=== PATIENT | male | born 1960 | race Caucasian/White ===

== ENCOUNTER 2019-10-15 08:58 | Inpatient (IN) | payer MEDICAID, SELFPAY ==
[2019-10-15] VITALS (53 sets, daily range): BP systolic 66–201; BP diastolic 44–138; PULSE 88–144; RESP 14–37; TEMP 36.4–37.3; O2SAT 60–97; BMI 18.8
--- NOTE | 2019-10-15 09:08 | XR_ITS ---
WS: [id number] CHEST XRAY TECHNIQUE: Portable chest. CLINICAL INFORMATION: cough COMPARISON: September 03, 2019 FINDINGS: Heart: Cardiomegaly. Lungs: Advanced chronic emphysematous changes with interstitial thickening in both lungs. Small left pleural effusion with patchy infiltrates in the left lower lobe with some consolidation and air bronc hograms. Recommend correlation for pneumonia. Trace right pleural fluid. Bones: Normal visualized bony structures. XR/XR chest 1V portable [id number] IMPRESSION: 1. Advanced chronic emphysematous changes with interstitial thickening similar to previous. 2. Small left pleural effusion with patchy infiltrates in the left lower lobe with some consolidation and air bronchograms. Recommend correlation for pneumon ia. 3. Trace right pleural fluid.
--- NOTE | 2019-10-15 09:11 | ECG_ITS ---
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 Measurements Intervals [place] Rate: 120 P: 72 DE: 136 QRS: 96 QRSD: 104 T: 35 QT: 302 QTc: 427 Interpretive Statements SINUS TACHYCARDIA WITH OCCASIONAL SUPRAVENTRICULAR PREMATURE COMPLEXES BORDERLINE RIGHT AXIS DEVIATION [QRS AXIS > 90] NONSPECIFIC ST & T-WAVE ABNORMALITY ABNORMAL RHYTHM ECG Compared to ECG 09/07/2016 12:12:24 T-wave abnormality now present Sinus rhythm no longer present Electronically Signed On 10-15-2019 16:40:16 CDT by Benjie Bonilla M.D. [id number]
--- NOTE | 2019-10-15 09:23 | ED_ITS ---
HPI - SOB/Dyspnea General: Chief Complaint: Shortness of Breath/Dyspnea Stated Complaint: SOB Time Seen by Provider: 10/15/19 08:59 Source: patient Mode of arrival: ambulatory Limitations: no limitations History of Present Illness: HPI Narrative: 59-year-old male who states he has been severely short of breath over the last day. Patient is in distress here and is hypoxic. He is tachypnea. Patient is a very frail-appearing. He has a history of throat cancer. He denies any chest pain or fever. MD elicited complaint: shortness of breath Associated symptoms: Deny abdominal pain, chest pain, fever(s), nausea or vomiting Review of Systems Const: Denies: fever(s), chills, body aches or change in appetite Eyes: Denies: blurry vision or eye discomfort ENMT: Denies: throat pain or dental pain Card: Denies: chest pain Resp: Reports: dyspnea and productive cough GI: Denies: abdominal pain, nausea, vomiting or diarrhea : Denies: dysuria Musc: Denies: neck pain or back pain Skin/Breast: Denies: rash Neuro: Denies: headache(s) Psych: Denies: depression Rafita/Lymph: Denies: easy bruising All/Imm: Denies: urticaria Physical Exam Const: COMMON NORMALS: patient oriented x3 GENERAL APPEARANCE: in distress and ill appearing HENMT: COMMON NORMALS: normocephalic and atraumatic HEAD & SCALP: normocephalic and atraumatic Eye: COMMON NORMALS: Equal, round and reactive pupils present and EOMs intact bilaterally PUPIL: Yes Equal, round and reactive pupils present Neck/C-Spine: COMMON NORMALS: full ROM and supple Chest: COMMONS NORMALS: normal inspection of the chest and normal palpation of entire chest wall Resp: EFFORT & INSPECTION: Yes tachypneic and Yes respiratory distress AUSCULTATION: rales and rhonchi Cardio: COMMON NORMALS: regular rhythm and No murmurs present (Cardio) RATE: tachycardic RHYTHM: regular rhythm GI: COMMON NORMALS: Normal to inspection, nondistended, normoactive bowel sounds present, Soft to palpation, non-tender and no masses PALPATION: Yes Soft to palpation Extremity: COMMON NORMALS: normal to inspection and full ROM Neuro: COMMON NORMALS: patient oriented x3, moves all extremities and no focal motor deficits Psych: COMMON NORMALS: mental status grossly normal, Normal thought process present and cooperative THOUGHT PROCESS: Normal thought process present Skin: COMMON NORMALS: no rashes or lesions noted and no wounds GENERAL SKIN EXAM: no rashes or lesions noted Procedures Intubation sedative: Etomidate Mg Given: 20 paralytic: Succinylcholine Mg Given: 150 Laryngoscope: Ivy ET Tube Size: 8 Tube Secured Depth (cm): 25 Tube Secured Location: teeth Tube Placement Confirmation: visualized tube passing through cords, equal breath sounds bilaterally and no breath sounds over epigastrium Patient Tolerated Procedure: well Course Vital Signs: Vital signs: Vital Signs Temperature 98.3 F 10/15/19 09:01 Pulse Rate 118 H 10/15/19 09:40 Respiratory Rate 24 H 10/15/19 09:01 Blood Pressure 137/101 10/15/19 09:01 Pulse Oximetry 97 10/15/19 09:40 MDM - SOB/Dyspnea MDM Narrative: Medical decision making narrative: Patient presents here with respiratory distress with pneumonia. While patient was in CT distress became worse and I did intubate patient over and CT. Patient's blood pressures here been stable. I start IV antibiotics. Patient's been seen by Dr. lopez who is admitting to the ICU. Lab Data: Labs: Lab Results 10/15/19 10/15/19 10/15/19 Range/Units 09:35 09:35 09:35 WBC 12.1 H (4.0-10.0) 10^3/ uL RBC 4.63 (4.1-5.3) 10^6/u L Hgb 14.7 (11.7-16.6) g/dL Hct 47.4 (42.0-52.0) % MCV 102.4 H (80-94) fL MCH 31.7 (28.0-34.0) pg MCHC 31.0 (30.0-36.0) g/dL RDW 14.7 (12.1-15.1) % Plt Count 323 (130-400) 10^3/c mm MPV 10.0 (7.4-10.4) fL Neut % (Auto) 79.1 % Lymph % (Auto) 11.9 % [place] % (Auto) 8.3 % Eos % (Auto) 0.1 % Baso % (Auto) 0.2 % Neut # (Auto) 9.59 H (1.8-7.7) 10^3/u L Lymph # (Auto) 1.4 (0.8-4.8) 10^3/u L [place] # (Auto) 1.0 H (0.2-0.9) 10^3/u L Eos # (Auto) 0.0 (0.0-0.8) 10^3/u L Baso # (Auto) 0.0 (0.0-0.1) 10^3/u L Nucleated RBC % (a uto) 0 % Nucleated RBCs # 0.0 /100WBC PT 14.20 H (10.5-13.3) SECO NDS INR 1.06 (0.8-1.2) Specimen Type Arterial Sample Site Brachial, right ABG pH 7.44 (7.35-7.45) ABG pCO2 44.9 (35-45) mmHg ABG pO2 61.8 L (80.0-100.0) mmH g ABG HCO3 30.2 H (22-26) mmol/L ABG Base Excess 5.1 H (-2.0-2.0) mmol/ L Prosper Test N/a Hematocrit 44.7 (42-52) % O2 Delivery Device Bipap FiO2 40.0 % Furnace Unloader ID gd Sodium (136-145) mmol/L Potassium (3.5-5.1) mmol/L Chloride (98-107) mmol/L Carbon Dioxide (22-29) mmol/L Anion Gap (5-19) BUN (8-23) mg/dL Creatinine (0.7-1.2) mg/dL GFR Calculation (90-130) mL/min Glucose (65-115) mg/dL Calculated Osmolal ity (285-295) mOsm/k g Calcium (8.5-10.5) mg/dL Total Bilirubin (0.15-1.2) mg/dL AST (0-40) U/L ALT (0-41) U/L Alkaline Phosphata se (40-130) IU/L Troponin T Baselin e (0-15) ng/L NT-Pro-B Natriuret Pep (0-125) pg/mL Total Protein (6.6-8.7) g/dL Albumin (3.5-5.2) g/dL Globulin (1.3-4.6) g/dL 10/15/19 10/15/19 Range/Units 09:35 09:35 WBC (4.0-10.0) 10^3/ uL RBC (4.1-5.3) 10^6/u L Hgb (11.7-16.6) g/dL Hct (42.0-52.0) % MCV (80-94) fL MCH (28.0-34.0) pg MCHC (30.0-36.0) g/dL RDW (12.1-15.1) % Plt Count (130-400) 10^3/c mm MPV (7.4-10.4) fL Neut % (Auto) % Lymph % (Auto) % [place] % (Auto) % Eos % (Auto) % Baso % (Auto) % Neut # (Auto) (1.8-7.7) 10^3/u L Lymph # (Auto) (0.8-4.8) 10^3/u L [place] # (Auto) (0.2-0.9) 10^3/u L Eos # (Auto) (0.0-0.8) 10^3/u L Baso # (Auto) (0.0-0.1) 10^3/u L Nucleated RBC % (a uto) % Nucleated RBCs # /100WBC PT (10.5-13.3) SECO NDS INR (0.8-1.2) Specimen Type Sample Site ABG pH (7.35-7.45) ABG pCO2 (35-45) mmHg ABG pO2 (80.0-100.0) mmH g ABG HCO3 (22-26) mmol/L ABG Base Excess (-2.0-2.0) mmol/ L Prosper Test Hematocrit (42-52) % O2 Delivery Device FiO2 % Furnace Unloader ID Sodium 136 (136-145) mmol/L Potassium 4.8 (3.5-5.1) mmol/L Chloride 97 L (98-107) mmol/L Carbon Dioxide 28 (22-29) mmol/L Anion Gap 15.8 (5-19) BUN 29 H (8-23) mg/dL Creatinine 0.5 L (0.7-1.2) mg/dL GFR Calculation 169.6 H (90-130) mL/min Glucose 111 (65-115) mg/dL Calculated Osmolal ity 280 L (285-295) mOsm/k g Calcium 9.9 (8.5-10.5) mg/dL Total Bilirubin 0.3 (0.15-1.2) mg/dL AST 33 (0-40) U/L ALT 52 H (0-41) U/L Alkaline Phosphata se 176 H (40-130) IU/L Troponin T Baselin e 16 H (0-15) ng/L NT-Pro-B Natriuret Pep 845 H (0-125) pg/mL Total Protein 8.0 (6.6-8.7) g/dL Albumin 2.9 L (3.5-5.2) g/dL Globulin 5.1 H (1.3-4.6) g/dL Imaging Data^: CXR: Radiologist's impression: [place] [address] XRay Report Signed Patient: Charles Garay Unit #: [id number] : 1960 Age/Sex: 59 / M ADM Date: 10/15/19 Loc: ER Room/Bed: Attending Dr: Ordering Provider/Ordering MD: Brooks Madrigal MD Date of Service: 10/15/19 Procedure(s): XR chest 1V portable [id number] Accession Number(s): [id number] Report Number: [id number] WS: [id number] CHEST XRAY TECHNIQUE: Portable chest. CLINICAL INFORMATION: cough COMPARISON: September 03, 2019 FINDINGS: Heart: Cardiomegaly. Lungs: Advanced chronic emphysematous changes with interstitial thickening in both lungs. Small left pleural effusion with patchy infiltrates in the left lower lobe with some consolidation and air bronchograms. Recommend correlation for pneumonia. Trace right pleural fluid. Bones: Normal visualized bony structures. XR/XR chest 1V portable [id number] IMPRESSION: 1. Advanced chronic emphysematous changes with interstitial thickening similar to previous. 2. Small left pleural effusion with patchy infiltrates in the left lower lobe with some consolidation and air bronchograms. Recommend correlation for pneumonia. 3. Trace right pleural fluid. EKG Data^: EKG 1: Attestation: I personally reviewed and interpreted this EKG as follows: EKG Interpretation Date: 10/15/19 EKG interpretation time: 09:57 Interpretation: sinus tach hr [address] and t wave abnormalities qrs 104 qtc 373 Critical Care Time Critical Care Time: Critical Care Time: Yes Total Critical Care Time: 36 Attestation: This case had a high probability of a clinically significant, sudden, or life threatening deterioration of this patient's condition which required my full and direct attention, intervention and personal management. Discharge Plan Discharge Patient Disposition: Admitted As Inpatient Admit Provider: Padmini Schwartz Clinical Impression: Community acquired pneumonia Condition: Stable Coding Level of Care Code ED Regional Airline Pilot for Chg Fwd Exam Comprehensive
[2019-10-15 09:43] LABS: Basophils % 0.2 %; Eosinophils % 0.1 %; Hematocrit 47.4 % (42.0-52.0); Hemoglobin 14.7 g/dL (11.7-16.6); Lymphocytes # 1.4 10^3/uL (0.8-4.8); Lymphocytes % 11.9 %; Mean Corpuscular Hemoglobin 31.7 pg (28.0-34.0); Mean Corpuscular Volume 102.4 fL (80-94); Monocytes % 8.3 %; Neutrophils # 9.59 10^3/uL (1.8-7.7); Neutrophils % 79.1 %; Nucleated Red Blood Cells % 0 %; Platelet Count 323 10^3/cmm (130-400); Red Blood Count 4.63 10^6/uL (4.1-5.3); Red Cell Distribution Width 14.7 % (12.1-15.1); White Blood Count 12.1 10^3/uL (4.0-10.0)
[2019-10-15 09:51] LABS: INR 1.06 (0.8-1.2)
[2019-10-15 09:54] LABS: ABG PCO2 44.9 mmHg (35-45); ABG PH Result 7.44 (7.35-7.45); Arterial Blood Gas Hematocrit 44.7 % (42-52); Base Excess ABG 5.1 mmol/L (-2.0-2.0); Blood Gas Sample Site Brachial, right; Blood Gas Sample Type Arterial; HCO3 ABG 30.2 mmol/L (22-26); Oxygen Device BIPAP; PO2 ABG 61.8 mmHg (80.0-100.0)
--- NOTE | 2019-10-15 09:57 | PC.NURSE ---
Patient was originally placed into room 15. Severe respiratory distress observed SP02_60% with a good waveform. A NRB 15-lpm applied. The pulse ox increased to 93%. Approximately 40 mL of yellow/milky substance was coughed up. The patient believes this came from his lungs. He was moved to room 11. RT called to bedside for ABG and Bi-Pap. Portable chest performed.
[2019-10-15 10:16] LABS: Alanine Aminotransferase 52 U/L (0-41); Albumin Level 2.9 g/dL (3.5-5.2); Alkaline Phosphatase 176 IU/L (40-130); Anion Gap 15.8 (5-19); Aspartate Amino Transferase 33 U/L (0-40); Blood Urea Nitrogen 29 mg/dL (8-23); Calcium 9.9 mg/dL (8.5-10.5); Carbon Dioxide 28 mmol/L (22-29); Chloride 97 mmol/L (98-107); Globulin 5.1 g/dL (1.3-4.6); Glomerular Filtration Rate 169.6 mL/min (90-130); Glucose 111 mg/dL (65-115); NT Pro B Type Natriuretic Pept 845 pg/mL (0-125); Osmolality Calculated 280 mOsm/kg (285-295); Potassium 4.8 mmol/L (3.5-5.1); Sodium 136 mmol/L (136-145); Total Bilirubin 0.3 mg/dL (0.15-1.2)
[2019-10-15 10:32] LABS: Troponin(5th) Baseline 16 ng/L (0-15)
--- NOTE | 2019-10-15 10:45 | CT_ITS ---
WS: [id number] CTA OF THE CHEST WITH PULMONARY EMBOLISM PROTOCOL TECHNIQUE: High-resolution contrast enhanced CTA of the chest with coronal and sagittal reformatted i mages with pulmonary embolism protocol. MIP images are also reviewed. CLINICAL INFORMATION: pe COMPARISON: None. DLP: 545.[address] scans at [facility] use at least one of these dose optimization techniques: automat ed exposure control; mA and/or kV adjustment per patient size (includes targeted exams where dose is matched to clinical indication); or iterative reconstruction. FINDINGS: Proximal main pulmonary arteries are normal. Segmental and subsegmental pulmonary arteries are normal . No evidence of pulmonary embolus. Slightly ectatic ascending thoracic aorta measuring 4 CM. Thoracic aorta otherwise unremarkable. Prox imal main pulmonary arteries are normal. Small left pleural effusion with consolidation left lower lo be with air bronchograms. Fibrosis in the left greater than right lung apices. Patchy opacities throu ghout both lungs with tree-in-bud infiltrates. Right upper lobe opacity measuring 3.1 cm likely infec tious or inflammatory. 5 mm Noncalcified nodule superior segment right lower lobe. Endotracheal tube with tip above the star CT/CT angio chest PE protcl [id number] IMPRESSION: 1. No evidence of pulmonary embolus. 2. Consolidation left lower lobe consistent with pneumonia. Patchy infiltrates in the left lower lobe and lingula. 3. Tree-in-bud infiltrates throughout both lungs can be seen with infectious o r inflammatory etiologies. 4. Patchy infiltrates in the right upper lobe along the fissure likely pneumon ia. 5. Opacities in both lung apices likely fibrosis. 6. Endotracheal tube above the star. 7. Slightly ectatic ascending thoracic aorta measuring 4.0 cm.
[2019-10-15] MEDS: vancomycin 1,000 MG in sodium chloride 0.9% 250 ML 250 MG IV (11:26)
[2019-10-15] MEDS: FUROsemide 10 mg/mL SDV 4mL 40 MG IVP (11:26)
[2019-10-15] MEDS: piperacillin-tazobactam 3.375 GM in sodium chloride 0.9% (plus) 50 ML IV ×2 (11:27→15:09)
--- NOTE | 2019-10-15 11:42 | PM.HP ---
Providers/Chief Complaint Admitting Physician: Padmini Schwartz DO Primary Care Provider: Martin Mcfarland DO Chief Complaint: SOB History of Present Illness Charles Garay is a 59 year old male with a past medical history of tonsillar cancer and COPD that presented to the emergency department today for increasing shortness of breath. Patient reported that his symptoms have been progressive over the past several weeks. He stated that he has had symptoms for over 2 to 3 weeks. He reports increasing shortness of breath, cough that is productive and increasing oxygen requirements. Patient denies any fevers or chills. He reports that he has had recent hospitalization at [facility] in [facility] approximately 2 to 3 months ago. He stated that he was diagnosed with a tension pneumothorax at that time and had a chest tube placed on his right chest. He stated that he is typically on 3 L of oxygen by nasal cannula at baseline but has increased his oxygen requirements up to 5 L at times. He denies having any CPAP or BiPAP at home. Patient reports that he has not seen his primary care provider in several weeks. He denies any exposure to anyone with COVID-19, denies any exposure to anyone that is under investigation for COVID-19. Patient reports that he has a PEG tube and continues with tube feedings, is n.p.o., does have difficulty with clearing his secretions at times. Reports that he feels dehydrated and has had decreased urine output. Patient does report over the past couple of days he has had bright red blood per rectum as well as dark and melanotic stools. He also reports weight loss over the past 1 year of approximately 10 to 12 pounds. Patient was seen and evaluated in the emergency department noted to have concern for acute on chronic respiratory failure placed on BiPAP and admitted to the ICU. Review of Systems Const: Denies: fever(s) or chills Eyes: Denies: change in vision ENMT: Denies: nasal congestion Card: Denies: chest pain, palpitations or edema Resp: Reports: dyspnea and productive cough; Denies: hemoptysis GI: Reports: hematochezia and melena; Denies: abdominal pain, nausea, vomiting, diarrhea or constipation : Denies: dysuria or hematuria Musc: Denies: extremity pain or muscle cramps Skin/Breast: Denies: rash or new lesions Neuro: Denies: headache(s) or dizziness Psych: Denies: anxiety or depression Endo: Denies: polyuria or hot flashes Rafita/Lymph: Denies: easy bruising or easy bleeding Medications/Allergies Home Medications Medication Instructions Recorded Confirmed Last Taken Type acetaminophen-codeine 1 tab PO TID PRN 10/15/19 10/15/19 Unknown History buspirone 10 mg PO TID PRN 10/15/19 10/15/19 10/14/19 History Allergies Allergy/AdvReac Type Severity Reaction Status Date / Time No Known Allergies Allergy Verified 10/15/19 09:22 PFSH Acute PFSH: Medical History (Updated 10/15/19 @ 12:16 by Padmini Schwartz DO) Anxiety Aspiration, chronic pulmonary COPD (chronic obstructive pulmonary disease) History of malignant neoplasm of tonsil History of osteomyelitis Osteomyelitis of the mandible, treated in 2017 Uses feeding tube Surgical History (Updated 10/15/19 @ 12:12 by Padmini Schwartz DO) History of tonsillectomy Cancer resection with tonsillar cancer Social History (Updated 10/15/19 @ 12:12 by Padmini Schwartz DO) Smoking and tobacco status: former smoker Alcohol intake: never Substance/Drug Use: never Vitals/I&O/Wt Last Vital Signs Temp 98.3 F 10/15/19 09:01 Pulse 118 H 10/15/19 09:40 Resp 24 H 10/15/19 09:01 BP 137/101 10/15/19 09:01 Pulse Ox 97 10/15/19 09:40 Weight last 48 hrs Weight 53.07 kg Physical Exam Const: COMMON NORMALS: patient oriented x3 and alert GENERAL APPEARANCE: cooperative, ill appearing and frail appearing NUTRITIONAL APPEARANCE: cachectic and thin ORIENTATION/CONSCIOUSNESS: Yes awake, Yes oriented to person, Yes oriented to place and Yes oriented to time HENMT: COMMON NORMALS: normocephalic and atraumatic HEAD & SCALP: normocephalic and atraumatic OTHER: Temporal wasting, muscle atrophy in the masseters bilaterally due to radiation treatment in the past Eye: COMMON NORMALS: Equal, round and reactive pupils present PUPIL: Yes Equal, round and reactive pupils present Neck/C-Spine: COMMON NORMALS: supple GENERAL: Yes normal visual inspection Resp: OTHER: BiPAP in place at time of exam, tachypneic, moderate accessory muscle use, coarse breath sounds bilaterally Cardio: RATE: tachycardic RHYTHM: regular rhythm GI: COMMON NORMALS: Soft to palpation and non-tender INSPECTION: No abdominal distension AUSCULTATION: Yes normoactive bowel sounds PALPATION: Yes Soft to palpation OTHER: PEG tube in place Extremity: COMMON NORMALS: no clubbing, cyanosis or edema and no calf tenderness Neuro: COMMON NORMALS: patient oriented x3, CN's II-XII intact bilaterally, moves all extremities and no focal motor deficits SENSORIUM/ORIENTATION: Yes alert, Yes oriented to person, Yes oriented to place and Yes oriented to time SPEECH: speech normal Psych: COMMON NORMALS: mental status grossly normal and cooperative Skin: COMMON NORMALS: no rashes or lesions noted GENERAL SKIN EXAM: no rashes or lesions noted Data : 10/15/19 09:35 10/15/19 09:35 Micro: Microbiology 10/15/19 09:30 Blood Culture - Preliminary Blood SPECIMEN COLLECTED 10/15/19 09:35 Blood Culture - Preliminary Blood SPECIMEN COLLECTED CXR: I personally reviewed and interpreted this imaging study as follows: Radiologist's impression: Heart: Cardiomegaly. Lungs: Advanced chronic emphysematous changes with interstitial thickening in both lungs. Small left pleural effusion with patchy infiltrates in the left lower lobe with some consolidation and air bronchograms. Recommend correlation for pneumonia. Trace right pleural fluid. Bones: Normal visualized bony structures. XR/XR chest 1V portable [id number] IMPRESSION: 1. Advanced chronic emphysematous changes with interstitial thickening similar to previous. 2. Small left pleural effusion with patchy infiltrates in the left lower lobe with some consolidation and air bronchograms. Recommend correlation for pneumonia. 3. Trace right pleural fluid. A&P Assessment and plan (1) Acute on chronic respiratory failure: Patient on BiPAP at time of my exam in the emergency department Typically on 3 to 5 L of oxygen by nasal cannula at baseline Reports acute on chronic worsening over the past 2 to 4 weeks Concern for aspiration pneumonitis and pneumonia Patient also being tested for COVID-19, remain on contact and isolation precautions Respiratory therapy to assess and treat, oxygen per protocol We will consult Dr. Buckley, critical care pulmonology Started on broad-spectrum antibiotics with linezolid and Zosyn, blood culture, sputum culture ordered and pending Patient also tachycardic and hypoxic with prior malignancy, CTA of the chest ordered and pending Aspiration precautions Status: Acute (2) Aspiration pneumonia: Continue with broad-spectrum antibiotic coverage with linezolid and Zosyn Oxygen per protocol, respiratory therapy to assess and treat Transfer to ICU Status: Acute (3) Aspiration, chronic pulmonary: Chronic aspiration with a history of tonsillar cancer, resection, status post radiation treatment currently in remission Continue with broad-spectrum antibiotics as noted above Status: Acute (4) COPD (chronic obstructive pulmonary disease): On BiPAP at time of my exam Patient is on 3 to 5 L of oxygen by nasal cannula at baseline Admit to ICU Continue with broad-spectrum antibiotics and Solu-Medrol 60 mg every 6 hours Status: Acute (5) Uses feeding tube: Patient is on tube feeds at home every 6 hours N.p.o. due to Status: Acute (6) Anxiety: On BuSpar Status: Acute Additional A&P Information Initial concern for fluid overload and congestive heart failure exacerbation, unknown specificity while in the ED given IV Lasix 40?1, will check echocardiogram for further evaluation and treatment Patient is thin and cachectic appearing with weight loss over the past 1 year and prior malignancy, reported to be currently in remission but reports that he has not followed with any oncologist recently Reported hematochezia and melena: Patient reports this is progressed over the past couple of days, denies any history of GI bleed, hemoglobin is stable at this time we will continue close monitoring with serial H&H, will hold on DVT prophylaxis at this time and only give SCDs, if no bleeding over the next 12 to 24 hours we will start DVT prophylaxis with Lovenox DVT prophylaxis: SCDs, no pharmacologic prophylaxis as noted above at this time Diet: N.p.o. CODE STATUS: Full code, this was discussed with patient on date of admission, he was uncertain about intubation but then agreed. Attestations Medical Necessity Statement*: Patient requires critical care hospitalization and close ICU monitoring due to acute on chronic respiratory failure with aspiration pneumonia, expected stay greater than 2 midnights Coding Level of Care Code Acute Personnel Training Officer for Steffi Velasco Diagnoses Acute on chronic respiratory failure J96.20 Aspiration pneumonia J69.0 Aspiration, chronic pulmonary T17.908A COPD (chronic obstructive pulmonary disease) J44.9 Uses feeding tube Z97.8 Anxiety F41.9
--- NOTE | 2019-10-15 12:00 | PC.NURSE ---
Pt urine collected at 1150 and sent to lab. Pt COVID swabbed at 1151, specimen labeled and sent to lab. Pt immediately began vomiting green contents. PT care staff notified and at bedside.
[2019-10-15] MEDS: succinylcholine 20 mg/mL SDV 10mL 150 MG IVP (12:02)
--- NOTE | 2019-10-15 12:08 | ECG_ITS ---
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 Measurements Intervals [place] Rate: 139 P: 65 KS: 125 QRS: 94 QRSD: 110 T: 15 QT: 268 QTc: 409 Interpretive Statements SINUS TACHYCARDIA WITH OCCASIONAL SUPRAVENTRICULAR PREMATURE COMPLEXES INCOMPLETE RIGHT BUNDLE BRANCH BLOCK [90+ ms QRS DURATION, TERMINAL R IN V1/V2, 40+ ms S IN I/aVL/V4/V5/V6] Compared to ECG 10/15/2019 09:57:06 Incomplete right bundle-branch block now present T-wave abnormality no longer present Electronically Signed On 10-15-2019 16:43:23 CDT by Benjie Bonilla M.D. [id number]
[2019-10-15] MEDS: vecuronium 10 mg SDV IVP (12:10)
[2019-10-15 12:21] LABS: Troponin 5 2HR 18.11 ng/L (0-15); Troponin 5 2HR Delta 2.11 ABS# (0-10)
[2019-10-15] MEDS: iohexol 350 mg/mL 100 mL Btl IV (12:23)
[2019-10-15] MEDS: pantoprazole 40 mg SDV IVP (13:03)
[2019-10-15] MEDS: sodium chloride 0.9% 1,000 ML 30 ML IV ×2 (13:03→21:49)
[2019-10-15] MEDS: enoxaparin 40 mg/0.4 mL Syringe SUBCUT (13:03)
[2019-10-15] MEDS: labetalol 5 mg/mL SDV 20mL 10 MG IVP (13:22)
[2019-10-15] MEDS: linezolid premix 600 MG/300 ML PREMIX 300 MG IV (13:22)
[2019-10-15 13:24] LABS: Protein Urine Neg (Negative); Specific Gravity, Urine 1.005 (1.005-1.030); Urine Appearance Clear (CLEAR); Urine Color Yellow (Yellow); pH Urine 5 (5-7)
[2019-10-15 13:25] LABS: Add Urine Microscopic? YES; Bilirubin Urine Neg (NEGATIVE); Blood Urine 2+ (Negative); Glucose Urine UA Norm (Normal); Ketones Urine Negative (Negative); Leukocyte Esterase Urine Negative (Negative); Nitrate Urine Negative (Negative); Urobilinogen Urine Neg (Negative)
[2019-10-15] MEDS: propofol 1,000 MG/100 ML INJ 12.6 MG (13:25)
[2019-10-15 13:39] LABS: Amorphous Sediment Urine TRACE; Bacteria Urine 1+; Squamous Epithelial Cell Urine 0-4 (0-5); WBC Urine 0-4 /hpf (0-5)
[2019-10-15 14:21] LABS: Glucose Point of Care 172 mg/dL (70-110)
[2019-10-15] MEDS: sodium chloride 0.9% 500 ML 999 ML IV (14:35)
[2019-10-15 14:38] LABS: Procalcitonin 0.34 ng/mL (0-0.5); Thyroid Stimulating Hormone 1.96 uIU/mL (0.27-4.20)
--- NOTE | 2019-10-15 14:43 | PC.NURSE ---
Addendum entered by David Petersen, LUIZ 10/15/19 14:46: Time: 1210 Original Note: The patient became lethargic while moving the patient to CT. His condition worsened until he had difficulty staying awake. EMD notified. RSI performed in CT. Suction and secondary airway equipment at bedside. ICU was contacted and patient update was given.
[2019-10-15] MEDS: LORazepam 2 mg/mL INJ 1 mL 1 MG IVP (15:09)
[2019-10-15] MEDS: ipratropium-albuterol 3 mL Neb INHALATION ×2 (15:12→22:24)
--- NOTE | 2019-10-15 16:08 | ECG_ITS ---
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 Measurements Intervals [place] Rate: 103 P: 71 WA: 128 QRS: 86 QRSD: 105 T: 64 QT: 353 QTc: 463 Interpretive Statements SINUS TACHYCARDIA WITH FREQUENT VENTRICULAR PREMATURE COMPLEXES WITH OCCASIONAL SUPRAVENTRICULAR PREMATURE COMPLEXES POSSIBLE LEFT ATRIAL ENLARGEMENT [-0.1mV P WAVE IN V1/V2] ST ELEVATION, PROBABLY EARLY REPOLARIZATION [ST ELEVATION WITH NORMALLY INFLECTED T WAVE] MODERATE ST DEPRESSION [0.05+ mV ST DEPRESSION] Compared to ECG 10/15/2019 12:56:24 Ventricular premature complex(es) now present ST (T wave) deviation now present Early repolarization now present Incomplete right bundle-branch block no longer present Electronically Signed On 10-16-2019 19:18:15 CDT by Sabino Martines M.D. [id number]
[2019-10-15 16:21] LABS: Lactic Sepsis W/Reflex 1.1 mmol/L (0.5-2.2)
[2019-10-15 16:30] LABS: Troponin 5 6HR 27.63 ng/L (0-15); Troponin 5 6HR Delta 11.63 ng/L (0-12)
--- NOTE | 2019-10-15 16:51 | XR_ITS ---
WS: [id number] CHEST XRAY TECHNIQUE: Portable chest. CLINICAL INFORMATION: ET tube placement verification COMPARISON: October 15, 2019 FINDINGS: Enteric tube with tip in the proximal stomach. Endotracheal tube with tip above the star measuring 5.2 CM. Heart: Cardiomegaly. Lungs: Moderate chronic emphysematous changes. Interstitial thickening in both lungs. Small left pleu ral effusion with patchy infiltrates in the left lower lobe. Bones: Normal visualized bony structures. XR/XR chest 1V portable [id number] IMPRESSION: 1. Endotracheal tube with tip 5.2 cm above the star. 2. Enteric tube with tip in the proximal stomach and sidehole at the GE juncti on. 3. Small left pleural effusion with left lower lobe patchy infiltrates unchang ed
--- NOTE | 2019-10-15 18:11 | XR_ITS ---
WS: [id number] CHEST XRAY TECHNIQUE: Portable chest. CLINICAL INFORMATION: ET Tube Placement Verification COMPARISON: October 15, 2019 FINDINGS: Endotracheal tube with tip 2.6 cm above the star. Enteric tube with tip below the diaphra gm. Heart: Normal cardiac silhouette. Lungs: Chronic emphysematous changes with interstitial thickening. Patchy infiltrates in the left low er lobe. Bones: Normal visualized bony structures. XR/XR chest 1V portable [id number] IMPRESSION: 1. Endotracheal tube with tip 2.6 cm above the star. 2. Enteric tube with tip below the diaphragm. 3. Stable left lower lobe infiltrates.
--- NOTE | 2019-10-15 18:15 | PM.CONSULT ---
Providers/Reason For Consult Consulting Physican/Specialty*: Pulmonary critical care medicine Reason for Consult*: Acute on chronic hypoxic respiratory failure requiring intubation Attending Physician: Padmini Schwartz DO Primary Care Provider: Martin Mcfarland DO History of Present Illness History of Present Illness Charles Garay is a 59 year old male with a history of tonsillar cancer. The patient has chronic hypoxic respiratory failure at baseline and is a 2 to 3 L of oxygen. Over the past 2 to 3 weeks the patient had been having worsening shortness of breath and oxygen requirement. The patient has known history of aspiration pneumonia and has a PEG tube in place. The history was obtained from the chart review. The patient presented to the hospital with worsening respiratory failure and was tried on noninvasive positive pressure ventilation. When the patient went for a CT angiogram of his chest the patient had an episode of vomiting followed by aspiration and went into florid respiratory failure requiring intubation and mechanical ventilation. The patient also has a history of right-sided pneumothorax requiring chest tube placement. I have not reviewed the record of this from the hospitalization in [place]. The patient was seen and examined in ICU today. The patient is intubated and sedated with propofol. The patient is on volume control mechanical ventilation however the patient is breathing over the vent with a tidal volume in the 700s. His saturation is 100% on a FiO2 of 100% The CT angiogram did not reveal any pulmonary embolism. There is consolidation in the left lower lobe and patchy infiltrate. The patient has diffuse tree-in-bud appearance consistent with bronchiolitis likely secondary to aspiration. The patient also has bilateral upper lobe infiltrates. The EKG revealed P mitrale, right bundle branch block and sinus tachycardia. The patient has mild leukocytosis, elevated MCV, neutrophilia. Elevated BUN. No significant electrolyte abnormalities. No significant troponin elevation. Review of Systems Narrative: Unable to obtain Meds/Allergies Home Medications and Allergies Home Medications Medication Instructions Recorded Confirmed Last Taken Type acetaminophen-codeine 1 tab PO TID PRN 10/15/19 10/15/19 Unknown History buspirone 10 mg PO TID PRN 10/15/19 10/15/19 10/14/19 History Allergies Allergy/AdvReac Type Severity Reaction Status Date / Time No Known Allergies Allergy Verified 10/15/19 09:22 Current Medications Current Medications Generic Name Dose Route Start Last Admin Trade Name Freq PRN Reason Stop Dose Admin Albuterol/Ipratropium 3 ml 10/15/19 16:00 10/15/19 15:12 Duoneb INHALATION 3 ml Q4H.RESPIRATORY CHRISTIANO Administration Enoxaparin Sodium 40 mg 10/15/19 13:30 10/15/19 13:03 Lovenox SUBCUT 40 mg Q24H CHRISTIANO Administration Linezolid 600 mg in 300 mls @ 300 mls/hr 10/15/19 13:30 10/15/19 13:22 Zyvox Premix IV 300 mls/hr Q12H CHRISTIANO Administration Protocol Sodium Chloride 1,000 mls @ 50 mls/hr 10/15/19 12:44 10/15/19 13:03 Sodium Chloride 0.9% IV 30 mls/hr .Q20H CHRISTIANO Administration Piperacillin Sod/Tazobactam 50 mls @ 12.5 mls/hr 10/15/19 16:30 10/15/19 15:09 Sod 3.375 gm/ Sodium Chloride IV 12.5 mls/hr Q8H CHRISTIANO Administration Protocol As Directed Lorazepam 1 mg 10/15/19 14:58 10/15/19 15:09 Ativan IVP 1 mg Q2H PRN Administration ANXIETY Methylprednisolone Sodium Succinate 60 mg 10/15/19 16:00 10/15/19 15:09 Solu-Medrol IVP 60 mg Q6H CHRISTIANO Administration Pantoprazole Sodium 40 mg 10/15/19 12:44 10/15/19 13:03 Protonix IVP 40 mg DAILY CHRISTIANO Administration PFSH Acute PFSH: Medical History Anxiety Aspiration, chronic pulmonary COPD (chronic obstructive pulmonary disease) History of malignant neoplasm of tonsil History of osteomyelitis Osteomyelitis of the mandible, treated in 2017 Uses feeding tube Surgical History History of tonsillectomy Cancer resection with tonsillar cancer Social History Smoking and tobacco status: former smoker Alcohol intake: never Substance/Drug Use: never Vitals/I&O/Wt Last Vital Signs Temp 99.1 F 10/15/19 13:00 Pulse 101 H 10/15/19 18:00 Resp 20 H 10/15/19 17:40 BP 104/63 10/15/19 18:00 Pulse Ox 96 10/15/19 18:00 Weight last 48 hrs Weight 117 lb Physical Exam Narrative: EXAM NARRATIVE: General: The patient is intubated and sedated HEENT: Significant distortion of the mandible and lower jaw likely secondary to surgical intervention for the tonsillar cancer in the past Respiratory: Auscultation: Bilateral diffuse crackles, no wheezing or rhonchi Cardiovascular: Regular rate and rhythm, S1-S2 present, no murmur, no peripheral edema. Abdomen: Soft, positive bowel sounds, PEG tube in place Skin: No rash Neuro: Patient is sedated moves spontaneously Data Micro: Micro: Microbiology 10/15/19 09:30 Blood Culture - Pr eliminary Blood SPECIMEN [facility] 10/15/19 09:35 Blood Culture - Pr eliminary Blood SPECIMEN [facility] Other Data: Other data: I have reviewed the laboratory, microbiologic and radiologic data. Please see the HPI for detail description. A&P Assessment and plan (1) Acute on chronic respiratory failure: The patient has a history of chronic hypoxic respiratory failure. This is likely secondary to chronic microaspiration as well as COPD. The patient had sever worsening aspiration pneumonia followed by an event of aspiration which likely caused aspiration pneumonitis on top of the pneumonia that the patient already had resulting in worsening respiratory failure requiring intubation mechanical ventilation. The patient is currently broadly covered with Zosyn and Zyvox. If the nasal MRSA PCR is negative the patient can be covered only with Zosyn. However the patient was recently in the hospital and has risk factors to have colonization of the upper airway with MRSA and resistant gram-negative organisms. The patient is getting tested for COVID-19. The patient is currently on volume control mechanical ventilation. I am going to start the patient on fentanyl. I believe tomorrow the patient will be ready to go on pressure support ventilation and he will likely be ready for extubation in the near future. Status: Acute (2) Aspiration pneumonia: The patient suffers from chronic microaspiration unfortunately there is no way for us to prevent that. Although the patient has a PEG tube he likely aspirates his saliva on a daily basis which is a significant amount. I expect the patient to get better in the near future however overall the patient is not going to do well unfortunately. The patient is a poor candidate for noninvasive positive pressure ventilation because of his lower jaw deformity. He can be tried with high flow nasal cannula which is likely to work better for him if necessary in the future. Status: Acute (3) Aspiration, chronic pulmonary: The patient has chronic aspiration pneumonia as described above. Interestingly, the patient had an episode of right-sided tension pneumothorax requiring chest tube placement. I do not have the details of it and we are in the process of obtaining the medical record from [place]. Thank you for the consultation. 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
[2019-10-15] MEDS: propofol 1,000 MG/100 ML INJ 9.6 MG IV (20:23)
[2019-10-16] VITALS (86 sets, daily range): BP systolic 74–142; BP diastolic 47–99; PULSE 86–114; RESP 13–24; TEMP 36.3–36.8; O2SAT 82–95
[2019-10-16] MEDS: piperacillin-tazobactam 3.375 GM in sodium chloride 0.9% (plus) 50 ML IV ×3 (00:42→16:11)
--- NOTE | 2019-10-16 00:43 | PC.NURSE ---
PT BLADDER APPEARED DISTENDED. PT HAD NO URINE IN CRISTINA BAG, CRISTINA WAS INVESTIGATED, AND WAS NOT ABLE TO ADVANCE. CRISTINA WAS REMOVED AND 14 SIZE ICELANDIC WAS REPLACED. PT HAD 300 URINE OUT UPON INSERTION.
[2019-10-16] MEDS: linezolid premix 600 MG/300 ML PREMIX 300 MG IV (01:49)
[2019-10-16] MEDS: ipratropium-albuterol 3 mL Neb INHALATION ×6 (01:50→20:27)
[2019-10-16] MEDS: propofol 1,000 MG/100 ML INJ 9.6 MG IV (01:51)
[2019-10-16 03:51] LABS: ABG PH Result 7.39 (7.35-7.45); Arterial Blood Gas Hematocrit 42.3 % (42-52); Base Excess ABG 4.1 mmol/L (-2.0-2.0); Blood Gas Sample Site Brachial, right; Blood Gas Sample Type Arterial; HCO3 ABG 30.2 mmol/L (22-26); Oxygen Device VENT; PO2 ABG 63.9 mmHg (80.0-100.0)
[2019-10-16 05:18] LABS: Basophils % 0.1 %; Hematocrit 39.2 % (42.0-52.0); Hemoglobin 12.4 g/dL (11.7-16.6); Lymphocytes # 0.5 10^3/uL (0.8-4.8); Lymphocytes % 3.9 %; Mean Corpuscular HGB Conc 31.6 g/dL (30.0-36.0); Mean Platelet Volume 9.8 fL (7.4-10.4); Monocytes # 0.4 10^3/uL (0.2-0.9); Monocytes % 3.1 %; Neutrophils # 10.91 10^3/uL (1.8-7.7); Neutrophils % 92.6 %; Nucleated Red Blood Cells % 0 %; Platelet Count 318 10^3/cmm (130-400); Red Blood Count 3.88 10^6/uL (4.1-5.3); Red Cell Distribution Width 14.8 % (12.1-15.1); White Blood Count 11.8 10^3/uL (4.0-10.0)
[2019-10-16 05:34] LABS: Alanine Aminotransferase 46 U/L (0-41); Albumin Level 2.8 g/dL (3.5-5.2); Alkaline Phosphatase 168 IU/L (40-130); Aspartate Amino Transferase 24 U/L (0-40); Blood Urea Nitrogen 30 mg/dL (8-23); Calcium 8.6 mg/dL (8.5-10.5); Carbon Dioxide 27 mmol/L (22-29); Chloride 99 mmol/L (98-107); Creatinine Clr Calc Pharmacy 84.2381; Globulin 3.5 g/dL (1.3-4.6); Glucose 173 mg/dL (65-115); Osmolality Calculated 287 mOsm/kg (285-295); Sodium 138 mmol/L (136-145); Total Bilirubin 0.2 mg/dL (0.15-1.2); Total Protein 6.3 g/dL (6.6-8.7)
[2019-10-16 05:49] LABS: Anion Gap 16.1 (5-19); Potassium 4.1 mmol/L (3.5-5.1)
--- NOTE | 2019-10-16 06:00 | XR_ITS ---
WS: [id number] CHEST XRAY TECHNIQUE: Portable chest. CLINICAL INFORMATION: mechanical ventilation COMPARISON: October 15, 2019 FINDINGS: Endotracheal tube with tip 3.5 cm above the star. Enteric tube tip below diaphragm. Heart: Normal cardiac silhouette. Lungs: Chronic emphysematous changes with hyperinflation. Small pleural effusion. Left lower lobe inf iltrate or atelectasis. Bones: Normal visualized bony structures. XR/XR chest 1V portable [id number] IMPRESSION: 1. Endotracheal tube with tip 3.5 cm above the star. Enteric tube with tip b elow the diaphragm. 2. Hyperinflation with emphysematous change. 3. Small left pleural effusion with slight patchy infiltrate left lower lobe.
--- NOTE | 2019-10-16 06:23 | PC.NURSE ---
SHIFT SUMMARY PT HAS REMAINED SEDATED. PT HAS BEEN TURNED PERIODICALLY, AND ORAL CARE NEEDED. PT FENTANYL AND PROPOFOL REMAIN ON. PT HAS HAD ADEQUATE URINE OUTPUT. PT VITAL SIGNS HAVE REMAINED WNL, AT TIMES PRESSURE WOULD BE SOFT, BUT WOULD COME BACK UP FAIRLY QUICK. PT HAS BEEN AFEBRILE.
[2019-10-16 07:29] LABS: Coronavirus Lab Test PTC NOT DETECTED
--- NOTE | 2019-10-16 07:36 | P.PN_ITS ---
Subjective Subjective: Interval history: Patient intubated and sedated Records from outside facility showing history of prior hydropneumothorax requiring chest tube placement and hospitalization. Patient hospitalized from 06/18/2019 to 07/10/2019 been transferred to senior living facility. Diagnosed with septic shock, acute respiratory failure with hypoxia requiring intubation, hydropneumothorax, empyema on the Right and SIADH. Patient was also noted to have a large right lower lobe consolidation at the time concerning for aspiration. Documentation differs if patient's hydropneumothorax was on the left versus the right at outside facility, believe it was Right sided based on majority of documentation. Patient was noted to have chronic aspiration at that time and made n.p.o., had PEG tube placed on . It appears that patient had Streptococcus from fluid culture from the right side of his chest and sputum culture was positive for MSSA. Patient was discharged to a senior living facility on 6 weeks of ceftriaxone and Flagyl. Vitals/I&O/Wt Last Vital Signs Temp 97.3 F L 10/16/19 05:25 Pulse 91 10/16/19 06:00 Resp 15 10/16/19 05:01 BP 103/71 10/16/19 06:00 Pulse Ox 93 10/16/19 06:00 10/15/19 10/16/19 10/16/19 22:59 06:59 14:59 Intake Total 613 / 613 130.102 / 743.102 Output Total 200 / 200 900 / 1100 Balance 413 / 413 -769.898 / -356.898 Weight last 48 hrs Weight 53.07 kg Physical Exam Const: OTHER: Intubated, sedated HENMT: OTHER: Patient with atrophy status post resection of head and neck cancer and radiation in the past, ET tube in place Resp: OTHER: Intubated, equal breath sounds bilaterally, coarse breath sounds improved, continues to have slight rhonchi on the right greater than left Cardio: COMMON NORMALS: regular rate and regular rhythm RATE: regular rate RHYTHM: regular rhythm GI: INSPECTION: Yes normal to inspection OTHER: PEG tube in place, normal b owel sounds, no tenderness : OTHER: Lopez catheter in place Extremity: OTHER: No acute deformity, no cyanosis or edema, negative Homans sign in the lower extremities bilaterally Neuro: OTHER: Intubated, sedated Psych: OTHER: Intubated, sedated Skin: NARRATIVE SKIN EXAM: sacral ulceration Data : 10/16/19 04:50 10/16/19 04:50 Micro: Microbiology 10/15/19 09:30 Blood Culture - Preliminary Blood SPECIMEN COLLECTED 10/15/19 09:35 Blood Culture - Preliminary Blood SPECIMEN COLLECTED A&P Assessment and plan (1) Acute on chronic respiratory failure: Currently intubated and sedated, will continue to wean as tolerated with possible extubation this afternoon or tomorrow Typically on 3 to 5 L of oxygen by nasal cannula at baseline Concern for aspiration pneumonitis and pneumonia COVID-19 testing returned negative We will consult Dr. Buckley, critical care pulmonology Continue linezolid and Zosyn, blood culture, sputum culture ordered and pending. Nasal MRSA swab pending. De-escalate antibiotics as indicated Aspiration precautions Recent hospitalization for hydropneumothorax from August to July and diagnosed with empyema at that time, reportedly grew MSSA Status: Acute (2) Aspiration pneumonia: Continue with broad-spectrum antibiotic coverage with linezolid and Zosyn We will de-escalate antibiotics as indicated, previously grew MSSA at outside facility according to paperwork Patient will continue to have chronic aspiration likely due to his history of head and neck cancer status post resection and radiation Status: Acute (3) Aspiration, chronic pulmonary: Chronic aspiration with a history of tonsillar cancer, resection, status post radiation treatment currently in remission Continue with broad-spectrum antibiotics as noted above Status: Acute (4) COPD (chronic obstructive pulmonary disease): Decrease Solu-Medrol dosing today Remains intubated and sedated Concern for aspiration pneumonia pneumonitis We will follow-up with recommendations from pulmonology/audit specialist Status: Acute (5) Uses feeding tube: Patient is on tube feeds at home every 6 hours N.p.o. status Status: Acute (6) Anxiety: On BuSpar Status: Acute Additional A&P Information Initial concern for fluid overload and congestive heart failure exacerbation, unknown specificity patient does not appear to be fluid overloaded today, will decrease IV fluid rate as tube feedings are restarted and follow-up with echocardiogram. Patient is thin and cachectic appearing with weight loss over the past 1 year and prior malignancy, reported to be currently in remission but reports that he has not followed with any oncologist recently, recently diagnosed with hydropneumothorax, cannot find any cytology from outside facility, uncertain if this was related to a malignant effusion however no documentation suggesting such. Recommend outpatient follow-up with hematology oncology following discharge Reported hematochezia and melena: Hemoglobin remained stable with no further hematochezia or melena over the past 24 hours, will start on prophylactic dose Lovenox and continue close monitoring. DVT prophylaxis: Start Lovenox today Diet: Restart tube feeds today CODE STATUS: Full code, this was discussed with patient on date of admission, he was uncertain about intubation but then agreed. 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
[2019-10-16] MEDS: sodium chloride 0.9% 1,000 ML 100 ML IV ×2 (08:01→22:10)
[2019-10-16] MEDS: pantoprazole 40 mg SDV IVP (09:28)
[2019-10-16] MEDS: propofol 1,000 MG/100 ML INJ 8 MG IV (09:34)
--- NOTE | 2019-10-16 10:24 | PC.NURSE ---
CONVERSATION WITH DAUGHTER Nurse called patient's daughter, Patti, to discuss patient feedings and schedule for feedings. Daughter stated that he normally feeds himself [employer] 1.5 SOFIA, and Boost High Protein every 4 hours. Daughter stated that he has a graduate cylinder marked at 150 mL and at 300 mL, but said that she does not know exactly how much he gives himself with each feed. Daughter had no questions. Dr. Schwartz called to discuss feeding initiation today and given information that daughter gave. Dr. Schwartz instructed to consult dietary for their recommendation and go from there.
--- NOTE | 2019-10-16 11:47 | PC.NUTR ---
NUTR TF RECOMMENDATIONS: Pulmocare with goal rate of 35 ml/hr providing 1260 kcal (81%), 53 g PRO (98%), and 754 ml fluid (48%)(%NEEDS). Suggest starting TF at 25 ml/hr and increase to goal rate in 6H. Suggest H2O flushes of 100 ml Q4H to approach fluid needs or per physician. BOLUS: 4 cans daily over 3 feeds with 1 cup H2O flushes after each feeding.
[2019-10-16] MEDS: enoxaparin 40 mg/0.4 mL Syringe SUBCUT (13:40)
--- NOTE | 2019-10-16 14:52 | PC.NURSE ---
UPDATE TO Patient's , Karly, called asking for update on patient. Update given and requesting to speak with doctor.
[2019-10-16] MEDS: propofol 1,000 MG/100 ML INJ 11.1 MG IV (16:11)
--- NOTE | 2019-10-16 16:38 | PC.NURSE ---
FEEDING INTIATION Dr. Schwartz instructed to consult dietary about recommendations on feedings. *See regulatory product manager note* Dr. Schwartz stated she agreed with his recommendations and decided to go with the bolus feeding recommendation. Patient is receiving 320 mL of pulmocare three times daily with 240 mL water flush to follow each feed. Residuals will be checked before each feed. Patient tolerated first feed well and denied any abdominal discomfort during and after feeding.
--- NOTE | 2019-10-16 17:35 | PC.PT ---
Patient remains intubated, nursing recommends hold PT evaluation until tomorrow when extubated
[2019-10-17] VITALS (29 sets, daily range): BP systolic 101–127; BP diastolic 66–87; PULSE 76–98; RESP 15–18; TEMP 36.6–36.7; O2SAT 91–97
[2019-10-17] MEDS: ipratropium-albuterol 3 mL Neb INHALATION ×6 (00:31→23:15)
[2019-10-17] MEDS: piperacillin-tazobactam 3.375 GM in sodium chloride 0.9% (plus) 50 ML IV ×3 (00:34→16:52)
[2019-10-17] MEDS: propofol 1,000 MG/100 ML INJ 11.1 MG IV (00:35)
--- NOTE | 2019-10-17 01:40 | PC.NURSE ---
Report taken from SANTIAGO Carroll. Patient is resting comfortably.Vital signs are stable. Fentanyl drip is at 50 mcg/hr. Propofol at 50 mcg/kg/min. Soft restraints applied to bilateral upper extremities, pulses present, skin is warm. Patient is communicating with boogie board. No concerns at this time.
--- NOTE | 2019-10-17 01:54 | PC.NURSE ---
Patient is due for PEG feedings at 0200. He has secretions in ET tube that looks like possibly feeding that he is coughing up. Patient is in no apparent distress. Dr. Rousseau notified. Hold feedings for now. Ordered sputum analysis from ET. Chest x-ray in AM ordered. Will continue to monitor.
--- NOTE | 2019-10-17 05:00 | USCV_ITS ---
Charles Garay Age: 59 Gender: M : 1960 Exam Date: 10/17/2019 06:17 Ordering Phys: Padmini Schwartz DO Technologist: Diane Barton [place] [facility] [place]: CHF BP: 115 / 68 HR: 91 Rhythm: Sinus Technical Quality: Fair MEASUREMENTS (Male / Female) Normal Values 2D ECHO LV Diastolic Diameter PLAX 3.3 cm 4.2 - 5.9 / 3.9 - 5.3 cm LV Systolic Diameter PLAX 2.9 cm LV Chamber Size 2.7 cm IVS Diastolic Thickness 1.3 cm 0.6 - 1.0 / 0.6 - 0.9 cm IVS Systolic Thickness 1.9 cm LVPW Diastolic Thickness 1.5 cm 0.6 - 1.0 / 0.6 - 0.9 cm LVPW Systolic Thickness 1.6 cm RV Chamber Size 3.4 cm LVOT Diameter 2.0 cm LV Ejection Fraction 2D Teich 28.3 % LV Ejection Fraction MOD 2C 60.7 % LV Ejection Fraction 2C AL 70.5 % LA Diameter 1.7 cm LA Width 3.2 cm LA Height 3.4 cm RA Width 4.8 cm RA Height 4.2 cm Aorta at Sinotubular Diameter 4.6 cm M-MODE LV Diastolic Diameter MM 4.4 cm 4.2 - 5.9 / 3.9 - 5.3 cm LV Systolic Diameter MM 2.2 cm LV Ejection Fraction MM Teich 81.9 % IVS Diastolic Thickness MM 0.8 cm 0.6 - 1.0 / 0.6 - 0.9 cm IVS Systolic Thickness MM 1.2 cm LVPW Diastolic Thickness MM 1.1 cm 0.6 - 1.0 / 0.6 - 0.9 cm LVPW Systolic Thickness MM 1.3 cm RV Diastolic Diameter MM 1.9 cm Aortic Annulus Diameter 5.3 cm LA Ao Ratio MM 0.3 MV E Point Septal Separation 0.3 cm DOPPLER AV Peak Velocity 143.0 cm/s LVOT Peak Velocity 120.0 cm/s AV Area Cont Eq vti 2.4 cm squared AV Area Cont Eq pk 2.7 cm squared MV Area PHT 5.6 cm squared Mitral E to A Ratio 0.9 MV E' Velocity 12.0 cm/s Mitral E to MV E' Ratio 8.7 Mitral E to LV E' Lateral Ratio 6.9 Mitral E to LV E' Septal Ratio 11.7 TR Peak Velocity 239.4 cm/s TR Peak Gradient 22.9 mmHg TR Mean Velocity 189.1 cm/s TR Mean Gradient 15.6 mmHg TR Velocity Time Integral 67.0 cm TV Peak E Velocity 82.0 cm/s Right Atrial Pressure 15.0 mmHg Pulmonary Artery Systolic Pressu 37.9 mmHg PV Peak Velocity 85.0 cm/s RV Acceleration Time 0.1 s RV Ejection Time 0.3 s RV AcT/ET 0.4 FINDINGS Left Ventricle Normal left ventricular size and systolic function, EF 66 %. Mild left ventricular hypertrophy. No regional wall motion abnormalities. Grade I/IV diastolic dysfunction (abnormal relaxation filling pattern), normal to mildly elevated filling pressures. Right Ventricle Normal right ventricular size and systolic function. Right Atrium Mildly increased right atrial size. Left Atrium Mildly increased left atrial size. Mitral Valve Thickened mitral valve. Aortic Valve Thickened aortic valve. Mild aortic valve regurgitation. Tricuspid Valve Trace tricuspid valve regurgitation. Pulmonic Valve Structurally normal pulmonic valve without significant stenosis. There is no pulmonic regurgitation. Pericardium Trivial pericardial effusion. Aorta Dilated aortic root, measuring 4.9 cm, at the level of the isthumus CONCLUSIONS Normal left ventricular size and systolic function, EF 66 %. Mild left ventricular hypertrophy. No regional wall motion abnormalities. Grade I/IV diastolic dysfunction (abnormal relaxation filling pattern), normal to mildly elevated filling pressures. Mild biatrial enlargement Normal right ventricular size and systolic function. Thickened aortic valve. Mild aortic valve regurgitation. Trace tricuspid valve regurgitation. Estimated pulmonary artery peak systolic pressure 38 mmHg Trivial pericardial effusion. There are no intracardiac masses. Dilated aortic root measuring 4.9 cm, just above the level of the sinuses No previous study is available for comparison. Consider CTAof the thoracic aorta, to better evaluate for any aortic aneurysm, if clinically indicated Dr Troy Gaxiola MD FACC (Electronically Signed) Final Date: 17 October 2019 22:32 S
[2019-10-17 05:14] LABS: Basophils % 0.2 %; Hematocrit 37.1 % (42.0-52.0); Hemoglobin 11.9 g/dL (11.7-16.6); Lymphocytes # 0.3 10^3/uL (0.8-4.8); Lymphocytes % 1.8 %; Mean Corpuscular HGB Conc 32.1 g/dL (30.0-36.0); Mean Corpuscular Hemoglobin 32.2 pg (28.0-34.0); Mean Corpuscular Volume 100.3 fL (80-94); Mean Platelet Volume 9.8 fL (7.4-10.4); Monocytes # 0.5 10^3/uL (0.2-0.9); Monocytes % 2.4 %; Neutrophils # 18.16 10^3/uL (1.8-7.7); Neutrophils % 94.8 %; Nucleated Red Blood Cells % 0 %; Platelet Count 336 10^3/cmm (130-400); Red Cell Distribution Width 14.4 % (12.1-15.1); White Blood Count 19.1 10^3/uL (4.0-10.0)
--- NOTE | 2019-10-17 05:15 | PC.NURSE ---
Patient had 9 beat run of V-tach. He is asymptomatic, blood pressure is 108/76. He arouses despite sedation. No complaints of chest pain. Dr. Rousseau notified. Ordered magnesium to be added to AM labs. Will continue to monitor.
[2019-10-17] MEDS: propofol 1,000 MG/100 ML INJ 14.3 MG IV (05:17)
--- NOTE | 2019-10-17 05:30 | XRR_ITS ---
PROCEDURE INFORMATION: Exam: XR Chest, 1 View Exam date and time: 10/17/2019 5:52 AM Age: 59 years old Clinical indication: Shortness of breath; Additional info: Aspiration pneumonia TECHNIQUE: Imaging protocol: XR of the chest Views: 1 view. COMPARISON: [place] XR chest 1V portable [id number] 10/16/2019 5:58 AM FINDINGS: Tubes, catheters and devices: Endotracheal tube, tip 4.3 cm above star. Nasogastric tube, tip below diaphragm and off image. Lungs: Moderate mixed interstitial/alveolar opacities throughout both lungs, most prominent at the left lung base. These findings are overall similar to prior study. This may represent any combination of pulmonary edema and pneumonia. Pleural space: No visible pneumothorax. Small left pleural effusion, similar to prior study. Heart/Mediastinum: Heart size within normal limits. Bones/joints: No emergent findings identified. XR/XR chest 1V portable [id number] IMPRESSION: 1. Moderate mixed interstitial/alveolar opacities throughout both lungs, most prominent at the left lung base. These findings are overall similar to prior study. This may represent any combination of pulmonary edema and pneumonia. 2. Small left pleural effusion, similar to prior study.
[2019-10-17 05:35] LABS: Alanine Aminotransferase 69 U/L (0-41); Albumin Level 2.4 g/dL (3.5-5.2); Alkaline Phosphatase 140 IU/L (40-130); Anion Gap 11.1 (5-19); Aspartate Amino Transferase 52 U/L (0-40); Blood Urea Nitrogen 32 mg/dL (8-23); Carbon Dioxide 29 mmol/L (22-29); Chloride 104 mmol/L (98-107); Globulin 3.8 g/dL (1.3-4.6); Glomerular Filtration Rate 137.4 mL/min (90-130); Glucose 135 mg/dL (65-115); Osmolality Calculated 289 mOsm/kg (285-295); Potassium 4.1 mmol/L (3.5-5.1); Sodium 140 mmol/L (136-145); Total Bilirubin 0.2 mg/dL (0.15-1.2); Total Protein 6.2 g/dL (6.6-8.7)
[2019-10-17 06:26] LABS: Magnesium 2.5 mg/dL (1.7-2.3)
[2019-10-17] MEDS: sodium chloride 0.9% 1,000 ML 100 ML IV ×2 (08:30→19:40)
[2019-10-17] MEDS: pantoprazole 40 mg SDV IVP (08:40)
--- NOTE | 2019-10-17 09:02 | CT_ITS ---
WS: [id number] CT CHEST, ABDOMEN, AND PELVIS TECHNIQUE: Contrast-enhanced CT of the chest, abdomen, and pelvis with coronal and sagittal reformatt ed images. CLINICAL INFORMATION: Concern for TE fistula, aspiration, PEG tube COMPARISON: None. DLP: 3483.[address] scans at [facility] use at least one of these dose optimization techniques: automat ed exposure control; mA and/or kV adjustment per patient size (includes targeted exams where dose is matched to clinical indication); or iterative reconstruction. CT CHEST: Endotracheal tube with tip above the star. Enteric tube with tip in the stomach. Left lower lobe pn eumonia with consolidation and air bronchograms. This is similar in appearance to November 01, 2019 and s lightly improved. Patchy infiltrates in the left lower lobe. Persistent patchy infiltrates throughout the right lung more prominent in the right middle lobe along the fissure and superior segment right lower lobe. Patchy infiltrates superior segment right lower lobe have progressed. Diffuse tree-in-bud infiltrates. No significant pleural fluid in the right lower lobe. Right lower lobe bronchus appears patent with a few secretions. Thoracic trachea and esophagus appear normal. No evidence of tracheoesophageal fistu la. No mediastinal or hilar lymphadenopathy. Normal caliber thoracic aorta. CT ABDOMEN AND PELVIS: Mild diffuse fatty infiltration the liver. Small hepatic cyst. Portal veins and splenic vein are norm al. Diffuse body wall anasarca. Tiny amount of perihepatic fluid . Diffuse mesenteric edema. Small am ount of ascites in the abdomen and pelvis. PEG tube injection with oral contrast prior to imaging. Normal filling of the stomach. No evidence of leak about the peg tube or gastric leak. Proximal duodenum appears normal. No reflux is visualized. Evidence of mild small bowel partial obstruction versus ileus with air-fluid levels. Colon appears de compressed. Normal renal parenchymal enhancement. Left renal cysts. No hydronephrosis. Normal caliber abdominal a ethel. Lopez catheter. No abdominal pelvic lymphadenopathy. Normal lumbar spine. CT/CT chest abd pel w con* IMPRESSION: 1. Persistent consolidation left lower lobe with air bronchograms with slightl y improved aeration. Persistent patchy infiltrates in the left lower lobe. 2. Progressed patchy infiltrates within the super segment right lower lobe. St able infiltrates in the right middle lobe. Persistent tree-in-bud opacities millie aterally. Recommend correlation for pneumonia. 3. Right lower lobe bronchus appears patent with a few secretions. No signific ant fluid in the right lower lobe. 4. No evidence of tracheoesophageal fistula. No evidence of reflux. 5. Oral contrast injection of the existing PEG tube. No evidence of leak. Norm al filling of the stomach and proximal duodenum. 6. Mild proximal small bowel obstruction versus adynamic ileus with air-fluid levels and mild small bowel distention. Colon is decompressed. 7. Diffuse body wall anasarca with small volume abdominal and pelvic ascites. 8. No hydronephrosis in either kidney. 9. Lopez catheter.
--- NOTE | 2019-10-17 09:07 | CT_ITS ---
WS: [id number] CT NECK TECHNIQUE: Contrast-enhanced CT of the neck with coronal and sagittal reformatted images. CLINICAL INFORMATION: prior head and neck cancer with concern for recurrent aspira COMPARISON: CT neck 5 25,017 DLP: 477.[address] scans at [facility] use at least one of these dose optimization techniques: automat ed exposure control; mA and/or kV adjustment per patient size (includes targeted exams where dose is matched to clinical indication); or iterative reconstruction. FINDINGS: Endotracheal tube with tip above the star. Enteric tube. Normal posterior nasopharynx. Normal parap haryngeal fat. No evidence of supraglottic or glottic mass. Normal epiglottis and piriform sinuses. S ubglottic airway is patent. Esophagus is decompressed. No evidence of tracheoesophageal fistula. Mild diffuse soft tissue edema in the neck. No drainable abscess or fluid collection. Mucosal thicken ing in the mastoid air cells. Paranasal sinuses are well aerated. Moderate spondylitic changes cervic al spine with reversal of the normal cervical lordosis. Patchy fibrotic appearing opacities in the nona ng apices. See chest CT for further evaluation. CT/CT neck w con* [id number] IMPRESSION: 1. No evidence of supraglottic or glottic mass. 2. No evidence of tracheoesophageal fistula. 3. Endotracheal tube tip above the star. Enteric tube. 4. Normal posterior nasopharynx and upper airway. 5. Epiglottis appears normal.
[2019-10-17] MEDS: propofol 1,000 MG/100 ML INJ 15.9 MG IV ×2 (09:40→19:39)
[2019-10-17] MEDS: iohexol 300 mg/mL 100 mL Btl IV (10:12)
[2019-10-17] MEDS: iohexol 300 mg/mL 50 mL Btl IV (10:18)
[2019-10-17] MEDS: iodixanol 320 mg/mL 100mL Btl IV (10:23)
--- NOTE | 2019-10-17 11:19 | PM.PN ---
Subjective Subjective: Interval history: Patient intubated, able to respond to questions appropriately by shaking his head. Patient was started on tube feeds yesterday afternoon, overnight reported to have tube feeds coming from ET tube, tube feeds discontinued. Vitals/I&O/Wt Last Vital Signs Temp 98.1 F 10/17/19 04:34 Pulse 97 10/17/19 10:34 Resp 16 10/17/19 08:10 BP 117/82 10/17/19 10:34 Pulse Ox 93 10/17/19 10:34 10/16/19 10/17/19 10/17/19 22:59 06:59 14:59 Intake Total 1678.310 / 2894.709 195.41 / 3090.119 1062.682 / 1062.682 Output Total 450 / 850 350 / 1200 Balance 1228.310 / 2044.709 -154.59 / 5550.677 7457.682 / 1062.682 Weight last 48 hrs Weight 53.524 kg Physical Exam Const: COMMON NORMALS: alert GENERAL APPEARANCE: cooperative, ill appearing and frail appearing NUTRITIONAL APPEARANCE: cachectic and thin ORIENTATION/CONSCIOUSNESS: Yes awake, Yes oriented to person, Yes oriented to place and Yes oriented to time OTHER: Intubated, sedated HENMT: COMMON NORMALS: normocephalic and atraumatic HEAD & SCALP: normocephalic and atraumatic OTHER: Patient with atrophy status post resection of head and neck cancer and radiation in the past, ET tube in place Eye: COMMON NORMALS: Equal, round and reactive pupils present PUPIL: Yes Equal, round and reactive pupils present Neck/C-Spine: COMMON NORMALS: supple GENERAL: Yes normal visual inspection Resp: OTHER: Intubated, equal breath sounds bilaterally, coarse breath sounds bilaterally, no appreciable wheezing Cardio: COMMON NORMALS: regular rate and regular rhythm RATE: regular rate RHYTHM: regular rhythm GI: COMMON NORMALS: Soft to palpation and non-tender INSPECTION: Yes normal to inspection and No abdominal distension AUSCULTATION: Yes normoactive bowel sounds PALPATION: Yes Soft to palpation OTHER: PEG tube in place, normal bowel sounds, no tenderness : OTHER: Lopez catheter in place Extremity: COMMON NORMALS: no clubbing, cyanosis or edema and no calf tenderness OTHER: No acute deformity, no cyanosis or edema, negative Homans sign in the lower extremities bilaterally Neuro: COMMON NORMALS: CN's II-XII intact bilaterally, moves all extremities and no focal motor deficits SENSORIUM/ORIENTATION: Yes alert, Yes oriented to person, Yes oriented to place and Yes oriented to time SPEECH: speech normal OTHER: Intubated, patient is able to respond by shaking his head yes and no appropriately Psych: COMMON NORMALS: mental status grossly normal and cooperative OTHER: Intubated, cooperative, calm Skin: COMMON NORMALS: no rashes or lesions noted NARRATIVE SKIN EXAM: sacral ulceration GENERAL SKIN EXAM: no rashes or lesions noted Data : 10/17/19 04:55 10/17/19 04:55 Micro: Microbiology 10/15/19 09:35 Blood Culture - Preliminary Blood NEGATIVE TO DATE 10/15/19 09:30 Blood Culture - Preliminary Blood NEGATIVE TO DATE 10/15/19 18:25 MRSA Culture - Final Nose A&P Assessment and plan (1) Acute on chronic respiratory failure: Currently intubated Possible extubation later today but awaiting further work-up due to concern for recurrent aspiration with concern overnight of PEG tube feedings coming from ET tube with question of fistula. Discussed with Dr. Buckley and with radiologist and plan for CT scan of the neck, chest abdomen and pelvis today with contrast through PEG tube. Discussed with Dr. Buckley, appreciate consultation, with concern for aspiration of PEG tube feeds will hold off on extubation this morning but will continue to monitor closely with possible extubation later today Typically on 3 to 5 L of oxygen by nasal cannula at baseline Concern for aspiration pneumonitis and pneumonia We will consult Dr. Buckley, critical care pulmonology Patient being treated for aspiration pneumonia, will continue on Zosyn Recent hospitalization for hydropneumothorax from August to July and diagnosed with empyema at that time, reportedly grew MSSA Status: Acute (2) Aspiration pneumonia: Recurrent aspiration with aspiration pneumonitis Continue on Zosyn at this time Patient with report of tube feedings coming from his ET tube overnight with question could this be contributing to recurrent aspiration. 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 Champion today for consultation to discuss potential removal of PEG tube with J-tube placement. Appreciate assistance in patient's care Status: Acute (4) COPD (chronic obstructive pulmonary disease): Decrease Solu-Medrol dosing Remains intubated, potential extubation following J-tube placement Concern for aspiration pneumonia pneumonitis We will follow-up with recommendations from pulmonology/surgery specialist Status: Acute (5) Uses feeding tube: Patient is on tube feeds at home every 6 hours with concern for recurrent aspiration and reflux. Discussed with surgery today for possibility of PEG tube removal and J-tube placement N.p.o. status Status: Acute (6) Anxiety: On BuSpar Status: Acute Additional A&P Information Initial concern for fluid overload and congestive heart failure exacerbation, unknown specificity patient does not appear to be fluid overloaded today. ECHO remains pending Patient is thin and cachectic appearing with weight loss over the past 1 year and prior malignancy, reported to be currently in remission but reports that he has not followed with any oncologist recently, recently diagnosed with hydropneumothorax, cannot find any cytology from outside facility, uncertain if this was related to a malignant effusion however no documentation suggesting such. Recommend outpatient follow-up with hematology oncology following discharge Reported hematochezia and melena: Hemoglobin remained stable with no further hematochezia or melena over the past 24 hours, will start on prophylactic dose Lovenox and continue close monitoring. DVT prophylaxis: Start Lovenox today Diet: N.p.o. due to concern for aspiration of tube feeds overnight CODE STATUS: Full code, this was discussed with patient on date of admission, he was uncertain about intubation but then agreed. Attestations Medical Necessity Statement*: Patient requires continued hospitalization due to aspiration pneumonia with acute respiratory failure requiring mechanical ventilation Coding Level of Care Code Acute Clinical Registered Nurse for [facility] Fwd Exam Comprehensive Diagnoses Acute on chronic respiratory failure J96.20 Aspiration pneumonia J69.0 Aspiration, chronic pulmonary T17.908A COPD (chronic obstructive pulmonary disease) J44.9 Uses feeding tube Z97.8 Anxiety F41.9
--- NOTE | 2019-10-17 12:17 | PC.RESP ---
Pulmonary Rehab information sent to patient.
[2019-10-17] MEDS: enoxaparin 40 mg/0.4 mL Syringe SUBCUT (13:10)
--- NOTE | 2019-10-17 17:22 | PC.PT ---
PT note; extubation was planned for today but this did not happen, patient with excessive heart rate, nursing recommends hold PT evaluation until tomorrow
--- NOTE | 2019-10-17 17:45 | P.CONIM_ITS ---
Providers/Reason For Consult Consulting Physican/Specialty*: Dr. Schwartz Reason for Consult*: Aspiration pneumonia Attending Physician: Padmini Schwartz DO Primary Care Provider: Martin Mcfarland DO History of Present Illness History of Present Illness Charles Garay is a 59 year old male with history of tonsillar cancer who presented to the ER with shortness of breath. Patient was recently hospitalized at [facility] in [place] back to June 2019 where he had chest tube placement and PEG tube placement after he was noted to have significant aspiration. Patient was intubated and was started on tube feeds and was noted to have tube feeds withdrew the back of the throat raising concern for possible tracheoesophageal fistula. CT chest abdomen pelvis was negative for fistula and I was therefore therefore consider placement of jejunostomy tube Review of Systems General: Reports: ROS unobtainable due to endotracheal tube Meds/Allergies Home Medications and Allergies Home Medications Medication Instructions Recorded Confirmed Last Taken Type acetaminophen-codeine 1 tab PO TID PRN 10/15/19 10/15/19 Unknown History buspirone 10 mg PO TID PRN 10/15/19 10/15/19 10/14/19 History Allergies Allergy/AdvReac Type Severity Reaction Status Date / Time No Known Allergies Allergy Verified 10/15/19 09:22 Current Medications Current Medications Generic Name Dose Route Start Last Admin Trade Name Freq PRN Reason Stop Dose Admin Albuterol/Ipratropium 3 ml 10/15/19 16:00 10/17/19 16:27 Duoneb INHALATION 3 ml Q4H.RESPIRATORY CHRISTIANO Administration Enoxaparin Sodium 40 mg 10/15/19 13:30 10/17/19 13:10 Lovenox SUBCUT 40 mg Q24H CHRISTIANO Administration Sodium Chloride 1,000 mls @ 100 mls/hr 10/15/19 12:44 10/17/19 08:30 Sodium Chloride 0.9% IV 100 mls/hr .Q10H CHRISTIANO Administration Piperacillin Sod/Tazobactam 50 mls @ 12.5 mls/hr 10/15/19 16:30 10/17/19 16:52 Sod 3.375 gm/ Sodium Chloride IV 12.5 mls/hr Q8H CHRISTIANO Administration Protocol As Directed Propofol 1,000 mg in 100 mls @ 0 mls/hr 10/15/19 13:15 10/17/19 09:40 Diprivan IV 50 mcg/kg/min .Q0M CHRISTIANO 15.9 mls/hr Administration Protocol Per Protocol Fentanyl 1,000 mcg/ Sodium 100 mls @ 0 mls/hr 10/15/19 17:58 10/17/19 11:46 Chloride IV 50 mcg/hr .Q0M PRN 5 mls/hr PAIN Administration Protocol Per Protocol Lorazepam 1 mg 10/15/19 14:58 10/15/19 15:09 Ativan IVP 1 mg Q2H PRN Administration ANXIETY Methylprednisolone Sodium Succinate 40 mg 10/17/19 16:06 10/17/19 16:41 Solu-Medrol IVP 40 mg Q6H CHRISTIANO Administration Pantoprazole Sodium 40 mg 10/15/19 12:44 10/17/19 08:40 Protonix IVP 40 mg DAILY CHRISTIANO Administration PFSH Acute PFSH: Medical History Anxiety Aspiration, chronic pulmonary COPD (chronic obstructive pulmonary disease) History of malignant neoplasm of tonsil History of osteomyelitis Osteomyelitis of the mandible, treated in 2017 Uses feeding tube Surgical History History of tonsillectomy Cancer resection with tonsillar cancer Social History Smoking and tobacco status: former smoker Alcohol intake: never Substance/Drug Use: never Vitals/I&O/Wt Last Vital Signs Temp 98.1 F 10/17/19 04:34 Pulse 87 10/17/19 16:28 Resp 15 10/17/19 16:44 BP 111/74 10/17/19 16:08 Pulse Ox 94 10/17/19 16:28 10/17/19 10/17/19 10/17/19 06:59 14:59 22:59 Intake Total 195.41 / 3090.119 1186.349 / 1186.349 Output Total 350 / 1200 Balance -154.59 / 0686.752 4144.349 / 1186.349 Weight last 48 hrs Weight 118 lb Physical Exam Narrative: EXAM NARRATIVE: No black stools upper GI bleed HEENT: Normocephalic Eye: Sclera /conjunctiva normal Respiratory and chest: Bilateral clear breath sounds on auscultation Cardiovascular: Normal S1 and S2 heart sounds Abdomen: Soft to palpation, PEG tube in the left upper quadrant Neurological: Not assessed Skin: Intact, no lesions appreciated on gross exam Data Micro: Micro: Microbiology 10/15/19 16:00 Gram Stain - Final Sputum - Endotrac heal Wash A&P Assessment and plan (1) Aspiration pneumonia: 59-year-old gentleman with tonsillar cancer who has a PEG tube but has aspiration pneumonia. Patient would benefit from a jejunostomy tube to decrease incidence of aspiration and one option would be to consider his PEG tube to GJ tube. If that is not possible we will proceed with laparoscopic possible open placement of jejunostomy tube. Status: Acute Coding Level of Care Code Acute Spanish Speaking Nanny for [facility] Rod Diagnoses Aspiration pneumonia J69.0
[2019-10-17] MEDS: morphine 4 mg/mL SDV 1 mL 1 MG IVP (23:29)
[2019-10-18] VITALS (50 sets, daily range): BP systolic 115–140; BP diastolic 70–100; PULSE 76–103; RESP 14–25; TEMP 36.4–36.6; O2SAT 91–96
[2019-10-18] MEDS: piperacillin-tazobactam 3.375 GM in sodium chloride 0.9% (plus) 50 ML IV ×4 (01:18→23:59)
[2019-10-18] MEDS: propofol 1,000 MG/100 ML INJ 15.9 MG IV ×5 (01:26→21:50)
[2019-10-18] MEDS: ipratropium-albuterol 3 mL Neb INHALATION ×6 (03:04→23:49)
[2019-10-18] MEDS: morphine 4 mg/mL SDV 1 mL 1 MG IVP ×3 (03:25→19:39)
[2019-10-18 04:47] LABS: Basophils % 0.2 %; Hematocrit 38.8 % (42.0-52.0); Lymphocytes # 0.3 10^3/uL (0.8-4.8); Lymphocytes % 1.6 %; Mean Corpuscular HGB Conc 30.9 g/dL (30.0-36.0); Mean Corpuscular Hemoglobin 30.6 pg (28.0-34.0); Mean Platelet Volume 9.5 fL (7.4-10.4); Monocytes # 0.5 10^3/uL (0.2-0.9); Monocytes % 2.4 %; Neutrophils % 95.2 %; Nucleated Red Blood Cells % 0 %; Platelet Count 355 10^3/cmm (130-400); Red Blood Count 3.92 10^6/uL (4.1-5.3); Red Cell Distribution Width 14.4 % (12.1-15.1); White Blood Count 19.4 10^3/uL (4.0-10.0)
[2019-10-18] MEDS: sodium chloride 0.9% 1,000 ML 100 ML IV ×2 (05:05→16:13)
[2019-10-18 05:16] LABS: Alanine Aminotransferase 48 U/L (0-41); Albumin Level 2.5 g/dL (3.5-5.2); Alkaline Phosphatase 122 IU/L (40-130); Anion Gap 12.8 (5-19); Aspartate Amino Transferase 20 U/L (0-40); Blood Urea Nitrogen 24 mg/dL (8-23); Calcium 8.6 mg/dL (8.5-10.5); Carbon Dioxide 27 mmol/L (22-29); Chloride 104 mmol/L (98-107); Glomerular Filtration Rate 169.6 mL/min (90-130); Glucose 115 mg/dL (65-115); Osmolality Calculated 288 mOsm/kg (285-295); Potassium 3.8 mmol/L (3.5-5.1); Sodium 140 mmol/L (136-145); Total Bilirubin 0.2 mg/dL (0.15-1.2); Total Protein 6.5 g/dL (6.6-8.7)
[2019-10-18] MEDS: pantoprazole 40 mg SDV IVP (08:52)
[2019-10-18] MEDS: levofloxacin-dextrose 5 % 750 MG/150 ML PREMIX 100 MG IV (10:00)
--- NOTE | 2019-10-18 10:51 | PM.PN ---
Subjective Subjective: Interval history: Patient intubated, awake but able to answer questions by shaking his head. Occupational therapy working with patient at time of exam this morning. Discussed with patient about plan to change PEG tube, awaiting proper tubes. We will plan to keep patient intubated until this can be performed due to his poor respiratory status at baseline. Vitals/I&O/Wt Last Vital Signs Temp 97.9 F 10/17/19 21:22 Pulse 87 10/18/19 07:40 Resp 25 H 10/18/19 10:18 BP 116/80 10/18/19 06:00 Pulse Ox 95 10/18/19 08:53 10/17/19 10/18/19 10/18/19 22:59 06:59 14:59 Intake Total 1150 / 2336.349 1228.497 / 3564.846 Output Total 600 / 600 550 / 1150 Balance 550 / 1736.349 678.497 / 2414.846 Physical Exam Const: COMMON NORMALS: alert GENERAL APPEARANCE: cooperative and frail appearing NUTRITIONAL APPEARANCE: cachectic and thin ORIENTATION/CONSCIOUSNESS: Yes awake, Yes oriented to person, Yes oriented to place and Yes oriented to time OTHER: Intubated HENMT: COMMON NORMALS: normocephalic and atraumatic HEAD & SCALP: normocephalic and atraumatic OTHER: Patient with atrophy status post resection of head and neck cancer and radiation in the past, ET tube in place Eye: COMMON NORMALS: Equal, round and reactive pupils present PUPIL: Yes Equal, round and reactive pupils present Neck/C-Spine: COMMON NORMALS: supple GENERAL: Yes normal visual inspection Resp: OTHER: Intubated, improved breath sounds bilaterally but remains coarse, no appreciable wheezing Cardio: COMMON NORMALS: regular rate and regular rhythm RATE: regular rate RHYTHM: regular rhythm GI: COMMON NORMALS: Soft to palpation and non-tender INSPECTION: Yes normal to inspection and No abdominal distension AUSCULTATION: Yes normoactive bowel sounds PALPATION: Yes Soft to palpation OTHER: PEG tube in place, normal bowel sounds, no tenderness : OTHER: Lopez catheter in place Extremity: COMMON NORMALS: no clubbing, cyanosis or edema and no calf tenderness OTHER: No acute deformity, no cyanosis or edema, negative Homans sign in the lower extremities bilaterally Neuro: COMMON NORMALS: CN's II-XII intact bilaterally, moves all extremities and no focal motor deficits SENSORIUM/ORIENTATION: Yes alert, Yes oriented to person, Yes oriented to place and Yes oriented to time SPEECH: speech normal OTHER: Intubated, patient is able to respond by shaking his head yes and no appropriately Psych: COMMON NORMALS: mental status grossly normal and cooperative OTHER: Intubated, cooperative, calm Skin: COMMON NORMALS: no rashes or lesions noted NARRATIVE SKIN EXAM: sacral ulceration GENERAL SKIN EXAM: no rashes or lesions noted Data : 10/18/19 04:22 10/18/19 04:22 Micro: Microbiology 10/15/19 16:00 Gram Stain - Final Sputum - Endotracheal Wash A&P Assessment and plan (1) Acute on chronic respiratory failure: Remains intubated, could plan for extubation today, however awaiting replacement of PEG tube to J-tube and with his underlying poor baseline respiratory status would like to keep patient intubated until procedure can be performed to avoid having to reintubate patient. Will discuss further with general surgery and critical care physician. 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 Champion, general surgeon in consultation for consideration of G-tube placement, awaiting proper tubes to perform minimally invasive procedure and transition from PEG to J-tube. Status: Acute (4) COPD (chronic obstructive pulmonary disease): Decrease Solu-Medrol dosing Remains intubated, extubation following J-tube placement Concern for aspiration pneumonia pneumonitis Status: Acute (5) Uses feeding tube: With concern for recurrent aspiration, discussed with general surgery for consultation and plan for PEG to J-tube placement Status: Acute (6) Anxiety: On BuSpar Status: Acute Additional A&P Information Initial concern for fluid overload and congestive heart failure exacerbation, diastolic dysfunction, now compensated: Remains euvolemic grade 1 diastolic dysfunction on echo Patient is thin and cachectic appearing with weight loss over the past 1 year and prior malignancy, reported to be currently in remission but reports that he has not followed with any oncologist recently, recently diagnosed with hydropneumothorax, cannot find any cytology from outside facility, uncertain if this was related to a malignant effusion however no documentation suggesting such. Recommend outpatient follow-up with hematology oncology following discharge Reported hematochezia and melena: No episodes in the inpatient setting DVT prophylaxis: Lovenox Diet: N.p.o. due to concern for aspiration of tube feeds with plan for changing of tube CODE STATUS: Full code, this was discussed with patient on date of admission, he was uncertain about intubation but then agreed. Attestations Medical Necessity Statement*: Patient requires further hospitalization due to aspiration pneumonia with chronic aspiration and aspiration pneumonitis requiring mechanical ventilation Coding Level of Care Code Acute Well Service Derrick Worker for [facility] Fwd Diagnoses Acute on chronic respiratory failure J96.20 Aspiration pneumonia J69.0 Aspiration, chronic pulmonary T17.908A COPD (chronic obstructive pulmonary disease) J44.9 Uses feeding tube Z97.8 Anxiety F41.9
[2019-10-18] MEDS: enoxaparin 40 mg/0.4 mL Syringe SUBCUT (13:30)
--- NOTE | 2019-10-18 18:00 | PC.NURSE ---
Pt remains intubated today. Awaiting arrival of Gj tube for placement tomorrow. Plan is to attempt to extubate after tube replacement. Lung sounds mostly clear, FIO2 at 50%. Pt alert, oriented and cooperative. Restraints have been released, no attempts to pull at any medical tubing made. 500ml urine output noted. Skin area on bottom healing, optifoam intact.
[2019-10-19] VITALS (39 sets, daily range): BP systolic 102–144; BP diastolic 50–104; PULSE 71–107; RESP 14–24; TEMP 36.4–37.2; O2SAT 91–100
[2019-10-19] MEDS: sodium chloride 0.9% 1,000 ML 100 ML IV ×3 (02:13→23:25)
[2019-10-19] MEDS: propofol 1,000 MG/100 ML INJ 15.9 MG IV ×3 (02:54→12:39)
[2019-10-19] MEDS: ipratropium-albuterol 3 mL Neb INHALATION ×5 (04:39→20:04)
[2019-10-19 06:13] LABS: Basophils % 0.1 %; Hematocrit 42.8 % (42.0-52.0); Hemoglobin 13.2 g/dL (11.7-16.6); Lymphocytes # 0.6 10^3/uL (0.8-4.8); Lymphocytes % 4.1 %; Mean Corpuscular HGB Conc 30.8 g/dL (30.0-36.0); Mean Corpuscular Hemoglobin 30.8 pg (28.0-34.0); Mean Platelet Volume 9.4 fL (7.4-10.4); Monocytes # 0.5 10^3/uL (0.2-0.9); Monocytes % 3.1 %; Neutrophils # 13.63 10^3/uL (1.8-7.7); Neutrophils % 91.3 %; Nucleated Red Blood Cells % 0 %; Platelet Count 372 10^3/cmm (130-400); Red Blood Count 4.28 10^6/uL (4.1-5.3); Red Cell Distribution Width 14.3 % (12.1-15.1)
--- NOTE | 2019-10-19 06:52 | PC.NURSE ---
SHIFT SUMMARY PT HAS BEEN ALERT, FOLLOWS COMMANDS, PT REMAINS INTUBATED. PT HAS UNGER ADEQUATE URINE OUTPUT. PT HAS HAD HIBACLEANSE BATH. PT HAS BEEN TURNED NEEDED. PT IV REMAINS PATENT, PT REMAINS ON FENTANYL, AND PROPOFOL.
[2019-10-19 07:13] LABS: Alanine Aminotransferase 57 U/L (0-41); Albumin Level 2.7 g/dL (3.5-5.2); Alkaline Phosphatase 119 IU/L (40-130); Aspartate Amino Transferase 34 U/L (0-40); Blood Urea Nitrogen 23 mg/dL (8-23); Calcium 8.7 mg/dL (8.5-10.5); Carbon Dioxide 26 mmol/L (22-29); Chloride 104 mmol/L (98-107); Glomerular Filtration Rate 169.6 mL/min (90-130); Glucose 109 mg/dL (65-115); Osmolality Calculated 287 mOsm/kg (285-295); Sodium 140 mmol/L (136-145); Total Bilirubin 0.4 mg/dL (0.15-1.2); Total Protein 6.7 g/dL (6.6-8.7)
[2019-10-19] MEDS: piperacillin-tazobactam 3.375 GM in sodium chloride 0.9% (plus) 50 ML IV ×2 (09:05→17:12)
[2019-10-19] MEDS: levofloxacin-dextrose 5 % 750 MG/150 ML PREMIX 100 MG IV (09:08)
[2019-10-19] MEDS: pantoprazole 40 mg SDV IVP (09:10)
--- NOTE | 2019-10-19 12:03 | P.ANESASSM_ITS ---
Pre-Anesthetic Assessment Pre-Anesthetic Assessment: Height/Weight: Height 1.68 m Weight 53.524 kg Temp Pulse Resp BP Pulse Ox 98.4 F 73 15 112/63 95 10/19/19 02:21 10/19/19 12:02 10/19/19 12:02 10/19/19 05:00 10/19/19 12:02 Preop Diagnosis: aspiration/ Resp failure Proposed Procedure: Operation Date: 10/19/19 12:00 Proposed Procedures p placement of gj tube, possible laparoscopic placement(Not Applicable) - Konrad Champion MD Last Intake: 23:00 Social: Social History: Tobacco and No alcohol Exam: Pre-Anes Outpt Exam: clear to auscultation bilaterally (course bilateral) and regular rate & rhythm Additional Exam Findings (including area of procedure): Pt sedated and on vent in ICU Airway: Submandibular: WNL Cervical ROM: WNL MP: 2 Pulmonary: Pulmonary: COPD, Cough, CORREA and SOB Comments: Hx aspiration and Pneumo CV/HEM: CV/HEM: CHF : : None reported Hepatic: Hepatic: None reported GI: GI: None reported Metabolic: Comments: wt loss Musc/skel: Musc/skel: Weakness Neuropsych: Neuropsych: Anxiety Anesthetic Plan: ASA status: 3 Anesthesia: Anesthesia Evaluation and General Risk of > 500 ml blood loss (7ml/kg in children): No Meds/Allergies Current Medications: Current Medications Generic Name Dose Route Start Last Admin Trade Name Freq PRN Reason Stop Dose Admin Albuterol/Ipratrop ium 3 ml 10/15/19 16:00 10/19/19 12:02 Duoneb INHALATION 3 ml Q4H.RESPIRATORY S CH Administration Enoxaparin Sodium 40 mg 10/15/19 13:30 10/18/19 13:30 Lovenox SUBCUT 40 mg Q24H CHRISTIANO Administration Sodium Chloride 1,000 mls @ 100 m ls/hr 10/15/19 12:44 10/19/19 02:13 Sodium Chloride 0.9% IV 100 mls/hr .Q10H CHRISTIANO Administration Piperacillin Sod/T azobactam 50 mls @ 12.5 mls /hr 10/15/19 16:30 10/19/19 09:05 Sod 3.375 gm/ So dium Chloride IV 12.5 mls/hr Q8H CHRISTIANO Administration Protocol As Directed Propofol 1,000 mg in 100 m ls @ 0 mls/hr 10/15/19 13:15 10/19/19 08:54 Diprivan IV 50 mcg/kg/min .Q0M CHRISTIANO 15.9 mls/hr Administration Protocol Per Protocol Fentanyl 1,000 mcg / Sodium 100 mls @ 0 mls/h r 10/15/19 17:58 10/19/19 06:55 Chloride IV 100 mcg/hr .Q0M PRN 10 mls/hr PAIN Administration Protocol Per Protocol Levofloxacin/Dextr ose 750 mg in 150 mls @ 100 mls/hr 10/18/19 09:30 10/19/19 09:08 Levaquin-D5w IV 100 mls/hr Q24H CHRISTIANO Administration Protocol Lorazepam 1 mg 10/15/19 14:58 10/15/19 15:09 Ativan IVP 1 mg Q2H PRN Administration ANXIETY Methylprednisolone Sodium Succinate 40 mg 10/17/19 16:06 10/19/19 09:12 Solu-Medrol IVP 40 mg Q6H CHRISTIANO Administration Morphine Sulfate 1 mg 10/15/19 14:58 10/18/19 19:39 Morphine IVP 1 mg Q2H PRN Administration SEVERE PAIN Pantoprazole Sodiu m 40 mg 10/15/19 12:44 10/19/19 09:10 Protonix IVP 40 mg DAILY CHRISTIANO Administration PFSH Anesthesia PFSH: Medical History Anxiety Aspiration, chronic pulmonary COPD (chronic obstructive pulmonary disease) History of malignant neoplasm of tonsil History of osteomyelitis Osteomyelitis of the mandible, treated in 2017 Uses feeding tube Surgical History History of tonsillectomy Cancer resection with tonsillar cancer Social History Smoking and tobacco status: former smoker Alcohol intake: never Substance/Drug Use: never Data Anesthesia CBC & Chem 7: 10/19/19 05:29 10/19/19 05:29 Other Labs: Laboratory Results - last 48 hr 10/18/19 10/18/19 10/19/19 04:22 04:22 05:29 WBC 19.4 H 15.0 H RBC 3.92 L 4.28 Hgb 12.0 13.2 Hct 38.8 L 42.8 MCV 99.0 H 100.0 H MCH 30.6 30.8 MCHC 30.9 30.8 RDW 14.4 14.3 Plt Count 355 372 MPV 9.5 9.4 Neut % (Auto) 95.2 91.3 Lymph % (Auto) 1.6 4.1 [place] % (Auto) 2.4 3.1 Eos % (Auto) 0.0 0.0 Baso % (Auto) 0.2 0.1 Neut # (Auto) 18.50 H 13.63 H Lymph # (Auto) 0.3 L 0.6 L [place] # (Auto) 0.5 0.5 Eos # (Auto) 0.0 0.0 Baso # (Auto) 0.0 0.0 Nucleated RBC % (auto) 0 0 Nucleated RBCs # 0.0 0.0 Sodium 140 Potassium 3.8 Chloride 104 Carbon Dioxide 27 Anion Gap 12.8 BUN 24 H Creatinine 0.5 L GFR Calculation 169.6 H Glucose 115 Calculated Osmolality 288 Calcium 8.6 Total Bilirubin 0.2 AST 20 ALT 48 H Alkaline Phosphatase 122 Total Protein 6.5 L Albumin 2.5 L Globulin 4.0 10/19/19 05:29 WBC RBC Hgb Hct MCV MCH MCHC RDW Plt Count MPV Neut % (Auto) Lymph % (Auto) [place] % (Auto) Eos % (Auto) Baso % (Auto) Neut # (Auto) Lymph # (Auto) [place] # (Auto) Eos # (Auto) Baso # (Auto) Nucleated RBC % (auto) Nucleated RBCs # Sodium 140 Potassium 4.0 Chloride 104 Carbon Dioxide 26 Anion Gap 14.0 BUN 23 Creatinine 0.5 L GFR Calculation 169.6 H Glucose 109 Calculated Osmolality 287 Calcium 8.7 Total Bilirubin 0.4 AST 34 ALT 57 H Alkaline Phosphatase 119 Total Protein 6.7 Albumin 2.7 L Globulin 4.0 Micro: Microbiology 10/15/19 16:00 Gram Stain - Final Sputum - Endotracheal Wash Sputum Culture - Preliminary Cardiac Studies: No Data to Display
--- NOTE | 2019-10-19 12:28 | PM.PN ---
Subjective Subjective: Interval history: no issues overnight, Vitals/I&O/Wt Last Vital Signs Temp 98.4 F 10/19/19 02:21 Pulse 73 10/19/19 12:02 Resp 15 10/19/19 12:02 BP 112/63 10/19/19 05:00 Pulse Ox 95 10/19/19 12:02 10/18/19 10/19/19 10/19/19 22:59 06:59 14:59 Intake Total 1282.765 / 2862.741 1221.393 / 2862.741 95.4 / 95.4 Output Total 500 / 925 425 / 925 Balance 782.765 / 1937.741 796.393 / 1937.741 95.4 / 95.4 Physical Exam Narrative: EXAM NARRATIVE: intubated Abdomen: PEG in place Data : 10/19/19 05:29 10/19/19 05:29 Micro: Microbiology 10/15/19 16:00 Gram Stain - Final Sputum - Endotracheal Wash Sputum Culture - Preliminary A&P Assessment and plan (1) Aspiration pneumonia: Discussed plan with patient's today Plan for GJ and jejunostomy under GA today Status: Acute Attestations Medical Necessity Statement*: aspiration Coding Level of Care Code Acute 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
--- NOTE | 2019-10-19 12:45 | PC.NURSE ---
Pt Off ICU unit to surgery.
--- NOTE | 2019-10-19 13:46 | PM.PN ---
Subjective Subjective: Interval history: Patient intubated, resting comfortably in bed. Discussed with RN at bedside, no concerns overnight, plan for PEG tube tube replacement today. Vitals/I&O/Wt Last Vital Signs Temp 97.6 F 10/19/19 09:00 Pulse 73 10/19/19 12:02 Resp 15 10/19/19 12:02 BP 102/75 10/19/19 12:00 Pulse Ox 95 10/19/19 12:02 10/18/19 10/19/19 10/19/19 22:59 06:59 14:59 Intake Total 1282.765 / 0282.642 7510.393 / 2862.741 1345.4 / 1345.4 Output Total 500 / 500 425 / 925 Balance 782.765 / 1141.348 796.393 / 4201.698 5246.4 / 1345.4 Physical Exam Const: COMMON NORMALS: alert GENERAL APPEARANCE: cooperative and frail appearing NUTRITIONAL APPEARANCE: cachectic and thin ORIENTATION/CONSCIOUSNESS: Yes awake, Yes oriented to person, Yes oriented to place and Yes oriented to time OTHER: Intubated HENMT: COMMON NORMALS: normocephalic and atraumatic HEAD & SCALP: normocephalic and atraumatic OTHER: ET tube in place Eye: COMMON NORMALS: Equal, round and reactive pupils present PUPIL: Yes Equal, round and reactive pupils present Neck/C-Spine: COMMON NORMALS: supple GENERAL: Yes normal visual inspection Resp: OTHER: Intubated, improved breath sounds bilaterally but remains coarse Cardio: COMMON NORMALS: regular rate and regular rhythm RATE: regular rate RHYTHM: regular rhythm GI: COMMON NORMALS: Soft to palpation and non-tender INSPECTION: Yes normal to inspection and No abdominal distension AUSCULTATION: Yes normoactive bowel sounds PALPATION: Yes Soft to palpation OTHER: PEG tube in place, normal bowel sounds, no tenderness : OTHER: Lopez catheter in place Extremity: COMMON NORMALS: no clubbing, cyanosis or edema and no calf tenderness OTHER: No acute deformity, no cyanosis or edema, negative Homans sign in the lower extremities bilaterally Neuro: COMMON NORMALS: CN's II-XII intact bilaterally, moves all extremities and no focal motor deficits SENSORIUM/ORIENTATION: Yes alert, Yes oriented to person, Yes oriented to place and Yes oriented to time SPEECH: speech normal OTHER: Intubated, patient is able to respond by shaking his head yes and no appropriately Psych: COMMON NORMALS: mental status grossly normal and cooperative OTHER: Intubated, cooperative, calm Skin: COMMON NORMALS: no rashes or lesions noted NARRATIVE SKIN EXAM: sacral ulceration GENERAL SKIN EXAM: no rashes or lesions noted Data : 10/19/19 05:29 10/19/19 05:29 Micro: Microbiology 10/15/19 16:00 Gram Stain - Final Sputum - Endotracheal Wash Sputum Culture - Preliminary A&P Assessment and plan (1) Acute on chronic respiratory failure: We will plan for extubation following PEG tube replacement today Recent hospitalization for hydropneumothorax from August to July and diagnosed with empyema at that time, reportedly grew MSSA Status: Acute (2) Aspiration pneumonia: Patient is currently on Zosyn and Levaquin, vancomycin was discontinued due to MRSA nasal swab being negative White blood cell count trending downward today Plan for extubation following PEG tube replacement Status: Acute (3) Aspiration, chronic pulmonary: Chronic aspiration with a history of tonsillar cancer, resection, status post radiation treatment currently in remission Discussed with Dr. Champion, general surgeon in consultation for consideration of G-tube placement, awaiting proper tubes to perform minimally invasive procedure and transition from PEG to J-tube. Status: Acute (4) COPD (chronic obstructive pulmonary disease): Decrease Solu-Medrol dosing Remains intubated, extubation following J-tube placement Concern for aspiration pneumonia pneumonitis Status: Acute (5) Uses feeding tube: With concern for recurrent aspiration, discussed with general surgery for consultation and plan for PEG to J-tube placement Status: Acute (6) Anxiety: On BuSpar Status: Acute Additional A&P Information Initial concern for fluid overload and congestive heart failure exacerbation, diastolic dysfunction, now compensated Patient is thin and cachectic appearing with weight loss over the past 1 year and prior malignancy, reported to be currently in remission but reports that he has not followed with any oncologist recently, recently diagnosed with hydropneumothorax, cannot find any cytology from outside facility, uncertain if this was related to a malignant effusion however no documentation suggesting such. Recommend outpatient follow-up with hematology oncology following discharge Reported hematochezia and melena: No episodes in the inpatient setting DVT prophylaxis: Lovenox Diet: N.p.o. due to concern for aspiration of tube feeds with plan for changing of tube CODE STATUS: Full code, this was discussed with patient on date of admission, he was uncertain about intubation but then agreed. Attestations Medical Necessity Statement*: Patient requires further hospitalization due to aspiration pneumonia requiring mechanical ventilation Coding Level of Care Code Acute Data Typist for [facility] Fwd Exam Comprehensive Diagnoses Acute on chronic respiratory failure J96.20 Aspiration pneumonia J69.0 Aspiration, chronic pulmonary T17.908A COPD (chronic obstructive pulmonary disease) J44.9 Uses feeding tube Z97.8 Anxiety F41.9
--- NOTE | 2019-10-19 14:00 | PC.NURSE ---
Pt back to ICU from OR. FLACC 0 0-10 scale.
[2019-10-19] MEDS: enoxaparin 40 mg/0.4 mL Syringe SUBCUT (14:07)
--- NOTE | 2019-10-19 16:25 | PM.OP ---
Operative Report Date of procedure: October 19, 2019 Pre-op Diagnosis: aspiration/ Resp failure Post-op Findings: PEG tube within the abdominal wall, retracted from the gastric lumen Procedure Done: Removal of gastrostomy tube Endoscopic placement of gastrojejunostomy tube Specimens removed/disposition: None Surgeon: Konrad Champion Anesthesia: General Estimated blood loss: 5 Condition: stable Disposition: ICU Procedure: The patient was taken to the operating room from the ICU on the ventilator. A gastroscope was introduced and advanced up to the second portion of the duodenum. There were no abnormalities noted in the first and second portion of the duodenum. The pylorus, antrum, fundus and body of the stomach were normal. Z line was at 40 cm. The disc on the PEG tube had retracted into the abdominal wall and was not within the gastric lumen. The gastrostomy tube was removed by applying traction without difficulty. Introducer needle was used to access the gastric lumen through the existing gastrostomy site, the inner needle was removed and the sheath left behind, guidewire was then passed and the outer sheath was removed. A dilator sheath was passed over the guidewire and the guidewire along with the inner dilator was removed. An 18 Spanish gastrojejunostomy tube was introduced through the peel-away sheath as it was removed. Using biopsy forceps the gastrojejunostomy tube was grasped and advanced into the duodenum. 10 mg of IV Reglan was given. The balloon was insufflated with 10 cc of saline. Jejunostomy port was clamped and the gastrostomy port was attached to gravity bag. The patient was transferred intubated to the ICU. He was stable throughout the procedure.
--- NOTE | 2019-10-19 17:42 | PC.RESP ---
extubated pt extubated and placed on 4lpm nc tolerated well
--- NOTE | 2019-10-19 17:43 | PC.NURSE ---
Fentanyl waste: 15ml of gtt wasted. Witnessed by ARELY Garcia RN.
--- NOTE | 2019-10-19 17:45 | PC.NURSE ---
Pt extubated. Tolerating well.
--- NOTE | 2019-10-19 19:12 | PC.NURSE ---
Shift summary: Pt alert and oriented. Extubated today around 1700. Went to surgery and had feeding tube changed, gastrojejunostomy placed. It is draining clear liquid with blood flecks. He did c\o of pain after extubation, IV acetaminophen given, he stated it helped some. Lopez wasn't draining , flushed with 20ml saline, it drained over 450ml of clear, dark yellow urine .
[2019-10-19] MEDS: morphine 4 mg/mL SDV 1 mL 2 MG IVP ×2 (20:00→23:24)
[2019-10-19] MEDS: LORazepam 2 mg/mL INJ 1 mL 1 MG IVP (20:00)
[2019-10-20] VITALS (22 sets, daily range): BP systolic 116–159; BP diastolic 78–107; PULSE 88–108; RESP 11–30; TEMP 36.5–37.2; O2SAT 89–97
[2019-10-20] MEDS: ipratropium-albuterol 3 mL Neb INHALATION ×5 (00:39→20:54)
[2019-10-20] MEDS: piperacillin-tazobactam 3.375 GM in sodium chloride 0.9% (plus) 50 ML IV ×3 (01:53→16:58)
[2019-10-20] MEDS: morphine 4 mg/mL SDV 1 mL 2 MG IVP ×2 (03:50→09:44)
[2019-10-20] MEDS: LORazepam 2 mg/mL INJ 1 mL 1 MG IVP ×2 (03:51→09:44)
--- NOTE | 2019-10-20 06:00 | XRR_ITS ---
PROCEDURE INFORMATION: Exam: XR Chest, 1 View Exam date and time: 10/20/2019 4:56 AM Age: 59 years old Clinical indication: Other: Aspiration TECHNIQUE: Imaging protocol: XR of the chest Views: 1 view. COMPARISON: CT chest abd pel w con* 10/17/2019 9:58 AM FINDINGS: Lungs: There is persistent dense consolidation in the left lower lobe with mild patchy ill-defined opacity in the mid to lower lungs bilaterally. Pleural space: Unremarkable. No pleural effusion. No pneumothorax. Heart/Mediastinum: Unremarkable although partially obscured on the left. Bones/joints: Bones are unremarkable. Other findings: Intraperitoneal gas is suspected beneath the right hemidiaphragm. XR/XR chest 1V portable [id number] IMPRESSION: 1. Suspect intraperitoneal free air. 2. Dense consolidation in the left lower lobe with patchy ill-defined opacities in the central lower lungs bilaterally, similar to the findings on recent chest CT.
[2019-10-20 06:33] LABS: Basophils % 0.1 %; Hematocrit 42.8 % (42.0-52.0); Hemoglobin 13.5 g/dL (11.7-16.6); Lymphocytes # 0.4 10^3/uL (0.8-4.8); Lymphocytes % 2.3 %; Mean Corpuscular HGB Conc 31.5 g/dL (30.0-36.0); Mean Corpuscular Hemoglobin 31.3 pg (28.0-34.0); Mean Corpuscular Volume 99.1 fL (80-94); Mean Platelet Volume 9.2 fL (7.4-10.4); Monocytes # 0.2 10^3/uL (0.2-0.9); Monocytes % 1.6 %; Neutrophils # 14.57 10^3/uL (1.8-7.7); Neutrophils % 94.6 %; Nucleated Red Blood Cells % 0 %; Platelet Count 327 10^3/cmm (130-400); Red Blood Count 4.32 10^6/uL (4.1-5.3); White Blood Count 15.4 10^3/uL (4.0-10.0)
[2019-10-20 07:08] LABS: Alanine Aminotransferase 65 U/L (0-41); Albumin Level 2.5 g/dL (3.5-5.2); Alkaline Phosphatase 111 IU/L (40-130); Anion Gap 12.9 (5-19); Aspartate Amino Transferase 28 U/L (0-40); Blood Urea Nitrogen 20 mg/dL (8-23); Carbon Dioxide 28 mmol/L (22-29); Chloride 105 mmol/L (98-107); Globulin 3.5 g/dL (1.3-4.6); Glomerular Filtration Rate 219.4 mL/min (90-130); Glucose 101 mg/dL (65-115); Osmolality Calculated 291 mOsm/kg (285-295); Potassium 3.9 mmol/L (3.5-5.1); Sodium 142 mmol/L (136-145); Total Bilirubin 0.5 mg/dL (0.15-1.2)
--- NOTE | 2019-10-20 08:29 | P.PN_ITS ---
Subjective Subjective: Interval history: Patient awake in bed at time of exam. Reports some discomfort in his abdomen around his PEG tube, denies any chest pain or increasing shortness of breath. Patient reports some sore throat from ET tube. Vitals/I&O/Wt Last Vital Signs Temp 98.3 F 10/20/19 04:00 Pulse 88 10/20/19 06:00 Resp 20 H 10/20/19 06:00 BP 132/88 10/20/19 06:00 Pulse Ox 96 10/20/19 06:00 10/19/19 10/20/19 10/20/19 22:59 06:59 14:59 Intake Total 1112.727 / 2605.400 Output Total 550 / 550 Balance 562.727 / 2055.400 Weight last 48 hrs Weight 53.07 kg Physical Exam Const: COMMON NORMALS: alert GENERAL APPEARANCE: cooperative and frail appearing NUTRITIONAL APPEARANCE: cachectic and thin ORIENTATION/CONSCIOUSNESS: Yes awake, Yes oriented to person, Yes oriented to place and Yes oriented to time HENMT: COMMON NORMALS: normocephalic and atraumatic HEAD & SCALP: normocephalic and atraumatic Eye: COMMON NORMALS: Equal, round and reactive pupils present PUPIL: Yes Equal, round and reactive pupils present Neck/C-Spine: COMMON NORMALS: supple GENERAL: Yes normal visual inspection Resp: OTHER: On nasal cannula, mild accessory muscle use, respirations are even, diminished breath sounds in the right base Cardio: COMMON NORMALS: regular rate and regular rhythm RATE: regular rate RHYTHM: regular rhythm GI: COMMON NORMALS: Soft to palpation and non-tender INSPECTION: Yes normal to inspection and No abdominal distension AUSCULTATION: Yes normoactive bowel sounds PALPATION: Yes Soft to palpation OTHER: PEG tube in place, normal bowel sounds, mild tenderness around PEG tube : OTHER: Lopez catheter in place Extremity: COMMON NORMALS: no clubbing, cyanosis or edema and no calf tenderness OTHER: No acute deformity, no cyanosis or edema, negative Homans sign in the lower extremities bilaterally Neuro: COMMON NORMALS: CN's II-XII intact bilaterally, moves all extremities and no focal motor deficits SENSORIUM/ORIENTATION: Yes alert, Yes oriented to person, Yes oriented to place and Yes oriented to time SPEECH: speech normal OTHER: Patient awake and alert, cranial nerves II through XII grossly intact bilaterally without focal neurologic deficit Psych: COMMON NORMALS: mental status grossly normal and cooperative OTHER: Calm, cooperative Skin: COMMON NORMALS: no rashes or lesions noted NARRATIVE SKIN EXAM: sacral ulceration GENERAL SKIN EXAM: no rashes or lesions noted Data : 10/20/19 06:15 10/20/19 06:15 Micro: Microbiology 10/15/19 16:00 Gram Stain - Final Sputum - Endotracheal Wash Sputum Culture - Preliminary A&P Assessment and plan (1) Acute on chronic respiratory failure: Extubated on 10/19/2019 Recent hospitalization for hydropneumothorax from August to July and diagnosed with empyema at that time, reportedly grew MSSA Status: Acute (2) Aspiration pneumonia: Continued Zosyn and Levaquin, vancomycin was discontinued due to MRSA nasal swab being negative White blood cell count trending downward today Extubated on 10/19/2019, now on 4 L of oxygen by nasal cannula, continue to wean with goal oxygen saturation of 90 to 92% Status: Acute (3) Aspiration, chronic pulmonary: 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 Champion and PEG tube was replaced with a J-tube. Patient had chest x-ray this morning showing intraperitoneal air, this is likely secondary to recent surgery and PEG tube being out of the stomach, called Dr. Champion to review at 0824 Status: Acute (4) COPD (chronic obstructive pulmonary disease): Discontinue Solu-Medrol and transition to prednisone Extubated on 10/19/2019, now on 4 L of oxygen by nasal cannula, continue to wean as tolerated. Concern for aspiration pneumonia pneumonitis Status: Acute (5) Uses feeding tube: With concern for recurrent aspiration, discussed with general surgery for consultation and plan for PEG to J-tube placement Status: Acute (6) Anxiety: On BuSpar Status: Acute Additional A&P Information Initial concern for fluid overload and congestive heart failure exacerbation, diastolic dysfunction, now compensated Patient is thin and cachectic appearing with weight loss over the past 1 year and prior malignancy, reported to be currently in remission but reports that he has not followed with any oncologist recently, recently diagnosed with hydropneumothorax, cannot find any cytology from outside facility, uncertain if this was related to a malignant effusion however no documentation suggesting such. Recommend outpatient follow-up with hematology oncology following disch grzegorz Reported hematochezia and melena: No episodes in the inpatient setting Disposition planning: Patient will likely need fci facility placement or long-term acute care facility based on clinical improvement DVT prophylaxis: Lovenox Diet: Restart tube feeds today CODE STATUS: Full code, this was discussed with patient on date of admission, he was uncertain about intubation but then agreed. Attestations Medical Necessity Statement*: Patient requires further hospitalization due to acute respiratory failure secondary to recurrent aspiration and aspiration pneumonia Coding Level of Care Code Acute Physician Practice Market Manager for [facility] Fwd Exam Comprehensive Diagnoses Acute on chronic respiratory failure J96.20 Aspiration pneumonia J69.0 Aspiration, chronic pulmonary T17.908A COPD (chronic obstructive pulmonary disease) J44.9 Uses feeding tube Z97.8 Anxiety F41.9
[2019-10-20] MEDS: pantoprazole 40 mg SDV IVP (09:45)
[2019-10-20] MEDS: levofloxacin-dextrose 5 % 750 MG/150 ML PREMIX 100 MG IV (09:46)
[2019-10-20] MEDS: sodium chloride 0.9% 1,000 ML 100 ML IV ×2 (09:46→21:40)
--- NOTE | 2019-10-20 09:59 | PC.NURSE ---
Some morning medications late today due to other patient's care plus this pt's care.
[2019-10-20] MEDS: predniSONE 20 mg Tablet 40 MG PO (12:48)
[2019-10-20] MEDS: acetaminophen-codeine 300-30mg Tablet 1 TAB PO ×3 (12:48→23:01)
[2019-10-20] MEDS: enoxaparin 40 mg/0.4 mL Syringe SUBCUT (12:48)
--- NOTE | 2019-10-20 12:55 | PC.NURSE ---
Dr Champion ok'd using the gastrojejunostomy tube for medications and feeding. Dr Schwartz notified of this. Prednisone, that had been held, now given per GJ tube. Pulmnocare started at 10ml/hr . Pt tolerating initiation of continuous feeding well.
--- NOTE | 2019-10-20 13:31 | P.PN_ITS ---
Subjective Subjective: Interval history: Patient is awake, extubated sitting up in chair. About 100 cc of drainage from the gastric port Vitals/I&O/Wt Last Vital Signs Temp 98.3 F 10/20/19 04:00 Pulse 96 10/20/19 11:39 Resp 20 H 10/20/19 11:39 BP 132/88 10/20/19 06:00 Pulse Ox 90 10/20/19 11:39 10/19/19 10/20/19 10/20/19 22:59 06:59 14:59 Intake Total 1212.727 / 2755.400 50 / 2755.400 1190 / 1190 Output Total 550 / 550 Balance 662.727 / 2205.400 50 / 2205.400 1190 / 1190 Weight last 48 hrs Weight 117 lb Physical Exam Narrative: EXAM NARRATIVE: Abdomen: GJ tube in place, Urinary Catheter Management^: Lopez: Cath Placed During This Visit: no Reason for Continuing Indwelling Catheter: Accurate Measurement of Urinary Output in Critically Ill Patients Data : 10/20/19 06:15 10/20/19 06:15 Micro: Microbiology 10/15/19 09:30 Blood Culture - Final Blood NO GROWTH AFTER 5 DAYS 10/15/19 09:35 Blood Culture - Final Blood NO GROWTH AFTER 5 DAYS 10/15/19 16:00 Gram Stain - Final Sputum - Endotracheal Wash Sputum Culture - Final A&P Assessment and plan (1) Aspiration pneumonia: Status post PEG tube converted to GJ tube Continue G-tube drainage Start Pulmocare at 10 cc/h today through jejunostomy tube Free air noted on chest x-ray today is most likely post procedure. Patient does not have any evidence of peritonitis. 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
[2019-10-20] MEDS: phenol oral Spray 177 mL 3 SPRAY MUCOUS MEM (16:56)
--- NOTE | 2019-10-20 19:37 | PC.NURSE ---
Shift summary: Pt out of bed once today with PT, he is weak. Dr Champion ok'd using GJ tube, Pulmocare started at 10ml/hr. Pt tolerating tube feeding and flushes after meds well. Acetaminophen with Codeine seems to help his pain more so than morphine. His oxygen needs increased while out of bed, O2 increased to 4lpm/NC. Lung sounds clear and slightly diminished. Pt pleasant and cooperative bt does seem depressed with flat affect. Urine output 700ml, color polisher hand than yesterday, yellow. This nurse called his son Francis, at 1600, and informed him of visiting hours and policy at patient's request.
[2019-10-21] VITALS (20 sets, daily range): BP systolic 92–142; BP diastolic 57–90; PULSE 87–106; RESP 0–23; TEMP 36.6–37.2; O2SAT 87–98
[2019-10-21] MEDS: ipratropium-albuterol 3 mL Neb INHALATION ×5 (00:12→20:12)
[2019-10-21] MEDS: piperacillin-tazobactam 3.375 GM in sodium chloride 0.9% (plus) 50 ML IV ×3 (01:48→17:13)
[2019-10-21] MEDS: acetaminophen-codeine 300-30mg Tablet 1 TAB PO ×5 (03:16→21:09)
[2019-10-21 07:13] LABS: Basophils % 0.2 %; Eosinophils % 0.2 %; Hematocrit 47.2 % (42.0-52.0); Hemoglobin 14.6 g/dL (11.7-16.6); Lymphocytes # 0.5 10^3/uL (0.8-4.8); Mean Corpuscular HGB Conc 30.9 g/dL (30.0-36.0); Mean Corpuscular Hemoglobin 30.5 pg (28.0-34.0); Mean Corpuscular Volume 98.7 fL (80-94); Mean Platelet Volume 9.2 fL (7.4-10.4); Monocytes # 0.5 10^3/uL (0.2-0.9); Monocytes % 5.2 %; Neutrophils % 87.2 %; Nucleated Red Blood Cells % 0 %; Platelet Count 303 10^3/cmm (130-400); Red Blood Count 4.78 10^6/uL (4.1-5.3); White Blood Count 9.6 10^3/uL (4.0-10.0)
[2019-10-21 07:26] LABS: Alanine Aminotransferase 53 U/L (0-41); Alkaline Phosphatase 93 IU/L (40-130); Anion Gap 11.6 (5-19); Aspartate Amino Transferase 24 U/L (0-40); Blood Urea Nitrogen 23 mg/dL (8-23); Calcium 7.6 mg/dL (8.5-10.5); Carbon Dioxide 27 mmol/L (22-29); Chloride 105 mmol/L (98-107); Globulin 3.6 g/dL (1.3-4.6); Glomerular Filtration Rate 169.6 mL/min (90-130); Glucose 94 mg/dL (65-115); Osmolality Calculated 286 mOsm/kg (285-295); Potassium 3.6 mmol/L (3.5-5.1); Sodium 140 mmol/L (136-145); Total Bilirubin 0.4 mg/dL (0.15-1.2); Total Protein 5.8 g/dL (6.6-8.7)
[2019-10-21 07:36] LABS: Albumin Level 2.2 g/dL (3.5-5.2)
--- NOTE | 2019-10-21 08:16 | PM.PN ---
Subjective Subjective: Interval history: Patient tolerating tube feeds through the jejunostomy port, no gastric residual. Mild abdominal pain. Had bowel movements yesterday Vitals/I&O/Wt Last Vital Signs Temp 98.9 F 10/21/19 04:11 Pulse 95 10/21/19 07:59 Resp 16 10/21/19 07:59 BP 133/89 10/21/19 06:00 Pulse Ox 95 10/21/19 07:59 10/20/19 10/21/19 10/21/19 22:59 06:59 14:59 Intake Total 1150 / 2390 30 / 30 Output Total 700 / 1200 500 / 1200 Balance 450 / 1190 -500 / 1190 30 / 30 Weight last 48 hrs Weight 116 lb Weight 117 lb Physical Exam Narrative: EXAM NARRATIVE: Abdomen: Soft, nondistended, minimally tender, PEG tube in the left upper quadrant Urinary Catheter Management^: Lopez: Cath Placed During This Visit: no Reason for Continuing Indwelling Catheter: Accurate Measurement of Urinary Output in Critically Ill Patients Data : 10/21/19 07:02 10/21/19 07:02 Micro: Microbiology 10/15/19 09:30 Blood Culture - Final Blood NO GROWTH AFTER 5 DAYS 10/15/19 09:35 Blood Culture - Final Blood NO GROWTH AFTER 5 DAYS 10/15/19 16:00 Gram Stain - Final Sputum - Endotracheal Wash Sputum Culture - Final A&P Assessment and plan (1) Encounter for gastrojejunal (GJ) tube placement: Status post exchange of PEG tube to gastrojejunostomy tube doing well, tolerating tube feeds at 10 cc/h, had bowel movements Increase Pulmocare by 10 cc every 8 hours to maximum 40 mL/h Free water 60 cc every 8 hours, recheck sodium tomorrow Status: Acute Attestations Medical Necessity Statement*: Aspiration pneumonia Coding Level of Care Code Acute Silk Screen Cutter for [facility] Fwd Diagnoses Encounter for gastrojejunal (GJ) tube placement Z78.9
[2019-10-21] MEDS: predniSONE 20 mg Tablet 40 MG PO (09:13)
[2019-10-21] MEDS: levofloxacin-dextrose 5 % 750 MG/150 ML PREMIX 100 MG IV (09:14)
[2019-10-21] MEDS: pantoprazole 40 mg SDV IVP (09:14)
[2019-10-21] MEDS: phenol oral Spray 177 mL 3 SPRAY MUCOUS MEM (09:15)
[2019-10-21] MEDS: lanolin oint 7 gm 1 APPLIC TOPICAL (12:37)
[2019-10-21] MEDS: LORazepam 2 mg/mL INJ 1 mL 1 MG IVP ×3 (12:38→21:09)
[2019-10-21] MEDS: sodium chloride 0.9% 1,000 ML 100 ML IV ×2 (12:38→21:15)
[2019-10-21] MEDS: enoxaparin 40 mg/0.4 mL Syringe SUBCUT (12:38)
--- NOTE | 2019-10-21 16:24 | P.PN_ITS ---
Subjective Subjective: Interval history: Patient tolerating tube feeds through the jejunostomy port,no new complaints Medications: Reviewed: Yes Vitals/I&O/Wt Last Vital Signs Temp 98 F 10/21/19 08:00 Pulse 104 H 10/21/19 16:00 Resp 13 10/21/19 16:00 BP 138/90 10/21/19 16:00 Pulse Ox 93 10/21/19 16:00 10/21/19 10/21/19 10/21/19 06:59 14:59 22:59 Intake Total 50 / 2440 1190 / 1190 Output Total 500 / 1200 Balance -450 / 1240 1190 / 1190 Weight last 48 hrs Weight 52.617 kg Weight 53.07 kg Physical Exam Urinary Catheter Management^: Lopez: Cath Placed During This Visit: no Reason for Continuing Indwelling Catheter: Accurate Measurement of Urinary Output in Critically Ill Patients Data : 10/21/19 07:02 10/21/19 07:02 A&P Assessment and plan (1) Acute on chronic respiratory failure: Extubated on 10/19/2019 Recent hospitalization for hydropneumothorax from August to July and diagnosed with empyema at that time, reportedly grew MSSA Status: Acute (2) Aspiration pneumonia: Continued Zosyn and Levaquin, vancomycin was discontinued due to MRSA nasal swab being negative White blood cell count trending downward today Extubated on 10/19/2019, now on 4 L of oxygen by nasal cannula, continue to wean with goal oxygen saturation of 90 to 92% Status: Acute (3) Aspiration, chronic pulmonary: 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 Champion and PEG tube was replaced with a J-tube. Patient had chest x-ray this morning showing intraperitoneal air, this is likely secondary to recent surgery and PEG tube being out of the stomach, called Dr. Champion to review at 0824 Status: Acute (4) COPD (chronic obstructive pulmonary disease): Discontinue Solu-Medrol and transition to prednisone Extubated on 10/19/2019, now on 4 L of oxygen by nasal cannula, continue to wean as tolerated. Concern for aspiration pneumonia pneumonitis Status: Acute (5) Uses feeding tube: With concern for recurrent aspiration, discussed with general surgery for consultation and plan for PEG to J-tube placement Status: Acute (6) Anxiety: On BuSpar Status: Acute Additional A&P Information Initial concern for fluid overload and congestive heart failure exacerbation, diastolic dysfunction, now compensated Patient is thin and cachectic appearing with weight loss over the past 1 year and prior malignancy, reported to be currently in remission but reports that he has not followed with any oncologist recently, recently diagnosed with hydropneumothorax, cannot find any cytology from outside facility, uncertain if this was related to a malignant effusion however no documentation suggesting such. 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
--- NOTE | 2019-10-21 19:42 | PC.NURSE ---
shift summary: Pt has had a good day. Lung sounds are clear. PT assisted pt out of bed and walking in gaines. Pt noted to be working on the suggested PT exercises on his own volition. Pt has tolerated increasing his tube feeding, he is now on 30ml/hr, no residuals noted. Urine output remains consistent at 70ml. Area on bottom healed.
[2019-10-22] VITALS (29 sets, daily range): BP systolic 78–128; BP diastolic 52–83; PULSE 82–108; RESP 0–21; TEMP 36.5–36.8; O2SAT 91–99
[2019-10-22] MEDS: ipratropium-albuterol 3 mL Neb INHALATION ×7 (00:12→23:35)
[2019-10-22] MEDS: acetaminophen-codeine 300-30mg Tablet 1 TAB PO ×5 (00:37→19:51)
[2019-10-22] MEDS: piperacillin-tazobactam 3.375 GM in sodium chloride 0.9% (plus) 50 ML IV ×3 (00:42→16:29)
[2019-10-22] MEDS: morphine 4 mg/mL SDV 1 mL 2 MG IVP ×3 (02:54→23:05)
[2019-10-22] MEDS: LORazepam 2 mg/mL INJ 1 mL 1 MG IVP ×4 (02:55→19:51)
[2019-10-22] MEDS: pantoprazole 40 mg SDV IVP (08:37)
[2019-10-22] MEDS: predniSONE 20 mg Tablet 40 MG PO (08:37)
[2019-10-22] MEDS: levofloxacin-dextrose 5 % 750 MG/150 ML PREMIX 100 MG IV (09:48)
[2019-10-22 12:23] LABS: Basophils % 0.1 %; Eosinophils % 0.3 %; Hematocrit 46.9 % (42.0-52.0); Hemoglobin 14.4 g/dL (11.7-16.6); Lymphocytes # 0.4 10^3/uL (0.8-4.8); Lymphocytes % 2.9 %; Mean Corpuscular HGB Conc 30.7 g/dL (30.0-36.0); Mean Corpuscular Volume 100.9 fL (80-94); Mean Platelet Volume 9.5 fL (7.4-10.4); Monocytes # 0.4 10^3/uL (0.2-0.9); Monocytes % 2.4 %; Neutrophils # 13.95 10^3/uL (1.8-7.7); Neutrophils % 92.9 %; Nucleated Red Blood Cells % 0 %; Platelet Count 294 10^3/cmm (130-400); Red Blood Count 4.65 10^6/uL (4.1-5.3); Red Cell Distribution Width 14.2 % (12.1-15.1)
[2019-10-22 12:53] LABS: Alanine Aminotransferase 71 U/L (0-41); Alkaline Phosphatase 90 IU/L (40-130); Blood Urea Nitrogen 21 mg/dL (8-23); Calcium 7.2 mg/dL (8.5-10.5); Carbon Dioxide 29 mmol/L (22-29); Chloride 103 mmol/L (98-107); Globulin 3.4 g/dL (1.3-4.6); Glomerular Filtration Rate 219.4 mL/min (90-130); Glucose 133 mg/dL (65-115); Osmolality Calculated 283 mOsm/kg (285-295); Sodium 137 mmol/L (136-145); Total Bilirubin 0.4 mg/dL (0.15-1.2); Total Protein 5.4 g/dL (6.6-8.7)
[2019-10-22 12:56] LABS: Aspartate Amino Transferase 44 U/L (0-40)
--- NOTE | 2019-10-22 13:51 | P.PN_ITS ---
Subjective Subjective: Interval history: This morning noted to have orthostatic hypotension with blood pressure down to 78/52 moving from bed to chair. This was not noted previously. Patient did report being symptomatic during this time with feeling of dizziness and diaphoresis. Blood pressure quickly corrected after being placed back in bed. Concomitant tachycardia noted to heart rate 105 at this time. Medications: Reviewed: Yes Vitals/I&O/Wt Last Vital Signs Temp 98.3 F 10/22/19 08:00 Pulse 98 10/22/19 13:47 Resp 17 10/22/19 13:44 BP 78/52 10/22/19 10:00 Pulse Ox 95 10/22/19 13:44 10/21/19 10/22/19 10/22/19 22:59 06:59 14:59 Intake Total 1181.667 / 2521.667 519 / 3040.667 Output Total 700 / 700 350 / 1050 Balance 481.667 / 1821.667 169 / 1990.667 Weight last 48 hrs Weight 52.617 kg Weight 52.617 kg Physical Exam Narrative: EXAM NARRATIVE: GEN: Awake, alert and oriented, chronically ill- appearing cachectic man., No acute distress at this time CVS: S1S2 N RS: CTA B/L anteriorly Abd: Soft, nt/nd , bs+ CANOE INSPECTOR FINAL: no focal neuro deficits Urinary Catheter Management^: Lopez: Cath Placed During This Visit: no Reason for Continuing Indwelling Catheter: Accurate Measurement of Urinary Output in Critically Ill Patients Data : 10/22/19 12:03 10/22/19 12:03 A&P Assessment and plan (1) Acute on chronic respiratory failure: Extubated on 10/19/2019 Recent hospitalization for hydropneumothorax from August to July and diagnosed with empyema at that time, reportedly grew MSSA Status: Acute (2) Aspiration pneumonia: Continued Zosyn and Levaquin, vancomycin was discontinued due to MRSA nasal swab being negative continue to trend, remains afebrile today HB stable post procedure Orthoststic hypotension may be related to fluid losses, will try NS bolus first. No gross changes around PEJ site. 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 Champion and PEG tube was replaced with a J-tube. Patient had chest x-ray this morning showing intraperitoneal air, this is likely secondary to recent surgery Status: Acute (4) COPD (chronic obstructive pulmonary disease): continue prednisone 40mg po qd Extubated on 10/19/2019, now on 3 L of oxygen by nasal cannula, continue to wean as tolerated. Concern for aspiration pneumonia pneumonitis Status: Acute (5) Uses feeding tube: With concern for recurrent aspiration, discussed with general surgery for consultation and plan for PEG to J-tube placement Status: Acute (6) Anxiety: On BuSpar Status: Acute Additional A&P Information Initial concern for fluid overload and congestive heart failure exacerbation, diastolic dysfunction, now compensated Patient is thin and cachectic appearing with weight loss over the past 1 year and prior malignancy, reported to be currently in remission but reports that he has not followed with any oncologist recently, recently diagnosed with hydropneumothorax, cannot find any cytology from outside facility, uncertain if this was related to a malignant effusion however no documentation suggesting such. 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
[2019-10-22] MEDS: enoxaparin 40 mg/0.4 mL Syringe SUBCUT (14:15)
[2019-10-22] MEDS: sodium chloride 0.9% 1,000 ML 999 ML IV (14:17)
--- NOTE | 2019-10-22 18:06 | P.PN_ITS ---
Subjective Subjective: Interval history: Patient tolerating tube feeds at 40 cc/h Vitals/I&O/Wt Last Vital Signs Temp 98.3 F 10/22/19 08:00 Pulse 100 10/22/19 17:19 Resp 16 10/22/19 17:15 BP 118/79 10/22/19 14:00 Pulse Ox 98 10/22/19 17:15 10/22/19 10/22/19 10/22/19 06:59 14:59 22:59 Intake Total 519 / 3040.667 200 / 200 Output Total 350 / 1050 Balance 169 / 1990.667 200 / 200 Weight last 48 hrs Weight 116 lb Weight 116 lb Physical Exam Narrative: EXAM NARRATIVE: Abdomen: Soft, nondistended Urinary Catheter Management^: Lopez: Cath Placed During This Visit: no Reason for Continuing Indwelling Catheter: Accurate Measurement of Urinary Output in Critically Ill Patients Data : 10/22/19 12:03 10/22/19 12:03 A&P Assessment and plan (1) Encounter for gastrojejunal (GJ) tube placement: Doing well Continue with tube feeds We will need to reassess sodium tomorrow to see if free water has to be adjusted Status: Acute Attestations Medical Necessity Statement*: GJ tube placement Coding Level of Care Code Acute Felt Hat Flanging Operator for [facility] Fwd Diagnoses Encounter for gastrojejunal (GJ) tube placement Z78.9
[2019-10-22] MEDS: sodium chloride 0.9% 1,000 ML 100 ML IV ×2 (21:52→23:08)
[2019-10-23] VITALS (23 sets, daily range): BP systolic 102–141; BP diastolic 66–94; PULSE 84–101; RESP 1–22; TEMP 36.6–37.1; O2SAT 90–100
[2019-10-23] MEDS: piperacillin-tazobactam 3.375 GM in sodium chloride 0.9% (plus) 50 ML IV ×3 (00:30→16:15)
[2019-10-23] MEDS: acetaminophen-codeine 300-30mg Tablet 1 TAB PO ×5 (00:30→21:27)
[2019-10-23] MEDS: LORazepam 2 mg/mL INJ 1 mL 1 MG IVP ×2 (00:30→04:33)
[2019-10-23] MEDS: ipratropium-albuterol 3 mL Neb INHALATION ×5 (04:27→19:48)
[2019-10-23] MEDS: sodium chloride 0.9% 1,000 ML 100 ML IV ×3 (08:04→23:11)
--- NOTE | 2019-10-23 08:57 | P.PN_ITS ---
Subjective Subjective: Interval history: Patient reports feeling overall better. He continues to be orthostatic whenever he gets up. Reports using ice cubes and definitely has significant difficulty clearing his secretions therefore I do not think patient should have any oral intake. Reports that for the last 1 month he has been sleeping in his chair/recliner as he would aspirate. He has extensive aspiration pneumonia/pneumonitis. Reports taking anxiety p.o. every 8 hours for the last couple of months. Reports that he quit smoking 5 months ago. He has been cancer free for approximately 20 years. He had surgery followed by chemoradiation in 2000. He is tolerating tube feeds well. Lopez catheter in place. WBC is 15 this morning and felt at least partially be related to steroids as overall he reports significant clinical improvement. His albumin continues to decline. His last bowel movement was yesterday and he reports it was nondiarrheal. He has stage II coccyx pressure ulcer which patient reports having since his recent admission in [place]. There was reported melena and hematochezia but hemoglobin is stable. He saturating in the mid 90s on 4 L by nasal cannula. Patient reports using 3 L continuously at home. Medications: Reviewed: Yes Vitals/I&O/Wt Last Vital Signs Temp 98 F 10/23/19 04:00 Pulse 90 10/23/19 07:36 Resp 16 10/23/19 07:36 BP 131/84 10/23/19 06:00 Pulse Ox 97 10/23/19 07:36 10/22/19 10/23/19 10/23/19 22:59 06:59 14:59 Intake Total 50 / 1250 1138.667 / 2388.667 893.333 / 893.333 Output Total 850 / 850 800 / 1650 Balance -800 / 400 338.667 / 738.667 893.333 / 893.333 Weight last 48 hrs Weight 52.617 kg Weight 52.617 kg Physical Exam Const: COMMON NORMALS: no acute distress and patient oriented x3 Resp: COMMON NORMALS: normal respiratory effort OTHER: Coarse breath sounds throughout. Cardio: COMMON NORMALS: regular rate, regular rhythm and S2 normal heart sound present RATE: regular rate RHYTHM: regular rhythm HEART SOUNDS: S2 normal heart sound present OTHER: No lower extremity edema GI: COMMON NORMALS: Normal to inspection, nondistended, normoactive bowel sounds present, Soft to palpation and non-tender PALPATION: Yes Soft to palpation Neuro: COMMON NORMALS: patient oriented x3 and no focal motor deficits Urinary Catheter Management^: Lopez: Cath Placed During This Visit: no Reason for Continuing Indwelling Catheter: Accurate Measurement of Urinary Output in Critically Ill Patients Data : 10/22/19 12:03 10/22/19 12:03 A&P Assessment and plan (1) Acute on chronic respiratory failure: Extubated on 10/19/2019 Recent hospitalization for hydropneumothorax from August to July and diagnosed with empyema at that time, reportedly grew MSSA Status: Acute (2) Aspiration pneumonia: Continued Zosyn and Levaquin, vancomycin was discontinued due to MRSA nasal swab being negative continue to trend, remains afebrile today HB stable post procedure Orthoststic hypotension may be related to fluid losses, will try NS bolus first. No gross changes around PEJ site. 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 Champion and PEG tube was replaced with a J-tube. Patient had chest x-ray this morning showing intraperitoneal air, this is likely secondary to recent surgery Status: Acute (4) COPD (chronic obstructive pulmonary disease): continue prednisone 40mg po qd Extubated on 10/19/2019, now on 3 L of oxygen by nasal cannula, continue to wean as tolerated. Concern for aspiration pneumonia pneumonitis Status: Acute (5) Uses feeding tube: With concern for recurrent aspiration, discussed with general surgery for consultation and plan for PEG to J-tube placement Status: Acute (6) Anxiety: On BuSpar Status: Acute (7) Decubitus ulcer of coccyx, stage 2: Present on admission. Noninfected Status: Acute Additional A&P Information Discontinue oral ice chips and continue with aspiration precautions. Discontinue Ativan and start patient on Xanax. Discontinue prednisone and monitor. Patient had recent hospitalization and shows continues albumin decline which is concerning for ongoing infectious process and therefore will add vancomycin and continue Zosyn and Levaquin for now. Repeat UA and DC Lopez catheter. Bladder scan as needed. We will proceed with initial anemia work-up and check inflammatory markers in a.m. Monitor vitals including with physical therapy. Continue speech therapy. Disposition planning: Patient will likely need fdc facility placement. DVT prophylaxis: Lovenox Diet: Restart tube feeds today CODE STATUS: Full code Attestations Medical Necessity Statement*: Patient with respiratory failure and significant pneumonia requires close ICU monitoring and treatment due to high risk of deterioration. Time Spent in Patient Care: Greater than 35 minutes Coding Level of Care Code Acute Procurement Coordinator for g Fwd Diagnoses Acute on chronic respiratory failure J96.20 Aspiration pneumonia J69.0 Aspiration, chronic pulmonary T17.908A COPD (chronic obstructive pulmonary disease) J44.9 Uses feeding tube Z97.8 Anxiety F41.9 Decubitus ulcer of coccyx, stage 2 L89.152
[2019-10-23] MEDS: levofloxacin-dextrose 5 % 750 MG/150 ML PREMIX 100 MG IV (09:24)
[2019-10-23] MEDS: pantoprazole 40 mg SDV IVP (09:25)
[2019-10-23] MEDS: ALPRAZolam 0.25 mg Tablet PO ×3 (09:49→21:27)
[2019-10-23 10:03] LABS: Bilirubin Urine Neg (NEGATIVE); Blood Urine 2+ (Negative); Glucose Urine UA Norm (Normal); Ketones Urine Negative (Negative); Leukocyte Esterase Urine Negative (Negative); Nitrate Urine Negative (Negative); Protein Urine Neg (Negative); Specific Gravity, Urine 1.005 (1.005-1.030); Urine Appearance Clear (CLEAR); Urine Color Straw (Yellow); Urobilinogen Urine Norm (Negative); pH Urine 6.5 (5-7)
[2019-10-23 10:04] LABS: Add Urine Culture? No; Bacteria Urine TRACE; RBC Urine 0-4 /hpf (0-2); Squamous Epithelial Cell Urine 0-4 (0-5)
[2019-10-23] MEDS: vancomycin 750 MG in sodium chloride 0.9% 250 ML 250 MG IV ×2 (11:09→18:01)
--- NOTE | 2019-10-23 12:55 | PC.NURSE ---
PHARMACY VERIFICATION [facility] pharmacy in [place] was called to verify if patient takes an anti-anxiety medication at home per Dr. Thompson. Pharmacy verified the only 2 home medications are buspirone and acetaminophen/codeine. Patient has been anxious while in hospital and alprazolam 0.25 mg PO TID started this AM. Buspirone and acetaminophen/codeine listed under home medications and physician notified to clarify continuance of alprazolam.
[2019-10-23] MEDS: enoxaparin 40 mg/0.4 mL Syringe SUBCUT (13:18)
--- NOTE | 2019-10-23 13:23 | PC.NURSE ---
ACTIVITY Patient got up to chair with PT and nurse this AM at 0930. Patient had episode of orthostatic hypotension yesterday and BP sustained well during transfer to chair today. Patient denied any dizziness or discomfort while sitting in chair today. Patient lifted his bottom up by himself to shift his position minimally. Patient tolerated sitting in the chair well and was up from [phone]. Patient hooked back up to monitor in bed. Call light and bedside table in reach and patient sitting up watching tv.
--- NOTE | 2019-10-23 14:51 | PC.NURSE ---
BLADDER SCAN POST TILLEY REMOVAL Patient had tilley removed at 0920 this AM. Patient had not voided and was bladder scanned at 1400. Patient had approximately 715 mL in bladder. Nurse helped patient stand at side of bed and patient voided 150 mL. Patient will be gotten up again between [id number] to void again. If patient does not urinate significant amount, doctor will be notified.
--- NOTE | 2019-10-23 15:46 | PC.NURSE ---
2ND BLADDER SCAN Patient stated that he had to void. Patient stood at the side of the bed for a second time and peed 100 mL. Patient bladder scanned for a second time with a volume of approximately 705 mL. 150 mL was voided the first time at 1400. Dr. Thompson notified and gave orders to get patient up again to void in about an hour, bladder scan after voiding, and if volume greater than 500 mL to notify him.
--- NOTE | 2019-10-23 16:58 | PC.NURSE ---
3RD BLADDER SCAN Patient was gotten up to [facility] for the third time and was able to void 125 mL. Patient bladder scanned again post void with a volume of [address] Thompson was called and gave orders to place a tilley catheter. Upon placement, 500 mL of urine was drained.
--- NOTE | 2019-10-23 18:47 | PC.NURSE ---
SHIFT SUMMARY Patient improvement was drastic today. Patient was up to chair for 4 hours today and tolerated transfer and sitting up well. Patient has become much more motivated today to get out of bed and work with therapy. Patient had tilley catheter removed and had significant urinary retention, so another tilley catheter was placed at [address] Thompson. Patient tolerated tube feedings at 40 mL/hour well with 60 mL water flushes Q8H. Patient had 1425 mL out this shift and is currently in bed watching tv. Patient has had increased pain today with activity and increased anxiety about rehabilitation and discharge from the hospital. Patient has been getting Tylenol #3 PO Q4H and xanax PO TID today and that has improved patients anxiety. Patient denies pain at this time, call light in reach.
[2019-10-24] VITALS (27 sets, daily range): BP systolic 73–127; BP diastolic 47–87; PULSE 78–99; RESP 0–21; TEMP 36.4–36.8; O2SAT 91–100
[2019-10-24] MEDS: piperacillin-tazobactam 3.375 GM in sodium chloride 0.9% (plus) 50 ML IV ×2 (00:55→08:44)
[2019-10-24] MEDS: acetaminophen-codeine 300-30mg Tablet 1 TAB PO ×5 (00:55→20:32)
[2019-10-24] MEDS: ipratropium-albuterol 3 mL Neb INHALATION ×5 (03:48→20:46)
[2019-10-24] MEDS: vancomycin 750 MG in sodium chloride 0.9% 250 ML 250 MG IV (04:21)
[2019-10-24 07:04] LABS: Folate Level 16.7 ng/mL (4.5-32.2)
[2019-10-24 07:05] LABS: Erythrocyte Sedimentation Rate 21 mm/hr (0-10); Procalcitonin 0.11 ng/mL (0-0.5); Vitamin B12 1537 pg/mL (232-1245)
[2019-10-24 07:16] LABS: C Reactive Protein 13.1 mg/L (0.0-4.9); Ferritin 397 ng/mL (30-400); Iron 74 ug/dL (59-158); Magnesium 2.1 mg/dL (1.7-2.3); Percent Saturation 60.1 % (20-50); Total Iron Binding Capacity 123 mcg/dl; Unsaturated Iron Binding 49 ug/dL (112-347)
[2019-10-24 08:10] LABS: Basophils % 0.1 %; Eosinophils # 0.2 10^3/uL (0.0-0.8); Eosinophils % 2.2 %; Hematocrit 42.7 % (42.0-52.0); Hemoglobin 13.4 g/dL (11.7-16.6); Lymphocytes # 0.6 10^3/uL (0.8-4.8); Mean Corpuscular HGB Conc 31.4 g/dL (30.0-36.0); Mean Corpuscular Hemoglobin 31.2 pg (28.0-34.0); Mean Corpuscular Volume 99.3 fL (80-94); Mean Platelet Volume 8.9 fL (7.4-10.4); Monocytes # 0.4 10^3/uL (0.2-0.9); Monocytes % 5.4 %; Neutrophils # 6.32 10^3/uL (1.8-7.7); Neutrophils % 83.2 %; Nucleated Red Blood Cells % 0 %; Platelet Count 290 10^3/cmm (130-400); Red Cell Distribution Width 14.2 % (12.1-15.1); White Blood Count 7.6 10^3/uL (4.0-10.0)
--- NOTE | 2019-10-24 08:25 | P.PN_ITS ---
Subjective Subjective: Interval history: Patient reports feeling better overall but started having fullness which patient thinks let him to aspirate in the first place. He denies abdominal pain but does feel somewhat distended. Had no bowel movement for last 2 days and reports that he is not passing gas this morning. Denies being nauseous. Denies chest pain or shortness of breath. Abdominal exam continues to be benign. Unfortunately if we decrease tube feeds patient will unlikely meet his nutritional goal. He reports that at home he usually feeds himself was bolus feeds every 4 hours and he thinks it was too much for him. Albumin and white blood cell count improved. Vitals/I&O/Wt Last Vital Signs Temp 97.9 F 10/24/19 04:00 Pulse 89 10/24/19 07:45 Resp 17 10/24/19 07:44 BP 115/77 10/24/19 06:00 Pulse Ox 93 10/24/19 07:44 10/23/19 10/24/19 10/24/19 22:59 06:59 14:59 Intake Total 1300 / 2603.333 622.333 / 3225.666 Output Total 725 / 1425 3200 / 4625 Balance 575 / 1178.333 -2577.667 / -1399.334 Weight last 48 hrs Weight 52.163 kg Weight 52.617 kg Physical Exam Const: COMMON NORMALS: no acute distress and patient oriented x3 Resp: COMMON NORMALS: normal respiratory effort OTHER: Coarse breath sounds throughout. Cardio: COMMON NORMALS: regular rate, regular rhythm and S2 normal heart sound present RATE: regular rate RHYTHM: regular rhythm HEART SOUNDS: S2 normal heart sound present OTHER: No lower extremity edema GI: COMMON NORMALS: Normal to inspection, nondistended, normoactive bowel sounds present, Soft to palpation and non-tender PALPATION: Yes Soft to palpation Neuro: COMMON NORMALS: patient oriented x3 and no focal motor deficits Urinary Catheter Management^: Lopez: Cath Placed During This Visit: yes, but has since been removed by the nurse Reason for Continuing Indwelling Catheter: Accurate Measurement of Urinary Output in Critically Ill Patients Urinary Catheter Date of Insertion: 10/23/19 Urinary Catheter Time of Insertion: 16:45 Date Urinary Catheter Removed: 10/23/19 Time Urinary Catheter Discontinued: 09:20 Data : 10/24/19 07:57 10/22/19 12:03 A&P Assessment and plan (1) Acute on chronic respiratory failure: Extubated on 10/19/2019 Recent hospitalization for hydropneumothorax from August to July and diagnosed with empyema at that time, reportedly grew MSSA Status: Acute (2) Aspiration pneumonia: Continued Zosyn and Levaquin, vancomycin was discontinued due to MRSA nasal swab being negative continue to trend, remains afebrile today HB stable post procedure Orthoststic hypotension may be related to fluid losses, will try NS bolus first. No gross changes around PEJ site. 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 Champion and PEG tube was replaced with a J-tube. Patient had chest x-ray this morning showing intraperitoneal air, this is likely secondary to recent surgery Status: Acute (4) COPD (chronic obstructive pulmonary disease): continue prednisone 40mg po qd Extubated on 10/19/2019, now on 3 L of oxygen by nasal cannula, continue to wean as tolerated. Concern for aspiration pneumonia pneumonitis Status: Acute (5) Uses feeding tube: With concern for recurrent aspiration, discussed with general surgery for consultation and plan for PEG to J-tube placement Status: Acute (6) Anxiety: On BuSpar Status: Acute (7) Decubitus ulcer of coccyx, stage 2: Present on admission. Noninfected Status: Acute Additional A&P Information Will hold tube feeds and request dietitian consult for tube feed adjustment. Will transition patient to oral Augmentin and continue monitoring. Patient will need to have repeat CT scan of the chest down the road to make sure his consultations improve otherwise he will need to have bronchoscopy for further evaluation. Continue with speech therapy, physical and Occupational Therapy. We will monitor for 1 more day in ICU and if continues to improve we will transfer patient to [facility]. Disposition planning: Patient will likely need [facility] facility placement. DVT prophylaxis: Lovenox Diet: Restart tube feeds today CODE STATUS: Full code Attestations Medical Necessity Statement*: Patient with aspiration pneumonia requires close ICU monitoring and treatment due to high risk of deterioration. Time Spent in Patient Care: Greater than 35 minutes Coding Level of Care Code Acute Cloth Finishing Range Operator Chief for Chg Fwd Diagnoses Acute on chronic respiratory failure J96.20 Aspiration pneumonia J69.0 Aspiration, chronic pulmonary T17.908A COPD (chronic obstructive pulmonary disease) J44.9 Uses feeding tube Z97.8 Anxiety F41.9 Decubitus ulcer of coccyx, stage 2 L89.152
[2019-10-24 08:32] LABS: Alanine Aminotransferase 50 U/L (0-41); Albumin Level 2.4 g/dL (3.5-5.2); Alkaline Phosphatase 77 IU/L (40-130); Anion Gap 8.3 (5-19); Aspartate Amino Transferase 34 U/L (0-40); Blood Urea Nitrogen 10 mg/dL (8-23); Calcium 7.7 mg/dL (8.5-10.5); Carbon Dioxide 34 mmol/L (22-29); Chloride 99 mmol/L (98-107); Globulin 2.8 g/dL (1.3-4.6); Glomerular Filtration Rate 219.4 mL/min (90-130); Glucose 97 mg/dL (65-115); Osmolality Calculated 282 mOsm/kg (285-295); Potassium 3.3 mmol/L (3.5-5.1); Sodium 138 mmol/L (136-145); Total Bilirubin 0.4 mg/dL (0.15-1.2); Total Protein 5.2 g/dL (6.6-8.7)
[2019-10-24] MEDS: pantoprazole 40 mg SDV IVP (08:44)
[2019-10-24] MEDS: levofloxacin-dextrose 5 % 750 MG/150 ML PREMIX 100 MG IV (08:50)
[2019-10-24] MEDS: ALPRAZolam 0.25 mg Tablet PO ×3 (09:18→20:32)
--- NOTE | 2019-10-24 10:17 | PC.NURSE ---
pt up to chair with physical therapy. approx 15 minutes after moving to the chair pt c/o feeling dizzy. bp as noted.
--- NOTE | 2019-10-24 10:51 | PC.CHAP ---
Pastoral Care Encounter/Spiritual Assessment Type of Contact [] Declined rib trim separator visit [] Patient/Family/Request visit [] Outpatient visit [] Follow-up visit [] Physician referral [] Code/Alert [] Routine visit [] Staff referral [] Actively dying [] Patient sleeping [] Family support [] [] Out of room [] Palliative care [] [] Receiving care in room [] Pre-surgical visit [] Trauma [] Long length of stay [] ICU visit [x] Other: invitation by patient Relational/Emotional Strength [] Patient feels connected with others/family/visitors/staff [] Distress [] Loneliness/isolation [] Abandonment Spirituality of Patient [] Person of Delmis [] Attends Synagogue of their Delmis [] Believes in Prayer [] Reads Bible or Spiritism materials [] There are Spiritual issues to be addressed Storage Engineer Interventions [x] Prayer [x] Active listening [x] Non-anxious presence [x] Spiritual/emotional support [] Crisis/trauma care [] Spiritual counseling [] Bereavement support [] Provided bereavement packet [] Provided Bible/devotional materials [] Provided toy/stuffed animal, coloring book to patient or family member [] Provided Communion [] Anointing/[place] [] Salvation [x] Completed spiritual assessment [] Other: Impact on Illness or Injury [] Angry [] Fearful [] Anxious [] Often cries [] Exhaustion [] Unable to work [] Unable to attend zoroastrianism [] Unable to walk/stand [] Unable to read [] Unable to drive [] Unable to eat/drink [] Unable to sleep [] Unable to be with family [] Patient intubated [] Other: Summary Patient feeling and looking much better than Tuesday. We discuss many things.. very caring man Time spent with patient 60 min
[2019-10-24 11:04] LABS: Vancomycin Trough 10.5 ug/mL (10-15)
[2019-10-24] MEDS: enoxaparin 40 mg/0.4 mL Syringe SUBCUT (13:46)
[2019-10-24] MEDS: sodium chloride 0.9% 1,000 ML 100 ML IV (17:13)
[2019-10-24] MEDS: amoxicillin-clav 875-125 mg Tablet 1 TAB PO (17:13)
[2019-10-25] VITALS (21 sets, daily range): BP systolic 90–127; BP diastolic 61–83; PULSE 88–114; RESP 8–24; TEMP 36.5–36.9; O2SAT 76–96; BMI 18.6
[2019-10-25] MEDS: sodium chloride 0.9% 1,000 ML 100 ML IV (01:57)
[2019-10-25] MEDS: acetaminophen-codeine 300-30mg Tablet 1 TAB PO ×3 (01:58→23:33)
[2019-10-25 05:22] LABS: Alanine Aminotransferase 52 U/L (0-41); Albumin Level 2.7 g/dL (3.5-5.2); Alkaline Phosphatase 75 IU/L (40-130); Aspartate Amino Transferase 43 U/L (0-40); Blood Urea Nitrogen 8 mg/dL (8-23); Calcium 7.9 mg/dL (8.5-10.5); Carbon Dioxide 29 mmol/L (22-29); Chloride 96 mmol/L (98-107); Globulin 2.4 g/dL (1.3-4.6); Glomerular Filtration Rate 305.8 mL/min (90-130); Glucose 68 mg/dL (65-115); Osmolality Calculated 274 mOsm/kg (285-295); Sodium 135 mmol/L (136-145); Total Bilirubin 0.5 mg/dL (0.15-1.2); Total Protein 5.1 g/dL (6.6-8.7)
[2019-10-25 05:23] LABS: Anion Gap 13.5 (5-19); Potassium 3.5 mmol/L (3.5-5.1)
--- NOTE | 2019-10-25 06:23 | PC.NUTR ---
NUTR TF RECOMMENDATIONS: Perative Semi-elemental formula with continuous goal rate of 45 ml/hr providing 1404 kcal ( 90%), 72 g PRO (133%), and 853 ml fluid (56%)(%NEEDS). Suggest starting TF at 25 ml/hr and increase by 10 ml Q6H as tolerated till goal rate is met. Suggest 100 ml H2O flushes Q4H to approach fluid needs or per physician. BOLUS feeds: 5 cans daily total over 3 feedings with 1 cup H2O flush after each feed.
[2019-10-25 07:39] LABS: Basophils % 0.1 %; Eosinophils # 0.2 10^3/uL (0.0-0.8); Eosinophils % 1.6 %; Hematocrit 43.1 % (42.0-52.0); Lymphocytes # 0.8 10^3/uL (0.8-4.8); Lymphocytes % 8.3 %; Mean Corpuscular HGB Conc 32.5 g/dL (30.0-36.0); Mean Corpuscular Hemoglobin 31.6 pg (28.0-34.0); Mean Corpuscular Volume 97.3 fL (80-94); Mean Platelet Volume 9.3 fL (7.4-10.4); Monocytes # 0.5 10^3/uL (0.2-0.9); Neutrophils # 7.99 10^3/uL (1.8-7.7); Neutrophils % 84.4 %; Nucleated Red Blood Cells % 0 %; Platelet Count 273 10^3/cmm (130-400); Red Blood Count 4.43 10^6/uL (4.1-5.3); Red Cell Distribution Width 14.4 % (12.1-15.1); White Blood Count 9.5 10^3/uL (4.0-10.0)
--- NOTE | 2019-10-25 07:41 | PM.PN ---
Subjective Subjective: Interval history: Patient reports feeling better. He was having sensation of abdominal fullness and tube feeds were discontinued. Patient gradually improved but later yesterday evening he did not want to restart tube feeds again. Reports feeling much better today and wants to restart it. He has been on boost 8 ounces every 4 hours for the last 3 months ever since he had his PEG tube placed in [place]. Reports that he was even waking up in the middle of night for tube feeds. He denies shortness of breath or chest pain this morning. He was switched to oral Augmentin and appears to be doing well but noted his neutrophil count trended up. We have discontinued Lopez catheter yesterday but patient showed significant retention on bladder scan after urinating 150 mL he had more than 500 mL retained therefore Lopez catheter was placed back. He had approximately 3 L of urinary output. He is still on IV fluids as he dropped his blood pressure when trying to get up and sit in the chair. Medications: Reviewed: Yes Vitals/I&O/Wt Last Vital Signs Temp 98.2 F 10/24/19 22:00 Pulse 95 10/25/19 06:00 Resp 16 10/24/19 22:00 BP 126/77 10/25/19 06:00 Pulse Ox 92 10/25/19 06:00 10/24/19 10/25/19 10/25/19 22:59 06:59 14:59 Intake Total 229 / 1229 1000 / 2229 Output Total 3000 / 3000 3000 / 6000 Balance -2771 / -1771 -2000 / -3771 Weight last 48 hrs Weight 52.163 kg Weight 52.163 kg Physical Exam Const: COMMON NORMALS: no acute distress and patient oriented x3 Resp: COMMON NORMALS: normal respiratory effort OTHER: Slightly decreased air movement in the right base but otherwise clear Cardio: COMMON NORMALS: regular rate, regular rhythm and S2 normal heart sound present RATE: regular rate RHYTHM: regular rhythm HEART SOUNDS: S2 normal heart sound present OTHER: No lower extremity edema GI: COMMON NORMALS: Normal to inspection, nondistended, normoactive bowel sounds present, Soft to palpation and non-tender PALPATION: Yes Soft to palpation Neuro: COMMON NORMALS: patient oriented x3 and no focal motor deficits Urinary Catheter Management^: Lopez: Cath Placed During This Visit: yes, but has since been removed by the nurse Reason for Continuing Indwelling Catheter: Accurate Measurement of Urinary Output in Critically Ill Patients Urinary Catheter Date of Insertion: 10/23/19 Urinary Catheter Time of Insertion: 16:45 Date Urinary Catheter Removed: 10/23/19 Time Urinary Catheter Discontinued: 09:20 Data : 10/25/19 07:28 10/25/19 03:50 A&P Assessment and plan (1) Acute on chronic respiratory failure: Extubated on 10/19/2019 Recent hospitalization for hydropneumothorax from August to July and diagnosed with empyema at that time, reportedly grew MSSA Status: Acute (2) Aspiration pneumonia: Continued Zosyn and Levaquin, vancomycin was discontinued due to MRSA nasal swab being negative continue to trend, remains afebrile today HB stable post procedure Orthoststic hypotension may be related to fluid losses, will try NS bolus first. No gross changes around PEJ site. 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 Champion and PEG tube was replaced with a J-tube. Patient had chest x-ray this morning showing intraperitoneal air, this is likely secondary to recent surgery Status: Acute (4) COPD (chronic obstructive pulmonary disease): continue prednisone 40mg po qd Extubated on 10/19/2019, now on 3 L of oxygen by nasal cannula, continue to wean as tolerated. Concern for aspiration pneumonia pneumonitis Status: Acute (5) Uses feeding tube: With concern for recurrent aspiration, discussed with general surgery for consultation and plan for PEG to J-tube placement Status: Acute (6) Anxiety: On BuSpar Status: Acute (7) Decubitus ulcer of coccyx, stage 2: Present on admission. Noninfected Status: Acute Additional A&P Information We will try to discontinuing IV fluids and monitor. Discussed with RN and we will switch patient tube feeds to 5 cans daily as recommended by dietitian. We will give 2 cans in the morning, 2 in afternoon and 1 in evening time to hopefully avoid aspiration. If white blood cell count continues to trend up will consider adding Levaquin to Augmentin. Discussed with patient that we will keep Lopez catheter in to rest his bladder and arrange outpatient follow-up with urology for voiding trials. Because of episodes of hypotension will unfortunately avoid Flomax at this point We will restart home BuSpar for treatment of depression. Continue with physical therapy. If blood pressure remains under good control we will likely be able to dismiss patient to [facility] facility tomorrow for further rehabilitation. Disposition planning: intermediate facility. DVT prophylaxis: Lovenox Diet: Restart tube feeds today CODE STATUS: Full code Attestations Medical Necessity Statement*: Patient with aspiration pneumonia continues to have episodes of hypotension requiring close ICU monitoring and treatment Time Spent in Patient Care: 16 - 35 minutes Coding Level of Care Code Acute Market Research Coordinator for Steffi Velasco Diagnoses Acute on chronic respiratory failure J96.20 Aspiration pneumonia J69.0 Aspiration, chronic pulmonary T17.908A COPD (chronic obstructive pulmonary disease) J44.9 Uses feeding tube Z97.8 Anxiety F41.9 Decubitus ulcer of coccyx, stage 2 L89.152
[2019-10-25] MEDS: ipratropium-albuterol 3 mL Neb INHALATION ×4 (08:13→20:50)
[2019-10-25] MEDS: BuSPIRONE 10 mg Tablet PO ×3 (08:29→21:23)
[2019-10-25] MEDS: amoxicillin-clav 875-125 mg Tablet 1 TAB PO ×2 (08:29→17:56)
[2019-10-25] MEDS: ALPRAZolam 0.25 mg Tablet PO ×3 (08:29→21:23)
[2019-10-25] MEDS: pantoprazole 40 mg SDV IVP (08:29)
[2019-10-25] MEDS: lactated ringers 1,000 ML 999 ML IV (10:01)
--- NOTE | 2019-10-25 10:08 | PC.NURSE ---
CHANGE IN PT CONDITION After 0845 bolus feeding of 8 ounces of ensure patient stated, I feel like I am going to pass out. My ears are ringing and my chest feels heavy. Physician called at approximately 0900 when patient continued to stay hypotensive after repositioning patient. Physician gave orders to give an IV bolus of Lactated Ringers. LR is running at 999 mL/hr, patient's BP is currently 93/43. Will continue to monitor and notify physician of patient condition after IV bolus.
--- NOTE | 2019-10-25 11:40 | PC.NURSE ---
CHANGE IN TUBE FEEDING DIET Patient's continuous tube feeding diet was discontinued. Per machine preservative filler recommendation and physician clarification, patient is to receive 5 8 ounce cans of ensure over 3 feeds with 240 mL of H20 flushes to follow each feed. Dr. Thompson gave orders to give 2 cans for 0800 feed, 2 cans for 1200 feeds, and 1 can for 1700 feed so patient was at less risk of aspiration when laid down for bed time. Patient stated when giving him his 0800 feed that he felt full after 1 8 ounce can, so he was only given one per patient request this AM. When time for lunch time feed, will try 2 cans to see how patient does with a water flush to follow about 30 minutes to an hour after.
[2019-10-25] MEDS: enoxaparin 40 mg/0.4 mL Syringe SUBCUT (12:54)
--- NOTE | 2019-10-25 14:45 | PC.NURSE ---
PATIENT FEEDINGS/BP Patient's blood pressure has continued to drop with each bolus feeding. Patient just received 480 mL of ensure and 120 mL of water. Prior to feed patients blood pressure was 105/60, during his feed his BP dropped to 85/62, and 5 minutes after completion of feed patients blood pressure dropped to 74/49. Dr. Thompson notified and gave orders to give an additional bolus, but of 500 mL Lactated Ringers instead of 00732 mL.
[2019-10-25] MEDS: lactated ringers 500 ML 999 ML IV (14:57)
[2019-10-25] MEDS: lactated ringers 1,000 ML 125 ML IV (16:50)
[2019-10-25] MEDS: sodium chloride 0.9% 1,000 ML 999 ML IV (16:50)
--- NOTE | 2019-10-25 17:04 | PC.NURSE ---
CONTINUING HYPOTENSION Provider called to notify of patients continuing hypotensive state. Blood pressures have continuously stayed low since first bolus of tube feeds this AM. Provider gave orders to give 1,000 mL LR bolus at 0900 this AM, an additional 500 mL LR bolus at 1457. When notified this time, physician gave orders to give a 1,000 mL bolus of NS and to begin a continuous infusion of LR at 125 mL/hour. Will continue to monitor patient and recheck blood pressures frequently. Tube feedings will continue in order to achieve optimal nutrition.
--- NOTE | 2019-10-25 18:22 | PC.NURSE ---
THIRD BOLUS Since initiation of third fluid bolus at 1637, patient's blood pressures have been 85/48 at 1645, 85/42 at 1700, 112/58 at 1715, and current blood pressure of 119/79. Patient denies any dizziness at this time and blood pressure is sustaining.
[2019-10-26] VITALS (32 sets, daily range): BP systolic 88–135; BP diastolic 61–91; PULSE 86–104; RESP 0–22; TEMP 36.7–36.9; O2SAT 88–99
[2019-10-26] MEDS: lactated ringers 1,000 ML 125 ML IV (00:38)
[2019-10-26] MEDS: acetaminophen-codeine 300-30mg Tablet 1 TAB PO ×4 (03:40→22:43)
[2019-10-26 05:36] LABS: Basophils % 0.2 %; Eosinophils # 0.1 10^3/uL (0.0-0.8); Eosinophils % 1.7 %; Hematocrit 37.6 % (42.0-52.0); Hemoglobin 12.1 g/dL (11.7-16.6); Lymphocytes # 0.5 10^3/uL (0.8-4.8); Lymphocytes % 8.4 %; Mean Corpuscular HGB Conc 32.2 g/dL (30.0-36.0); Mean Corpuscular Hemoglobin 30.5 pg (28.0-34.0); Mean Corpuscular Volume 94.7 fL (80-94); Mean Platelet Volume 9.6 fL (7.4-10.4); Monocytes # 0.4 10^3/uL (0.2-0.9); Neutrophils # 5.15 10^3/uL (1.8-7.7); Neutrophils % 81.9 %; Nucleated Red Blood Cells % 0 %; Platelet Count 260 10^3/cmm (130-400); Red Blood Count 3.97 10^6/uL (4.1-5.3); Red Cell Distribution Width 14.2 % (12.1-15.1); White Blood Count 6.3 10^3/uL (4.0-10.0)
[2019-10-26 05:56] LABS: Alanine Aminotransferase 48 U/L (0-41); Albumin Level 2.5 g/dL (3.5-5.2); Alkaline Phosphatase 72 IU/L (40-130); Anion Gap 8.2 (5-19); Aspartate Amino Transferase 37 U/L (0-40); Blood Urea Nitrogen 6 mg/dL (8-23); Carbon Dioxide 33 mmol/L (22-29); Chloride 98 mmol/L (98-107); Globulin 2.7 g/dL (1.3-4.6); Glomerular Filtration Rate 305.8 mL/min (90-130); Glucose 78 mg/dL (65-115); Osmolality Calculated 277 mOsm/kg (285-295); Potassium 3.2 mmol/L (3.5-5.1); Sodium 136 mmol/L (136-145); Total Bilirubin 0.4 mg/dL (0.15-1.2); Total Protein 5.2 g/dL (6.6-8.7)
[2019-10-26] MEDS: ipratropium-albuterol 3 mL Neb INHALATION ×4 (07:27→20:11)
--- NOTE | 2019-10-26 07:53 | PM.PN ---
Subjective Subjective: Interval history: Patient reports feeling okay this morning. He denies shortness of breath or chest pain. Denies abdominal pain. He had more than 2.5 L of urinary output since yesterday. He received several fluid boluses because of episodes of hypotension. This happens after patient receives feeding even 1 can. Shortly after he develops diarrheal bowel movement and drop in blood pressure. This morning patient is on 125 mL/h LR. His blood pressure adequate 131/88 this morning. I am concerned that after we advanced feeding tube to jejunum patient's transit time significantly decreased resulting in diarrheal bowel movements. We may need to reverse it back to PEG tube and avoid nighttime feeding to prevent aspiration. Medications: Reviewed: Yes Vitals/I&O/Wt Last Vital Signs Temp 98.4 F 10/26/19 06:00 Pulse 90 10/26/19 07:32 Resp 14 10/26/19 07:32 BP 131/88 10/26/19 06:00 Pulse Ox 96 10/26/19 07:32 10/25/19 10/26/19 10/26/19 22:59 06:59 14:59 Intake Total 3370 / 5510 975 / 6485 860.417 / 860.417 Output Total 850 / 1850 2550 / 4400 Balance 2520 / 3660 -1575 / 2085 860.417 / 860.417 Weight last 48 hrs Weight 52.163 kg Physical Exam Const: COMMON NORMALS: no acute distress and patient oriented x3 Resp: COMMON NORMALS: normal respiratory effort OTHER: Slightly decreased air movement in the right base but otherwise clear Cardio: COMMON NORMALS: regular rate, regular rhythm and S2 normal heart sound present RATE: regular rate RHYTHM: regular rhythm HEART SOUNDS: S2 normal heart sound present OTHER: No lower extremity edema GI: COMMON NORMALS: Normal to inspection, nondistended, normoactive bowel sounds present, Soft to palpation and non-tender PALPATION: Yes Soft to palpation Neuro: COMMON NORMALS: patient oriented x3 and no focal motor deficits Urinary Catheter Management^: Lopez: Cath Placed During This Visit: yes, but has since been removed by the nurse Reason for Continuing Indwelling Catheter: Accurate Measurement of Urinary Output in Critically Ill Patients Urinary Catheter Date of Insertion: 10/23/19 Urinary Catheter Time of Insertion: 16:45 Date Urinary Catheter Removed: 07/21/20 Time Urinary Catheter Discontinued: 09:20 Data : 10/26/19 05:10 10/26/19 05:10 Micro: Microbiology 10/25/19 17:19 Blood Culture - Preliminary Blood SPECIMEN COLLECTED 10/25/19 17:16 Blood Culture - Preliminary Blood SPECIMEN COLLECTED A&P Assessment and plan (1) Acute on chronic respiratory failure: Extubated on 10/19/2019 Recent hospitalization for hydropneumothorax from August to July and diagnosed with empyema at that time, reportedly grew MSSA Status: Acute (2) Aspiration pneumonia: Continued Zosyn and Levaquin, vancomycin was discontinued due to MRSA nasal swab being negative continue to trend, remains afebrile today HB stable post procedure Orthoststic hypotension may be related to fluid losses, will try NS bolus first. No gross changes around PEJ site. 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 Champion and PEG tube was replaced with a J-tube. Patient had chest x-ray this morning showing intraperitoneal air, this is likely secondary to recent surgery Status: Acute (4) COPD (chronic obstructive pulmonary disease): continue prednisone 40mg po qd Extubated on 10/19/2019, now on 3 L of oxygen by nasal cannula, continue to wean as tolerated. Concern for aspiration pneumonia pneumonitis Status: Acute (5) Uses feeding tube: With concern for recurrent aspiration, discussed with general surgery for consultation and plan for PEG to J-tube placement Status: Acute (6) Anxiety: On BuSpar Status: Acute (7) Decubitus ulcer of coccyx, stage 2: Present on admission. Noninfected Status: Acute Additional A&P Information We will again discontinue IV fluids and monitor. Repeat portable x-ray. Continue with aspiration precautions. Will discuss with Dr. Champion to reverse J-tube to PEG tube as I do not think patient can adequately absorb feeding. Will check stool for C. difficile, enteric pathogens and blood. Disposition planning: correction facility. DVT prophylaxis: Lovenox Diet: Restart tube feeds today CODE STATUS: Full code Attestations Medical Necessity Statement*: Patient with frequent episodes of hypotension requires close ICU monitoring and treatment. Time Spent in Patient Care: 16 - 35 minutes Coding Level of Care Code Acute Rn Heart for Steffi Velasco Diagnoses Acute on chronic respiratory failure J96.20 Aspiration pneumonia J69.0 Aspiration, chronic pulmonary T17.908A COPD (chronic obstructive pulmonary disease) J44.9 Uses feeding tube Z97.8 Anxiety F41.9 Decubitus ulcer of coccyx, stage 2 L89.152
--- NOTE | 2019-10-26 08:00 | XRR_ITS ---
PROCEDURE INFORMATION: Exam: XR Chest, 1 View Exam date and time: 10/26/2019 8:20 AM Age: 59 years old Clinical indication: Shortness of breath and other: Aspiration pneumonia; Patient HX: Shortness of breath. Aspiration pneumonia TECHNIQUE: Imaging protocol: XR of the chest Views: 1 view. COMPARISON: CR XR chest 1V portable [id number] 10/20/2019 5:03 AM FINDINGS: Lungs: Emphysematous change, interstitial disease, and chronic granulomatous disease. Worsening bibasilar airspace disease and pleural effusions. Pleural space: Asymmetric apical pleural thickening. Heart/Mediastinum: No cardiomegaly. Bones/joints: Osteopenia. XR/XR chest 1V portable [id number] IMPRESSION: Worsening bibasilar airspace disease and pleural effusions.
[2019-10-26] MEDS: BuSPIRONE 10 mg Tablet PO ×3 (08:21→20:18)
[2019-10-26] MEDS: amoxicillin-clav 875-125 mg Tablet 1 TAB PO ×2 (08:21→17:24)
[2019-10-26] MEDS: ALPRAZolam 0.25 mg Tablet PO ×3 (08:22→20:18)
[2019-10-26] MEDS: pantoprazole 40 mg SDV IVP (08:22)
[2019-10-26] MEDS: potassium chloride ER 10 mEq Tablet 40 MEQ PO ×2 (08:22→11:21)
--- NOTE | 2019-10-26 09:34 | PC.CHAP ---
Pastoral Care Encounter/Spiritual Assessment Type of Contact [] Declined vaccines solutions specialist visit [] Patient/Family/Request visit [] Outpatient visit [x] Follow-up visit [] Physician referral [] Code/Alert [x] Routine visit [] Staff referral [] Actively dying [] Patient sleeping [] Family support [] [] Out of room [] Palliative care [] [] Receiving care in room [] Pre-surgical visit [] Trauma [] Long length of stay [] ICU visit [] Other: Relational/Emotional Strength [] Patient feels connected with others/family/visitors/staff [] Distress [] Loneliness/isolation [] Abandonment Spirituality of Patient [] Person of Delmis [] Attends Christianity of their [place] [] Believes in Prayer [] Reads Bible or Tenriism materials [] There are Spiritual issues to be addressed Instrument Maker Apprentice Interventions [x] Prayer [x] Active listening [x] Non-anxious presence [x] Spiritual/emotional support [] Crisis/trauma care [] Spiritual counseling [] Bereavement support [] Provided bereavement packet [] Provided Bible/devotional materials [] Provided toy/stuffed animal, coloring book to patient or family member [] Provided Communion [] Anointing/[place] [] Salvation [x] Completed spiritual assessment [] Other: Impact on Illness or Injury [] Angry [] Fearful [] Anxious [] Often cries [] Exhaustion [] Unable to work [] Unable to attend taoist [] Unable to walk/stand [] Unable to read [] Unable to drive [] Unable to eat/drink [] Unable to sleep [] Unable to be with family [] Patient intubated [] Other: Summary patient resting well.... Time spent with patient 10 min
--- NOTE | 2019-10-26 10:33 | PC.NUTR ---
NUTR NOTE: Spoke with nurse about TF and loose BM. Discussed possible alternate TF formula to help resolve BM concerns. Suggested reducing fluids and using Jevity for bolus to provide some relief. Suggest 320 ml Q3 x per day for feedings. Nurse mentioned Gtube for stomach feeds instead of J tube currently being used.
[2019-10-26] MEDS: enoxaparin 40 mg/0.4 mL Syringe SUBCUT (14:06)
--- NOTE | 2019-10-26 20:42 | PC.NURSE ---
INITIAL ASSESSMENT NOTE: Pt very pleasant. Noted pressure injury to coccyx from previous hospital admission at further facility. Complains of pain 6/10 to that area. Pt repositioned independently with pillow repositioned under side. Pain improved but does request pain medication when due next. Noted pink heels and also elevated off bed with pillow. Instructed pt to move and change positions as much as possible. Will assist in reminding to do so. On 2 L NC which is chronic per pt. G/J tube noted to LLQ. No signs or symptoms of infection. Hypoactive BS at this time. Pt reports diarrhea throughout the day, but no issues at this time. Suction at bedside for thick secretions. Lopez catheter in place. Pt appears very fragile. Monitoring skin injuries closely. Denies further needs at this time.
[2019-10-27] VITALS (31 sets, daily range): BP systolic 80–137; BP diastolic 49–90; PULSE 85–115; RESP 0–25; TEMP 36.6–36.9; O2SAT 90–97
[2019-10-27 05:13] LABS: Basophils % 0.1 %; Eosinophils # 0.1 10^3/uL (0.0-0.8); Eosinophils % 1.3 %; Hematocrit 40.8 % (42.0-52.0); Lymphocytes # 0.7 10^3/uL (0.8-4.8); Lymphocytes % 8.9 %; Mean Corpuscular HGB Conc 31.9 g/dL (30.0-36.0); Mean Corpuscular Hemoglobin 30.7 pg (28.0-34.0); Mean Corpuscular Volume 96.5 fL (80-94); Mean Platelet Volume 10.2 fL (7.4-10.4); Monocytes # 0.5 10^3/uL (0.2-0.9); Monocytes % 7.1 %; Neutrophils # 6.16 10^3/uL (1.8-7.7); Neutrophils % 82.2 %; Nucleated Red Blood Cells % 0 %; Platelet Count 227 10^3/cmm (130-400); Red Blood Count 4.23 10^6/uL (4.1-5.3); Red Cell Distribution Width 14.6 % (12.1-15.1); White Blood Count 7.5 10^3/uL (4.0-10.0)
--- NOTE | 2019-10-27 05:29 | PC.NURSE ---
END OF SHIFT NOTE: Pt stable during this shift. Rested well. Reports feeling hungry at times. Lopez in place. No BMs during HS. Pain controlled with PRN meds, see MAR. Urine output around 2L. No further needs at this time.
[2019-10-27 05:33] LABS: Alanine Aminotransferase 65 U/L (0-41); Albumin Level 2.7 g/dL (3.5-5.2); Alkaline Phosphatase 81 IU/L (40-130); Aspartate Amino Transferase 53 U/L (0-40); Blood Urea Nitrogen 6 mg/dL (8-23); Carbon Dioxide 31 mmol/L (22-29); Chloride 96 mmol/L (98-107); Globulin 3.3 g/dL (1.3-4.6); Glomerular Filtration Rate 305.8 mL/min (90-130); Glucose 75 mg/dL (65-115); Osmolality Calculated 270 mOsm/kg (285-295); Sodium 133 mmol/L (136-145); Total Bilirubin 0.5 mg/dL (0.15-1.2)
[2019-10-27 05:50] LABS: Anion Gap 9.9 (5-19); Potassium 3.9 mmol/L (3.5-5.1)
[2019-10-27] MEDS: ipratropium-albuterol 3 mL Neb INHALATION ×3 (07:26→23:32)
[2019-10-27] MEDS: ALPRAZolam 0.25 mg Tablet PO (08:38)
[2019-10-27] MEDS: amoxicillin-clav 875-125 mg Tablet 1 TAB PO ×2 (08:39→17:50)
[2019-10-27] MEDS: BuSPIRONE 10 mg Tablet PO ×3 (08:39→20:27)
[2019-10-27] MEDS: pantoprazole 40 mg SDV IVP (08:39)
--- NOTE | 2019-10-27 08:43 | PM.PN ---
Subjective Subjective: Interval history: Patient reports feeling okay this morning. He is diarrhea appears to be slowing down. He had some formed particle this morning in his stool. He is less hypotensive but still continues to have large amount of urinary output of more than 2 L. He is not on IV fluids. His chest x-ray yesterday showed some worsening pleural effusions but clinically patient appears to be doing better. This morning patient tolerated 1 can of tube feeds and plan to give 1 more 20 minutes later. Medications: Reviewed: Yes Vitals/I&O/Wt Last Vital Signs Temp 98.5 F 10/27/19 05:13 Pulse 100 10/27/19 07:29 Resp 18 10/27/19 07:28 BP 128/84 10/27/19 05:00 Pulse Ox 92 10/27/19 07:28 10/26/19 10/27/19 10/27/19 22:59 06:59 14:59 Intake Total 480 / 2297.417 0 / 2297.417 Output Total 1999 / 4200 Balance -1520 / -1902.583 0 / -1902.583 Physical Exam Const: COMMON NORMALS: no acute distress and patient oriented x3 Resp: COMMON NORMALS: normal respiratory effort OTHER: Slightly decreased air movement in the right base but otherwise clear Cardio: COMMON NORMALS: regular rate, regular rhythm and S2 normal heart sound present RATE: regular rate RHYTHM: regular rhythm HEART SOUNDS: S2 normal heart sound present OTHER: No lower extremity edema GI: COMMON NORMALS: Normal to inspection, nondistended, normoactive bowel sounds present, Soft to palpation and non-tender PALPATION: Yes Soft to palpation Neuro: COMMON NORMALS: patient oriented x3 and no focal motor deficits Urinary Catheter Management^: Lopez: Cath Placed During This Visit: yes, but has since been removed by the nurse Reason for Continuing Indwelling Catheter: Acute Urinary Retention or Obstruction Urinary Catheter Date of Insertion: 10/23/19 Urinary Catheter Time of Insertion: 16:45 Date Urinary Catheter Removed: 10/23/19 Time Urinary Catheter Discontinued: 09:20 Data : 10/27/19 04:10 10/27/19 04:10 Micro: Microbiology 10/25/19 17:16 Blood Culture - Preliminary Blood NEGATIVE TO DATE 10/25/19 17:19 Blood Culture - Preliminary Blood NEGATIVE TO DATE 10/26/19 09:35 Enteric Pathogens (PCR) - Final Stool Routine Collection C.difficile Toxin B Gene (PCR) - Final 10/26/19 09:35 Occult Blood (FIT) - Final Stool Routine Collection A&P Assessment and plan (1) Acute on chronic respiratory failure: Extubated on 10/19/2019 Recent hospitalization for hydropneumothorax from August to July and diagnosed with empyema at that time, reportedly grew MSSA Status: Acute (2) Aspiration pneumonia: Continued Zosyn and Levaquin, vancomycin was discontinued due to MRSA nasal swab being negative continue to trend, remains afebrile today HB stable post procedure Orthoststic hypotension may be related to fluid losses, will try NS bolus first. No gross changes around PEJ site. 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 Champion and PEG tube was replaced with a J-tube. Patient had chest x-ray this morning showing intraperitoneal air, this is likely secondary to recent surgery Status: Acute (4) COPD (chronic obstructive pulmonary disease): continue prednisone 40mg po qd Extubated on 10/19/2019, now on 3 L of oxygen by nasal cannula, continue to wean as tolerated. Concern for aspiration pneumonia pneumonitis Status: Acute (5) Uses feeding tube: With concern for recurrent aspiration, discussed with general surgery for consultation and plan for PEG to J-tube placement Status: Acute (6) Anxiety: On BuSpar Status: Acute (7) Decubitus ulcer of coccyx, stage 2: Present on admission. Noninfected Status: Acute Additional A&P Information Continue current monitoring and treatment and gradually advance tube feeds. We have tried different tube feeding to see if there is any change with diarrhea. We are trying to give tube feeds through G-tube with appropriate aspiration precautions. Disposition planning: [facility] facility. DVT prophylaxis: Lovenox Diet: Restart tube feeds today CODE STATUS: Full code Attestations Medical Necessity Statement*: Patient with aspiration pneumonia as well as significant urinary output is at risk for hypotension requiring close ICU monitoring and treatment. Time Spent in Patient Care: 16 - 35 minutes Coding Level of Care Code Acute Janitorial Assistant for g Fwd Diagnoses Acute on chronic respiratory failure J96.20 Aspiration pneumonia J69.0 Aspiration, chronic pulmonary T17.908A COPD (chronic obstructive pulmonary disease) J44.9 Uses feeding tube Z97.8 Anxiety F41.9 Decubitus ulcer of coccyx, stage 2 L89.152
--- NOTE | 2019-10-27 13:06 | PC.NURSE ---
0830 Gave feeding of 240ml of Ensure per gastric port of Gtube, followed by 120ml water. Waited 25 minutes and gave 240ml Ensure followed by 120ml water. Patient tolerated it being split up better. Approx 30 minutes after all feeding given, patient got up to bedside commode and had 50ml loose stool. Blood pressure dropped slightly. No c/o's.
[2019-10-27] MEDS: enoxaparin 40 mg/0.4 mL Syringe SUBCUT (13:59)
--- NOTE | 2019-10-27 14:25 | PC.NURSE ---
1300 Tube feeding of 240ml Ensure given and followed with 120ml water. Waited 30 minutes and gave 240ml Ensure followed with 120ml water. Cooper well, no c/o's.
[2019-10-27] MEDS: acetaminophen-codeine 300-30mg Tablet 1 TAB PO ×2 (17:00→22:00)
[2019-10-28] VITALS (28 sets, daily range): BP systolic 84–118; BP diastolic 56–83; PULSE 83–105; RESP 0–23; TEMP 36.6–36.7; O2SAT 88–98
[2019-10-28] MEDS: ipratropium-albuterol 3 mL Neb INHALATION ×6 (04:17→23:54)
[2019-10-28 08:29] LABS: Basophils % 0.1 %; Eosinophils % 0.6 %; Hematocrit 37.6 % (42.0-52.0); Hemoglobin 11.9 g/dL (11.7-16.6); Lymphocytes # 0.8 10^3/uL (0.8-4.8); Lymphocytes % 11.8 %; Mean Corpuscular HGB Conc 31.6 g/dL (30.0-36.0); Mean Corpuscular Hemoglobin 30.4 pg (28.0-34.0); Mean Corpuscular Volume 96.2 fL (80-94); Mean Platelet Volume 9.5 fL (7.4-10.4); Monocytes # 0.5 10^3/uL (0.2-0.9); Neutrophils % 80.2 %; Nucleated Red Blood Cells % 0 %; Platelet Count 243 10^3/cmm (130-400); Red Blood Count 3.91 10^6/uL (4.1-5.3); Red Cell Distribution Width 14.7 % (12.1-15.1); White Blood Count 6.9 10^3/uL (4.0-10.0)
[2019-10-28] MEDS: lanolin oint 7 gm 1 APPLIC TOPICAL (08:39)
[2019-10-28] MEDS: pantoprazole 40 mg SDV IVP (08:40)
[2019-10-28] MEDS: amoxicillin-clav 875-125 mg Tablet 1 TAB PO ×2 (08:40→17:42)
[2019-10-28] MEDS: acetaminophen-codeine 300-30mg Tablet 1 TAB PO ×3 (08:40→20:25)
[2019-10-28] MEDS: BuSPIRONE 10 mg Tablet PO ×3 (08:40→20:23)
[2019-10-28 10:27] LABS: Alanine Aminotransferase 64 U/L (0-41); Albumin Level 2.9 g/dL (3.5-5.2); Alkaline Phosphatase 89 IU/L (40-130); Anion Gap 12.1 (5-19); Aspartate Amino Transferase 39 U/L (0-40); Blood Urea Nitrogen 8 mg/dL (8-23); Calcium 8.6 mg/dL (8.5-10.5); Carbon Dioxide 31 mmol/L (22-29); Chloride 94 mmol/L (98-107); Glomerular Filtration Rate 219.4 mL/min (90-130); Glucose 96 mg/dL (65-115); Osmolality Calculated 272 mOsm/kg (285-295); Potassium 4.1 mmol/L (3.5-5.1); Sodium 133 mmol/L (136-145); Total Bilirubin 0.4 mg/dL (0.15-1.2); Total Protein 5.9 g/dL (6.6-8.7)
--- NOTE | 2019-10-28 10:31 | P.PN_ITS ---
Subjective Subjective: Interval history: Patient reports feeling okay this morning. He appears to hold his blood pressure well. His urinary output and diarrhea appears to be slowing down. Patient appears to be tolerating tube feeds much better and had overall improved blood pressure. He was able to sit in the chair yesterday for 4 hours. He denies cough, shortness of breath or chest pain. Denies abdominal pain. He did not have any bowel movement today yet even after 2 pills were given which is unusual for him as he usually has some movement shortly after. Dietary recommends to switch his feeds to Jevity. Medications: Reviewed: Yes Vitals/I&O/Wt Last Vital Signs Temp 98.1 F 10/28/19 06:00 Pulse 105 H 10/28/19 09:00 Resp 21 H 10/28/19 09:00 BP 95/69 10/28/19 09:00 Pulse Ox 92 10/28/19 09:00 10/27/19 10/28/19 10/28/19 22:59 06:59 14:59 Intake Total 570 / 1050 220 / 220 Output Total 1250 / 1400 950 / 2350 Balance -680 / -350 -950 / -1300 220 / 220 Physical Exam Const: COMMON NORMALS: no acute distress and patient oriented x3 Resp: COMMON NORMALS: normal respiratory effort OTHER: Slightly decreased air movement in the right base but otherwise clear Cardio: COMMON NORMALS: regular rate, regular rhythm and S2 normal heart sound present RATE: regular rate RHYTHM: regular rhythm HEART SOUNDS: S2 normal heart sound present OTHER: No lower extremity edema GI: COMMON NORMALS: Normal to inspection, nondistended, normoactive bowel sounds present, Soft to palpation and non-tender PALPATION: Yes Soft to palpation Neuro: COMMON NORMALS: patient oriented x3 and no focal motor deficits Urinary Catheter Management^: Lopez: Cath Placed During This Visit: yes, but has since been removed by the nurse Reason for Continuing Indwelling Catheter: Accurate Measurement of Urinary Output in Critically Ill Patients Urinary Catheter Date of Insertion: 10/23/19 Urinary Catheter Time of Insertion: 16:45 Date Urinary Catheter Removed: 10/23/19 Time Urinary Catheter Discontinued: 09:20 Data : 10/28/19 08:15 10/28/19 08:15 A&P Assessment and plan (1) Acute on chronic respiratory failure: Extubated on 10/19/2019 Recent hospitalization for hydropneumothorax from August to July and diagnosed with empyema at that time, reportedly grew MSSA Status: Acute (2) Aspiration pneumonia: Continued Zosyn and Levaquin, vancomycin was discontinued due to MRSA nasal swab being negative continue to trend, remains afebrile today HB stable post procedure Orthoststic hypotension may be related to fluid losses, will try NS bolus first. No gross changes around PEJ site. 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 Champion and PEG tube was replaced with a J-tube. Patient had chest x-ray this morning showing intraperitoneal air, this is likely secondary to recent surgery Status: Acute (4) COPD (chronic obstructive pulmonary disease): continue prednisone 40mg po qd Extubated on 10/19/2019, now on 3 L of oxygen by nasal cannula, continue to wean as tolerated. Concern for aspiration pneumonia pneumonitis Status: Acute (5) Uses feeding tube: With concern for recurrent aspiration, discussed with general surgery for consultation and plan for PEG to J-tube placement Status: Acute (6) Anxiety: On BuSpar Status: Acute (7) Decubitus ulcer of coccyx, stage 2: Present on admission. Noninfected Status: Acute Additional A&P Information We will transfer patient out of ICU. Continue with physical therapy and speech therapy. Patient is definitely a high risk for repeated aspirations. So far he has been doing well and hopefully will continue to do so. Awaiting placement to nursing facility. Disposition planning: half-way facility. DVT prophylaxis: Lovenox Diet: Restart tube feeds today CODE STATUS: Full code Attestations Medical Necessity Statement*: Patient with aspiration pneumonia requires close inpatient monitoring and treatment. 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
[2019-10-28] MEDS: enoxaparin 40 mg/0.4 mL Syringe SUBCUT (13:51)
--- NOTE | 2019-10-28 18:31 | PC.NURSE ---
SHIFT SUMMARY PATIENT ARRIVED TO THE FLOOR FROM THE ICU THIS AFTERNOON. HE HAS BEEN AMBULATING AROUND THE ROOM. GOOD URINE OUTPUT. I ADMINISTERED PATIENT'S AUGMENTIN VIA PEG TUBE. I ADMINISTERED PATIENT'S TUBE FEEDING OF JEVITY 1.2 240ML. PATIENT TOLERATED WELL. CURRENTLY RESTING IN BED. NO COMPLAINTS AT THIS TIME.
[2019-10-29] VITALS (17 sets, daily range): BP systolic 86–116; BP diastolic 53–72; PULSE 81–95; RESP 16–20; TEMP 36.4–37.1; O2SAT 90–96
[2019-10-29] MEDS: ipratropium-albuterol 3 mL Neb INHALATION ×5 (04:11→20:54)
[2019-10-29] MEDS: acetaminophen-codeine 300-30mg Tablet 1 TAB PO ×3 (04:25→21:04)
[2019-10-29 05:15] LABS: Basophils % 0.1 %; Eosinophils # 0.1 10^3/uL (0.0-0.8); Hematocrit 37.2 % (42.0-52.0); Hemoglobin 11.7 g/dL (11.7-16.6); Lymphocytes # 1.1 10^3/uL (0.8-4.8); Lymphocytes % 14.4 %; Mean Corpuscular HGB Conc 31.5 g/dL (30.0-36.0); Mean Corpuscular Hemoglobin 30.2 pg (28.0-34.0); Mean Corpuscular Volume 96.1 fL (80-94); Mean Platelet Volume 9.9 fL (7.4-10.4); Monocytes # 0.5 10^3/uL (0.2-0.9); Monocytes % 6.7 %; Neutrophils # 5.69 10^3/uL (1.8-7.7); Neutrophils % 77.5 %; Nucleated Red Blood Cells % 0 %; Platelet Count 232 10^3/cmm (130-400); Red Blood Count 3.87 10^6/uL (4.1-5.3); White Blood Count 7.3 10^3/uL (4.0-10.0)
[2019-10-29 05:38] LABS: Alanine Aminotransferase 53 U/L (0-41); Alkaline Phosphatase 85 IU/L (40-130); Anion Gap 11.3 (5-19); Aspartate Amino Transferase 30 U/L (0-40); Blood Urea Nitrogen 7 mg/dL (8-23); Calcium 8.9 mg/dL (8.5-10.5); Carbon Dioxide 31 mmol/L (22-29); Chloride 96 mmol/L (98-107); Globulin 3.1 g/dL (1.3-4.6); Glomerular Filtration Rate 219.4 mL/min (90-130); Glucose 96 mg/dL (65-115); Osmolality Calculated 274 mOsm/kg (285-295); Potassium 4.3 mmol/L (3.5-5.1); Sodium 134 mmol/L (136-145); Total Bilirubin 0.4 mg/dL (0.15-1.2); Total Protein 6.1 g/dL (6.6-8.7)
[2019-10-29] MEDS: pantoprazole 40 mg SDV IVP (09:27)
[2019-10-29] MEDS: amoxicillin-clav 875-125 mg Tablet 1 TAB PO ×2 (09:27→17:28)
[2019-10-29] MEDS: BuSPIRONE 10 mg Tablet PO ×3 (09:27→21:05)
--- NOTE | 2019-10-29 11:43 | PC.NURSE ---
I reported the low bp to the nurses
--- NOTE | 2019-10-29 12:57 | PC.RESP ---
Pulmonary Rehab information sent to patient.
[2019-10-29] MEDS: enoxaparin 40 mg/0.4 mL Syringe SUBCUT (13:00)
--- NOTE | 2019-10-29 13:34 | PC.NURSE ---
patient resting with eyes closed
--- NOTE | 2019-10-29 15:45 | PC.NURSE ---
Rcvd verbal order for 6 cans Ensure plus daily. Brick Baker adjusted diet order.
--- NOTE | 2019-10-29 16:06 | P.PN_ITS ---
Subjective Subjective: Interval history: Patient reports feeling okay this morning. Reports that this morning he woke up very hungry and is asking if we can increase evening feeding to 500 mL. He appears to be tolerating feeds through G-tube well and had no more episodes of diarrhea. His blood pressure appears to be better but still has off-and-on episodes of relative hypotension. He contin ues to have good amount of urinary output but does get large amount of fluids/tube feeds. Continues to have chronic buttock pain and was asking for more frequent analgesics. We have discussed that there is concern for hypotension therefore we will try ibuprofen. Medications: Reviewed: Yes Vitals/I&O/Wt Last Vital Signs Temp 98.7 F 10/29/19 11:42 Pulse 91 10/29/19 11:42 Resp 18 10/29/19 11:42 BP 86/53 10/29/19 11:43 Pulse Ox 93 10/29/19 11:42 10/29/19 10/29/19 10/29/19 06:59 14:59 22:59 Intake Total 740 / 740 Output Total 1825 / 1925 Balance -1825 / -965 740 / 740 Weight last 48 hrs Weight 52.362 kg Physical Exam Const: COMMON NORMALS: no acute distress and patient oriented x3 Resp: COMMON NORMALS: normal respiratory effort OTHER: Slightly decreased air movement in the right base but otherwise clear Cardio: COMMON NORMALS: regular rate, regular rhythm and S2 normal heart sound present RATE: regular rate RHYTHM: regular rhythm HEART SOUNDS: S2 normal heart sound present OTHER: No lower extremity edema GI: COMMON NORMALS: Normal to inspection, nondistended, normoactive bowel sounds present, Soft to palpation and non-tender PALPATION: Yes Soft to palpation Neuro: COMMON NORMALS: patient oriented x3 and no focal motor deficits Urinary Catheter Management^: Lopez: Cath Placed During This Visit: yes, but has since been removed by the nurse Reason for Continuing Indwelling Catheter: Other Urinary Catheter Date of Insertion: 10/23/19 Urinary Catheter Time of Insertion: 16:45 Date Urinary Catheter Removed: 10/23/19 Time Urinary Catheter Discontinued: 09:20 Data : 10/29/19 04:55 10/29/19 04:55 A&P Assessment and plan (1) Acute on chronic respiratory failure: Extubated on 10/19/2019 Recent hospitalization for hydropneumothorax from August to July and diagnosed with empyema at that time, reportedly grew MSSA Status: Acute (2) Aspiration pneumonia: Continued Zosyn and Levaquin, vancomycin was discontinued due to MRSA nasa l swab being negative continue to trend, remains afebrile today HB stable post procedure Orthoststic hypotension may be related to fluid losses, will try NS bolus first. No gross changes around PEJ site. 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 Champion and PEG tube was replaced with a J-tube. Patient had chest x-ray this morning showing intraperitoneal air, this is likely secondary to recent surgery Status: Acute (4) COPD (chronic obstructive pulmonary disease): continue prednisone 40mg po qd Extubated on 10/19/2019, now on 3 L of oxygen by nasal cannula, continue to wean as tolerated. Concern for aspiration pneumonia pneumonitis Status: Acute (5) Uses feeding tube: With concern for recurrent aspiration, discussed with general surgery for consultation and plan for PEG to J-tube placement Status: Acute (6) Anxiety: On BuSpar Status: Acute (7) Decubitus ulcer of coccyx, stage 2: Present on admission. Noninfected Status: Acute Additional A&P Information We will transfer patient out of ICU. I will increase patient's tube feeds to every 4 hours but skip nighttime feeding Decrease free water use. Continue monitoring. Start patient on ibuprofen and continue Protonix. Disposition planning: assisted facility. DVT prophylaxis: Lovenox Diet: Restart tube feeds today CODE STATUS: Full code Attestations Medical Necessity Statement*: Patient with episodes of hypotension which felt to be related to decreased oral intake requires close inpatient monitoring and treatment. 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
--- NOTE | 2019-10-29 16:37 | PC.NURSE ---
Rcvd verbal order from Dr Thompson for tube feeding of Jevity 500ml at 0800, 500ml at 1200, 500ml at 1600 and 500ml at 2000. Also, 150ml water after each feeding.
[2019-10-29] MEDS: ibuprofen Oral Susp 100 mg/5mL UDC PO (17:29)
[2019-10-30] VITALS (17 sets, daily range): BP systolic 88–103; BP diastolic 58–70; PULSE 65–120; RESP 15–24; TEMP 36.3–36.8; O2SAT 90–97
[2019-10-30] MEDS: ipratropium-albuterol 3 mL Neb INHALATION ×5 (00:08→15:33)
[2019-10-30 05:23] LABS: Basophils % 0.5 %; Eosinophils # 0.1 10^3/uL (0.0-0.8); Eosinophils % 1.8 %; Hematocrit 36.8 % (42.0-52.0); Hemoglobin 11.7 g/dL (11.7-16.6); Lymphocytes # 0.8 10^3/uL (0.8-4.8); Lymphocytes % 14.7 %; Mean Corpuscular HGB Conc 31.8 g/dL (30.0-36.0); Mean Corpuscular Hemoglobin 30.3 pg (28.0-34.0); Mean Corpuscular Volume 95.3 fL (80-94); Mean Platelet Volume 10.1 fL (7.4-10.4); Monocytes # 0.5 10^3/uL (0.2-0.9); Monocytes % 8.8 %; Neutrophils # 4.19 10^3/uL (1.8-7.7); Nucleated Red Blood Cells % 0 %; Platelet Count 262 10^3/cmm (130-400); Red Blood Count 3.86 10^6/uL (4.1-5.3); Red Cell Distribution Width 15.3 % (12.1-15.1); White Blood Count 5.7 10^3/uL (4.0-10.0)
[2019-10-30 05:35] LABS: Alanine Aminotransferase 46 U/L (0-41); Albumin Level 3.2 g/dL (3.5-5.2); Alkaline Phosphatase 89 IU/L (40-130); Anion Gap 12.7 (5-19); Aspartate Amino Transferase 25 U/L (0-40); Blood Urea Nitrogen 12 mg/dL (8-23); Calcium 8.9 mg/dL (8.5-10.5); Carbon Dioxide 31 mmol/L (22-29); Chloride 94 mmol/L (98-107); Globulin 3.4 g/dL (1.3-4.6); Glomerular Filtration Rate 305.8 mL/min (90-130); Glucose 103 mg/dL (65-115); Magnesium 2.4 mg/dL (1.7-2.3); Osmolality Calculated 272 mOsm/kg (285-295); Potassium 4.7 mmol/L (3.5-5.1); Sodium 133 mmol/L (136-145); Total Bilirubin 0.3 mg/dL (0.15-1.2); Total Protein 6.6 g/dL (6.6-8.7)
[2019-10-30] MEDS: amoxicillin-clav 875-125 mg Tablet 1 TAB PO (07:46)
[2019-10-30] MEDS: BuSPIRONE 10 mg Tablet PO ×2 (07:46→15:44)
[2019-10-30] MEDS: pantoprazole 40 mg SDV IVP (07:46)
[2019-10-30] MEDS: ibuprofen Oral Susp 100 mg/5mL UDC PO (12:05)
[2019-10-30] MEDS: enoxaparin 40 mg/0.4 mL Syringe SUBCUT (13:43)
--- NOTE | 2019-10-30 14:01 | P.DS_ITS ---
Discharge Providers Date of Admission: 10/15/19 10:51 Date of Discharge: October 30, 2019 Attending Provider at Admission: Padmini Schwartz DO Attending Provider at Discharge: Byron Thompson MD Primary Care Provider: Martin Mcfarland DO Diagnoses at Discharge Discharge Diagnosis (1) Acute on chronic respiratory failure: Status: Acute Problem details: Resolved. (2) Aspiration pneumonia: Status: Acute Problem details: Improved (3) Aspiration, chronic pulmonary: Status: Acute (4) COPD (chronic obstructive pulmonary disease): Status: Acute Problem details: Not in exacerbation. (5) Uses feeding tube: Status: Acute (6) Anxiety: Status: Acute (7) Decubitus ulcer of coccyx, stage 2: Status: Acute Reason for Visit Reason for Visit: SOB Hospital Course Discharge Summary: Patient with frequently used tube feeds every 4 hours including nighttime presented with acute hypoxic respiratory failure secondary to aspiration pneumonia/pneumonitis. Patient was treated with antibiotics and his tube feeds were adjusted to only for time feeding from 8 AM until 8 PM every 4 hours. Patient tolerated tube feeds well and this morning reports feeling much better and strong enough to [facility]. Reports that he woke up this morning feeling well. Hopefully with this feeds which appears to be more than recommended by dietitian service he will start gaining some weight. I would like to mention that when tube feeds where administered through J-tube patient will get diarrhea. He tolerates tube feeds much better when given through G-tube. Patient will remain at high risk for aspiration pneumonia/pneumonitis and we have discussed regarding importance to follow precautions. May consider outpatient follow-up with pulmonary service if worsening. After Lopez catheter was removed patient showed significant evidence of urinary retention therefore it was placed back in. Unfortunately patient has underlying soft blood pressure therefore no Flomax can be started. Will request outpatient follow-up with Dr. Mccrary. Physical Exam Const: COMMON NORMALS: no acute distress and patient oriented x3 Resp: COMMON NORMALS: normal respiratory effort OTHER: Improved air movem ent with decreased breath sounds at bases Cardio: COMMON NORMALS: regular rate, regular rhythm and S2 normal heart sound present RATE: regular rate RHYTHM: regular rhythm HEART SOUNDS: S2 normal heart sound present OTHER: No lower extremity edema GI: COMMON NORMALS: Normal to inspection, nondistended, normoactive bowel sounds present, Soft to palpation and non-tender PALPATION: Yes Soft to palpation Neuro: COMMON NORMALS: patient oriented x3 and no focal motor deficits Urinary Catheter Management^: Lopez: Cath Placed During This Visit: yes, but has since been removed by the nurse Reason for Continuing Indwelling Catheter: Other Urinary Catheter Date of Insertion: 10/23/19 Urinary Catheter Time of Insertion: 16:45 Date Urinary Catheter Removed: 10/23/19 Time Urinary Catheter Discontinued: 09:20 Discharge Data Data Completed and Pending: Completed Studies During Hospitalization Category Date Time Status CT angio chest PE protcl [id number] Urge nt Cat Scan 10/15/19 10:[address] chest abd pel w con* Routine Cat Scan 10/17/19 09:[address] neck w con* [id number] 491 Routine Cat Scan 10/17/19 09:07 Completed CXRP [XR chest 1V portable [id number]] S tat Exams 10/15/19 16:51 Completed CXRP [XR chest 1V portable [id number]] S tat Exams 10/15/19 18:11 Completed XR chest 1V gamal ble [id number] Routine Exams 10/16/19 06:00 Completed XR chest 1V gamal ble 16066 Routine Exams 10/17/19 05:30 Completed XR chest 1V gamal ble [id number] Routine Exams 10/20/19 06:00 Completed XR chest 1V gamal ble 42107 Routine Exams 10/26/19 08:00 Completed XR chest 1V gamal ble [id number] Urgent Exams 10/15/19 09:08 Completed CV echo complete* [id number] Routine Ultrasound 10/17/19 05:00 Completed Pending at discharge Category Date Time Status Blood Culture Sta t Lab 10/25/19 17:19 Results Complete Blood Co unt w/Auto AM LABS Lab 10/31/19 04:00 Ordered Comprehensive Met abolic Panel AM LA BS Lab 10/31/19 04:00 Ordered Magnesium AM LABS Lab 10/31/19 04:00 Ordered Sputum Culture Ro utine Lab 10/17/19 02:17 Uncollected Labs from last 24 hours 10/30/19 10/30/19 04:40 04:40 WBC 5.7 RBC 3.86 L Hgb 11.7 Hct 36.8 L MCV 95.3 H MCH 30.3 MCHC 31.8 RDW 15.3 H Plt Count 262 MPV 10.1 Neut % (Auto) 74.0 Lymph % (Auto) 14.7 [place] % (Auto) 8.8 Eos % (Auto) 1.8 Baso % (Auto) 0.5 Neut # (Auto) 4.19 Lymph # (Auto) 0.8 [place] # (Auto) 0.5 Eos # (Auto) 0.1 Baso # (Auto) 0.0 Nucleated RBC % (a uto) 0 Nucleated RBCs # 0.0 Sodium 133 L Potassium 4.7 Chloride 94 L Carbon Dioxide 31 H Anion Gap 12.7 BUN 12 Creatinine 0.3 L GFR Calculation 305.8 H Glucose 103 Calculated Osmolal ity 272 L Calcium 8.9 Magnesium 2.4 H Total Bilirubin 0.3 AST 25 ALT 46 H Alkaline Phosphata se 89 Total Protein 6.6 Albumin 3.2 L Globulin 3.4 Vitals: Last Vital Signs Temp 97.9 F 10/30/19 12:00 Pulse 120 H 10/30/19 12:00 Resp 18 10/30/19 12:00 BP 95/60 10/30/19 12:00 Pulse Ox 92 10/30/19 12:00 Discharge Plan Discharge Patient Disposition: Xfer SNF Condition: Stable Prescriptions: Continued acetaminophen-codeine 300-30 mg tablet 1 tab PO TID PRN (Reason: Pain) RF: 0 buspirone 10 mg tablet 10 mg PO TID PRN (Reason: Anxiety) RF: 0 Discharge Orders: Discharge Order (Routine); Ordered 10/30/19 Ordered By: Byron Thompson Referrals: Tonio Mccrary MD [Physician] - 1 week Martin Mcfarland DO [Primary Care Provider] - 4-7 days Discharge Diet: Start new tube feeds as directed Discharge Activity: Increase activity as tolerated Activity Restrictions/Additional Instructions: Please call your doctor or present to emergency department if your condition worsens or you develop diarrhea, lightheadedness, fatigue or see blood in your stool or black stool. Please continue with JVD tube feeds 500 mL followed by 150 water boluses at 8 AM, 12 PM, 4 PM and 8 PM. Please use gastric (G) portion of your tube. Please follow all techniques as we have discussed to avoid aspiration. Make sure you are in upright position with feedings and allow at least 3 hours after last feeding to go to bed to sleep. Please keep Lopez catheter in until you see Dr. 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
--- NOTE | 2019-10-30 14:45 | PC.NURSE ---
Called report to [facility], spoke with FERMIN Wilburn.
[2019-10-30] MEDS: acetaminophen-codeine 300-30mg Tablet 1 TAB PO (15:48)
--- NOTE | 2019-10-30 16:21 | PC.NURSE ---
patient taken to [facility] by transport via wheelchair
== END 2019-10-30 16:23 | disposition skilled nursing facility (03) | DRG 207 ==
LOC: ER 09:19 → ICU 11:13 → MEDSURG 10-28 16:24
PROVIDERS: Emergency Medicine; Internal Medicine; Student in an Organized Health Care Education/Training Program; Surgery; Admitting Provider Family Medicine; PCP Internal Medicine; Visit Provider Internal Medicine
PROC: 0DH63UZ Insertion of Feeding Device into Stomach, Percutaneous Approach (ICD-10-PCS; principal; 2019-10-19 12:00)
PROC: 0DJ08ZZ Inspection of Upper Intestinal Tract, Via Natural or Artificial Opening Endoscopic (ICD-10-PCS; CPT 43235; 2019-10-19 12:00)
DX: J69.0 Pneumonitis due to inhalation of food and vomit (principal); J96.20 Acute and chronic respiratory failure, unspecified whether with hypoxia or hypercapnia; K92.1 Melena; R64 Cachexia; Z68.1 Body mass index [BMI] 19.9 or less, adult; L89.152 Pressure ulcer of sacral region, stage 2; J44.9 Chronic obstructive pulmonary disease, unspecified; F41.9 Anxiety disorder, unspecified; Z11.59 Encounter for screening for other viral diseases; Z85.89 Personal history of malignant neoplasm of other organs and systems; Z99.81 Dependence on supplemental oxygen; Z87.891 Personal history of nicotine dependence
CPT/HCPCS: 12345; 31500; 36415; 36416; 36592; 36600; 51702; 51798; 70491; 71045; 71260; 71275; 74177; 80053; 80202; 81001; 81003; 82274; 82607; 82728; 82746; 82803; 82962; 83540; 83550; 83605; 83735; 83880; 84145; 84443; 84484; 85025; 85610; 85651; 86140; 87040; 87070; 87205; 87493; 87506; 87635; 87641; 92507; 92526; 92610; 93005; 93306; 94002; 94003; 94640; 94660; 94664; 94799; 96372; 96375; 97110; 97116; 97161; 97167; 97530; 97535; 99282; C9113; J0131; J0330; J1650; J1940; J1956; J2020; J2060; J2270; J2370; J2543; J2704; J2765; J2920; J2930; J3010; J3370; J3490; J3535; J7030; J7040; J7050; J7512; Q9967

== ENCOUNTER 2019-10-15 08:58 | Emergency (ER) | payer MEDICAID, SELFPAY | END 2019-10-15 11:58 | disposition admitted as inpatient to this hospital (09) | LOC: ER 16:54 | PROVIDERS: Emergency Provider Emergency Medicine; PCP Internal Medicine | DX: J18.8 Other pneumonia, unspecified organism (principal) | CPT/HCPCS: 12345; 31500; 36415; 36600; 71045; 71275; 80053; 82803; 83880; 84145; 84443; 84484; 85025; 85610; 87040; 93005; 94660; 96365; 96367; 96375; 99282; 99291 ==

== ENCOUNTER 2019-11-17 22:21 | Inpatient (IN) | payer MEDICAID, SELFPAY ==
[2019-11-17 22:23] VITALS: PULSE 131; RESP 25; TEMP 39.2; O2SAT 93; BMI 17.2
[2019-11-17 22:29] VITALS: BP 114/73; PULSE 128; RESP 18; O2SAT 97
--- NOTE | 2019-11-17 22:31 | XRR_ITS ---
PROCEDURE INFORMATION: Exam: XR Chest, 1 View Exam date and time: 11/17/2019 10:33 PM Age: 59 years old Clinical indication: Fever and shortness of breath; Additional info: Fever, SOB, hypoxia TECHNIQUE: Imaging protocol: XR of the chest Views: 1 view. COMPARISON: CR XR chest 1V portable [id number] 10/26/2019 8:06 AM FINDINGS: Lungs: There is hyperinflation with interstitial prominence compatible with fibrosis. The pulmonary vascularity is within normal limits. No consolidation. Pleural space: Unremarkable. No pleural effusion. No pneumothorax. Heart/Mediastinum: Unremarkable. No cardiomegaly. Bones/joints: No acute abnormality. XR/XR chest 1V portable [id number] IMPRESSION: No acute findings.
[2019-11-17 22:45] LABS: Basophils % 0.2 %; Eosinophils % 0.1 %; Hematocrit 34.5 % (42.0-52.0); Hemoglobin 10.8 g/dL (11.7-16.6); Lymphocytes # 0.9 10^3/uL (0.8-4.8); Lymphocytes % 6.4 %; Mean Corpuscular HGB Conc 31.3 g/dL (30.0-36.0); Mean Corpuscular Hemoglobin 30.8 pg (28.0-34.0); Mean Corpuscular Volume 98.3 fL (80-94); Mean Platelet Volume 9.3 fL (7.4-10.4); Monocytes % 6.8 %; Neutrophils # 12.21 10^3/uL (1.8-7.7); Neutrophils % 86.2 %; Nucleated Red Blood Cells % 0 %; Platelet Count 237 10^3/cmm (130-400); Red Blood Count 3.51 10^6/uL (4.1-5.3); Red Cell Distribution Width 17.2 % (12.1-15.1); White Blood Count 14.2 10^3/uL (4.0-10.0)
[2019-11-17 23:08] LABS: Lactic Sepsis W/Reflex 2.7 mmol/L (0.5-2.2)
[2019-11-17 23:17] LABS: Alanine Aminotransferase 23 U/L (0-41); Albumin Level 3.3 g/dL (3.5-5.2); Alkaline Phosphatase 102 IU/L (40-130); Anion Gap 15.1 (5-19); Aspartate Amino Transferase 20 U/L (0-40); Blood Urea Nitrogen 20 mg/dL (8-23); Calcium 8.9 mg/dL (8.5-10.5); Carbon Dioxide 30 mmol/L (22-29); Chloride 92 mmol/L (98-107); Globulin 3.3 g/dL (1.3-4.6); Glomerular Filtration Rate 137.4 mL/min (90-130); Glucose 119 mg/dL (65-115); NT Pro B Type Natriuretic Pept 355 pg/mL (0-125); Osmolality Calculated 272 mOsm/kg (285-295); Potassium 5.1 mmol/L (3.5-5.1); Sodium 132 mmol/L (136-145); Total Bilirubin 0.5 mg/dL (0.15-1.2); Total Protein 6.6 g/dL (6.6-8.7)
[2019-11-17 23:20] VITALS: RESP 27
[2019-11-17] MEDS: ondansetron 2 mg/ML SDV 2 mL 4 MG IVP (23:20)
[2019-11-17] MEDS: morphine 4 mg/mL SDV 1 mL IVP (23:20)
[2019-11-17] MEDS: sodium chloride 0.9% 1,000 ML 999 ML IV (23:20)
[2019-11-17 23:23] VITALS: BP 97/55; PULSE 114; RESP 19; O2SAT 96
--- NOTE | 2019-11-17 23:33 | ED_ITS ---
Documented by User: Jimmy Oconnor MD, [facility] 11/18/19 11:29 HPI - SOB/Dyspnea General: Chief Complaint: Shortness of Breath/Dyspnea Stated Complaint: POSSIBLE SEPSIS/ TEMP/ TACHY Time Seen by Provider: 11/17/19 22:31 Source: patient and EMS Mode of arrival: EMS Limitations: no limitations History of Present Illness: HPI Narrative: Patient is a 59-year-old gentleman with a history of COPD, he is a resident of a local long term. He has a sacral decubitus ulcer and a PEG tube. When I asked him the reasons for the PEG tube and the decubitus ulcer he does not give me any particular reason why he has it. He claims he is able to walk but has no reason to walk. In the long term he was noticed to be hypoxic had trouble breathing. They said this started only about an hour prior to calling for an ambulance. He was febrile in the ambulance with a temperature of 102.5. MD elicited complaint: shortness of breath Pertinent past history: COPD Associated symptoms: Reports fever(s); Deny abdominal pain, nausea, palpitations, polydipsia, polyuria or vomiting Review of Systems General: Reports: 10 or more systems reviewed and unremarkable except in HPI and below Const: Reports: fever(s); Denies: chills or body aches Eyes: Denies: change in vision or blurry vision ENMT: Denies: throat pain, enlarged tonsils, odynophagia, hoarseness, mouth pain or swelling of lips/tongue Card: Denies: palpitations, irregular heart rhythm, edema or swelling of feet/ankles Resp: Reports: dyspnea; Denies: productive cough or non-productive cough GI: Denies: abdominal pain, nausea or vomiting : Denies: flank pain, dysuria, urinary frequency, urinary urgency or urinary hesitancy Musc: Reports: back pain; Denies: neck pain or extremity swelling Skin/Breast: Reports: sores; Denies: rash, pruritus or erythema Neuro: Denies: headache(s), numbness in extremities or weakness in extremities Endo: Denies: polyuria, polydipsia or tired all the time PFS ED PFSH: Medical History (Updated 11/18/19 @ 17:45 by Rhys Liu DO) Anxiety Aspiration, chronic pulmonary COPD (chronic obstructive pulmonary disease) Decubitus ulcer of coccyx, 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 History of osteomyelitis Osteomyelitis of the mandible, treated in 2017 Urinary retention Lopez catheter placed October 2019 with failed trial of voiding Uses feeding tube Surgical History Encounter for gastrojejunal (GJ) tube placement (10/19/19) History of tonsillectomy Cancer resection with tonsillar cancer Family History Mother Cancer Diabetes Father , 80 Cancer Social History Smoking and tobacco status: former smoker Alcohol intake: never Housing: [facility] Marital status: Physical Exam Const: COMMON NORMALS: no acute distress, average body habitus, patient oriented x3, no limitations, healthy appearing, alert and well nourished HENMT: COMMON NORMALS: normocephalic, atraumatic and moist oral mucous membranes HEAD & SCALP: normocephalic and atraumatic Neck/C-Spine: COMMON NORMALS: no meningeal signs and no JVD Resp: COMMON NORMALS: normal respiratory effort, No retractions, No use of accessory muscles, clear to auscultation bilaterally and percussion normal AUSCULTATION: clear to auscultation bilaterally PERCUSSION: percussion normal Cardio: COMMON NORMALS: no JVD, regular rhythm, S1 normal heart sound present, S2 normal heart sound present, No gallops present (Cardio), No clicks present (Cardio), No murmurs present (Cardio), No rub (Cardio) and Peripheral pulses 2+ throughout RATE: tachycardic RHYTHM: regular rhythm HEART SOUNDS: S1 normal heart sound present and S2 normal heart sound present PERIPHERAL PULSES: Peripheral pulses 2+ throughout GI: COMMON NORMALS: Normal to inspection, nondistended, normoactive bowel sounds present, Soft to palpation, non-tender, No hepatosplenomegaly present, no masses and no bruits PALPATION: Yes Soft to palpation and Yes No hepatosplenomegaly present Back/Pelvis: OTHER: He has about a 5 cm erythematous area in the right gluteus with an open area in the center. Mild purulent drainage expressed when pressed. The area of erythema is indurated and tender. It is warmer than the surrounding skin. Unable to assess the depth Extremity: COMMON NORMALS: normal to inspection, full ROM, capillary refill normal, no calf tenderness and no pedal edema Neuro: COMMON NORMALS: patient oriented x3 SENSORIUM/ORIENTATION: Yes alert MENINGEAL SIGNS: Yes no meningeal signs Skin: COMMON NORMALS: no rashes or lesions noted, no wounds, turgor normal, no jaundice, no petechiae and no mottling GENERAL SKIN EXAM: no rashes or lesions noted and turgor normal Course Vital Signs: Vital signs: Vital Signs Temperature 100.6 F H 11/18/19 15:54 Pulse Rate 93 11/18/19 15:54 Respiratory Rate 16 11/18/19 17:19 Blood Pressure 113/69 11/18/19 15:54 Pulse Oximetry 96 11/18/19 17:19 MDM - SOB/Dyspnea MDM Narrative: Medical decision making narrative: 59-year-old long term resident who presents to the emergency department with severe sepsis. He is febrile Lab Data: Labs: Lab Results 11/17/19 11/17/19 11/17/19 Range/Units 22:34 22:34 22:34 WBC 14.2 H (4.0-10.0) 10^3/ uL RBC 3.51 L (4.1-5.3) 10^6/u L Hgb 10.8 L (11.7-16.6) g/dL Hct 34.5 L (42.0-52.0) % MCV 98.3 H (80-94) fL MCH 30.8 (28.0-34.0) pg MCHC 31.3 (30.0-36.0) g/dL RDW 17.2 H (12.1-15.1) % Plt Count 237 (130-400) 10^3/c mm MPV 9.3 (7.4-10.4) fL Neut % (Auto) 86.2 % Lymph % (Auto) 6.4 % [place] % (Auto) 6.8 % Eos % (Auto) 0.1 % Baso % (Auto) 0.2 % Neut # (Auto) 12.21 H (1.8-7.7) 10^3/u L Lymph # (Auto) 0.9 (0.8-4.8) 10^3/u L [place] # (Auto) 1.0 H (0.2-0.9) 10^3/u L Eos # (Auto) 0.0 (0.0-0.8) 10^3/u L Baso # (Auto) 0.0 (0.0-0.1) 10^3/u L Nucleated RBC % (a uto) 0 % Nucleated RBCs # 0.0 /100WBC Sodium 132 L (136-145) mmol/L Potassium 5.1 (3.5-5.1) mmol/L Chloride 92 L (98-107) mmol/L Carbon Dioxide 30 H (22-29) mmol/L Anion Gap 15.1 (5-19) BUN 20 (8-23) mg/dL Creatinine 0.6 L (0.7-1.2) mg/dL GFR Calculation 137.4 H (90-130) mL/min Glucose 119 H (65-115) mg/dL Calculated Osmolal ity 272 L (285-295) mOsm/k g Lactic Acid 2.7 H (0.5-2.2) mmol/L Calcium 8.9 (8.5-10.5) mg/dL Total Bilirubin 0.5 (0.15-1.2) mg/dL AST 20 (0-40) U/L ALT 23 (0-41) U/L Alkaline Phosphata se 102 (40-130) IU/L C-Reactive Protein 111.4 H (0.0-4.9) mg/L NT-Pro-B Natriuret Pep 355 H (0-125) pg/mL Total Protein 6.6 (6.6-8.7) g/dL Albumin 3.3 L (3.5-5.2) g/dL Globulin 3.3 (1.3-4.6) g/dL Procalcitonin 0.13 (0-0.5) ng/mL Imaging Data^: CXR: Radiologist's impression: [address] [address] XRay Report Signed Patient: Zoe Garay #: [id number] : 1960Acct#:[id number] Age/Sex: 59 / MADM Date: 11/17/19 [facility] Attending Dr: Ordering Provider/Ordering MD: Jimmy Oconnor MD, [facility] Date of Service: 11/17/19 Procedure(s): XR chest 1V portable [id number] Accession Number(s): [id number] Report Number: [id number] PROCEDURE INFORMATION: Exam: XR Chest, 1 View Exam date and time: 11/17/2019 10:33 PM Age: 59 years old Clinical indication: Fever and shortness of breath; Additional info: Fever, SOB, hypoxia TECHNIQUE: Imaging protocol: XR of the chest Views: 1 view. COMPARISON: CR XR chest 1V portable [id number] 10/26/2019 8:06 AM FINDINGS: Lungs: There is hyperinflation with interstitial prominence compatible with fibrosis. The pulmonary vascularity is within normal limits. No consolidation. Pleural space: Unremarkable. No pleural effusion. No pneumothorax. Heart/Mediastinum: Unremarkable. No cardiomegaly. Bones/joints: No acute abnormality. XR/XR chest 1V portable [id number] IMPRESSION: No acute findings. Dictated By:Lisa May Signed By:Linda May Date/Time:11/17/19 2331 EKG Data^: EKG 1: Attestation: I personally reviewed and interpreted this EKG as follows: EKG Interpretation Date: 11/17/19 EKG interpretation time: 22:27 Prior EKG tracings: available for review (10/15/2019) Interpretation: Sinus tachycardia. Heart rate 120 bpm. Right axis deviation. Incomplete right bundle branch block. T wave inversion in V4 ST depression in V3 V4 V5 and V6 Not significantly changed from his last EKG Discharge Plan Discharge Patient Disposition: Admitted As Inpatient Admit Provider: Andreia Jeffries Clinical Impression: Severe sepsis Condition: Stable Interventions: ED Discharge Assessment Last Done: 11/18/19 07:02 ED Charges Last Done: 11/18/19 07:02 Discharge Date/Time: 11/18/19 07:15 Coding Level of Care Code ED Retail Coverage Merchandiser Lead for Chg Fwd Exam Comprehensive Documented by User: Rhys Liu DO 11/18/19 17:45 HPI - SOB/Dyspnea General: Chief Complaint: Shortness of Breath/Dyspnea Stated Complaint: POSSIBLE SEPSIS/ TEMP/ TACHY Time Seen by Provider: 11/17/19 22:31 PFSH ED PFSH: Medical History (Updated 11/18/19 @ 17:45 by Rhys Liu DO) Anxiety Aspiration, chronic pulmonary COPD (chronic obstructive pulmonary disease) Decubitus ulcer of coccyx, 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 History of osteomyelitis Osteomyelitis of the mandible, treated in 2016 Urinary retention Lopez catheter placed October 2019 with failed trial of voiding Uses feeding tube Surgical History Encounter for gastrojejunal (GJ) tube placement (10/19/19) History of tonsillectomy Cancer resection with tonsillar cancer Family History Mother Cancer Diabetes Father , 80 Cancer Social History Smoking and tobacco status: former smoker Alcohol intake: never Housing: [facility] Marital status: Course Consultations: Consultation #1: frase Vital Signs: Vital signs: Vital Signs Temperature 100.6 F H 11/18/19 15:54 Pulse Rate 93 11/18/19 15:54 Respiratory Rate 16 11/18/19 17:19 Blood Pressure 113/69 11/18/19 15:54 Pulse Oximetry 96 11/18/19 17:19 MDM - SOB/Dyspnea MDM Narrative: Medical decision making narrative: 59-year-old man checked out to me by Dr. Oconnor. This patient is a long term patient who presents with a high fever, tachycardia, and hypotension. His white blood cell count is 19. His chest x-ray is negative. His urinalysis is pending. He does have decubitus ulcers that are indurated, with some drainage. CT is performed, and does not show any gas, or drainable abscess. This is his most likely source of infection. He is given Zosyn and vancomycin in the ER. He was placed on pressors attempt was to maintain a map of 65 or above. This was done after fluid bolus. He will go to the ICU. Lab Data: Labs: Lab Results 11/17/19 11/17/19 11/17/19 Range/Units 22:34 22:34 22:34 WBC 14.2 H (4.0-10.0) 10^3/ uL RBC 3.51 L (4.1-5.3) 10^6/u L Hgb 10.8 L (11.7-16.6) g/dL Hct 34.5 L (42.0-52.0) % MCV 98.3 H (80-94) fL MCH 30.8 (28.0-34.0) pg MCHC 31.3 (30.0-36.0) g/dL RDW 17.2 H (12.1-15.1) % Plt Count 237 (130-400) 10^3/c mm MPV 9.3 (7.4-10.4) fL Neut % (Auto) 86.2 % Lymph % (Auto) 6.4 % [place] % (Auto) 6.8 % Eos % (Auto) 0.1 % Baso % (Auto) 0.2 % Neut # (Auto) 12.21 H (1.8-7.7) 10^3/u L Lymph # (Auto) 0.9 (0.8-4.8) 10^3/u L [place] # (Auto) 1.0 H (0.2-0.9) 10^3/u L Eos # (Auto) 0.0 (0.0-0.8) 10^3/u L Baso # (Auto) 0.0 (0.0-0.1) 10^3/u L Nucleated RBC % (a uto) 0 % Nucleated RBCs # 0.0 /100WBC Sodium 132 L (136-145) mmol/L Potassium 5.1 (3.5-5.1) mmol/L Chloride 92 L (98-107) mmol/L Carbon Dioxide 30 H (22-29) mmol/L Anion Gap 15.1 (5-19) BUN 20 (8-23) mg/dL Creatinine 0.6 L (0.7-1.2) mg/dL GFR Calculation 137.4 H (90-130) mL/min Glucose 119 H (65-115) mg/dL Calculated Osmolal ity 272 L (285-295) mOsm/k g Lactic Acid 2.7 H (0.5-2.2) mmol/L Calcium 8.9 (8.5-10.5) mg/dL Total Bilirubin 0.5 (0.15-1.2) mg/dL AST 20 (0-40) U/L ALT 23 (0-41) U/L Alkaline Phosphata se 102 (40-130) IU/L C-Reactive Protein 111.4 H (0.0-4.9) mg/L NT-Pro-B Natriuret Pep 355 H (0-125) pg/mL Total Protein 6.6 (6.6-8.7) g/dL Albumin 3.3 L (3.5-5.2) g/dL Globulin 3.3 (1.3-4.6) g/dL Procalcitonin 0.13 (0-0.5) ng/mL Critical Care Time Critical Care Time: Critical Care Time: Yes Total Critical Care Time: 40 Attestation: This case had a high probability of a clinically significant, sudden, or life threatening deterioration of this patient's condition which required my full and direct attention, intervention and personal management. Discharge Plan Discharge Patient Disposition: Admitted As Inpatient Admit Provider: Andreia Jeffries Clinical Impression: Severe sepsis Condition: Stable Interventions: ED Discharge Assessment Last Done: 11/18/19 07:02 ED Charges Last Done: 11/18/19 07:02 Discharge Date/Time: 11/18/19 07:15 Coding Level of Care Code ED Retail Coverage Merchandiser Lead for Chg Fwd Exam Comprehensive
[2019-11-18] VITALS (99 sets, daily range): BP systolic 61–141; BP diastolic 39–83; PULSE 82–130; RESP 0–28; TEMP 37.4–40.6; O2SAT 87–100
[2019-11-18] MEDS: vancomycin 1,000 MG in sodium chloride 0.9% 250 ML 250 MG IV ×2 (00:01→13:56)
[2019-11-18] MEDS: sodium chloride 0.9% 1,000 ML 999 ML IV (00:09)
[2019-11-18 00:19] LABS: Procalcitonin 0.13 ng/mL (0-0.5)
[2019-11-18 00:24] LABS: Reflex Lactate Order REFLEX LACTIC ORDERD
[2019-11-18 00:30] LABS: C Reactive Protein 111.4 mg/L (0.0-4.9)
[2019-11-18] MEDS: morphine 4 mg/mL SDV 1 mL IVP (01:37)
--- NOTE | 2019-11-18 02:44 | CTR_ITS ---
PROCEDURE INFORMATION: Exam: CT Pelvis With Contrast Exam date and time: 11/18/2019 2:51 AM Age: 59 years old Clinical indication: Pain; Other: Ulcer; Additional info: Decubitus ulcer TECHNIQUE: Imaging protocol: Computed tomography images of the pelvis with intravenous contrast. Radiation optimization: All CT scans at this facility use at least one of these dose optimization techniques: automated exposure control; mA and/or kV adjustment per patient size (includes targeted exams where dose is matched to clinical indication); or iterative reconstruction. Contrast material: OMNI 300; Contrast volume: 95 ml; Contrast route: INTRAVENOUS (IV); COMPARISON: CT chest abd pel w con* 10/17/2019 9:58 AM RADIATION DOSE METRICS: Total DLP (mGy-cm): 324.71 FINDINGS: Stomach and bowel: Visualized small bowel and colon are unremarkable. Appendix: Not visible Intraperitoneal space: Unremarkable. No free air. No significant fluid collection. Lymph nodes: Unremarkable. No enlarged lymph nodes. Bladder: The Lopez catheter is appropriately positioned with the bulb and tip within the bladder lumen. Reproductive: Unremarkable Bones/joints: The pelvis and hips are intact. Soft tissues: There is extensive subcutaneous edema in the right buttock and gluteal fold. There is no discrete abscess. No soft tissue gas. CT/CT pelvis w con* [id number] IMPRESSION: 1. Extensive edema in the right buttock and gluteal fold. No drainable abscess. 2. No soft tissue gas to suggest necrotizing infection. Radiation Dose CTDIVOL = (mGy): DLP = 324.71 (mGy-cm)
[2019-11-18] MEDS: iohexol 300 mg/mL 100 mL Btl IV (03:40)
--- NOTE | 2019-11-18 03:49 | P.HP_ITS ---
Providers/Chief Complaint Admitting Physician: Mervin Primary Care Provider: Martin Mcfarland DO Chief Complaint: POSSIBLE SEPSIS/ TEMP/ TACHY History of Present Illness Charles Garay is a 59 year old male who presented from the assisted with fever and tachycardia with concern for possible sepsis. Patient has been recently hospitalized for fair amount of time. He presented here on October 14 with difficulty breathing that have been progressively worsening. He had an episode of vomiting and subsequent respiratory distress leading to intubation and mechanical ventilation. He has a known history of tonsillar cancer and COPD. He had had PEG tube placement back in June of this past year and during the prior hospital stay was noted to have tube feeds coming from the back of his throat. He underwent jejunostomy tube placement in October by Dr. Champion. With use of the J-tube however he developed significant diarrhea. He seemed to tolerate his feeds better placed through the G-tube. He had been doing better, completed treatment for aspiration pneumonia and was discharged to assisted on October 29. It is a bit challenging to get specific details from him I think because of the time of night and current medical condition but information available indicates that he started having fevers on 16 November. Fevers were as high as 103 degrees. He was tachycardic. He describes not feeling well for couple of days. He does have a decubitus on his right buttock that was present during the last hospital stay that has gotten more sore over time. I am not sure if there has been drainage from it. He has not had any episodes of vomiting. He has been tolerating his tube feeds for the most part. Chest x-ray in the emergency room tonight did not show any acute infiltrative process. He does have an indwelling Lopez catheter due to urinary retention. Attempts at a trial of void during last hospital stay were unsuccessful and catheter is been in place since then. I do not yet have a urine. On arrival here patient remained febrile up to 102.5. He has been tachycardic in the emergency room. . Blood pressures were initially okay 90s to 100s but subsequently dropped. Patient received IV fluids for a total of 2 L which is more than a 30 cc/kg bolus. Nevertheless he subsequently required Levophed initiation. He has received some Zosyn. He is being admitted for further treatment and evaluation as indicated. Review of Systems Const: Reports: fever(s), chills, body aches, fatigue, malaise and diaphoresis Eyes: Denies: change in vision ENMT: Reports: dry mouth; Denies: throat pain or nasal congestion Card: Denies: chest pain, palpitations or edema Resp: Reports: dyspnea; Denies: productive cough or non-productive cough GI: Reports: diarrhea and other (Tolerating tube feeds by his report); Denies: abdominal pain, nausea, vomiting or constipation : Reports: difficulty urinating and other (Still with Olpez catheter) Musc: Denies: joint swelling Skin/Breast: Denies: rash or pruritus Neuro: Reports: weakness in extremities; Denies: headache(s) or dizziness Psych: Denies: anxiety or depression Rafita/Lymph: Denies: easy bruising or easy bleeding Medications/Allergies Home Medications Medication Instructions Recorded Confirmed Last Taken Type acetaminophen-codeine 1 tab PO TID PRN 10/15/19 11/12/19 Unknown History buspirone 10 mg PO TID PRN 10/15/19 11/12/19 10/14/19 History ibuprofen 200 mg tablet 200 mg PO Q6H PRN 11/12/19 11/12/19 Unknown History Allergies Allergy/AdvReac Type Severity Reaction Status Date / Time No Known Allergies Allergy Verified 11/17/19 22:28 PFSH Acute PFSH: Medical History (Updated 11/18/19 @ 06:28 by Andreia Jeffries MD) Anxiety Aspiration, chronic pulmonary COPD (chronic obstructive pulmonary disease) Decubitus ulcer of coccyx, 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 History of osteomyelitis Osteomyelitis of the mandible, treated in 2017 Urinary retention Lopez catheter placed October 2019 with failed trial of voiding Uses feeding tube Surgical History Encounter for gastrojejunal (GJ) tube placement (10/19/19) History of tonsillectomy Cancer resection with tonsillar cancer Family History Mother Cancer Diabetes Father , 80 Cancer Social History Smoking and tobacco status: former smoker Alcohol intake: never Housing: Correction Marital status: Vitals/I&O/Wt Last Vital Signs Temp 102.5 F H 11/17/19 22:23 Pulse 123 H 11/18/19 03:00 Resp 20 H 11/18/19 03:00 BP 111/67 11/18/19 03:00 Pulse Ox 97 11/18/19 03:00 11/17/19 11/17/19 11/18/19 14:59 22:59 06:59 Intake Total 12.047 / 12.047 Balance 12.047 / 12.047 Weight last 48 hrs Weight 48.534 kg Physical Exam Narrative: EXAM NARRATIVE: Currently 125 hr, SBP on levophed at 5 86 Const: OTHER: Seen lying in bed on his left side. He is asleep but arousable, answers questions but takes a while doing so. HENMT: OTHER: Bitemporal wasting noted otherwise normocephalic, dry mucous membranes Eye: OTHER: Pupils equally round and reactive to light, extraocular movements are intact, conjunctive a noninjected Neck/C-Spine: OTHER: Supple Resp: OTHER: Clear to auscultation bilaterally no wheezes or rhonchi noted Cardio: OTHER: Tachycardic but regular rhythm GI: OTHER: Abdomen soft, no obvious tenderness, J-tube is intact without any drainage or surrounding erythema, nonodorous : OTHER: Normal male external genitalia with a Lopez catheter in place Extremity: NARRATIVE EXTREMITY EXAM: No pitting edema Neuro: OTHER: Speech clear, moves all extremities, generally weak Skin: NARRATIVE SKIN EXAM: Approximately 4 centimeter diameter area of erythema with induration and several carbuncle formations noted within this in the midline of the right buttock just below the ischium. More lateral to this is approximately 1-1/2 cm diameter furuncle. None are actively draining pus at the moment but are tender to palpation. No streaks beyond this area. He had described a stage II decubitus last hospital stay in the coccyx area but I am not seeing that currently. I suspect that the more medial of these wounds is what was originally present. No mottling of skin noted, pale Sepsis: Focused sepsis exam performed: Yes Date exam was performed: 11/18/19 Data : 11/17/19 22:34 11/17/19 22:34 Other Labs: Laboratory Last Values WBC 14.2 10^3/uL (4.0-10.0) H 11/17/19: RBC 3.51 10^6/uL (4.1-5.3) L 11/17/19: Hgb 10.8 g/dL (11.7-16.6) L 11/17/19: Hct 34.5 % (42.0-52.0) L 11/17/19: MCV 98.3 fL (80-94) H 11/17/19: MCH 30.8 pg (28.0-34.0) 11/17/19: MCHC 31.3 g/dL (30.0-36.0) 11/17/19: RDW 17.2 % (12.1-15.1) H 11/17/19: Plt Count 237 10^3/cmm (130-400) 11/17/19: MPV 9.3 fL (7.4-10.4) 11/17/19: Neut % (Auto) 86.2 % 11/17/19: Lymph % (Auto) 6.4 % 11/17/19: Kimball % (Auto) 6.8 % 11/17/19: Eos % (Auto) 0.1 % 11/17/19: Baso % (Auto) 0.2 % 11/17/19: Neut # (Auto) 12.21 10^3/uL (1.8-7.7) H 11/17/19: Lymph # (Auto) 0.9 10^3/uL (0.8-4.8) 11/17/19:34 Kimball # (Auto) 1.0 10^3/uL (0.2-0.9) H 11/17/19: Eos # (Auto) 0.0 10^3/uL (0.0-0.8) 11/17/19: Baso # (Auto) 0.0 10^3/uL (0.0-0.1) 11/17/19:34 Nucleated RBC % (auto) 0 % 11/17/19: Nucleated RBCs # 0.0 /100WBC 11/17/19:34 Sodium 132 mmol/L (136-145) L 11/17/19 22:34 Potassium 5.1 mmol/L (3.5-5.1) 11/17/19 22:34 Chloride 92 mmol/L (98-107) L 11/17/19 22:34 Carbon Dioxide 30 mmol/L (22-29) H 11/17/19 22:34 Anion Gap 15.1 (5-19) 11/17/19 22:34 BUN 20 mg/dL (8-23) 11/17/19 22:34 Creatinine 0.6 mg/dL (0.7-1.2) L 11/17/19 22:34 GFR Calculation 137.4 mL/min (90-130) H 11/17/19 22:34 Glucose 119 mg/dL (65-115) H 11/17/19 22:34 Calculated Osmolality 272 mOsm/kg (285-295) L 11/17/19 22:34 Lactic Acid 2.7 mmol/L (0.5-2.2) H 11/17/19 22:34 Calcium 8.9 mg/dL (8.5-10.5) 11/17/19 22:34 Total Bilirubin 0.5 mg/dL (0.15-1.2) 11/17/19 22:34 AST 20 U/L (0-40) 11/17/19 22:34 ALT 23 U/L (0-41) 11/17/19 22:34 Alkaline Phosphatase 102 IU/L (40-130) 11/17/19 22:34 C-Reactive Protein 111.4 mg/L (0.0-4.9) H 11/17/19 22:34 NT-Pro-B Natriuret Pep 355 pg/mL (0-125) H 11/17/19 22:34 Total Protein 6.6 g/dL (6.6-8.7) 11/17/19 22:34 Albumin 3.3 g/dL (3.5-5.2) L 11/17/19 22:34 Globulin 3.3 g/dL (1.3-4.6) 11/17/19 22:34 Procalcitonin 0.13 ng/mL (0-0.5) 11/17/19 22:34 Micro: Microbiology 11/18/19 00:00 Gram Stain - Preliminary Sputum - Expectorated Sputum 11/17/19 22:34 Blood Culture - Preliminary Blood SPECIMEN COLLECTED 11/17/19 22:34 Blood Culture - Preliminary Blood SPECIMEN COLLECTED CT pelvis: Radiologist's impression: FINDINGS: Stomach and bowel: Visualized small bowel and colon are unremarkable. Appendix: Not visible Intraperitoneal space: Unremarkable. No free air. No significant fluid collection. Lymph nodes: Unremarkable. No enlarged lymph nodes. Bladder: The Lopez catheter is appropriately positioned with the bulb and tip within the bladder lumen. Reproductive: Unremarkable Bones/joints: The pelvis and hips are intact. Soft tissues: There is extensive subcutaneous edema in the right buttock and gluteal fold. There is no discrete abscess. No soft tissue gas. CT/CT pelvis w con* [id number] IMPRESSION: 1. Extensive edema in the right buttock and gluteal fold. No drainable abscess. 2. No soft tissue gas to suggest necrotizing infection. A&P Assessment and plan (1) Cellulitis and abscess of buttock: CT imaging currently not showing a drainable abscess but clinically looks like it will probably develop into one. Present on admission. Currently suspect this may be the source of infection, he had described a coccyx decubitus last hospital stay however I am wondering if the more medial wound here is what they were referring to. Status: Acute (2) Severe sepsis: Secondary to above versus urinary source of infection, still await urinalysis Evidenced by leukocytosis, fever, tachycardia, presumed infection. Has elevated CRP as well. Status: Acute (3) Urinary retention: With indwelling Lopez catheter, blood pressures were too low to start on Flomax last hospital stay Status: Chronic (4) Anemia: Drop in hemoglobin since last hospital stay. No reported gross blood loss Status: Acute Qualifiers: Anemia type: unspecified type Qualified Code(s): D64.9 - Anemia, unspecified (5) History of malignant neoplasm of tonsil: Status: Chronic (6) Aspiration, chronic pulmonary: Related to tonsillar cancer, appears to have done better since he had jejunostomy tube placed Status: Chronic (7) COPD (chronic obstructive pulmonary disease): Chronic, does not appear acute Status: Chronic Qualifiers: COPD type: unspecified COPD Qualified Code(s): J44.9 - Chronic obstructive pulmonary disease, unspecified Additional A&P Information Inpatient admission Continue IV fluids Vancomycin and Zosyn currently, will give a dose of Levaquin as well pending availability of urinalysis Follow-up pending cultures Continue pressors, weaning as able Repeat lactic acid stat Check EKG Await urinalysis Monitor right buttock wound for response to treatment as may require surgical evaluation and drainage Continue tube feeds Address home medications once area are clarified by nursing staff Subcu heparin for DVT prophylaxis Supportive care otherwise Plans discussed with patient and he was given opportunity to ask questions Full code Attestations Medical Necessity Statement*: Anticipated stay greater than 2 midnights in a gentleman presenting with signs and symptoms of severe sepsis found to have what looks to be cellulitis and possible early abscess on his buttocks. Plans are as indicated. Coding Level of Care Code Acute Diorama Model Maker for Steffi Velasco Diagnoses Cellulitis and abscess of buttock L02.31; L03.317 Severe sepsis A41.9; R65.20 Urinary retention R33.9 Anemia D64.9 Anemia type: unspecified type History of malignant neoplasm of tonsil Z85.818 Aspiration, chronic pulmonary T17.908A COPD (chronic obstructive pulmonary disease) J44.9 COPD type: unspecified COPD
[2019-11-18] MEDS: piperacillin-tazobactam 3.375 GM in sodium chloride 0.9% (plus) 50 ML IV ×2 (05:22→12:00)
[2019-11-18] MEDS: sodium chloride 0.9% 500 ML IV (06:01)
--- NOTE | 2019-11-18 06:18 | ECG_ITS ---
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 Measurements Intervals Accident Rate: 128 P: 82 SC: 143 QRS: 92 QRSD: 110 T: 68 QT: 278 QTc: 407 Interpretive Statements SINUS TACHYCARDIA BORDERLINE RIGHT AXIS DEVIATION [QRS AXIS > 90] INCOMPLETE RIGHT BUNDLE BRANCH BLOCK [90+ ms QRS DURATION, TERMINAL R IN V1/V2, 40+ ms S IN I/aVL/V4/V5/V6] ST DEVIATION AND MARKED T-WAVE ABNORMALITY, CONSIDER ANTERIOR ISCHEMIA [-0.5+ mV T WAVE IN V3/V4] Compared to ECG 10/15/2019 17:20:18 Incomplete right bundle-branch block now present Electronically Signed On 11-18-2019 18:11:29 CDT by Sabino Martines M.D. [id number] f
--- NOTE | 2019-11-18 06:27 | ECG_ITS ---
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 Measurements Intervals [place] Rate: 127 P: 73 NE: 132 QRS: 97 QRSD: 114 T: 48 QT: 280 QTc: 407 Interpretive Statements SINUS TACHYCARDIA BORDERLINE RIGHT AXIS DEVIATION [QRS AXIS > 90] INCOMPLETE RIGHT BUNDLE BRANCH BLOCK [90+ ms QRS DURATION, TERMINAL R IN V1/V2, 40+ ms S IN I/aVL/V4/V5/V6] ST DEVIATION AND MARKED T-WAVE ABNORMALITY, CONSIDER ANTERIOR ISCHEMIA [-0.5+ mV T WAVE IN V3/V4] Compared to ECG 11/17/2019 22:27:38 No significant changes Electronically Signed On 11-18-2019 18:11:51 CDT by Sabino Martines M.D. [id number]
[2019-11-18 07:10] LABS: Lactate (Lactic Acid level) 0.9 mmol/L (0.5-2.2)
[2019-11-18 07:41] LABS: Basophils % 0.2 %; Hematocrit 32.6 % (42.0-52.0); Hemoglobin 10.1 g/dL (11.7-16.6); Lymphocytes # 1.2 10^3/uL (0.8-4.8); Lymphocytes % 6.4 %; Mean Corpuscular Hemoglobin 30.7 pg (28.0-34.0); Mean Corpuscular Volume 99.1 fL (80-94); Mean Platelet Volume 9.4 fL (7.4-10.4); Monocytes # 1.2 10^3/uL (0.2-0.9); Monocytes % 6.1 %; Neutrophils # 16.39 10^3/uL (1.8-7.7); Neutrophils % 86.9 %; Nucleated Red Blood Cells % 0 %; Platelet Count 232 10^3/cmm (130-400); Red Blood Count 3.29 10^6/uL (4.1-5.3); Red Cell Distribution Width 17.3 % (12.1-15.1); White Blood Count 18.9 10^3/uL (4.0-10.0)
[2019-11-18 08:04] LABS: Anion Gap 13.7 (5-19); Blood Urea Nitrogen 13 mg/dL (8-23); Calcium 8.3 mg/dL (8.5-10.5); Carbon Dioxide 26 mmol/L (22-29); Chloride 95 mmol/L (98-107); Glomerular Filtration Rate 137.4 mL/min (90-130); Glucose 120 mg/dL (65-115); Osmolality Calculated 267 mOsm/kg (285-295); Phosphorus 3.1 mg/dL (2.5-4.5); Potassium 4.7 mmol/L (3.5-5.1); Sodium 130 mmol/L (136-145)
[2019-11-18 08:28] LABS: Ferritin 357 ng/mL (30-400); Lactic Sepsis W/Reflex 1.1 mmol/L (0.5-2.2)
[2019-11-18 08:31] LABS: INR 1.17 (0.8-1.2)
[2019-11-18 08:32] LABS: Partial Thromboplastin Time 38.2 SECONDS (23.9-36.7)
[2019-11-18 08:34] LABS: Fibrinogen 556 mg/dL (174-498)
--- NOTE | 2019-11-18 08:36 | PC.NURSE ---
was inserted in ED
[2019-11-18 08:37] LABS: D Dimer 2.47 ug/mIFEU (0-0.59)
[2019-11-18] MEDS: azithromycin 500 MG in sodium chloride 0.9% 250 ML 250 MG IV (08:54)
[2019-11-18] MEDS: acetaminophen 325 mg Tablet 650 MG PO ×3 (08:54→21:41)
[2019-11-18] MEDS: heparin 5,000 unit/mL INJ 1 mL 5000 UNIT SUBCUT ×2 (08:55→18:28)
[2019-11-18] MEDS: sodium chloride 0.9% 1,000 ML 75 ML IV ×2 (08:57→16:46)
[2019-11-18 09:45] LABS: Glucose Urine UA Norm (Normal); Ketones Urine Negative (Negative); Nitrate Urine Positive (Negative); Protein Urine Neg (Negative); Urine Appearance SL Hazy (CLEAR); Urine Color Yellow (Yellow); pH Urine 7 (5-7)
[2019-11-18 09:46] LABS: Add Urine Microscopic? YES; Bilirubin Urine Neg (NEGATIVE); Blood Urine 3+ (Negative); Leukocyte Esterase Urine Negative (Negative); Sulfosalicylic Acid Urine Negative (Negative); Urobilinogen Urine Norm (Negative); WBC Urine 0-4 /hpf (0-5)
[2019-11-18 09:47] LABS: Add Urine Culture? No; Bacteria Urine 3+; Mucus Urine TRACE; Squamous Epithelial Cell Urine RARE (0-5)
[2019-11-18 10:07] LABS: SARS Covid-2 Antigen Negative (Negative)
[2019-11-18] MEDS: morphine 4 mg/mL SDV 1 mL 1 MG IVP ×3 (12:13→20:49)
--- NOTE | 2019-11-18 12:50 | P.PN_ITS ---
Subjective Subjective: Interval history: Spoke to [facility], at the fdc patient is fairly independent, can ambulate with a walker, and is alert oriented x3, he has been doing well recently, requires oxygen up to 3 L for COPD, has a chronic Lopez catheter in place, but last night he started to complain of shortness of breath, and pain over his sacrum, he is found to have a sacral ulcer. But overnight his pain persisted, progressively became more short of breath, I was told he had fevers, no hemodynamic compromise, thus he was brought to [facility] for further evaluation. At the fdc patient does receive bolus tube feedings through a j tube. Here [facility], in the ICU, patient has complaints of shortness of breath, and pain over his sacrum, a bit improved improved compared to overnight, no fevers, no chills, no nausea, no vomiting, no chest pain, no lightheadedness, patient is on levophed, which is being weaned, but is fluid responsive urine does look cloudy, Vitals/I&O/Wt Last Vital Signs Temp 100.9 F H 11/18/19 11:00 Pulse 103 H 11/18/19 11:00 Resp 16 11/18/19 11:00 BP 103/64 11/18/19 11:00 Pulse Ox 97 11/18/19 11:00 11/17/19 11/18/19 11/18/19 22:59 06:59 14:59 Intake Total 58.384 / 58.384 391.48 / 391.48 Output Total 1250 / 1250 Balance 58.384 / 58.384 -858.52 / -858.52 Weight last 48 hrs Weight 48.534 kg Physical Exam Const: COMMON NORMALS: no acute distress and patient oriented x3 HENMT: COMMON NORMALS: normocephalic HEAD & SCALP: normocephalic Neck/C-Spine: COMMON NORMALS: no JVD Resp: COMMON NORMALS: normal respiratory effort, No retractions and No use of accessory muscles AUSCULTATION: wheezes Cardio: COMMON NORMALS: no JVD, regular rhythm, S1 normal heart sound present and S2 normal heart sound present RATE: tachycardic RHYTHM: regular rhythm HEART SOUNDS: S1 normal heart sound present and S2 normal heart sound present GI: COMMON NORMALS: Normal to inspection, nondistended, normoactive bowel sounds present, Soft to palpation, non-tender, No hepatosplenomegaly present, no masses and no bruits PALPATION: Yes Soft to palpation and Yes No hepatosplenomegaly present Extremity: COMMON NORMALS: capillary refill normal, no clubbing, cyanosis or edema, no calf tenderness and no pedal edema Neuro: COMMON NORMALS: patient oriented x3 Psych: COMMON NORMALS: mental status grossly normal Sepsis: Is patient septic: Yes Focused sepsis exam performed: Yes Date exam was performed: 11/18/19 Time exam was performed: 09:00 Data : 11/18/19 07:28 11/18/19 07:28 Micro: Microbiology 11/18/19 09:16 Bacterial Antigens - Final Urine Kidney 11/18/19 00:00 Gram Stain - Final Sputum - Expectorated Sputum 11/17/19 22:34 Blood Culture - Preliminary Blood SPECIMEN COLLECTED 11/17/19 22:34 Blood Culture - Preliminary Blood SPECIMEN COLLECTED A&P Assessment and plan (1) Septic shock: -Source is unclear at this time -But likely secondary to recurrent aspiration pneumonia, as he gets bolus tube feedings through the fdc, and lays flat during these feedings, there is high risk of aspiration, and he has a well-known history of aspiration pneumonia and aspiration pneumonitis -Has had a recent hospitalization for aspiration pneumonia with respiratory failure -Urine positive for nitrites, has a chronic Lopez, high risk of urinary tract infection -Has a sacral decubitus ulcer, minimally draining, surrounding erythema, do not feel that this is a significant source of infection, to explain his sepsis, pelvic CT shows extensive edema in the right buttocks and gluteal fold, no drainable abscess, no soft tissue gas to suggest necrotizing fasciitis -Rapid COVID negative -Chest x-ray no focal pneumonia -Currently has tachycardia, T-max 102, white blood cell count 18.9, lactic acid 2.7, pro-Dre 0.13, has severe sepsis -Currently fluid responsive, receiving fluid boluses, on Levophed, attempting to wean Levophed Plan: -Admit to the intensive care unit -Continue fluid boluses 500 cc of LR, wean off Levophed, maintain map greater than 65 -Continue vancomycin, due to recent hospitalization, risk factor for healthcare associate pneumonia -Stop Zosyn, switched to Primaxin due to risk factors for ESBL given chronic Lopez, fdc resident -We will add azithromycin for atypical coverage -Start continuous tube feeds -Currently on 3 L, monitor respiratory status closely -Monitor temp, monitor vitals -Follow urine cultures, blood cultures, urine bacterial antigens -Aspiration precautions -Full code -Heparin for DVT prophylaxis -We will start continuous tube feeding, free water flushes Status: Acute (2) Anemia: -Hemoglobin 10.1, continue to monitor Status: Acute Qualifiers: Anemia type: unspecified type Qualified Code(s): D64.9 - Anemia, unspecified (3) Cellulitis and abscess of buttock: -Here is a 2 x 2 area of cellulitis over the buttocks -Continue dressing changes, repositioning, antibiotics as above -CT scan as above Status: Acute (4) Urinary retention: Status: Chronic (5) Decubitus ulcer of coccyx, stage 2: Status: Acute (6) History of malignant neoplasm of tonsil: Status: Chronic (7) Anxiety: Status: Chronic (8) Uses feeding tube: Status: Chronic (9) COPD (chronic obstructive pulmonary disease): Status: Chronic Qualifiers: COPD type: unspecified COPD Qualified Code(s): J44.9 - Chronic obstructive pulmonary disease, unspecified (10) Aspiration, chronic pulmonary: Status: Chronic Attestations Medical Necessity Statement*: Position, inpatient,, greater than 2 midnights, for septic shock secondary to pneumonia, UTI, cellulitis of sacrum Coding Level of Care Code Acute Civil Defense Director for [facility] Fwd Diagnoses Septic shock A41.9; R65.21 Anemia D64.9 Anemia type: unspecified type Cellulitis and abscess of buttock L02.31; L03.317 Urinary retention R33.9 Decubitus ulcer of coccyx, stage 2 L89.152 History of malignant neoplasm of tonsil Z85.818 Anxiety F41.9 Uses feeding tube Z97.8 COPD (chronic obstructive pulmonary disease) J44.9 COPD type: unspecified COPD Aspiration, chronic pulmonary T17.908A Sepsis Evaluation Sepsis screening result: Sepsis Risk Current stage of sepsis: sepsis Initial hypotension due to sepsis/infection: MAP < 65 mmHg Possible source: pulmonary and genitourinary Focused Exam Vital Signs Temp Pulse Resp BP Pulse Ox 11/18/19 12:45 100.0 F H 100 18 91/56 95 11/18/19 12:30 109 H 20 H 106/65 94 11/18/19 12:15 105 H 18 128/71 97 11/18/19 12:00 100 21 H 108/69 96 11/18/19 11:45 98 17 116/73 97 11/18/19 11:30 100.4 F H 97 18 100/63 98 11/18/19 11:15 98 19 H 102/64 97 11/18/19 11:00 100.9 F H 103 H 16 103/64 97 11/18/19 10:45 99 16 100/65 98 11/18/19 10:30 102.0 F H 103 H 14 77/51 94 11/18/19 10:15 107 H 20 H 74/48 93 11/18/19 10:00 110 H 21 H 95 11/18/19 09:45 112 H 22 H 95 11/18/19 09:30 116 H 24 H 103/57 93 11/18/19 09:15 120 H 23 H 71/43 91 11/18/19 09:00 104.0 F H 117 H 14 114/69 96 11/18/19 08:45 120 H 0 L 103/64 96 11/18/19 08:30 120 H 21 H 101/58 96 11/18/19 08:15 104.9 F H 122 H 9 L 94 11/18/19 08:00 105.0 F H 122 H 21 H 96/60 95 11/18/19 07:45 105 F H 125 H 23 H 96/60 87 L 11/18/19 07:30 130 H 27 H 87 L 11/18/19 07:27 104.9 F H 122 H 9 L 11/18/19 07:17 128 H 20 H 94 11/18/19 06:53 127 H 24 H 118/80 99 11/18/19 06:33 126 H 24 H 96/58 92 11/18/19 06:28 122 H 11/18/19 06:00 127 H 28 H 95/58 94 11/18/19 05:45 127 H 21 H 84/60 94 11/18/19 05:31 128 H 28 H 112/76 97 11/18/19 05:00 130 H 20 H 107/73 95 11/18/19 04:45 129 H 23 H 83/54 91 11/18/19 04:40 123 H 22 H 61/43 90 11/18/19 04:34 125 H 22 H 74/39 89 L 11/18/19 04:30 123 H 22 H 65/42 90 11/18/19 04:15 126 H 24 H 116/71 90 11/18/19 04:00 128 H 24 H 127/81 92 11/18/19 03:00 123 H 20 H 111/67 97 11/18/19 02:45 113 H 20 H 112/68 95 11/18/19 02:30 112 H 19 H 110/71 94 11/18/19 02:00 115 H 22 H 138/83 97 11/18/19 01:50 108 H 21 H 112/72 98 11/18/19 01:37 22 H 96 11/18/19 01:30 108 H 22 H 118/73 99 11/18/19 01:00 101 H 16 82/58 93 Cardiovascular exam: Present tachycardia Capillary refill: < 3 Seconds Peripheral pulse strength: 2+ Slightly Diminished Peripheral pulse location: Pedal Skin exam: normal turgor Date exam was performed: 11/18/19 Time exam was performed: 12:54
[2019-11-18] MEDS: gabapentin 300 mg Capsule PO (17:21)
[2019-11-18] MEDS: lactated ringers 500 ML 999 ML IV (18:32)
--- NOTE | 2019-11-18 21:34 | PC.NURSE ---
Levophed gtt at 6mcg/min 22.5ml per hour was infusing at this dose.
[2019-11-19] VITALS (102 sets, daily range): BP systolic 79–142; BP diastolic 51–89; PULSE 82–108; RESP 12–28; TEMP 37.7–38.3; O2SAT 87–100
[2019-11-19] MEDS: HYDROcodone-acetaminophen 5-325 mg Tablet 1 TAB PO ×4 (00:26→19:22)
[2019-11-19] MEDS: morphine 4 mg/mL SDV 1 mL 2 MG IVP ×5 (00:27→22:28)
[2019-11-19] MEDS: vancomycin 1,000 MG in sodium chloride 0.9% 250 ML 250 MG IV ×4 (02:46→22:27)
[2019-11-19 05:48] LABS: Basophils % 0.2 %; Eosinophils % 0.1 %; Hematocrit 32.8 % (42.0-52.0); Hemoglobin 10.5 g/dL (11.7-16.6); Lymphocytes # 1.4 10^3/uL (0.8-4.8); Mean Corpuscular Hemoglobin 31.3 pg (28.0-34.0); Mean Corpuscular Volume 97.6 fL (80-94); Mean Platelet Volume 9.4 fL (7.4-10.4); Monocytes # 0.8 10^3/uL (0.2-0.9); Monocytes % 6.2 %; Neutrophils # 11.19 10^3/uL (1.8-7.7); Neutrophils % 83.1 %; Nucleated Red Blood Cells % 0 %; Platelet Count 250 10^3/cmm (130-400); Red Blood Count 3.36 10^6/uL (4.1-5.3); Red Cell Distribution Width 17.2 % (12.1-15.1); White Blood Count 13.5 10^3/uL (4.0-10.0)
[2019-11-19 06:06] LABS: INR 1.17 (0.8-1.2)
[2019-11-19 06:11] LABS: Anion Gap 11.1 (5-19); Blood Urea Nitrogen 10 mg/dL (8-23); C Reactive Protein 286.3 mg/L (0.0-4.9); Calcium 7.9 mg/dL (8.5-10.5); Carbon Dioxide 27 mmol/L (22-29); Chloride 97 mmol/L (98-107); Glomerular Filtration Rate 305.8 mL/min (90-130); Glucose 134 mg/dL (65-115); Osmolality Calculated 270 mOsm/kg (285-295); Potassium 4.1 mmol/L (3.5-5.1); Sodium 131 mmol/L (136-145)
[2019-11-19 06:12] LABS: Alanine Aminotransferase 23 U/L (0-41); Albumin Level 2.7 g/dL (3.5-5.2); Alkaline Phosphatase 75 IU/L (40-130); Anion Gap 10.1 (5-19); Aspartate Amino Transferase 25 U/L (0-40); Blood Urea Nitrogen 10 mg/dL (8-23); Calcium 7.9 mg/dL (8.5-10.5); Carbon Dioxide 28 mmol/L (22-29); Chloride 97 mmol/L (98-107); Globulin 3.3 g/dL (1.3-4.6); Glomerular Filtration Rate 305.8 mL/min (90-130); Glucose 134 mg/dL (65-115); Magnesium 1.9 mg/dL (1.7-2.3); Osmolality Calculated 270 mOsm/kg (285-295); Phosphorus 2.7 mg/dL (2.5-4.5); Potassium 4.1 mmol/L (3.5-5.1); Sodium 131 mmol/L (136-145); Total Bilirubin 0.3 mg/dL (0.15-1.2)
[2019-11-19 06:23] LABS: Procalcitonin 1.71 ng/mL (0-0.5)
--- NOTE | 2019-11-19 07:00 | XR_ITS ---
WS: [id number] EXAM: AP CHEST: PORTABLE UPRIGHT DATE OF EXAM: 11/19/2019, 0523 hours COMPARISON: Chest x-ray from 2 days prior. HISTORY: Patient is 59 years old with shortness of breath. FINDINGS: The cardiac silhouette is normal in size. The mediastinal contours are normal. The pulmonary vas cularity is congested. Chronic lung changes are demonstrated. Apical capping bilaterally. Coarse inte rstitial markings bilaterally. Slight alveolar infiltrate is also seen. Progressive infiltrate has de veloped in the left lung base behind the heart. No pneumothorax. No appreciable effusion No acute bony abnormality is seen. XR/XR chest 1V portable [id number] IMPRESSION: Worsening left retrocardiac infiltrate. Worsening interstitial infiltrate/edema within both lungs. No pneumothorax.
[2019-11-19] MEDS: heparin 5,000 unit/mL INJ 1 mL 5000 UNIT SUBCUT ×2 (07:05→18:27)
[2019-11-19] MEDS: sodium chloride 0.9% 1,000 ML 75 ML IV ×2 (07:06→22:35)
[2019-11-19] MEDS: azithromycin 500 MG in sodium chloride 0.9% 250 ML 250 MG IV (08:10)
[2019-11-19] MEDS: gabapentin 300 mg Capsule PO ×2 (09:05→17:05)
[2019-11-19] MEDS: acetaminophen 325 mg Tablet 650 MG PO ×2 (09:06→16:52)
--- NOTE | 2019-11-19 11:48 | P.PN_ITS ---
Subjective Subjective: Interval history: blood cx from admission positive for staph aureus, all sets. Rpt sent. continues to have fever. .feels well overall. Levophed being titrated down. Covid PCR pending Medications: Reviewed: Yes Vitals/I&O/Wt Last Vital Signs Temp 101.0 F H 11/19/19 10:00 Pulse 103 H 11/19/19 10:00 Resp 16 11/19/19 10:00 BP 113/69 11/19/19 10:00 Pulse Ox 94 11/19/19 10:00 11/18/19 11/19/19 11/19/19 22:59 06:59 14:59 Intake Total 1636.75 / 2181.94 1284 / 3465.94 101.54 / 101.54 Output Total 715 / 1965 755 / 2720 300 / 300 Balance 921.75 / 216.94 529 / 745.94 -198.46 / -198.46 Weight last 48 hrs Weight 48.081 kg Weight 48.534 kg Physical Exam Narrative: EXAM NARRATIVE: GEN: Awake, alert and oriented, no acute distress CVS: S1S2 N RS: CTA B/L anteriorly Abd: Soft, nt/nd , bs+ REFLEXOLOGIST: no focal neuro deficits Urinary Catheter Management^: Lopez: Cath Placed During This Visit: no Reason for Continuing Indwelling Catheter: Accurate Measurement of Urinary Output in Critically Ill Patients Data : 11/19/19 05:39 11/19/19 05:39 Micro: Microbiology 11/17/19 22:34 Blood Culture - Preliminary Blood Staphylococcus aureus 11/17/19 22:34 Blood Culture - Preliminary Blood Staphylococcus aureus 11/18/19 00:00 Gram Stain - Final Sputum - Expectorated Sputum Sputum Culture - Preliminary Staphylococcus aureus 11/18/19 09:16 Urine Culture - Preliminary Urine Kidney Gram Negative Rods Bacterial Antigens - Final 11/18/19 10:25 MRSA Culture - Final Nose A&P Assessment and plan (1) Septic shock: Status: Acute (2) Anemia: -Hemoglobin 10.1, continue to monitor Status: Acute Qualifiers: Anemia type: unspecified type Qualified Code(s): D64.9 - Anemia, unspecified (3) Cellulitis and abscess of buttock: -Here is a 2 x 2 area of cellulitis over the buttocks -Continue dressing changes, repositioning, antibiotics as above -CT scan as above Status: Acute (4) Urinary retention: Status: Chronic (5) Decubitus ulcer of coccyx, stage 2: Status: Acute (6) History of malignant neoplasm of tonsil: Status: Chronic (7) Anxiety: Status: Chronic (8) Uses feeding tube: Status: Chronic (9) COPD (chronic obstructive pulmonary disease): Status: Chronic Qualifiers: COPD type: unspecified COPD Qualified Code(s): J44.9 - Chronic obstructive pulmonary disease, unspecified (10) Aspiration, chronic pulmonary: Status: Chronic (11) Septicemia due to Staphylococcus aureus: Status: Acute Additional A&P Information -Staph aureus septicemia, Source is under evaluation at this time. - may be related to skin source given right buttock cellulitis and sores over lower back. C/o hip pain on R side, no prosthetic joints. Hip/pelvis intact on pelvis CT. No abscess noted. -check repeat blood cx -CT CAP for sourec evaluation - CV echo TTE to evaluate endocarditis - If persistent + blood cx, obtain back imaging -h/o aspiration pneumonitis, recent history of prolonged admission for the same- Ct chest to f/up progression -Has had a recent hospitalization for aspiration pneumonia with respiratory failure -Urine positive for nitrites, has a chronic Lopez, high risk of urinary tract infection -Has a sacral decubitus ulcer, minimally draining, surrounding erythema, do not feel that this is a significant source of infection, to explain his sepsis, pelvic CT shows extensive edema in the right buttocks and gluteal fold, no drainable abscess, no soft tissue gas to suggest necrotizing fasciitis -Rapid COVID negative, PCR pending -Currently fluid responsive, receiving fluid boluses, on Levophed, attempting to wean Levophed -Continue vancomycin iv for staph aureus septicemia -Continue Primaxin due to risk factors for ESBL, GNR on urine cx -continue continuous tube feeds -Currently on 3 L, monitor respiratory status closely -Monitor temp, monitor vitals -Follow urine cultures, repeat blood culture -Aspiration precautions -Full code -Heparin for DVT prophylaxis Attestations Medical Necessity Statement*: staph aureus septicemia, on vasopressorss Coding Level of Care Code 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
[2019-11-19 14:07] LABS: Vancomycin Trough 8.6 ug/mL (10-15)
--- NOTE | 2019-11-19 17:44 | PC.NURSE ---
SHIFT SUMMARY Patient has been continued on his levophed drip and has been titrated down to 2 mL/hr. Patients current blood pressure is 99/67. Patient has gotten IV morphine and norco once today for pain in his right hip and pressure ulcer to sacrum. Patient has continued to have a high temperature today. Dr. Tsai gave new order for motrin which has been given once today. Patient has sheet only on and fan in room. Patient was given bed bath by primary care nurses. Patients dressing to sacrum has been changed twice today due to yellow and serosanguinous drainage. Patient remains on 2 L nasal cannula and does not exhibit any signs of respiratory distress. Patient very calm and cooperative.
--- NOTE | 2019-11-19 17:47 | PC.NURSE ---
Speech Evaluation speech at bedside doing swallow study. Patient tolerated study well. Per Seun, patient is able to have regular diet.
[2019-11-19] MEDS: pantoprazole 40 mg SDV IVP (18:26)
[2019-11-20] VITALS (65 sets, daily range): BP systolic 101–142; BP diastolic 67–96; PULSE 83–101; RESP 14–27; TEMP 36.7–37.8; O2SAT 78–100
[2019-11-20] MEDS: HYDROcodone-acetaminophen 5-325 mg Tablet 1 TAB PO ×4 (01:57→19:38)
[2019-11-20 04:33] LABS: INR 1.11 (0.8-1.2)
[2019-11-20 04:38] LABS: Alanine Aminotransferase 25 U/L (0-41); Albumin Level 2.3 g/dL (3.5-5.2); Alkaline Phosphatase 88 IU/L (40-130); Anion Gap 12.6 (5-19); Aspartate Amino Transferase 26 U/L (0-40); Blood Urea Nitrogen 10 mg/dL (8-23); Calcium 7.9 mg/dL (8.5-10.5); Carbon Dioxide 25 mmol/L (22-29); Chloride 97 mmol/L (98-107); Globulin 3.5 g/dL (1.3-4.6); Glomerular Filtration Rate 305.8 mL/min (90-130); Glucose 113 mg/dL (65-115); Osmolality Calculated 269 mOsm/kg (285-295); Potassium 3.6 mmol/L (3.5-5.1); Sodium 131 mmol/L (136-145); Total Bilirubin 0.3 mg/dL (0.15-1.2); Total Protein 5.8 g/dL (6.6-8.7)
--- NOTE | 2019-11-20 05:00 | USCV_ITS ---
Charles Garay Age: 59 Gender: M : 1960 Exam Date: 11/20/2019 07:17 Ordering Phys: Alba Tsai MD Technologist: Benjamin Leija Exam Location: [facility] [place] Indication: CHEST PAIN BP: 122 / 88 HR: 95 Rhythm: Sinus Technical Quality: Good MEASUREMENTS (Male / Female) Normal Values 2D ECHO LV Diastolic Diameter PLAX 3.6 cm 4.2 - 5.9 / 3.9 - 5.3 cm LV Systolic Diameter PLAX 1.9 cm IVS Diastolic Thickness 1.1 cm 0.6 - 1.0 / 0.6 - 0.9 cm IVS Systolic Thickness 1.4 cm LVPW Diastolic Thickness 1.1 cm 0.6 - 1.0 / 0.6 - 0.9 cm LVPW Systolic Thickness 1.3 cm LVOT Diameter 2.1 cm LV Ejection Fraction 2D Teich 79.0 % LV Ejection Fraction MOD 2C 63.3 % LV Ejection Fraction 2C AL 63.6 % LA Diameter 3.2 cm LA Width 3.9 cm LA Height 5.0 cm RA Width 4.7 cm RA Height 4.9 cm Aorta at Sinotubular Diameter 1.4 cm M-MODE LV Diastolic Diameter MM 4.0 cm 4.2 - 5.9 / 3.9 - 5.3 cm LV Systolic Diameter MM 2.4 cm LV Ejection Fraction MM Teich 72.9 % IVS Diastolic Thickness MM 0.8 cm 0.6 - 1.0 / 0.6 - 0.9 cm IVS Systolic Thickness MM 1.6 cm LVPW Diastolic Thickness MM 1.1 cm 0.6 - 1.0 / 0.6 - 0.9 cm LVPW Systolic Thickness MM 1.6 cm RV Diastolic Diameter MM 2.3 cm Aortic Annulus Diameter 4.0 cm LA Ao Ratio MM 0.8 MV E Point Septal Separation 0.7 cm DOPPLER AV Peak Velocity 159.0 cm/s LVOT Peak Velocity 135.0 cm/s AV Area Cont Eq vti 3.0 cm squared AV Area Cont Eq pk 2.9 cm squared MV Area PHT 5.0 cm squared Mitral E to A Ratio 0.9 MV E' Velocity 12.0 cm/s Mitral E to MV E' Ratio 7.7 Mitral E to LV E' Lateral Ratio 6.3 Mitral E to LV E' Septal Ratio 9.9 TR Peak Velocity 332.0 cm/s TR Peak Gradient 44.0 mmHg TV Peak E Velocity 77.0 cm/s Right Atrial Pressure 3.0 mmHg Pulmonary Artery Systolic Pressu 47.1 mmHg FINDINGS Left Ventricle Normal left ventricular cavity size. Normal left ventricular systolic function. No regional wall motion abnormalities. Left ventricular ejection fraction is estimated at 70 %. Grade I/IV diastolic dysfunction (abnormal relaxation filling pattern), normal to mildly elevated filling pressures. Right Ventricle The right ventricle is normal in size and function. Right Atrium The right atrium is normal in size. Left Atrium The left atrium is normal in size. Mitral Valve Structurally normal mitral valve without significant stenosis or prolapse. There is no mitral regurgitation. Aortic Valve Aortic valve sclerosis. No aortic valve stenosis. Mild aortic valve regurgitation. Tricuspid Valve Mild tricuspid valve regurgitation. Pulmonic Valve Structurally normal pulmonic valve without significant stenosis. There is no pulmonic regurgitation. Pericardium Normal pericardium without effusion. Aorta Moderate ascending aorta dimension. CONCLUSIONS 1-Normal left ventricular cavity size. Normal left ventricular systolic function. No regional wall motion abnormalities. Left ventricular ejection fraction is estimated at 70 %. Grade I/IV diastolic dysfunction (abnormal relaxation filling pattern), normal to mildly elevated filling pressures. 2-Aortic valve sclerosis. No aortic valve stenosis. Mild aortic valve regurgitation. 3-Mild tricuspid valve regurgitation. 4-The left atrium is normal in size. 5-There is no pericardial effusion. 6-Right atrial pressure is around 5 mm of mercury. 7-Moderate ascending aorta dimension. 8-No significant change since the prior echocardiogram study of 10/17/19. Sabino Martines MD (Electronically Signed) Final Date: 20 November 2019 20:07 S
[2019-11-20] MEDS: morphine 4 mg/mL SDV 1 mL 2 MG IVP ×4 (05:16→21:37)
[2019-11-20 06:18] LABS: Coronavirus Lab Test PTC Negative
[2019-11-20] MEDS: heparin 5,000 unit/mL INJ 1 mL 5000 UNIT SUBCUT ×2 (06:52→19:38)
[2019-11-20] MEDS: vancomycin 1,000 MG in sodium chloride 0.9% 250 ML 250 MG IV ×2 (07:31→16:05)
[2019-11-20] MEDS: gabapentin 300 mg Capsule PO ×2 (08:11→17:40)
[2019-11-20] MEDS: pantoprazole 40 mg SDV IVP (08:11)
[2019-11-20] MEDS: sodium chloride 0.9% 1,000 ML 75 ML IV (10:43)
--- NOTE | 2019-11-20 10:48 | PC.NURSE ---
IV removed right upper forearm IV removed. Nurse noted that IV was red up the vein and warm to the touch. patient tolerated well and catheter was intact. notified. will continue to monitor patient.
--- NOTE | 2019-11-20 10:51 | CT_ITS ---
WS: [id number] EXAM: CT OF THE CHEST, ABDOMEN AND PELVIS WITH CONTRAST DATE OF EXAMINATION: 11/20/2019, 1430 hours COMPARISON: Chest x-ray from 11/19/[address] of the pelvis from 11/18/2019 HISTORY: 59 years old with sepsis. Prior tonsillectomy. Staphylococcus aureus bacteremia. TECHNIQUE: Transaxial computed tomography images obtained through the chest, abdomen and pelvis utili zing 75 mL of Omnipaque 300 IV contrast with images acquired in the bolus phase to the chest, portal and delayed phase through the abdomen and pelvis. Images viewed in multiple windows with reconstructi ons. DLP: 2010.[address] scans at [facility] use at least one of these dose optimization techniques: automat ed exposure control; mA and/or kV adjustment per patient size (includes targeted exams where dose is matched to clinical indication); or iterative reconstruction. FINDINGS: Chronic lung changes are demonstrated. Small amount of infiltrate is still seen superior medially wit h slight bronchiectasis most likely chronic. Additional areas of subpleural infiltrate are seen. Patc hy areas of infiltrate are scattered within the right upper lobe, middle lobe and in the lower lobe. Acute pneumonitis component felt to be present. There is small right pleural effusion. Changes of und erlying bronchiectasis are demonstrated. Within the left hemithorax there appears to be some fluid in the left lung apex. There is a soft tissue mass in the left lung apex. Whether this is post inflamma tory or represents a small apical Pancoast type tumor is uncertain. PET scan recommended. Overall est imated size approximate 24 mm. Additional areas of patchy infiltrate are scattered within the left nona ng in the upper lobe, lingula and left lower lobe. There is quite bit of compression atelectasis in l eft lung base with a small to moderate left pleural effusion. There is generalized anasarca type pattern to the patient presumably related to the septicemia. Thyro id gland is normal in appearance. No mediastinal mass is seen. Lymph nodes within the mediastinum con sidered normal in size. Heart size is normal. Thoracic and abdominal aorta is normal in caliber. Liver attenuation is normal. Gallbladder is normally distended. No biliary dilatation. Portal vein is patent. Spleen, pancreas and adrenals are unremarkable. Both kidneys enhance normally. Multiple lesi ons are present within both kidneys most likely cysts. No obstructive uropathy. PEG tube into the stomach with the tubing coiled in the cardia of the stomach. Stomach is otherwise n ormal in caliber. Small bowel is normal in caliber as well. Increased stool in the rectal vault. Scat tered diverticulosis changes are demonstrated. Stool and barium are noted within the transverse colon as well as the right side of the colon. No extensive colonic distention is seen. No extensive intrap eritoneal or retroperitoneal adenopathy or mass is noted. No hernias are seen. Overall bone density appears decreased. Scattered degenerative changes are seen in the spine. There a re findings of what appears to be an open decubitus ulcer over the distal aspect of the sacrum and co ccyx with thickening in the skin in this region as well as small amount air in the area in the decubi tus ulcer. I'm not however convinced of definite findings of bone destruction to suggest osteomyeliti s. No findings of a discernible abscess identified. There is edema in the presacral space however. Ge neralized edema is seen throughout the mesentery. There is a small amount of fluid within the left up per abdomen below the left hemidiaphragm and minimal fluid in between the anterior right hemidiaphrag m and right lobe of the liver. Lopez decompresses the bladder with air in the bladder lumen. Calcific ations of the prostate are demonstrated. No definite joint effusion and either hip is seen to suggest a septic arthritis. CT/CT chest abd pel w con* IMPRESSION: Findings of bilateral pleural effusions, left greater than right. Patchy infilt rates within both lungs felt to represent a pneumonia. There appears to be some degree of compression atelectasis in both lower lobes. Soft tissue mass left lung apex. Question postinflammatory versus a Pancoast ty pe malignancy. Further evaluation will be required. Small amount of fluid within the abdomen. Generalized anasarca type of pattern to the patient most likely related to the reported sepsis. No bowel obstruction seen. No free air. Small amount of free f luid within the abdomen. No renal or ureteral calculus or obstructive uropathy. Soft tissue edema suggesting cellulitis with a decubitus ulcer over the right i nferior buttock and distal aspect of the sacrum demonstrated consistent with ce llulitis. No findings of definite bony destruction of osteomyelitis demonstrate d. Other nonemergent findings as described in the body of the report.
--- NOTE | 2019-11-20 12:00 | P.PN_ITS ---
Subjective Subjective: Interval history: No acute overnight events. Patient is off Levophed since 6 AM this morning. He is feeling well. Maintaining blood pressure on fluids alone. Sodium at 131. White count at 13.5. Fever curve appears to be improving today. COVID PCR returned negative. Blood culture from 11/17 also returned with staph aureus. Complains of soreness over right hip. Medications: Reviewed: Yes Vitals/I&O/Wt Last Vital Signs Temp 99.3 F 11/20/19 10:00 Pulse 90 11/20/19 10:00 Resp 24 H 11/20/19 10:44 BP 122/73 11/20/19 10:00 Pulse Ox 99 11/20/19 10:44 11/19/19 11/20/19 11/20/19 22:59 06:59 14:59 Intake Total 1412.25 / 1713.79 447.25 / 2161.04 910 / 910 Output Total 600 / 900 1000 / 1900 450 / 450 Balance 812.25 / 813.79 -552.75 / 261.04 460 / 460 Weight last 48 hrs Weight 48.081 kg Physical Exam Narrative: EXAM NARRATIVE: GEN: Awake, alert and oriented, no acute distress CVS: S1S2 N RS: CTA B/L Abd: Soft, nt/nd , bs+ CRABBER: no focal neuro deficits Extremities approximately 1 x 1 cm wound over the lumbosacral area slightly right of the midline with extensive sloughing overlying. Cellulitis around the buttocks appears to be improving. Urinary Catheter Management^: Lopez: Cath Placed During This Visit: no Reason for Continuing Indwelling Catheter: Accurate Measurement of Urinary Output in Critically Ill Patients Data : 11/19/19 05:39 11/20/19 03:30 Micro: Microbiology 11/19/19 11:48 Blood Culture - Preliminary Blood NEGATIVE TO DATE 11/19/19 11:45 Blood Culture - Preliminary Blood NEGATIVE TO DATE 11/20/19 03:31 Blood Culture - Preliminary Blood SPECIMEN COLLECTED 11/20/19 03:30 Blood Culture - Preliminary Blood SPECIMEN COLLECTED 11/17/19 22:34 Blood Culture - Preliminary Blood Staphylococcus aureus 11/17/19 22:34 Blood Culture - Preliminary Blood Staphylococcus aureus 11/18/19 00:00 Gram Stain - Final Sputum - Expectorated Sputum Sputum Culture - Preliminary Staphylococcus aureus 11/18/19 09:16 Urine Culture - Preliminary Urine Kidney Gram Negative Rods Bacterial Antigens - Final A&P Assessment and plan (1) Septic shock: Status: Acute (2) Anemia: -Hemoglobin 10.1, continue to monitor Status: Acute Qualifiers: Anemia type: unspecified type Qualified Code(s): D64.9 - Anemia, unspecified (3) Cellulitis and abscess of buttock: -Here is a 2 x 2 area of cellulitis over the buttocks -Continue dressing changes, repositioning, antibiotics as above -CT scan as above Status: Acute (4) Urinary retention: Status: Chronic (5) Decubitus ulcer of coccyx, stage 2: Status: Acute (6) History of malignant neoplasm of tonsil: Status: Chronic (7) Anxiety: Status: Chronic (8) Uses feeding tube: Status: Chronic (9) COPD (chronic obstructive pulmonary disease): Status: Chronic Qualifiers: COPD type: unspecified COPD Qualified Code(s): J44.9 - Chronic obstructive pulmonary disease, unspecified (10) Aspiration, chronic pulmonary: Status: Chronic (11) Septicemia due to Staphylococcus aureus: Status: Acute Additional A&P Information # Staph aureus septicemia - Source is under evaluation at this time. - may be related to skin source given right buttock cellulitis and sores over lower back. C/o hip pain on R side, no prosthetic joints. Hip/pelvis intact on pelvis CT. No abscess noted. -Blood cultures are positive from 11/16 and 11/17. Awaiting blood cultures from 817 which are thus far negative. Once culture clear for about 72 hours, will proceed with placement of PICC line. -Organism reported as staph aureus, pending susceptibility testing to a certain whether it is MSSA versus MRSA. -CT CAP with contrast for sourec evaluation. Discussed with radiology to additionally assess the right hip given soreness to evaluate for any secondary focus of septic arthritis. Also requested assessment of the lumbosacral area to assess the depth of the wound and any extension into the vertebrae or bones. - CV echo TTE to evaluate endocarditis , taken, results pending. -Gram-negative rods in urine pending speciation. -Discontinue imipenem today. 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 Continue vancomycin for now until staph aureus susceptibilities can be obtained. -When susceptibilities are obtained, will plan for at least 4 to 6 weeks of directed organism therapy. -h/o aspiration pneumonitis, recent history of prolonged admission for the same- Ct chest to f/up progression -Has had a recent hospitalization for aspiration pneumonia with respiratory failure -Urine positive for nitrites, has a chronic Lopez, high risk of urinary tract infection, urine culture with gram-negative rods. 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
[2019-11-20] MEDS: cefepime 2,000 MG in sodium chloride 0.9% (plus) 50 ML 100 MG IV (13:37)
[2019-11-20 14:39] LABS: Vancomycin Trough 16.2 ug/mL (10-15)
[2019-11-20] MEDS: iohexol 300 mg/mL 100 mL Btl IV (14:42)
[2019-11-20] MEDS: nystatin powder 15 gm Btl 1 APPLIC TOPICAL (17:53)
[2019-11-21] VITALS (16 sets, daily range): BP systolic 107–120; BP diastolic 62–76; PULSE 64–90; RESP 16–165; TEMP 36.8–37.1; O2SAT 93–98
[2019-11-21] MEDS: HYDROcodone-acetaminophen 5-325 mg Tablet 1 TAB PO ×5 (00:01→17:20)
[2019-11-21] MEDS: vancomycin 1,000 MG in sodium chloride 0.9% 250 ML 250 MG IV ×2 (00:01→07:48)
[2019-11-21] MEDS: cefepime 2,000 MG in sodium chloride 0.9% (plus) 50 ML 100 MG IV ×2 (02:13→12:34)
[2019-11-21] MEDS: morphine 4 mg/mL SDV 1 mL 2 MG IVP ×4 (02:48→20:32)
[2019-11-21 04:57] LABS: Basophils % 0.2 %; Eosinophils # 0.1 10^3/uL (0.0-0.8); Eosinophils % 2.2 %; Lymphocytes # 1.1 10^3/uL (0.8-4.8); Lymphocytes % 20.4 %; Mean Corpuscular HGB Conc 32.4 g/dL (30.0-36.0); Mean Corpuscular Hemoglobin 31.5 pg (28.0-34.0); Mean Corpuscular Volume 97.4 fL (80-94); Mean Platelet Volume 9.5 fL (7.4-10.4); Monocytes # 0.4 10^3/uL (0.2-0.9); Monocytes % 7.2 %; Neutrophils % 69.6 %; Nucleated Red Blood Cells % 0 %; Platelet Count 251 10^3/cmm (130-400); Red Blood Count 3.49 10^6/uL (4.1-5.3); Red Cell Distribution Width 16.4 % (12.1-15.1); White Blood Count 5.5 10^3/uL (4.0-10.0)
[2019-11-21 05:21] LABS: Alanine Aminotransferase 23 U/L (0-41); Albumin Level 2.5 g/dL (3.5-5.2); Alkaline Phosphatase 76 IU/L (40-130); Anion Gap 9.5 (5-19); Aspartate Amino Transferase 17 U/L (0-40); Blood Urea Nitrogen 8 mg/dL (8-23); Calcium 7.7 mg/dL (8.5-10.5); Carbon Dioxide 31 mmol/L (22-29); Chloride 96 mmol/L (98-107); Globulin 3.4 g/dL (1.3-4.6); Glomerular Filtration Rate 305.8 mL/min (90-130); Glucose 120 mg/dL (65-115); INR 0.98 (0.8-1.2); Osmolality Calculated 273 mOsm/kg (285-295); Potassium 3.5 mmol/L (3.5-5.1); Sodium 133 mmol/L (136-145); Total Bilirubin 0.3 mg/dL (0.15-1.2); Total Protein 5.9 g/dL (6.6-8.7)
[2019-11-21] MEDS: sodium chloride 0.9% 1,000 ML 75 ML IV (06:18)
[2019-11-21] MEDS: nystatin powder 15 gm Btl 1 APPLIC TOPICAL ×2 (07:49→17:18)
[2019-11-21] MEDS: heparin 5,000 unit/mL INJ 1 mL 5000 UNIT SUBCUT ×2 (07:49→19:57)
[2019-11-21] MEDS: gabapentin 300 mg Capsule PO ×2 (07:49→17:18)
[2019-11-21] MEDS: pantoprazole 40 mg SDV IVP (07:54)
[2019-11-21] MEDS: BuSPIRONE 10 mg Tablet PO ×2 (07:55→17:18)
--- NOTE | 2019-11-21 11:07 | PC.NURSE ---
Kartik. rounding Per Dr. Tsai, patient to get picc line 11/21 if blood cultures remain negative.
--- NOTE | 2019-11-21 13:12 | P.PN_ITS ---
Subjective Subjective: Interval history: T-max is 99 Fahrenheit over the last 24 hours. Leukocytosis has now resolved. Patient appears to be symptomatically improving. No acute overnight events. Blood culture negative since 11/18. Per available susceptibilities this is an MSSA. CT of the chest abdomen and pelvis shows bilateral pleural effusions left greater than right with patchy infiltrates in both lungs. Soft tissue mass of the left lung apex which could represent postinflammatory versus a Pancoast type malignancy. Of note patient is known to have squamous cell carcinoma. No intra-abdominal source found. Open decubitus ulcer noted over distal aspect of sacrum and coccyx. No evidence of underlying osteo-. No abscess. No definite joint effusion of either hip to suggest septic arthritis. 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 Urinary Catheter Management^: Talley: Cath Placed During This Visit: no Reason for Continuing Indwelling Catheter: Acute Urinary Retention or Obstruction Data : 11/21/19 04:26 11/21/19 04:26 Micro: Microbiology 11/18/19 09:16 Urine Culture - Final Urine Kidney Chryseom luteola/flavim oryzi Bacterial Antigens - Final 11/20/19 03:31 Blood Culture - Preliminary Blood NEGATIVE TO DATE 11/20/19 03:30 Blood Culture - Preliminary Blood NEGATIVE TO DATE 11/18/19 00:00 Gram Stain - Final Sputum - Expectorated Sputum Sputum Culture - Final Staphylococcus aureus 11/17/19 22:34 Blood Culture - Preliminary Blood Staphylococcus aureus 11/19/19 11:48 Blood Culture - Preliminary Blood NEGATIVE TO DATE 11/19/19 11:45 Blood Culture - Preliminary Blood NEGATIVE TO DATE A&P Assessment and plan (1) Septic shock: Status: Acute (2) Anemia: -Hemoglobin 10.1, continue to monitor Status: Acute Qualifiers: Anemia type: unspecified type Qualified Code(s): D64.9 - Anemia, unspecified (3) Cellulitis and abscess of buttock: -Here is a 2 x 2 area of cellulitis over the buttocks -Continue dressing changes, repositioning, antibiotics as above -CT scan as above Status: Acute (4) Urinary retention: Status: Chronic (5) Decubitus ulcer of coccyx, stage 2: Status: Acute (6) History of malignant neoplasm of tonsil: Status: Chronic (7) Anxiety: Status: Chronic (8) Uses feeding tube: Status: Chronic (9) COPD (chronic obstructive pulmonary disease): Status: Chronic Qualifiers: COPD type: unspecified COPD Qualified Code(s): J44.9 - Chronic obstructive pulmonary disease, unspecified (10) Aspiration, chronic pulmonary: Status: Chronic (11) Septicemia due to Staphylococcus aureus: Status: Acute Additional A&P Information #Methicillin susceptible staph aureus septicemia - likely related to skin source given right buttock cellulitis and sores over lower back. C/o hip pain on R side, no prosthetic joints. Hip/pelvis intact on pelvis CT. No abscess noted. -Blood cultures are positive from 11/16 and 11/17. Awaiting blood cultures from 11/18 which are thus far negative. Once culture clear for about 72 hours, will proceed with placement of PICC line. -CT CAP with contrast for sourec evaluation. Results without any focal intra- abdominal source identified. There are foci of pneumonia noted in bilateral lungs, however this appears to be radiological lag from his recent admission for pneumonia here. No evidence of septic arthritis in either hip. No evidence of osteomyelitis or discitis in the lumbar spine. So it appears to be more superficial with some surrounding cellulitis. Note made of left upper lobe mass on CT of the chest, concerning for Pancoast type tumor. This mass has not been reported on the last CAT scan from October 16. - CV echo TTE to evaluate endocarditis ,no gross vegetations -Gram-negative rods in urine identified as Chryseom luteola/flavim oryzi, likely colonizers on indwelling Talley -d/c cefepime and vancomycin. Change to iv cefazolin 2g iv q8h for organism directed therapy for MSSA. 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
[2019-11-22] VITALS (8 sets, daily range): BP systolic 114–133; BP diastolic 75–85; PULSE 76–88; RESP 16–20; TEMP 36.9–37.2; O2SAT 92–97
[2019-11-22] MEDS: HYDROcodone-acetaminophen 5-325 mg Tablet 1 TAB PO ×3 (00:51→14:46)
--- NOTE | 2019-11-22 01:44 | PC.NURSE ---
PATIENT REQUESTED HIS DRESSING TO HIS BUTTOCKS BE CHANGED. OLD OPTIFOAM REMOVED. AREA CLEANSED, ZINC APPLIED, AND NEW OPTIFOAM APPLIED. PATIENT TOLERATED WELL. PATIENT REPOSITIONED.
[2019-11-22] MEDS: morphine 4 mg/mL SDV 1 mL 2 MG IVP ×2 (04:27→08:23)
[2019-11-22 05:40] LABS: Basophils % 0.1 %; Eosinophils # 0.1 10^3/uL (0.0-0.8); Eosinophils % 1.2 %; Hematocrit 34.5 % (42.0-52.0); Lymphocytes # 1.1 10^3/uL (0.8-4.8); Lymphocytes % 15.8 %; Mean Corpuscular HGB Conc 31.9 g/dL (30.0-36.0); Mean Corpuscular Hemoglobin 31.1 pg (28.0-34.0); Mean Corpuscular Volume 97.5 fL (80-94); Mean Platelet Volume 9.6 fL (7.4-10.4); Monocytes # 0.4 10^3/uL (0.2-0.9); Monocytes % 5.4 %; Neutrophils % 77.4 %; Nucleated Red Blood Cells % 0 %; Platelet Count 298 10^3/cmm (130-400); Red Blood Count 3.54 10^6/uL (4.1-5.3); Red Cell Distribution Width 16.2 % (12.1-15.1); White Blood Count 6.9 10^3/uL (4.0-10.0)
[2019-11-22 06:20] LABS: Alanine Aminotransferase 20 U/L (0-41); Albumin Level 2.6 g/dL (3.5-5.2); Alkaline Phosphatase 76 IU/L (40-130); Anion Gap 11.1 (5-19); Aspartate Amino Transferase 17 U/L (0-40); Blood Urea Nitrogen 10 mg/dL (8-23); Calcium 7.9 mg/dL (8.5-10.5); Carbon Dioxide 32 mmol/L (22-29); Chloride 94 mmol/L (98-107); Globulin 3.6 g/dL (1.3-4.6); Glomerular Filtration Rate 305.8 mL/min (90-130); Glucose 135 mg/dL (65-115); Osmolality Calculated 274 mOsm/kg (285-295); Potassium 4.1 mmol/L (3.5-5.1); Sodium 133 mmol/L (136-145); Total Bilirubin 0.2 mg/dL (0.15-1.2); Total Protein 6.2 g/dL (6.6-8.7)
[2019-11-22] MEDS: heparin 5,000 unit/mL INJ 1 mL 5000 UNIT SUBCUT (06:32)
--- NOTE | 2019-11-22 09:51 | XR_ITS ---
WS: [id number] EXAM: AP CHEST: PORTABLE UPRIGHT DATE OF EXAM: 11/22/2019, 1018 hours COMPARISON: Chest x-ray from 11/19/2019. HISTORY: Patient is 59 years old with PICC line placement. Assess position. FINDINGS: The cardiac silhouette is stable. The mediastinal contours show interval placement of a right-side d PICC line ending in the SVC region. The pulmonary vascularity is congested. Chronic lung changes seen. There appears to be superimposed alveolar infiltrates within the right lung. Left base infiltr ate and effusion appear to be increasing. No pneumothorax. No acute bony abnormality is seen. XR/XR chest 1V portable [id number] IMPRESSION: New right-sided PICC line ends in the SVC region. Findings suggesting worsening bilateral pneumonia. Definitely increasing left p leural effusion.
[2019-11-22] MEDS: BuSPIRONE 10 mg Tablet PO (10:22)
[2019-11-22] MEDS: gabapentin 300 mg Capsule PO (10:23)
[2019-11-22] MEDS: pantoprazole 40 mg SDV IVP (10:24)
[2019-11-22] MEDS: nystatin powder 15 gm Btl 1 APPLIC TOPICAL (10:25)
--- NOTE | 2019-11-22 11:35 | PC.NURSE ---
I went to reassess Mr. Wolfe pain level and he said The pain is the same, unchanged. It is tolerable. Report to patient care nurse.
--- NOTE | 2019-11-22 11:42 | PM.DCS ---
Discharge Providers Date of Admission: 11/18/19 05:23 Date of Discharge: November 22, 2019 Attending Provider at Admission: Andreia Jeffries MD Attending Provider at Discharge: Alba Tsai MD Primary Care Provider: Martin Mcfarland DO Diagnoses at Discharge Discharge Diagnosis (1) Septic shock: Status: Acute (2) Anemia: Status: Acute Qualifiers: Anemia type: unspecified type Qualified Code(s): D64.9 - Anemia, unspecified (3) Cellulitis and abscess of buttock: Status: Acute (4) Urinary retention: Status: Chronic Problem details: Tilley catheter placed October 2019 with failed trial of voiding (5) Decubitus ulcer of coccyx, stage 2: Status: Acute (6) History of malignant neoplasm of tonsil: Status: Chronic (7) Anxiety: Status: Chronic (8) Uses feeding tube: Status: Chronic (9) COPD (chronic obstructive pulmonary disease): Status: Chronic Qualifiers: COPD type: unspecified COPD Qualified Code(s): J44.9 - Chronic obstructive pulmonary disease, unspecified (10) Aspiration, chronic pulmonary: Status: Chronic (11) Septicemia due to Staphylococcus aureus: Status: Acute Reason for Visit Reason for Visit: POSSIBLE SEPSIS/ TEMP/ TACHY Hospital Course Discharge Summary: Charles Garay is a 59 year old male with a past medical history of 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 He is currently n.p.o. to the mouth strictly and only gets feeding through the PEG tube. Recent hospital realization about a month ago as the PEG tube was displaced at which time it was replaced with a J-tube which is currently in place. He has waxing and waning pulmonary infiltrates as a result of chronic aspiration. [facility] admission for rehab with fever and tachycardia and concern for sepsis. Eventually on work-up he was found to have MSSA bacteremia, likely from a skin source due to a sacral decub ulcer and cellulitis around the buttocks. CT of the pelvis did not show any abscess. CT of abdomen pelvis chest did not show any underlying abscesses. CT of the spine did not show any evidence of osteomyelitis or discitis. The right hip was not imaged due to continued complains of soreness, no signs of septic arthritis noted here. Patient improved with antibiotic course. Blood culture is negative as well November 18. Other details of hospitalization and plan as below. Recommend follow-up in pulmonary clinic in about 2 weeks due to discovery of what is being read as left upper lung mass which may represent Pancoast tumor. Follow-up in ID clinic at the end of 4 weeks of IV antibiotics. While on the 4 weeks of IV cefazolin, patient should get weekly labs with CBC and CMP to monitor for development of any neutropenia or liver or kidney dysfunction. Needs labs to be reviewed at the [facility]. #Methicillin susceptible staph aureus septicemia - likely related to skin source given right buttock cellulitis and sores over lower back. C/o hip pain on R side, no prosthetic joints. Hip/pelvis intact on pelvis CT. No abscess noted. -Blood cultures are positive from 11/16 and 11/17. Blood cultures from 11/18 negative to date. OPicc line placed 11/21. -CT CAP with contrast for source evaluation. Results without any focal intra-abdominal source identified. There are foci of pneumonia noted in bilateral lungs, however this appears to be radiological lag from his recent admission for pneumonia here. Also has chronic aspiration with multiple fleeting lung infiltrates over the years. He has a PEJ tube for this express purpose, inserted about a year ago. He is strictly n.p.o. through the mouth. No evidence of septic arthritis in either hip. No evidence of osteomyelitis or discitis in the lumbar spine. Ulcer appears to be more superficial with some surrounding cellulitis. Note made of left upper lobe mass on CT of the chest, concerning for Pancoast type tumor per radiology read. This mass has not been reported on the last CAT scan from October 16, however there are inflammatory ibnfiltrates in thia area per my review of images. - CV echo TTE to evaluate endocarditis ,no gross vegetations -Gram-negative rods in urine identified as Chryseom luteola/flavim oryzi, likely environmenralkl colonizers on indwelling Tilley. -Initially on cefepime and vancomycin. Changed to iv cefazolin 2g iv q8h for organism directed therapy for MSSA. - Recommend total duration of rx to be 4 weeks from cleranace of cx (11/18-12/16) -Rapid COVID negative, PCR negative -weekly CBC/CMP while on cefazolin to be reviwed at [facility] # recurrent h/o aspiration pneumonitis, likely to be/remain a chronic problem Exclusive PEJ feeds on 3lpm NC at recent baseline, suppelemtal 02 to keep saturation >90% # sacral decubitus ulcer, daily wet to dry dressing, frequent repositioning, encourage ambulation # DEBBIE nodule, per radiology read, may be concerning for malignancy ascencion given past h/o tonsillar ca and h/o radiation ijn the area. 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 Urinary Catheter Management^: Tilley: Cath Placed During This Visit: no Reason for Continuing Indwelling Catheter: Acute Urinary Retention or Obstruction Discharge Data Data Completed and Pending: Completed Studies During Hospitalization Category Date Time Status CT chest abd pel w con* Routine Cat Scan 11/20/19 10:[address] pelvis w con* [id number] Urgent Cat Scan 11/18/19 02:44 Completed XR chest 1V gamal ble [id number] Routine Exams 11/19/19 07:00 Completed XR chest 1V gamal ble [id number] Urgent Exams 11/17/19 22:31 Completed CV echo complete* [id number] Routine Ultrasound 11/20/19 05:00 Completed Pending at discharge Category Date Time Status XR chest 1V gamal ble [id number] Stat Exams 11/22/19 09:51 Ordered Blood Culture AM LABS Lab 11/20/19 03:31 Results Blood Culture Sta t Lab 11/19/19 11:45 Results Labs from last 24 hours 11/22/19 11/22/19 11/17/19 04:49 04:49 22:34 WBC 6.9 RBC 3.54 L Hgb 11.0 L Hct 34.5 L MCV 97.5 H MCH 31.1 MCHC 31.9 RDW 16.2 H Plt Count 298 MPV 9.6 Neut % (Auto) 77.4 Lymph % (Auto) 15.8 [place] % (Auto) 5.4 Eos % (Auto) 1.2 Baso % (Auto) 0.1 Neut # (Auto) 5.30 Lymph # (Auto) 1.1 [place] # (Auto) 0.4 Eos # (Auto) 0.1 Baso # (Auto) 0.0 Nucleated RBC % (a uto) 0 Nucleated RBCs # 0.0 Sodium 133 L 132 L Potassium 4.1 5.1 Chloride 94 L 92 L Carbon Dioxide 32 H 30 H Anion Gap 11.1 15.1 BUN 10 20 Creatinine 0.3 L 0.6 L GFR Calculation 305.8 H 137.4 H Glucose 135 H 119 H Calculated Osmolal ity 274 L 272 L Calcium 7.9 L 8.9 Total Bilirubin 0.2 0.5 AST 17 20 ALT 20 23 Alkaline Phosphata se 76 102 C-Reactive Protein 111.4 H NT-Pro-B Natriuret Pep 355 H Total Protein 6.2 L 6.6 Albumin 2.6 L 3.3 L Globulin 3.6 3.3 Procalcitonin 0.13 Vitals: Last Vital Signs Temp 98.8 F 11/22/19 11:39 Pulse 85 11/22/19 11:39 Resp 16 11/22/19 11:39 BP 114/75 11/22/19 11:39 Pulse Ox 97 11/22/19 11:39 Discharge Plan Discharge Patient Disposition: Xfer SNF Condition: Stable Prescriptions: New nystatin [Nystop] 100,000 unit/gram Powder 1 applic topical BID 30 Days RF: 0 zinc oxide 20 % Ointment 1 applic topical BID 30 Days RF: 0 cefazolin in dextrose (iso-os) 2 gram/50 mL Piggyback 2 g continuous IV infusion Q8H 30 Days Qty: 0 RF: 0 Continued ibuprofen 200 mg tablet 200 mg PO Q6H PRN (Reason: Pain) RF: 0 acetaminophen-codeine 300-30 mg tablet 1 tab PO TID PRN (Reason: Pain) RF: 0 buspirone 10 mg tablet 10 mg PO BID PRN (Reason: Anxiety) RF: 0 tramadol 50 mg Tablet 50 mg PO TID PRN (Reason: Pain) RF: 0 Milk of Magnesia 400 mg/5 mL Suspension 30 ml PO DAILY PRN (Reason: Constipation) RF: 0 Pyridium 100 mg Tablet 100 mg PO TID RF: 0 bisacodyl 10 mg Suppository 10 mg NE DAILY PRN (Reason: Constipation) RF: 0 Enema 19-7 gram/118 mL Enema 118 ml NE DAILY PRN (Reason: Constipation) RF: 0 gabapentin 300 mg Capsule 300 mg PO BID RF: 0 doxazosin 2 mg Tablet 2 mg PO DAILY RF: 0 Discharge Orders: Discharge Order (Routine); Ordered 11/22/19 Ordered By: Alba Tsai Other Ambulatory Orders: Complete Blood Count w/Auto (WEEKLY) Timeframe: 20191129 Location: Determined by Patient Ordered By: Alba Tsai Complete Blood Count w/Auto (WEEKLY) Timeframe: 20191130 Location: Determined by Patient Ordered By: Alba Tsai Complete Blood Count w/Auto (WEEKLY) Timeframe: 20191201 Location: Determined by Patient Ordered By: Alba Tsai Complete Blood Count w/Auto (WEEKLY) Timeframe: 20191202 Location: Determined by Patient Ordered By: Alba Tsai Comprehensive Metabolic Panel (WEEKLY) Timeframe: 20191129 Location: Determined by Patient Ordered By: Alba Tsai Comprehensive Metabolic Panel (WEEKLY) Timeframe: 20191130 Location: Determined by Patient Ordered By: Alba Tsai Comprehensive Metabolic Panel (WEEKLY) Timeframe: 20191201 Location: Determined by Patient Ordered By: Alba Tsai Comprehensive Metabolic Panel (WEEKLY) Timeframe: 20191202 Location: Determined by Patient Ordered By: Alba Tsai Referrals: Alba Tsai MD [Hospitalist] - 1 month (call rn surgical pcu office for appointment. 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
== END 2019-11-22 15:30 | disposition skilled nursing facility (03) | DRG 871 ==
LOC: ER 11-18 04:29 → ICU 11-18 05:59 → MEDSURG 11-20 14:30
PROVIDERS: Family Medicine; Admitting Provider Hospitalist; PCP Internal Medicine; Visit Provider Student in an Organized Health Care Education/Training Program
DX: A41.01 Sepsis due to Methicillin susceptible Staphylococcus aureus (principal); R65.21 Severe sepsis with septic shock; J69.0 Pneumonitis due to inhalation of food and vomit; L03.317 Cellulitis of buttock; L02.31 Cutaneous abscess of buttock; R33.9 Retention of urine, unspecified; D64.9 Anemia, unspecified; J44.9 Chronic obstructive pulmonary disease, unspecified; L89.152 Pressure ulcer of sacral region, stage 2; F41.9 Anxiety disorder, unspecified; T17.908A Unspecified foreign body in respiratory tract, part unspecified causing other injury, initial encounter; Z85.818 Personal history of malignant neoplasm of other sites of lip, oral cavity, and pharynx; X58.XXXA Exposure to other specified factors, initial encounter; Z87.891 Personal history of nicotine dependence
CPT/HCPCS: 12345; 36415; 36569; 71045; 71260; 72193; 74177; 80048; 80053; 80202; 81001; 82728; 83605; 83735; 83880; 84100; 84145; 85025; 85378; 85384; 85610; 85730; 86140; 86403; 87040; 87070; 87077; 87086; 87186; 87205; 87426; 87635; 87641; 93005; 93306; 96372; 96375; 99284; C9113; J0456; J0690; J0692; J0743; J1644; J2270; J2405; J2543; J3370; J7030; J7040; J7050; Q9967

== ENCOUNTER 2020-01-08 08:31 | Outpatient (CLI) | payer MEDICAID, SELFPAY ==
[2020-01-08 08:52] VITALS: BP 92/60; PULSE 92; RESP 18; TEMP 36.4; O2SAT 92
--- NOTE | 2020-01-08 18:22 | PM.ACPR ---
Procedure/Consent Time out: Time Out Performed: Yes Consent: Consent for Procedure: Consent obtained from patient Acute Procedures Epistaxis Control: Time out performed: Yes Feeding Tube Replacement: Type of tube: G-J Tube Insertion site prior to procedure: clean Tube used for reinsertion: Bard Chinese Tube Size (F): 20 Balloon size (ml): 7 Verification of placement: other (drainage of bile) Tube secured by: tape/dressing Patient tolerated procedure: well
== END 2020-01-08 08:32 | disposition home or self-care (01) ==
LOC: OPS 08:34
PROVIDERS: PCP Internal Medicine; Visit Provider Surgery
PROC: (CPT 43762; principal; 2020-01-08 10:00)
DX: Z43.1 Encounter for attention to gastrostomy (principal)
CPT/HCPCS: 12345; 43760

== ENCOUNTER 2020-07-18 20:03 | Emergency (ER) | payer MEDICAID, SELFPAY ==
--- NOTE | 2020-07-18 20:08 | XRR_ITS ---
PROCEDURE INFORMATION: Exam: XR Abdomen Exam date and time: 07/18/2020 8:33 PM Age: 60 years old Clinical indication: Device placement; Gi device; Peg tube; Prior surgery; Additional info: G tube placement TECHNIQUE: Imaging protocol: XR of the abdomen. Views: Frontal supine view of the abdomen. 1 View. COMPARISON: CT chest abd pel w con* 11/20/2019 2:29 PM FINDINGS: Contrast material injected through patient's gastrostomy tube fills the stomach. No extravasation is seen. XR/XR KUB [id number] IMPRESSION: Gastrostomy tube within the stomach. No extravasation.
[2020-07-18 20:24] VITALS: BP 117/80; PULSE 102; RESP 18; TEMP 36.5; O2SAT 98; BMI 21.2
[2020-07-18] MEDS: diatrizoate meglumine 30 mL Sol PR (21:26)
[2020-07-18] MEDS: diatrizoate meglumine 30 mL Sol PO (21:26)
--- NOTE | 2020-07-18 23:56 | W.ED.GENADLT ---
HPI - General Adult General: Chief complaint: General Medical Stated complaint: feeding tube came out,wanting to make sure it's in Time Seen by Provider: 07/18/20 23:56 Source: patient Mode of arrival: ambulatory Limitations: no limitations History of Present Illness: HPI narrative: 60-year-old male patient comes in today with displaced G-tube. Patient reports that it became displaced when he coughed. Patient reinserted that back through the ostomy site without difficulty. Patient was concerned that it might of gotten this placed in the wrong spot. Patient denies any pain or discomfort. Patient appears well. 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 History of osteomyelitis Osteomyelitis of the mandible, treated in 2017 Urinary retention Lopez catheter placed October 2019 with failed trial of voiding Uses feeding tube Surgical History Encounter for gastrojejunal (GJ) tube placement (10/19/19) History of tonsillectomy Cancer resection with tonsillar cancer Family History Mother Cancer Diabetes Father , 80 Cancer Denies family history of Anesthesia complication Bleeding disorder Social History Smoking and tobacco status: former smoker Quit status (tobacco): has quit using tobacco Year quit tobacco: 2019 - 0.5 PPD x 30 Years Alcohol intake: never Caregiver/support person: Yes Lives independently: No Household members: caregiver Housing: [facility] Marital status: Current occupational status: disabled History of recent travel: No Current gender identity: Male Physical Exam Const: COMMON NORMALS: no acute distress and patient oriented x3 GENERAL APPEARANCE: cooperative HENMT: COMMON NORMALS: normocephalic and Normal external nose present HEAD & SCALP: normal to inspection and normocephalic NOSE: Normal external nose present Eye: GENERAL EYE: appearance normal, both eyes and all related structures Neck/C-Spine: COMMON NORMALS: full ROM Chest: COMMONS NORMALS: normal inspection of the chest Resp: COMMON NORMALS: normal respiratory effort EFFORT & INSPECTION: Yes able to speak in complete sentences Cardio: COMMON NORMALS: regular rate and regular rhythm RATE: regular rate RHYTHM: regular rhythm GI: COMMON NORMALS: Soft to palpation and non-tender PALPATION: Yes Soft to palpation OTHER: G-tube ostomy site is pink without any signs of significant inflammation or redness. Back/Pelvis: COMMON NORMALS: thoracic and lumbar spine normal to inspection Extremity: COMMON NORMALS: normal to inspection Neuro: COMMON NORMALS: patient oriented x3 and moves all extremities Psych: COMMON NORMALS: mental status grossly normal and cooperative Skin: COMMON NORMALS: no rashes or lesions noted GENERAL SKIN EXAM: no rashes or lesions noted Course Vital Signs: Vital signs: Vital Signs Temperature 97.7 F 07/18/20 20:24 Pulse Rate 102 H 07/18/20 20:24 Respiratory Rate 18 07/18/20 20:24 Blood Pressure 117/80 07/18/20 20:24 Pulse Oximetry 98 07/18/20 20:24 MDM - General Adult MDM Narrative: Medical decision making narrative: Patient comes in today for G-tube dysfunction. On exam G-tube is in place. X-ray was performed and noted that there was good placement of the G-tube with radiopaque dye. I evaluated the G-tube and aspirated for fluid. I checked also the insufflation of the G-tube bulb and noted that there was no fluid in the bulb. Bulb was reinflated to 10 mL of fluid and held the G-tube into place. Patient tolerated well. Reviewed exam with patient with recommendations for monitoring and follow-up. Patient reported understanding and agreed to plan. Differential Diagnosis: Differential Diagnosis: Cellulitis, G-tube dysfunction, displacement of G-tube. Discharge Plan Discharge Patient Disposition: Home Clinical Impression: Gastrostomy tube dysfunction Condition: Stable Prescriptions: No Action Spiriva with HandiHaler 18 mcg capsule, w/inhalation device 1 cap INHALATION DAILY Qty: 30 RF: 3 docusate sodium 100 mg/5 mL enema 100 mg LA .prn PRN (Reason: Constipation) RF: 0 albuterol sulfate 2.5 mg /3 mL (0.083 %) solution for nebulization 2.5 mg INHALATION Q4H PRN (Reason: Shortness Of Breath) RF: 0 acetaminophen-codeine 300-30 mg tablet 1 tab PO TID PRN (Reason: Pain) RF: 0 buspirone 10 mg tablet 10 mg PO BID PRN (Reason: Anxiety) RF: 0 zinc oxide 20 % Ointment 1 applic TOPICAL TID RF: 0 bisacodyl 10 mg Suppository 10 mg LA DAILY PRN (Reason: Constipation) RF: 0 ibuprofen 200 mg Tablet 200 mg PO Q6H PRN (Reason: Pain) RF: 0 Nystop 100,000 unit/gram Powder 1 applic TOPICAL BID RF: 0 Spiriva with HandiHaler 18 mcg Capsule, W/Inhalation Device 1 cap INHALATION DAILY RF: 0 cefazolin in 0.9% sod chloride 2 gram/100 mL Solution 2 g IV Q8H RF: 0 Jevity 1.5 Dre 0.06 gram-1.5 kcal/mL Liquid 500 ea feeding tube QID RF: 0 tramadol 50 mg Tablet 50 mg PO TID PRN (Reason: Pain) RF: 0 magnesium hydroxide [Milk of Magnesia] 400 mg/5 mL Suspension 30 ml PO DAILY PRN (Reason: Constipation) RF: 0 gabapentin 300 mg Capsule 300 mg PO BID RF: 0 doxazosin 2 mg Tablet 2 mg PO DAILY RF: 0 Discharge Orders: Discharge ED (Routine); Ordered 07/19/20 Ordered By: Travis Mukherjee Referrals: Martin Mcfarland DO [Primary Care Provider] - Discharge Diet: Usual diet Discharge Activity: Increase activity as tolerated Patient Instructions: GI Tube Care, Opioid Safety Activity Restrictions/Additional Instructions: Continue with routine care. Activity as tolerated. Follow-up with primary care for further treatment. Return to the ER for new concerns. Coding Level of Care Code ED Intensivist for Steffi Velasco
[2020-07-19 00:27] VITALS: PULSE 88; O2SAT 90
[2020-07-19 00:29] VITALS: PULSE 88; O2SAT 90
== END 2020-07-19 00:30 | disposition home or self-care (01) ==
PROVIDERS: Emergency Provider Nurse Practitioner Family; PCP Internal Medicine
DX: K94.20 Gastrostomy complication, unspecified (principal); J44.9 Chronic obstructive pulmonary disease, unspecified; Z85.89 Personal history of malignant neoplasm of other organs and systems; Z87.891 Personal history of nicotine dependence
CPT/HCPCS: 74018; 99283; Q9963

== ENCOUNTER 2021-04-08 04:39 | Inpatient (IN) | payer MEDICAID, SELFPAY ==
[2021-04-08 04:39] VITALS: BP 125/82; PULSE 108; RESP 18; TEMP 37.9; O2SAT 94; BMI 22.8
--- NOTE | 2021-04-08 04:41 | ED_ITS ---
Documented by User: Adán Dale MD 04/12/21 20:10 HPI - Weakness General: Chief complaint: Weakness Stated complaint: weakness/ fall/ left ankle pain Time Seen by Provider: 04/08/21 04:41 History of Present Illness: HPI Narrative: Mr. Garay is a 60-year-old gentleman with complex past medical history including severe COPD with chronic hypoxic respiratory failure who presents to the emergency department due to weakness and generalized malaise. Symptom onset started yesterday. He has mild associated nausea vomiting. He has had increased falls and weakness. Just prior to coming in he he reports near syncopal episode where he fell and landed on his left ankle causing pain. Overall the course of symptoms has been worsening. Intensity is moderate to severe. No other specific changes to health, exacerbating, relieving factors identified. 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 History of osteomyelitis Osteomyelitis of the mandible, treated in 2017 Urinary retention Lopez catheter placed October 2019 with failed trial of voiding Uses feeding tube Surgical History Encounter for gastrojejunal (GJ) tube placement (10/19/19) History of tonsillectomy Cancer resection with tonsillar cancer Family History Mother Cancer Diabetes Father , 80 Cancer Denies family history of Anesthesia complication Bleeding disorder Social History Smoking and tobacco status: former smoker Quit status (tobacco): has quit using tobacco Year quit tobacco: 2019 - 0.5 PPD x 30 Years Alcohol intake: never Caregiver/support person: Yes Lives independently: No Household members: caregiver Housing: Snf Marital status: Current occupational status: disabled History of recent travel: No Current gender identity: Male Physical Exam Narrative: EXAM NARRATIVE: GENERAL/CONSTITUTIONAL - chronically ill-appearing. Distress due to pain. Eyes - PERRL, no conjunctival injection ENMT - Atraumatic external nose and ears. Moist mucous membranes NECK - supple. trachea midline CARDIOVASCULAR -tachycardic rate and regular rhythm. Peripheral pulses intact. RESPIRATORY - diminished to auscultation bilaterally. Increased work of breathing with tachypnea. ABDOMEN/GI - Nontender/Nondistended. MSK - ankle with swelling over the medial lateral component, distal CMS intact. SKIN - Warm, Dry NEURO - alert and appropriately oriented. No focal neurologic deficit moves all extremities equally. Course ED course: - Patient was seen and evaluated by me at bedside - Patient placed on cardiac monitors, IV access obtained - Initial evaluation notable for exam as above -Symptom treatment ordered - Patient care handed off to morning ED physician Dr Medley ending completion of work-up for disposition. Vital Signs: Vital signs: Vital Signs Temperature 98.2 F 04/11/21 13:32 Pulse Rate 85 04/11/21 13:32 Respiratory Rate 16 04/11/21 13:32 Blood Pressure 110/70 04/11/21 13:32 Pulse Oximetry 94 04/11/21 13:32 MDM - Weakness Medical Records: Attestation: I reviewed the patient's medical records. Lab Data: Attestation: I reviewed the patient's lab results. Labs: Lab Results 04/08/21 04/08/21 04/08/21 05:10 05:10 05:10 WBC RBC Hgb Hct MCV MCH MCHC RDW Plt Count MPV Neut % (Auto) Lymph % (Auto) [place] % (Auto) Eos % (Auto) Baso % (Auto) Neut # (Auto) Lymph # (Auto) [place] # (Auto) Eos # (Auto) Baso # (Auto) Nucleated RBC % (a uto) Nucleated RBCs # D-Dimer Sodium Potassium Chloride Carbon Dioxide Anion Gap BUN Creatinine GFR Calculation Glucose Calculated Osmolal ity Calcium Magnesium Total Bilirubin AST ALT Alkaline Phosphata se Troponin T Baselin e Troponin T [address] [place] Troponin T Troponin T Hi Sens 6Hr Troponin T Hi Sens 6Hr Delta C-Reactive Protein Total Protein Albumin Globulin Procalcitonin TSH Urine Color Urine Appearance Urine pH Ur Specific Gravit y Urine Protein Urine Glucose (UA) Urine Ketones Urine Blood Urine Nitrate Urine Bilirubin Urine Urobilinogen Ur Leukocyte Varsha ase Urine RBC Urine WBC Ur Squamous Epith Cells Amorphous Sediment Urine Bacteria Fine Granular Cast s Nasal Influ A H1 2 009 PCR Not detected (NOT DETECT) Coronavirus 229E ( PCR) Not detected (NOT DETECT) Influenza A (H1) P CR Not detected (NOT DETECT) Influenza A (H3) P CR Not detected (NOT DETECT) Influenza Type A A g Cancelled Influenza Type A ( PCR) Not detected (NOT DETECT) Influenza Type B A g Cancelled Influenza Type B ( PCR) Not detected (NOT DETECT) SARS-CoV-2 (PCR) Detected A (NOT DETECT) 04/08/21 04/08/21 04/08/21 05:15 05:15 05:15 WBC 8.7 10^3/uL 10^3/ uL (4.0-10.0) RBC 4.03 10^6/uL L 10 ^6/uL (4.1-5.3) Hgb 13.1 g/dL g/dL (11.7-16.6) Hct 40.7 % L % (42.0-52.0) MCV 101.0 fl H fl (80-94) MCH 32.5 pg pg (28.0-34.0) MCHC 32.2 g/dL g/dL (30.0-36.0) RDW 12.2 % % (12.1-15.1) Plt Count 176 10^3/cmm 10^3 /cmm (130-400) MPV 10.9 fL H fL (7.4-10.4) Neut % (Auto) 87.1 % % Lymph % (Auto) 5.8 % % [place] % (Auto) 6.8 % % Eos % (Auto) 0.0 % % Baso % (Auto) 0.1 % % Neut # (Auto) 7.53 10^3/uL 10^3 /uL (1.8-7.7) Lymph # (Auto) 0.5 10^3/uL L 10^ 3/uL (0.8-4.8) [place] # (Auto) 0.6 10^3/uL 10^3/ uL (0.2-0.9) Eos # (Auto) 0.0 10^3/uL 10^3/ uL (0.0-0.8) Baso # (Auto) 0.0 10^3/uL 10^3/ uL (0.0-0.1) Nucleated RBC % (a uto) 0 % % Nucleated RBCs # 0.0 /100WBC /100W BC D-Dimer Sodium 136 mmol/L mmol/L (136-145) Potassium 4.7 mmol/L mmol/L (3.5-5.1) Chloride 98 mmol/L mmol/L (98-107) Carbon Dioxide 28 mmol/L mmol/L (22-29) Anion Gap 14.7 (5-19) BUN 29 mg/dL H mg/dL (8-23) Creatinine 1.0 mg/dL mg/dL (0.7-1.2) GFR Calculation 76.0 mL/min L mL/ min (90-130) Glucose 115 mg/dL mg/dL (65-115) Calculated Osmolal ity 289 mOsm/kg mOsm/ kg (285-295) Calcium 8.2 mg/dL L mg/dL (8.5-10.5) Magnesium 2.2 mg/dL mg/dL (1.7-2.3) Total Bilirubin 0.2 mg/dL mg/dL (0.15-1.2) AST 28 U/L U/L (0-40) ALT 20 U/L U/L (0-41) Alkaline Phosphata se 77 IU/L IU/L (40-130) Troponin T Baselin e 21 ng/L H ng/L (0-15) Troponin T [address] [place] Troponin T Troponin T Hi Sens 6Hr Troponin T Hi Sens 6Hr Delta C-Reactive Protein 42.0 mg/L H mg/L (0.0-4.9) Total Protein 6.5 g/dL L g/dL (6.6-8.7) Albumin 4.1 g/dL g/dL (3.5-5.2) Globulin 2.4 g/dL g/dL (1.3-4.6) Procalcitonin 0.15 ng/mL ng/mL (0-0.5) TSH 1.25 uIU/mL uIU/m L (0.27-4.20) Urine Color Urine Appearance Urine pH Ur Specific Gravit y Urine Protein Urine Glucose (UA) Urine Ketones Urine Blood Urine Nitrate Urine Bilirubin Urine Urobilinogen Ur Leukocyte Varsha ase Urine RBC Urine WBC Ur Squamous Epith Cells Amorphous Sediment Urine Bacteria Fine Granular Cast s Nasal Influ A H1 2 009 PCR Coronavirus 229E ( PCR) Influenza A (H1) P CR Influenza A (H3) P CR Influenza Type A A g Influenza Type A ( PCR) Influenza Type B A g Influenza Type B ( PCR) SARS-CoV-2 (PCR) 04/08/21 04/08/21 04/08/21 05:15 05:45 07:35 WBC RBC Hgb Hct MCV MCH MCHC RDW Plt Count MPV Neut % (Auto) Lymph % (Auto) [place] % (Auto) Eos % (Auto) Baso % (Auto) Neut # (Auto) Lymph # (Auto) [place] # (Auto) Eos # (Auto) Baso # (Auto) Nucleated RBC % (a uto) Nucleated RBCs # D-Dimer Sodium Potassium Chloride Carbon Dioxide Anion Gap BUN Creatinine GFR Calculation Glucose Calculated Osmolal ity Calcium Magnesium Total Bilirubin AST ALT Alkaline Phosphata se Troponin T Baselin e Troponin T [address] [place] 18.51 ng/L H ng/L (0-15) Delta Troponin T -2.49 ABS# L ABS# (0-10) Troponin T Hi Sens 6Hr Troponin T Hi Sens 6Hr Delta C-Reactive Protein Total Protein Albumin Globulin Procalcitonin TSH 1.54 uIU/mL uIU/m L (0.27-4.20) Urine Color Yellow (Yellow) Urine Appearance Clear (CLEAR) Urine pH 6 (5-7) Ur Specific Gravit y 1.015 (1.005-1.030) Urine Protein 1+ H (Negative) Urine Glucose (UA) Norm (Normal) Urine Ketones Negative (Negative) Urine Blood 3+ H (Negative) Urine Nitrate Negative (Negative) Urine Bilirubin Neg (Negative) Urine Urobilinogen Norm mg/dL mg/dL (Negative) Ur Leukocyte Varsha ase Negative (Negative) Urine RBC 15-25 /hpf H /hpf (0-2) Urine WBC 0-4 /hpf H /hpf (0-5) Ur Squamous Epith Cells None /hpf /hpf (0-5) Amorphous Sediment Not Reportable Urine Bacteria Trace /hpf /hpf (NONE) Fine Granular Cast s 0-4 /lpf H /lpf Nasal Influ A H1 2 009 PCR Coronavirus 229E ( PCR) Influenza A (H1) P CR Influenza A (H3) P CR Influenza Type A A g Influenza Type A ( PCR) Influenza Type B A g Influenza Type B ( PCR) SARS-CoV-2 (PCR) 0104/08/21 04/09/21 11:12 15:20 06:06 WBC 9.1 10^3/uL 10^3/ uL (4.0-10.0) RBC 3.78 10^6/uL L 10 ^6/uL (4.1-5.3) Hgb 12.4 g/dL g/dL (11.7-16.6) Hct 38.3 % L % (42.0-52.0) MCV 101.3 fl H fl (80-94) MCH 32.8 pg pg (28.0-34.0) MCHC 32.4 g/dL g/dL (30.0-36.0) RDW 12.4 % % (12.1-15.1) Plt Count 154 10^3/cmm 10^3 /cmm (130-400) MPV 10.6 fL H fL (7.4-10.4) Neut % (Auto) 81.4 % % Lymph % (Auto) 11.2 % % [place] % (Auto) 6.9 % % Eos % (Auto) 0.1 % % Baso % (Auto) 0.1 % % Neut # (Auto) 7.41 10^3/uL 10^3 /uL (1.8-7.7) Lymph # (Auto) 1.0 10^3/uL 10^3/ uL (0.8-4.8) [place] # (Auto) 0.6 10^3/uL 10^3/ uL (0.2-0.9) Eos # (Auto) 0.0 10^3/uL 10^3/ uL (0.0-0.8) Baso # (Auto) 0.0 10^3/uL 10^3/ uL (0.0-0.1) Nucleated RBC % (a uto) 0 % % Nucleated RBCs # 0.0 /100WBC /100W BC D-Dimer 8.91 ug/mIFEU H u g/mIFEU (0-0.59) Sodium Potassium Chloride Carbon Dioxide Anion Gap BUN Creatinine GFR Calculation Glucose Calculated Osmolal ity Calcium Magnesium Total Bilirubin AST ALT Alkaline Phosphata se Troponin T Baselin e Troponin T [address] [place] Troponin T Troponin T Hi Sens 6Hr 19.89 ng/L H ng/L (0-15) Troponin T Hi Sens 6Hr Delta -1.11 ng/L L ng/L (0-12) C-Reactive Protein Total Protein Albumin Globulin Procalcitonin TSH Urine Color Urine Appearance Urine pH Ur Specific Gravit y Urine Protein Urine Glucose (UA) Urine Ketones Urine Blood Urine Nitrate Urine Bilirubin Urine Urobilinogen Ur Leukocyte Varsha ase Urine RBC Urine WBC Ur Squamous Epith Cells Amorphous Sediment Urine Bacteria Fine Granular Cast s Nasal Influ A H1 2 009 PCR Coronavirus 229E ( PCR) Influenza A (H1) P CR Influenza A (H3) P CR Influenza Type A A g Influenza Type A ( PCR) Influenza Type B A g Influenza Type B ( PCR) SARS-CoV-2 (PCR) 04/09/21 06:06 WBC RBC Hgb Hct MCV MCH MCHC RDW Plt Count MPV Neut % (Auto) Lymph % (Auto) [place] % (Auto) Eos % (Auto) Baso % (Auto) Neut # (Auto) Lymph # (Auto) [place] # (Auto) Eos # (Auto) Baso # (Auto) Nucleated RBC % (a uto) Nucleated RBCs # D-Dimer Sodium 139 mmol/L mmol/L (136-145) Potassium 4.3 mmol/L mmol/L (3.5-5.1) Chloride 99 mmol/L mmol/L (98-107) Carbon Dioxide 26 mmol/L mmol/L (22-29) Anion Gap 18.3 (5-19) BUN 22 mg/dL mg/dL (8-23) Creatinine 0.8 mg/dL mg/dL (0.7-1.2) GFR Calculation 98.3 mL/min mL/mi n (90-130) Glucose 104 mg/dL mg/dL (65-115) Calculated Osmolal ity 292 mOsm/kg mOsm/ kg (285-295) Calcium 8.4 mg/dL L mg/dL (8.5-10.5) Magnesium Total Bilirubin AST ALT Alkaline Phosphata se Troponin T Baselin e Troponin T [address] [place] Troponin T Troponin T Hi Sens 6Hr Troponin T Hi Sens 6Hr Delta C-Reactive Protein Total Protein Albumin Globulin Procalcitonin TSH Urine Color Urine Appearance Urine pH Ur Specific Gravit y Urine Protein Urine Glucose (UA) Urine Ketones Urine Blood Urine Nitrate Urine Bilirubin Urine Urobilinogen Ur Leukocyte Varsha ase Urine RBC Urine WBC Ur Squamous Epith Cells Amorphous Sediment Urine Bacteria Fine Granular Cast s Nasal Influ A H1 2 009 PCR Coronavirus 229E ( PCR) Influenza A (H1) P CR Influenza A (H3) P CR Influenza Type A A g Influenza Type A ( PCR) Influenza Type B A g Influenza Type B ( PCR) SARS-CoV-2 (PCR) EKG Data^: EKG 1: Attestation: I personally reviewed and interpreted this EKG as follows: EKG interpretation date: 04/08/21 EKG interpretation time: 05:15 Interpretation: Twelve-lead EKG shows a regular rhythm at a rate of 106. WI interval 151, QRS duration 121, QTc 387. Normal axis. Interpretation: Sinus tachycardia. Right bundle branch block. Discharge Plan Discharge Patient Disposition: Admitted As Inpatient Admit Provider: Romero Sahni Condition: Stable Discharge Activity: Increase activity as tolerated, As per PT/OT instructions and Oxygen as instructed Sign Out Sign Out Data: Patient Sign Out occurred on 04/08/21 at 06:35. Patient's care was discussed, and care was transferred from to Jake Medley MD. 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 History of osteomyelitis Osteomyelitis of the mandible, treated in 2016 Urinary retention Lopez catheter placed October 2019 with failed trial of voiding Uses feeding tube Surgical History Encounter for gastrojejunal (GJ) tube placement (10/19/19) History of tonsillectomy Cancer resection with tonsillar cancer Family History Mother Cancer Diabetes Father , 80 Cancer Denies family history of Anesthesia complication Bleeding disorder Social History Smoking and tobacco status: former smoker Quit status (tobacco): has quit using tobacco Year quit tobacco: 2020 - 0.5 PPD x 30 Years Alcohol intake: never Caregiver/support person: Yes Lives independently: No Household members: caregiver Housing: Snf Marital status: Current occupational status: disabled History of recent travel: No Current gender identity: Male Course Vital Signs: Vital signs: Vital Signs Temperature 98.2 F 04/11/21 13:32 Pulse Rate 85 04/11/21 13:32 Respiratory Rate 16 04/11/21 13:32 Blood Pressure 110/70 04/11/21 13:32 Pulse Oximetry 94 04/11/21 13:32 MDM - Weakness MDM Narrative: Medical decision making narrative: 60-year-old presents due to diffuse weakness. Was found to be Covid positive. Also had a fall with ankle pain found to have an ankle fracture. Placed in splint. Otherwise he is neurovascularly intact. Remainder of imaging unremarkable. Lab work unremarkable however does desaturate with minimal ambulation. Also there is concern that he will not be able to safely ambulate at home as he is already fallen prior to fracture and now with injury does not have sufficient energy to move around. Remainder of lab work and imaging reviewed. Discussed with hospitalist and they agreed patient would benefit from admission. Patient admitted in stable condition. Further evaluation management per hospitalist team. Lab Data: Labs: Lab Results 04/08/21 04/08/21 04/08/21 05:10 05:10 05:10 WBC RBC Hgb Hct MCV MCH MCHC RDW Plt Count MPV Neut % (Auto) Lymph % (Auto) [place] % (Auto) Eos % (Auto) Baso % (Auto) Neut # (Auto) Lymph # (Auto) [place] # (Auto) Eos # (Auto) Baso # (Auto) Nucleated RBC % (a uto) Nucleated RBCs # D-Dimer Sodium Potassium Chloride Carbon Dioxide Anion Gap BUN Creatinine GFR Calculation Glucose Calculated Osmolal ity Calcium Magnesium Total Bilirubin AST ALT Alkaline Phosphata se Troponin T Baselin e Troponin T [address] [place] Troponin T Troponin T Hi Sens 6Hr Troponin T Hi Sens 6Hr Delta C-Reactive Protein Total Protein Albumin Globulin Procalcitonin TSH Urine Color Urine Appearance Urine pH Ur Specific Gravit y Urine Protein Urine Glucose (UA) Urine Ketones Urine Blood Urine Nitrate Urine Bilirubin Urine Urobilinogen Ur Leukocyte Varsha ase Urine RBC Urine WBC Ur Squamous Epith Cells Amorphous Sediment Urine Bacteria Fine Granular Cast s Nasal Influ A H1 2 009 PCR Not detected (NOT DETECT) Coronavirus 229E ( PCR) Not detected (NOT DETECT) Influenza A (H1) P CR Not detected (NOT DETECT) Influenza A (H3) P CR Not detected (NOT DETECT) Influenza Type A A g Cancelled Influenza Type A ( PCR) Not detected (NOT DETECT) Influenza Type B A g Cancelled Influenza Type B ( PCR) Not detected (NOT DETECT) SARS-CoV-2 (PCR) Detected A (NOT DETECT) 04/08/21 04/08/21 04/08/21 05:15 05:15 05:15 WBC 8.7 10^3/uL 10^3/ uL (4.0-10.0) RBC 4.03 10^6/uL L 10 ^6/uL (4.1-5.3) Hgb 13.1 g/dL g/dL (11.7-16.6) Hct 40.7 % L % (42.0-52.0) MCV 101.0 fl H fl (80-94) MCH 32.5 pg pg (28.0-34.0) MCHC 32.2 g/dL g/dL (30.0-36.0) RDW 12.2 % % (12.1-15.1) Plt Count 176 10^3/cmm 10^3 /cmm (130-400) MPV 10.9 fL H fL (7.4-10.4) Neut % (Auto) 87.1 % % Lymph % (Auto) 5.8 % % [place] % (Auto) 6.8 % % Eos % (Auto) 0.0 % % Baso % (Auto) 0.1 % % Neut # (Auto) 7.53 10^3/uL 10^3 /uL (1.8-7.7) Lymph # (Auto) 0.5 10^3/uL L 10^ 3/uL (0.8-4.8) [place] # (Auto) 0.6 10^3/uL 10^3/ uL (0.2-0.9) Eos # (Auto) 0.0 10^3/uL 10^3/ uL (0.0-0.8) Baso # (Auto) 0.0 10^3/uL 10^3/ uL (0.0-0.1) Nucleated RBC % (a uto) 0 % % Nucleated RBCs # 0.0 /100WBC /100W BC D-Dimer Sodium 136 mmol/L mmol/L (136-145) Potassium 4.7 mmol/L mmol/L (3.5-5.1) Chloride 98 mmol/L mmol/L (98-107) Carbon Dioxide 28 mmol/L mmol/L (22-29) Anion Gap 14.7 (5-19) BUN 29 mg/dL H mg/dL (8-23) Creatinine 1.0 mg/dL mg/dL (0.7-1.2) GFR Calculation 76.0 mL/min L mL/ min (90-130) Glucose 115 mg/dL mg/dL (65-115) Calculated Osmolal ity 289 mOsm/kg mOsm/ kg (285-295) Calcium 8.2 mg/dL L mg/dL (8.5-10.5) Magnesium 2.2 mg/dL mg/dL (1.7-2.3) Total Bilirubin 0.2 mg/dL mg/dL (0.15-1.2) AST 28 U/L U/L (0-40) ALT 20 U/L U/L (0-41) Alkaline Phosphata se 77 IU/L IU/L (40-130) Troponin T Baselin e 21 ng/L H ng/L (0-15) Troponin T [address] [place] Troponin T Troponin T Hi Sens 6Hr Troponin T Hi Sens 6Hr Delta C-Reactive Protein 42.0 mg/L H mg/L (0.0-4.9) Total Protein 6.5 g/dL L g/dL (6.6-8.7) Albumin 4.1 g/dL g/dL (3.5-5.2) Globulin 2.4 g/dL g/dL (1.3-4.6) Procalcitonin 0.15 ng/mL ng/mL (0-0.5) TSH 1.25 uIU/mL uIU/m L (0.27-4.20) Urine Color Urine Appearance Urine pH Ur Specific Gravit y Urine Protein Urine Glucose (UA) Urine Ketones Urine Blood Urine Nitrate Urine Bilirubin Urine Urobilinogen Ur Leukocyte Varsha ase Urine RBC Urine WBC Ur Squamous Epith Cells Amorphous Sediment Urine Bacteria Fine Granular Cast s Nasal Influ A H1 2 009 PCR Coronavirus 229E ( PCR) Influenza A (H1) P CR Influenza A (H3) P CR Influenza Type A A g Influenza Type A ( PCR) Influenza Type B A g Influenza Type B ( PCR) SARS-CoV-2 (PCR) 04/08/21 04/08/21 04/08/21 05:15 05:45 07:35 WBC RBC Hgb Hct MCV MCH MCHC RDW Plt Count MPV Neut % (Auto) Lymph % (Auto) [place] % (Auto) Eos % (Auto) Baso % (Auto) Neut # (Auto) Lymph # (Auto) [place] # (Auto) Eos # (Auto) Baso # (Auto) Nucleated RBC % (a uto) Nucleated RBCs # D-Dimer Sodium Potassium Chloride Carbon Dioxide Anion Gap BUN Creatinine GFR Calculation Glucose Calculated Osmolal ity Calcium Magnesium Total Bilirubin AST ALT Alkaline Phosphata se Troponin T Baselin e Troponin T [address] [place] 18.51 ng/L H ng/L (0-15) Delta Troponin T -2.49 ABS# L ABS# (0-10) Troponin T Hi Sens 6Hr Troponin T Hi Sens 6Hr Delta C-Reactive Protein Total Protein Albumin Globulin Procalcitonin TSH 1.54 uIU/mL uIU/m L (0.27-4.20) Urine Color Yellow (Yellow) Urine Appearance Clear (CLEAR) Urine pH 6 (5-7) Ur Specific Gravit y 1.015 (1.005-1.030) Urine Protein 1+ H (Negative) Urine Glucose (UA) Norm (Normal) Urine Ketones Negative (Negative) Urine Blood 3+ H (Negative) Urine Nitrate Negative (Negative) Urine Bilirubin Neg (Negative) Urine Urobilinogen Norm mg/dL mg/dL (Negative) Ur Leukocyte Varsha ase Negative (Negative) Urine RBC 15-25 /hpf H /hpf (0-2) Urine WBC 0-4 /hpf H /hpf (0-5) Ur Squamous Epith Cells None /hpf /hpf (0-5) Amorphous Sediment Not Reportable Urine Bacteria Trace /hpf /hpf (NONE) Fine Granular Cast s 0-4 /lpf H /lpf Nasal Influ A H1 2 009 PCR Coronavirus 229E ( PCR) Influenza A (H1) P CR Influenza A (H3) P CR Influenza Type A A g Influenza Type A ( PCR) Influenza Type B A g Influenza Type B ( PCR) SARS-CoV-2 (PCR) 04/08/21 04/08/21 04/09/21 11:12 15:20 06:06 WBC 9.1 10^3/uL 10^3/ uL (4.0-10.0) RBC 3.78 10^6/uL L 10 ^6/uL (4.1-5.3) Hgb 12.4 g/dL g/dL (11.7-16.6) Hct 38.3 % L % (42.0-52.0) MCV 101.3 fl H fl (80-94) MCH 32.8 pg pg (28.0-34.0) MCHC 32.4 g/dL g/dL (30.0-36.0) RDW 12.4 % % (12.1-15.1) Plt Count 154 10^3/cmm 10^3 /cmm (130-400) MPV 10.6 fL H fL (7.4-10.4) Neut % (Auto) 81.4 % % Lymph % (Auto) 11.2 % % [place] % (Auto) 6.9 % % Eos % (Auto) 0.1 % % Baso % (Auto) 0.1 % % Neut # (Auto) 7.41 10^3/uL 10^3 /uL (1.8-7.7) Lymph # (Auto) 1.0 10^3/uL 10^3/ uL (0.8-4.8) [place] # (Auto) 0.6 10^3/uL 10^3/ uL (0.2-0.9) Eos # (Auto) 0.0 10^3/uL 10^3/ uL (0.0-0.8) Baso # (Auto) 0.0 10^3/uL 10^3/ uL (0.0-0.1) Nucleated RBC % (a uto) 0 % % Nucleated RBCs # 0.0 /100WBC /100W BC D-Dimer 8.91 ug/mIFEU H u g/mIFEU (0-0.59) Sodium Potassium Chloride Carbon Dioxide Anion Gap BUN Creatinine GFR Calculation Glucose Calculated Osmolal ity Calcium Magnesium Total Bilirubin AST ALT Alkaline Phosphata se Troponin T Baselin e Troponin T [address] [place] Troponin T Troponin T Hi Sens 6Hr 19.89 ng/L H ng/L (0-15) Troponin T Hi Sens 6Hr Delta -1.11 ng/L L ng/L (0-12) C-Reactive Protein Total Protein Albumin Globulin Procalcitonin TSH Urine Color Urine Appearance Urine pH Ur Specific Gravit y Urine Protein Urine Glucose (UA) Urine Ketones Urine Blood Urine Nitrate Urine Bilirubin Urine Urobilinogen Ur Leukocyte Varsha ase Urine RBC Urine WBC Ur Squamous Epith Cells Amorphous Sediment Urine Bacteria Fine Granular Cast s Nasal Influ A H1 2 009 PCR Coronavirus 229E ( PCR) Influenza A (H1) P CR Influenza A (H3) P CR Influenza Type A A g Influenza Type A ( PCR) Influenza Type B A g Influenza Type B ( PCR) SARS-CoV-2 (PCR) 04/09/21 06:06 WBC RBC Hgb Hct MCV MCH MCHC RDW Plt Count MPV Neut % (Auto) Lymph % (Auto) [place] % (Auto) Eos % (Auto) Baso % (Auto) Neut # (Auto) Lymph # (Auto) [place] # (Auto) Eos # (Auto) Baso # (Auto) Nucleated RBC % (a uto) Nucleated RBCs # D-Dimer Sodium 139 mmol/L mmol/L (136-145) Potassium 4.3 mmol/L mmol/L (3.5-5.1) Chloride 99 mmol/L mmol/L (98-107) Carbon Dioxide 26 mmol/L mmol/L (22-29) Anion Gap 18.3 (5-19) BUN 22 mg/dL mg/dL (8-23) Creatinine 0.8 mg/dL mg/dL (0.7-1.2) GFR Calculation 98.3 mL/min mL/mi n (90-130) Glucose 104 mg/dL mg/dL (65-115) Calculated Osmolal ity 292 mOsm/kg mOsm/ kg (285-295) Calcium 8.4 mg/dL L mg/dL (8.5-10.5) Magnesium Total Bilirubin AST ALT Alkaline Phosphata se Troponin T Baselin e Troponin T [address] [place] Troponin T Troponin T Hi Sens 6Hr Troponin T Hi Sens 6Hr Delta C-Reactive Protein Total Protein Albumin Globulin Procalcitonin TSH Urine Color Urine Appearance Urine pH Ur Specific Gravit y Urine Protein Urine Glucose (UA) Urine Ketones Urine Blood Urine Nitrate Urine Bilirubin Urine Urobilinogen Ur Leukocyte Varsha ase Urine RBC Urine WBC Ur Squamous Epith Cells Amorphous Sediment Urine Bacteria Fine Granular Cast s Nasal Influ A H1 2 009 PCR Coronavirus 229E ( PCR) Influenza A (H1) P CR Influenza A (H3) P CR Influenza Type A A g Influenza Type A ( PCR) Influenza Type B A g Influenza Type B ( PCR) SARS-CoV-2 (PCR) EKG Data^: EKG 1: Other EKG comments: Sinus rhythm rate of 98, right bundle branch block, no sign of acute ischemia or other acute abnormality. Discharge Plan Discharge Patient Disposition: Admitted As Inpatient Admit Provider: Romero Sahni Condition: Stable Discharge Activity: Increase activity as tolerated, As per PT/OT instructions and Oxygen as instructed Sign Out Sign Out Data: Patient Sign Out occurred on 04/08/21 at 06:35. Patient's care was discussed, and care was transferred from to Jake Medley MD. 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
--- NOTE | 2021-04-08 05:00 | XRR_ITS ---
PROCEDURE INFORMATION: Exam: XR Left Ankle Exam date and time: 04/08/2021 5:00 AM Age: 60 years old Clinical indication: Injury or trauma; Fall; Blunt trauma; Left; Injury details: Fell last pm pain to lateral ankle; Additional info: Fall, pain TECHNIQUE: Imaging protocol: XR Left ankle. Views: 3 or more views. COMPARISON: No relevant prior studies available. FINDINGS: Bones/joints: Medial malleoli normal. Ankle mortise symmetrical. Hind foot is unremarkable. Tibiotalar joint and subtalar joint normal. Findings are suspicious for a subtle obliquely oriented fracture involving the distal aspect of the fibula best visualized on the oblique view. Consider CT if indicated. Soft tissues: Severe soft tissue swelling laterally. Severe soft tissue swelling adjacent to the lateral malleolus. XR/XR ankle LT min 3V* [id number] IMPRESSION: Findings are suspicious for a subtle obliquely oriented fracture involving the distal aspect of the fibula best visualized on the oblique view. Consider CT if indicated.
--- NOTE | 2021-04-08 05:00 | XRR_ITS ---
PROCEDURE INFORMATION: Exam: XR Chest Exam date and time: 04/08/2021 5:00 AM Age: 60 years old Clinical indication: Injury or trauma; Fall; Blunt trauma (contusions or hematomas); Injury details: Fell last pm SOB; Additional info: Chest pain, weakness, cough TECHNIQUE: Imaging protocol: XR of the chest. Views: 1 view. COMPARISON: CR XR chest 1V portable [id number] 11/22/2019 10:47 AM FINDINGS: Lungs: Emphysema with mild apical fibrosis. Subtle residual airspace disease right lung base. Improved. Possible scarring. No focal infiltrate. Pleural spaces: Unremarkable. No pleural effusion. No pneumothorax. Heart/Mediastinum: Unremarkable. No cardiomegaly. Bones/joints: Unremarkable. XR/XR chest 1V portable [id number] IMPRESSION: Subtle residual airspace disease right lung base. Improved. Possible scarring. No focal infiltrate.
--- NOTE | 2021-04-08 05:00 | XRR_ITS ---
PROCEDURE INFORMATION: Exam: XR Right Foot Exam date and time: 04/08/2021 5:00 AM Age: 60 years old Clinical indication: Injury or trauma; Fall; Blunt trauma; Foot; Right; Injury details: Fell last pm pain to great toe; Additional info: Fall, great toe and forefoot pain TECHNIQUE: Imaging protocol: XR Right foot. Views: 3 or more views. COMPARISON: No relevant prior studies available. FINDINGS: Bones/joints: Hindfoot-midfoot and midfoot-forefoot articulations are normal. Metatarsals without fracture. Phalanges without an acute process. Subtalar joint and the tibiotalar joint appears normal. Soft tissues: Normal. XR/XR foot RT min 3V* [id number] IMPRESSION: No fracture or foreign body.
--- NOTE | 2021-04-08 05:01 | ECG_ITS ---
[facility] Test Date: 2021-04-08 Pat Name: Charles Garay Department: Room: Gender: Male Vascular Nurse: : 1960 Requested By: Adán Dale Order Number: [id number] Melissa MD: Nataliya Russell M.D. Measurements Intervals [place] Rate: 106 P: 59 MD: 151 QRS: 81 QRSD: 121 T: 42 QT: 325 QTc: 432 Interpretive Statements SINUS TACHYCARDIA RIGHT BUNDLE BRANCH BLOCK [120+ ms QRS DURATION, UPRIGHT V1, 40+ ms S IN I/aVL/V4/V5/V6] Compared to ECG 11/18/2019 06:33:03 Right bundle-branch block now present Incomplete right bundle-branch block no longer present T-wave abnormality no longer present Possible ischemia no longer present Electronically Signed On 04-09-2021 20:37:30 NOODLE MAKER by Nataliya Russell M.D. [id number]
[2021-04-08 05:41] LABS: Basophils % 0.1 %; Hematocrit 40.7 % (42.0-52.0); Hemoglobin 13.1 g/dL (11.7-16.6); Lymphocytes # 0.5 10^3/uL (0.8-4.8); Lymphocytes % 5.8 %; Mean Corpuscular HGB Conc 32.2 g/dL (30.0-36.0); Mean Corpuscular Hemoglobin 32.5 pg (28.0-34.0); Mean Platelet Volume 10.9 fL (7.4-10.4); Monocytes # 0.6 10^3/uL (0.2-0.9); Monocytes % 6.8 %; Neutrophils # 7.53 10^3/uL (1.8-7.7); Neutrophils % 87.1 %; Nucleated Red Blood Cells % 0 %; Platelet Count 176 10^3/cmm (130-400); Red Blood Count 4.03 10^6/uL (4.1-5.3); Red Cell Distribution Width 12.2 % (12.1-15.1); White Blood Count 8.7 10^3/uL (4.0-10.0)
[2021-04-08 05:59] LABS: Troponin(5th) Baseline 21 ng/L (0-15)
[2021-04-08 06:08] LABS: Add Urine Microscopic? YES; Bilirubin Urine Neg (Negative); Blood Urine 3+ (Negative); Glucose Urine UA Norm (Normal); Ketones Urine Negative (Negative); Leukocyte Esterase Urine Negative (Negative); Nitrate Urine Negative (Negative); Protein Urine 1+ (Negative); Specific Gravity, Urine 1.015 (1.005-1.030); Urine Appearance Clear (CLEAR); Urine Color Yellow (Yellow); Urobilinogen Urine Norm (Negative); pH Urine 6 (5-7)
[2021-04-08 06:10] LABS: Procalcitonin 0.15 ng/mL (0-0.5); Thyroid Stimulating Hormone 1.25 uIU/mL (0.27-4.20)
[2021-04-08 06:11] LABS: Add Urine Culture? Yes; Bacteria Urine TRACE /hpf; Fine Granular Casts Urine 0-4 /lpf; RBC Urine 15-25 /hpf (0-2); WBC Urine 0-4 /hpf (0-5)
[2021-04-08 06:21] LABS: Alanine Aminotransferase 20 U/L (0-41); Albumin Level 4.1 g/dL (3.5-5.2); Alkaline Phosphatase 77 IU/L (40-130); Anion Gap 14.7 (5-19); Aspartate Amino Transferase 28 U/L (0-40); Blood Urea Nitrogen 29 mg/dL (8-23); Calcium 8.2 mg/dL (8.5-10.5); Carbon Dioxide 28 mmol/L (22-29); Chloride 98 mmol/L (98-107); Globulin 2.4 g/dL (1.3-4.6); Glucose 115 mg/dL (65-115); Magnesium 2.2 mg/dL (1.7-2.3); Osmolality Calculated 289 mOsm/kg (285-295); Potassium 4.7 mmol/L (3.5-5.1); Sodium 136 mmol/L (136-145); Total Bilirubin 0.2 mg/dL (0.15-1.2); Total Protein 6.5 g/dL (6.6-8.7)
[2021-04-08 06:39] VITALS: BP 87/55; PULSE 97; RESP 20; O2SAT 93
--- NOTE | 2021-04-08 07:01 | ECG_ITS ---
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 Measurements Intervals [place] Rate: 98 P: 52 [place]: 146 QRS: 80 QRSD: 122 T: 40 QT: 345 QTc: 442 Interpretive Statements SINUS RHYTHM RIGHT BUNDLE BRANCH BLOCK [120+ ms QRS DURATION, UPRIGHT V1, 40+ ms S IN I/aVL/V4/V5/V6] Compared to ECG 04/08/2021 05:11:19 Sinus tachycardia no longer present Electronically Signed On 04-09-2021 22:05:45 ACCOUNT SERVICES MANAGER by Nataliya Russell M.D. [id number]
--- NOTE | 2021-04-08 07:12 | CTR_ITS ---
PROCEDURE INFORMATION: Exam: CT Head Without Contrast Exam date and time: 04/08/2021 7:12 AM Age: 60 years old Clinical indication: Injury or trauma; Fall; Blunt trauma (contusions or hematomas); Without loss of consciousness; Injury date: Last night; Additional info: Syncope TECHNIQUE: Imaging protocol: Computed tomography of the head without contrast. Radiation optimization: All CT scans at this facility use at least one of these dose optimization techniques: automated exposure control; mA and/or kV adjustment per patient size (includes targeted exams where dose is matched to clinical indication); or iterative reconstruction. COMPARISON: CT neck w con* [id number] 10/17/2019 10:10 AM RADIATION DOSE METRICS: Total DLP (mGy-cm): 827.92 FINDINGS: Brain: Warner white matter distinction is maintained throughout the brain. No radiographic evidence of intracranial hemorrhage. No CT evidence of mass hemorrhage or acute infarction. Cerebral ventricles: Ventricles are of normal size and configuration. Paranasal sinuses: Visualized sinuses are unremarkable. No fluid levels. Mastoid air cells: Visualized mastoid air cells are well aerated. Bones/joints: Unremarkable. No acute fracture. Soft tissues: Unremarkable. Other findings: No intra or extra-axial masses, lesions or collections. CT/CT head wo con* [id number] IMPRESSION: No acute intracranial process is appreciated.
--- NOTE | 2021-04-08 07:13 | ECG_ITS ---
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 Measurements Intervals [place] Rate: 94 P: 55 [place]: 154 QRS: 74 QRSD: 122 T: 41 QT: 349 QTc: 437 Interpretive Statements SINUS RHYTHM RIGHT BUNDLE BRANCH BLOCK [120+ ms QRS DURATION, UPRIGHT V1, 40+ ms S IN I/aVL/V4/V5/V6] Compared to ECG 04/08/2021 06:44:58 No significant changes Electronically Signed On 04-09-2021 22:05:38 PROFESSOR OF LEGAL STUDIES by Nataliya Russell M.D. [id number]
[2021-04-08 07:33] LABS: Adenovirus Not Detected (NOT DETECT); Chlamydia Pneumoniae Not Detected (NOT DETECT); Coronavirus 229E,HKU1,NL63,OC4 Not Detected (NOT DETECT); Human Metapneumovirus Not Detected (NOT DETECT); Human Rhinovirus/Enterovirus Not Detected (NOT DETECT); Influenza A Not Detected (NOT DETECT); Influenza A H1 Not Detected (NOT DETECT); Influenza A H1-2009 Not Detected (NOT DETECT); Influenza A H3 Not Detected (NOT DETECT); Influenza B Not Detected (NOT DETECT); Mycoplasma Pneumoniae Not Detected (NOT DETECT); Parainfluenza Virus Type 1 Not Detected (NOT DETECT); Parainfluenza Virus Type 2 Not Detected (NOT DETECT); Parainfluenza Virus Type 3 Not Detected (NOT DETECT); Parainfluenza Virus Type 4 Not Detected (NOT DETECT); Respiratory Syncytial Virus A Not Detected (NOT DETECT); Respiratory Syncytial Virus B Not Detected (NOT DETECT); SARS-COV-2 Detected (NOT DETECT)
[2021-04-08 07:42] LABS: Influenza A Not Detected (NOT DETECT); Influenza A H1 Not Detected (NOT DETECT); Influenza A H1-2009 Not Detected (NOT DETECT); Influenza A H3 Not Detected (NOT DETECT); Influenza B Not Detected (NOT DETECT); Results from Genmark
[2021-04-08 08:09] LABS: Troponin 5 2HR 18.51 ng/L (0-15)
[2021-04-08 08:17] LABS: Troponin 5 2HR Delta -2.49 ABS# (0-10)
--- NOTE | 2021-04-08 11:01 | ECG_ITS ---
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 Measurements Intervals [place] Rate: 88 P: 55 [place]: 155 QRS: 74 QRSD: 122 T: 48 QT: 360 QTc: 437 Interpretive Statements SINUS RHYTHM RIGHT BUNDLE BRANCH BLOCK [120+ ms QRS DURATION, UPRIGHT V1, 40+ ms S IN I/aVL/V4/V5/V6] Compared to ECG 04/08/2021 07:43:43 No significant changes Electronically Signed On 04-09-2021 22:02:54 EQUITY HOLDER by Nataliya Russell M.D. [id number]
[2021-04-08] MEDS: morphine 4 mg/mL SDV 1 mL IVP ×2 (11:05→18:10)
[2021-04-08 11:36] LABS: Troponin 5 6HR 19.89 ng/L (0-15)
[2021-04-08 11:43] LABS: Troponin 5 6HR Delta -1.11 ng/L (0-12)
[2021-04-08 14:05] VITALS: BP 101/70; PULSE 84; RESP 19; O2SAT 98
--- NOTE | 2021-04-08 14:51 | PM.HP ---
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 In the ER with left ankle pain, with finding of oblique left distal fibula fracture, splinted in ER. CT of the head without acute process. Chest x-ray with subtle residual airspace disease right lung base, improved, possible scarring, no focal infiltrate. He is febrile at 100.3. Without leukocytosis, at rest saturating 92% on baseline oxygen. With exertion becoming hypoxic. Found positive on COVID-19 PCR. Review of Systems Const: Reports: malaise; Denies: fever(s), chills or body aches Eyes: Denies: change in vision or eye redness ENMT: Denies: throat pain, oral sores or ear or mastoid pain Card: Reports: syncope; Denies: chest pain, edema or dyspnea on exertion Resp: Reports: dyspnea and productive cough; Denies: change in phlegm color or hemoptysis GI: Reports: nausea and vomiting; Denies: abdominal pain, diarrhea, constipation, hematochezia or melena : Denies: flank pain, difficulty urinating, urinary frequency or hematuria Musc: Denies: back pain, joint swelling or joint redness Skin/Breast: Denies: rash, sores or new lesions Neuro: Denies: headache(s), numbness in extremities, weakness in extremities, dizziness, confusion or seizure-like activity Endo: Denies: polyuria or polydipsia Rafita/Lymph: Denies: easy bleeding or purpura All/Imm: Denies: urticaria, throat swelling or tongue swelling Medications/Allergies Home Medications Medication Instructions Recorded Confirmed Last Taken Type acetaminophen [Tylenol Ex Str 1,000 mg PO Q6H PRN 04/08/21 04/08/21 Unknown History Rapid Release] buspirone 10 mg PO TID 04/08/21 04/08/21 Unknown History lactose-reduced food with fibr See Rx Instructions .ROUTE .COMPLEX 04/08/21 04/08/21 Unknown History [Isosource 1.5 Dre] melatonin 10 mg FEEDING TUBE TID@06,17,04/08/21 04/08/21 Unknown History Allergies Allergy/AdvReac Type Severity Reaction Status Date / Time No Known Allergies Allergy Verified 04/08/21 15:02 PFSH Acute PFSH: Medical History (Updated 04/08/21 @ 15:00 by Romero Sahni MD) Anxiety Aspiration, chronic pulmonary COPD (chronic obstructive pulmonary disease) Decubitus ulcer of coccyx, 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 History of osteomyelitis Osteomyelitis of the mandible, treated in 2016 Urinary retention Lopez catheter placed October 2019 with failed trial of voiding Uses feeding tube Surgical History Encounter for gastrojejunal (GJ) tube placement (10/19/19) History of tonsillectomy Cancer resection with tonsillar cancer Family History Mother Cancer Diabetes Father , 80 Cancer Denies family history of Anesthesia complication Bleeding disorder Social History Smoking and tobacco status: former smoker Quit status (tobacco): has quit using tobacco Year quit tobacco: 2020 - 0.5 PPD x 30 Years Alcohol intake: never Caregiver/support person: Yes Lives independently: No Household members: caregiver Housing: Intermediate Marital status: Current occupational status: disabled History of recent travel: No Current gender identity: Male Vitals/I&O/Wt Last Vital Signs Temp 100.3 F H 04/08/21 04:39 Pulse 84 04/08/21 14:05 Resp 19 H 04/08/21 14:05 BP 101/70 04/08/21 14:05 Pulse Ox 98 04/08/21 14:05 Weight last 48 hrs Weight 68.039 kg Physical Exam Const: COMMON NORMALS: no acute distress, patient oriented x3 and alert GENERAL APPEARANCE: cooperative ORIENTATION/CONSCIOUSNESS: Yes awake HENMT: COMMON NORMALS: oropharynx normal Neck/C-Spine: COMMON NORMALS: no JVD Resp: COMMON NORMALS: normal respiratory effort AUSCULTATION: rhonchi and wheezes Cardio: COMMON NORMALS: no JVD, regular rhythm, S1 normal heart sound present, S2 normal heart sound present and No murmurs present (Cardio) RHYTHM: regular rhythm HEART SOUNDS: S1 normal heart sound present and S2 normal heart sound present GI: COMMON NORMALS: Normal to inspection, nondistended, normoactive bowel sounds present, Soft to palpation and non-tender PALPATION: Yes Soft to palpation OTHER: J-tube in place Extremity: COMMON NORMALS: no joint enlargement and no pedal edema OTHER: L ankle splinted, no surrounding erythema Neuro: COMMON NORMALS: patient oriented x3 and moves all extremities Skin: COMMON NORMALS: no rashes or lesions noted GENERAL SKIN EXAM: no rashes or lesions noted Data : 04/08/21 05:15 04/08/21 05:15 A&P Assessment and plan (1) Syncope: At rest he saturating 93-94% on 3 L nasal cannula which is close to what he uses at home. Reports severe exertional intolerance, feeling very fatigued with exertion. Possibly secondary COVID-19, COPD distribution. We will additionally monitor on telemetry. Assess orthostatics, TSH, TTE. D-dimer. Status: Acute (2) COVID-19: Currently moderate COVID-19, with baseline oxygen requirement, but with severe exertional intolerance, nausea, dry heaves, small months of vomiting. Productive cough. Receiving medical antibiotic. Will monitor oxygenation, as he is at risk of progression of severe disease given underlying COPD and other comorbidities. Status: Acute (3) COPD exacerbation: COPD exacerbation with cough, productive of dark phlegm, wheezing, rhonchi, request for sputum culture. Decadron, Levaquin. Status: Acute (4) Closed left ankle fracture: Splinted. NWB for now. Fall precautions. PT. Pain control. Status: Acute Additional A&P Information Regurgitation of the contents: Some dark contents regurgitated after dry heaving at home. Possible gastritis. Discussed with him to let us know, we may obtain occult blood test. Avoid NSAIDs. PPI IV twice daily due to possible mild GI bleed. Microscopic hematuria, 15-25 RBC, otherwise urinalysis still UTI, will benefit from follow-up/repeat UA on nonurgent basis. History of chronic pressure ulcers History of chronic Lopez due to urinary retention, no longer N.p.o., all feeds and meds by G-tube History of chronic aspiration Attestations Medical Necessity Statement*: Place in observation for now for assessment of syncopal event at home, with incidentally noted COVID-19 infection, COPD exacerbation, possible mild GI bleeding, sustained a left ankle fracture in a gentleman with underlying history of chronic aspiration, requiring G-tube feeds, due to history of neck cancer, surgery and radiation and other chronic comorbidities. Coding Level of Care Code Acute Squash Centre Manager for [facility] Fwd Diagnoses Syncope R55 COVID-19 U07.1 COPD exacerbation J44.1 Closed left ankle fracture S82.892A
[2021-04-08 15:49] LABS: D Dimer 8.91 ug/mIFEU (0-0.59)
[2021-04-08 16:17] LABS: Thyroid Stimulating Hormone 1.54 uIU/mL (0.27-4.20)
--- NOTE | 2021-04-08 18:11 | CTR_ITS ---
PROCEDURE INFORMATION: Exam: CTA Chest With Contrast Exam date and time: 04/08/2021 6:11 PM Age: 60 years old Clinical indication: Abnormal findings; Abnormal diagnostic tests; Elevated d-dimer; Shortness of breath; Additional info: rosemary Durham ddimer TECHNIQUE: Imaging protocol: Computed tomographic angiography of the chest with contrast. 3D rendering (Not supervised by radiologist): MIP and/or 3D reconstructed images were created by the technologist. Radiation optimization: All CT scans at this facility use at least one of these dose optimization techniques: automated exposure control; mA and/or kV adjustment per patient size (includes targeted exams where dose is matched to clinical indication); or iterative reconstruction. Contrast material: OMNI 350; Contrast volume: 82 ml; Contrast route: INTRAVENOUS (IV); COMPARISON: CT chest abd pel w con* 11/20/2019 2:29 PM RADIATION DOSE METRICS: Total DLP (mGy-cm): 584.21 FINDINGS: Pulmonary arteries: Normal. No pulmonary emboli. Aorta: Unremarkable. No aortic aneurysm. No aortic dissection. Lungs: Bilateral largely dependent airspace infiltrates with some patchy areas of tree-in-bud type reticulonodular densities in largely the right lung suggestive of an infectious process. Bilateral right greater left bronchiectasis. Pleural spaces: Unremarkable. No pneumothorax. No pleural effusion. Heart: Coronary artery atherosclerotic calcifications. Lymph nodes: Scattered prominent nonspecific mediastinal subcentimeter lymph nodes. Bones/joints: Unremarkable. No acute fracture. Soft tissues: Unremarkable. CT/CT angio chest PE protcl [id number] IMPRESSION: 1. Negative for pulmonary embolus. 2. Coronary artery atherosclerotic calcifications. 3. Bilateral largely dependent airspace infiltrates with some patchy areas of tree-in-bud type reticulonodular densities in largely the right lung suggestive of an infectious process. 4. Bilateral right greater left bronchiectasis. 5. Scattered prominent nonspecific mediastinal subcentimeter lymph nodes.
[2021-04-08] MEDS: iohexol 350 mg/mL 100 mL Btl IV (18:50)
[2021-04-08 20:00] VITALS: BP 94/70; PULSE 63; RESP 17; TEMP 37.6; O2SAT 100
[2021-04-08] MEDS: pantoprazole 40 mg SDV IVP (21:44)
[2021-04-08] MEDS: BuSPIRONE 10 mg Tablet J-TUBE (21:45)
[2021-04-08] MEDS: acetaminophen 500 mg Tablet 1000 MG J-TUBE (21:45)
[2021-04-08] MEDS: heparin 5,000 unit/mL INJ 1 mL 5000 UNIT SUBCUT (21:45)
[2021-04-08] MEDS: LACTOSE REDUCED FOOD WITH FIBR 1 EACH J-TUBE (22:42)
[2021-04-08 23:42] VITALS: BP 98/70; PULSE 60; RESP 17; TEMP 37.3; O2SAT 99
[2021-04-09] VITALS (16 sets, daily range): BP systolic 100–132; BP diastolic 62–85; PULSE 76–98; RESP 14–22; TEMP 36.3–37.1; O2SAT 91–97
--- NOTE | 2021-04-09 01:32 | PC.NURSE ---
Patient c/o pain to left ankle fracture site. Spoke to Hosp sales and leasing consultant to request additional pain medication as patient was medicated with tylenol per JUN roughly 2 hours ago. Hosp to review patients chart and place order if appropriate.
[2021-04-09] MEDS: morphine 4 mg/mL SDV 1 mL 2 MG IVP (01:59)
[2021-04-09] MEDS: ipratropium-albuterol 3 mL Neb INHALATION ×5 (04:50→20:06)
--- NOTE | 2021-04-09 06:00 | USCV_ITS ---
Charles Garay Age: 60 Gender: M : 1960 Exam Date: 04/09/2021 06:42 Ordering Phys: Romero Sahni MD Technologist: HERNÁN Exam Location: [facility] [place] Indication: ELEVATED D-DIMER HISTORY: COVID + PROCEDURES: Venous duplex imaging was performed in bilateral lower extremities. The following venous structures were evaluated: common femoral vein, profunda vein, proximal portion of the greater saphenous vein, superficial femoral vein, and the popliteal vein. In addition, the posterior tibial and peroneal trunk were evaluated. FINDINGS: Normal 2-D Doppler and augmentation and compressibility throughout the lower extremity venous structures. Additional imaging through the proximal calf veins also reveals no thrombus. Limited evaluation of the greater saphenous vein is patent with no thrombus. CONCLUSIONS No DVT bilateral lower extremities. Dr. Annabella Hairston DO (Electronically Signed) Final Date: 09 April 2021 15:49 S
[2021-04-09 06:36] LABS: Basophils % 0.1 %; Eosinophils % 0.1 %; Hematocrit 38.3 % (42.0-52.0); Hemoglobin 12.4 g/dL (11.7-16.6); Lymphocytes % 11.2 %; Mean Corpuscular HGB Conc 32.4 g/dL (30.0-36.0); Mean Corpuscular Hemoglobin 32.8 pg (28.0-34.0); Mean Corpuscular Volume 101.3 fl (80-94); Mean Platelet Volume 10.6 fL (7.4-10.4); Monocytes # 0.6 10^3/uL (0.2-0.9); Monocytes % 6.9 %; Neutrophils # 7.41 10^3/uL (1.8-7.7); Neutrophils % 81.4 %; Nucleated Red Blood Cells % 0 %; Platelet Count 154 10^3/cmm (130-400); Red Blood Count 3.78 10^6/uL (4.1-5.3); Red Cell Distribution Width 12.4 % (12.1-15.1); White Blood Count 9.1 10^3/uL (4.0-10.0)
[2021-04-09 06:57] LABS: Anion Gap 18.3 (5-19); Blood Urea Nitrogen 22 mg/dL (8-23); Calcium 8.4 mg/dL (8.5-10.5); Carbon Dioxide 26 mmol/L (22-29); Chloride 99 mmol/L (98-107); Glomerular Filtration Rate 98.3 mL/min (90-130); Glucose 104 mg/dL (65-115); Osmolality Calculated 292 mOsm/kg (285-295); Potassium 4.3 mmol/L (3.5-5.1); Sodium 139 mmol/L (136-145)
[2021-04-09] MEDS: docusate sodium 10 mg/mL (5ml) Liq 100 MG J-TUBE ×2 (09:04→17:17)
[2021-04-09] MEDS: heparin 5,000 unit/mL INJ 1 mL 5000 UNIT SUBCUT ×2 (09:04→20:13)
[2021-04-09] MEDS: pantoprazole 40 mg SDV IVP ×2 (09:04→20:13)
[2021-04-09] MEDS: predniSONE 20 mg Tablet 40 MG PO (09:04)
[2021-04-09] MEDS: BuSPIRONE 10 mg Tablet J-TUBE ×3 (09:05→20:14)
[2021-04-09] MEDS: levofloxacin-dextrose 5 % 750 MG/150 ML PREMIX 100 MG IV (09:05)
--- NOTE | 2021-04-09 10:50 | PC.NURSE ---
pts son (zoya) called on pts phone. packing machine pilot can router was in the room and he proceeded to yell at her. she left the room to get rn (global technical writer). Rn arrived in the room and the pts son continued screaming and yelling about the pts bolus feeds. pt is aaox4. he stated, my dad has not had any food in over 2 days!) pt is tube fed and a strict npo. this rn was give bedside report that pt tube fed himself and had all supplies with him. rn let pts son know that she would give bolus feed [place]. he then proceeded to yell about our covid vistor policy and how the pcr was not even approved by the cdc. he stated, he will be filling a report. dr. amin was notified of the situation. will proceed with ordered bolus tube feed at this time.
--- NOTE | 2021-04-09 11:15 | PC.NURSE ---
the patient was on his phone with son Francis. very upaset that the patient is npo. He has asked me for ice chips but i asked the nurse and was told no. Francis was asking questions about him being npo. i went and got the nurse and stayed until the phone call was over. Francis was cursing at the nurse over the patient being npo
--- NOTE | 2021-04-09 17:26 | PC.NURSE ---
PT had feeding of 500ml pulmnocare and 100fl water flush. pt also had a flush of 100 per pts request with evening meds
--- NOTE | 2021-04-09 18:28 | PM.PN ---
Subjective Subjective: Interval history: Coughing up large amounts of green thick sputum. Feels dehydrated and says he feels like he will by the end of the week. He had not received his tube feeding and water flushes last night and this morning. Discussed with nursing staff. Discussed with him and his family. We made sure that his feedings are resumed. Discussed with him his normal findings on the CTA. He has provided a sputum sample yesterday in ER. Bothered by pain in his fractured left ankle. Vitals/I&O/Wt Last Vital Signs Temp 98.0 F 04/09/21 15:25 Pulse 79 04/09/21 16:11 Resp 16 04/09/21 16:09 BP 100/65 04/09/21 15:25 Pulse Ox 94 04/09/21 16:09 04/09/21 04/09/21 04/09/21 06:59 14:59 22:59 Intake Total 150 / 150 Output Total 360 / 710 Balance -360 / -650 150 / 150 Weight last 48 hrs Weight 68.039 kg Physical Exam Const: COMMON NORMALS: no acute distress, patient oriented x3 and alert GENERAL APPEARANCE: cooperative ORIENTATION/CONSCIOUSNESS: Yes awake HENMT: COMMON NORMALS: oropharynx normal Neck/C-Spine: COMMON NORMALS: no JVD Resp: COMMON NORMALS: normal respiratory effort AUSCULTATION: rhonchi and wheezes Cardio: COMMON NORMALS: no JVD, regular rhythm, S1 normal heart sound present, S2 normal heart sound present and No murmurs present (Cardio) RHYTHM: regular rhythm HEART SOUNDS: S1 normal heart sound present and S2 normal heart sound present GI: COMMON NORMALS: Normal to inspection, nondistended, normoactive bowel sounds present, Soft to palpation and non-tender PALPATION: Yes Soft to palpation OTHER: J-tube in place Extremity: COMMON NORMALS: no joint enlargement and no pedal edema OTHER: L ankle splinted, no surrounding erythema Neuro: COMMON NORMALS: patient oriented x3 and moves all extremities SENSORIUM/ORIENTATION: Yes alert Skin: COMMON NORMALS: no rashes or lesions noted GENERAL SKIN EXAM: no rashes or lesions noted Data : 04/09/21 06:06 04/09/21 06:06 Micro: Microbiology 04/08/21 18:14 Gram Stain - Final Sputum - Expectorated Sputum 04/08/21 05:45 Urine Culture - Preliminary Urine,Clean Catch A&P Assessment and plan (1) Pneumonia: Decreased hearing, with tree-in-bud opacities on CT angiogram, discussed with him and family. Likely superimposed bacterial infection on top of COVID-19. He is provided sputum culture. Levaquin. Flutter valve. Breathing treatments. Supportive care. Continue oxygen support. Monitor oxygenation. Status: Acute (2) Syncope: reports he has been increasingly weak recently. Likely secondary COVID-19. She states cannot handle him currently at home with weakness, ankle fracture, and need for isolation from the rest of the family. At rest he saturating 93-94% on 3 L nasal cannula which is close to what he uses at home. Reports severe exertional intolerance, feeling very fatigued with exertion. Possibly secondary COVID-19, COPD distribution. We will additionally monitor on telemetry. Check orthostatics. TSH normal. D-dimer elevated, but discussed with family, no PE. Lower extremity duplex without DVT. TTE with noted EF 75%, no R WMA. Mild concentric LVH. Type I diastolic function. Trace aortic valve regurgitation related aortic root measuring 4.4 cm, previously 4.2 cm. Small pericardial effusion. Right-sided structures could not be visualized well. No aortic aneurysm or dissection noted on CTA 04/08. Status: Acute (3) COVID-19: Moderate COVID-19, slightly higher than baseline oxygen requirement, 3 L, but with severe exertional intolerance, nausea, dry heaves, small months of vomiting. Productive cough. Monitor oxygenation, as he is at risk of progression of severe disease given underlying COPD and other comorbidities. Status: Acute (4) COPD exacerbation: COPD and bronchiectasis. History of recurrent aspiration. COPD exacerbation Follow-up sputum culture. Prednisone, Levaquin. Status: Acute (5) Closed left ankle fracture: Splinted. NWB for now. Fall precautions. PT. Pain control. Status: Acute Additional A&P Information Regurgitation of the contents: Some dark contents regurgitated after dry heaving at home. Possible gastritis. Discussed with him to let us know, we may obtain occult blood test. Avoid NSAIDs. PPI IV twice daily due to possible mild GI bleed. Although seems less likely, so far without recurrence. Hemoglobin stable. Microscopic hematuria, 15-25 RBC, otherwise urinalysis still UTI, will benefit from follow-up/repeat UA on nonurgent basis. History of chronic pressure ulcers History of chronic Lopez due to urinary retention, no longer N.p.o., all feeds and meds by G-tube History of chronic aspiration Attestations Medical Necessity Statement*: Admission of over 2 midnights is needed for assessment management of pneumonia and gentleman with bronchiectasis, with history of recurrent aspiration, COPD with sedation, and also moderate COVID-19 complicated by syncope. 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
--- NOTE | 2021-04-09 18:48 | PC.NURSE ---
BEDSIDE REPORT GIVEN TO RAMONA
--- NOTE | 2021-04-09 19:18 | USCV_ITS ---
Jarrod Charles Age: 60 Gender: M : 1960 Exam Date: 04/09/2021 06:19 Ordering Phys: Romero Sahni MD Technologist: HERNÁN Exam Location: [facility] [place] Indication: SYNCOPE BP: 108 / 62 HR: 97 Rhythm: Sinus Technical Quality: Technically difficult study MEASUREMENTS (Male / Female) Normal Values 2D ECHO LV Diastolic Diameter PLAX 2.8 cm 4.2 - 5.9 / 3.9 - 5.3 cm LV Systolic Diameter PLAX 1.7 cm IVS Diastolic Thickness 1.1 cm 0.6 - 1.0 / 0.6 - 0.9 cm IVS Systolic Thickness 2.1 cm LVPW Diastolic Thickness 1.1 cm 0.6 - 1.0 / 0.6 - 0.9 cm LVPW Systolic Thickness 1.3 cm RV Chamber Size 2.3 cm LVOT Diameter 2.0 cm LV Ejection Fraction 2D Teich 70.8 % LV Ejection Fraction MOD 2C 74.6 % LV Ejection Fraction 2C AL 75.7 % LA Diameter 2.4 cm LA Width 2.5 cm LA Height 3.4 cm RA Width 3.5 cm RA Height 4.0 cm Aorta at Sinotubular Diameter 3.5 cm M-MODE MV E Point Septal Separation 0.2 cm DOPPLER AV Peak Velocity 141.0 cm/s LVOT Peak Velocity 132.0 cm/s AV Area Cont Eq vti 3.0 cm squared AV Area Cont Eq pk 2.9 cm squared MV Area PHT 3.5 cm squared Mitral E to A Ratio 0.7 MV E' Velocity 33.0 cm/s Mitral E to MV E' Ratio 7.8 Mitral E to LV E' Lateral Ratio 8.2 Mitral E to LV E' Septal Ratio 7.5 TR Peak Velocity 267.7 cm/s TR Peak Gradient 28.7 mmHg TV Peak E Velocity 55.0 cm/s Right Atrial Pressure 3.0 mmHg Pulmonary Artery Systolic Pressu 31.7 mmHg PV Peak Velocity 88.0 cm/s RV Acceleration Time 0.1 s RV Ejection Time 0.3 s RV AcT/ET 0.4 FINDINGS Left Ventricle Normal left ventricular size and systolic function, EF 75 %. No regional wall motion abnormalities. Grade I/IV diastolic dysfunction (abnormal relaxation filling pattern), normal to mildly elevated filling pressures. Right Ventricle Possibly normal RV size and ejection fraction. Right Atrium Possibly of normal size . Left Atrium Normal left atrial size Mitral Valve No gross abnormalities noted Aortic Valve Trace aortic valve regurgitation. Tricuspid Valve No gross abnormalities noted Pulmonic Valve Pulmonic valve not well visualized. Pericardium Small echo-free space anteriorly and posteriorly Aorta Dilated aortic root measuring 4.4 cm at the level of the sinuses and 4.2 cm at the sinotubular junction CONCLUSIONS Normal left ventricular size and systolic function, EF 75 %. No regional wall motion abnormalities. Mild concentric left ventricular hypertrophy. Type I diastolic dysfunction. Trace aortic valve regurgitation. Dilated aortic root measuring 4.4 cm at the level of the sinuses and 4.2 cm at the sinotubular junction. Small pericardial effusion The right-sided structures could not be visualized well Consider CTA, to better evaluate the aorta, if clinically indicated. Compared to the study from 11/20/2019, the aortic root size is slightly increased from 4.0 bto 4.4 cm. Discussed the findings with Dr. Rousseau. Dr Troy Gaxiola MD FACC (Electronically Signed) Final Date: 09 April 2021 09:19 S
--- NOTE | 2021-04-09 20:04 | PC.NURSE ---
i reported low temp 97.4 to nurse
[2021-04-09] MEDS: HYDROcodone-APAP 7.5-325 mg/15 mL UDC 10 ML J-TUBE (20:14)
[2021-04-10] VITALS (16 sets, daily range): BP systolic 99–125; BP diastolic 67–77; PULSE 69–102; RESP 16–18; TEMP 36.6–36.9; O2SAT 91–955
[2021-04-10] MEDS: ipratropium-albuterol 3 mL Neb INHALATION ×6 (00:15→20:57)
[2021-04-10] MEDS: HYDROcodone-APAP 7.5-325 mg/15 mL UDC 10 ML J-TUBE ×2 (06:25→20:35)
[2021-04-10 07:05] LABS: Basophils % 0.2 %; Hematocrit 42.3 % (42.0-52.0); Hemoglobin 13.3 g/dL (11.7-16.6); Lymphocytes # 1.1 10^3/uL (0.8-4.8); Lymphocytes % 25.6 %; Mean Corpuscular HGB Conc 31.4 g/dL (30.0-36.0); Mean Corpuscular Volume 101.9 fl (80-94); Mean Platelet Volume 10.7 fL (7.4-10.4); Monocytes # 0.5 10^3/uL (0.2-0.9); Monocytes % 12.6 %; Neutrophils # 2.59 10^3/uL (1.8-7.7); Neutrophils % 61.4 %; Nucleated Red Blood Cells % 0 %; Platelet Count 167 10^3/cmm (130-400); Red Blood Count 4.15 10^6/uL (4.1-5.3); Red Cell Distribution Width 12.2 % (12.1-15.1); White Blood Count 4.2 10^3/uL (4.0-10.0)
[2021-04-10 07:21] LABS: Anion Gap 22.4 (5-19); Blood Urea Nitrogen 29 mg/dL (8-23); Calcium 9.3 mg/dL (8.5-10.5); Carbon Dioxide 24 mmol/L (22-29); Chloride 99 mmol/L (98-107); Creatinine Clr Calc Pharmacy 106.9879; Glomerular Filtration Rate 114.6 mL/min (90-130); Glucose 95 mg/dL (65-115); Osmolality Calculated 298 mOsm/kg (285-295); Potassium 4.4 mmol/L (3.5-5.1); Sodium 141 mmol/L (136-145)
[2021-04-10] MEDS: heparin 5,000 unit/mL INJ 1 mL 5000 UNIT SUBCUT ×2 (10:37→18:33)
[2021-04-10] MEDS: docusate sodium 10 mg/mL (5ml) Liq 100 MG J-TUBE ×2 (10:38→18:33)
[2021-04-10] MEDS: pantoprazole 40 mg SDV IVP ×2 (10:38→20:35)
[2021-04-10] MEDS: BuSPIRONE 10 mg Tablet J-TUBE ×3 (10:38→20:35)
[2021-04-10] MEDS: predniSONE 20 mg Tablet 40 MG PO (10:38)
[2021-04-10] MEDS: levofloxacin-dextrose 5 % 750 MG/150 ML PREMIX 100 MG IV (10:39)
--- NOTE | 2021-04-10 13:40 | PC.CHAP ---
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 [] Patient/Family/Request visit [] Outpatient visit [] Follow-up visit [] Physician referral [] Code/Alert [] Routine visit [] Staff referral [] Actively dying [] Patient sleeping [] Family support [] [] Out of room [] Palliative care [] [] Receiving care in room [] Pre-surgical visit [] Trauma [] Long length of stay [] ICU visit [xx] Other:Quarantined Relational/Emotional Strength [] Patient feels connected with others/family/visitors/staff [] Distress [] Loneliness/isolation [] Abandonment Spirituality of Patient [] Person of Delmis [] Attends Mosque of their [place]mis [] Believes in Prayer [] Reads Bible or Rastafari materials [] There are Spiritual issues to be addressed Branch Office Manager Interventions [] Prayer [] Active listening [] Non-anxious presence [] Spiritual/emotional support [] Crisis/trauma care [] Spiritual counseling [] Bereavement support [] Provided bereavement packet [] Provided Bible/devotional materials [] Provided toy/stuffed animal, coloring book to patient or family member [] Provided Communion [] Anointing/[place] [] Salvation [] Completed spiritual assessment [] Other: Impact on Illness or Injury [] Angry [] Fearful [] Anxious [] Often cries [] Exhaustion [] Unable to work [] Unable to attend restoration [] Unable to walk/stand [] Unable to read [] Unable to drive [] Unable to eat/drink [] Unable to sleep [] Unable to be with family [] Patient intubated [] Other: Summary Time spent with patient
--- NOTE | 2021-04-10 20:37 | PC.NURSE ---
i reported high pulse 102 to nurse
--- NOTE | 2021-04-10 21:24 | PM.PN ---
Subjective Subjective: Interval history: Subjectively today he is feeling better. Still producing thick green sputum. His son was on speaker phone during the visit able to ask questions. Vitals/I&O/Wt Last Vital Signs Temp 97.9 F 04/10/21 20:00 Pulse 72 04/10/21 20:59 Resp 16 04/10/21 20:58 BP 125/77 04/10/21 20:00 Pulse Ox 95 04/10/21 20:58 04/10/21 04/10/21 04/10/21 06:59 14:59 22:59 Intake Total 150 / 150 Output Total 320 / 720 Balance -320 / 80 150 / 150 Physical Exam Const: COMMON NORMALS: no acute distress, patient oriented x3 and alert GENERAL APPEARANCE: cooperative ORIENTATION/CONSCIOUSNESS: Yes awake HENMT: COMMON NORMALS: oropharynx normal Neck/C-Spine: COMMON NORMALS: no JVD Resp: COMMON NORMALS: normal respiratory effort AUSCULTATION: rhonchi and wheezes Cardio: COMMON NORMALS: no JVD, regular rhythm, S1 normal heart sound present, S2 normal heart sound present and No murmurs present (Cardio) RHYTHM: regular rhythm HEART SOUNDS: S1 normal heart sound present and S2 normal heart sound present GI: COMMON NORMALS: Normal to inspection, nondistended, normoactive bowel sounds present, Soft to palpation and non-tender PALPATION: Yes Soft to palpation OTHER: J-tube in place Extremity: COMMON NORMALS: no joint enlargement and no pedal edema OTHER: L ankle splinted, no surrounding erythema Neuro: COMMON NORMALS: patient oriented x3 and moves all extremities SENSORIUM/ORIENTATION: Yes alert Skin: COMMON NORMALS: no rashes or lesions noted GENERAL SKIN EXAM: no rashes or lesions noted Data : 04/10/21 05:56 04/10/21 05:56 Micro: Microbiology 04/08/21 05:45 Urine Culture - Final Urine,Clean Catch 04/08/21 18:14 Gram Stain - Final Sputum - Expectorated Sputum Sputum Culture - Preliminary Staphylococcus aureus A&P Assessment and plan (1) Pneumonia: Growing staph aureus, for now we will broaden with vancomycin, although symptomatically appears to be improving and responding to current antibiotic. Follow-up sensitivities. Continue flutter valve, breathing treatments, other supportive care. Oxygen support. Decreased hearing, with tree-in-bud opacities on CT angiogram, discussed with him and family. Likely superimposed bacterial infection on top of COVID-19. He is provided sputum culture. Status: Acute (2) Syncope: Likely secondary to acute infection with pneumonia, so superimposed COVID-19. Significant exertional intolerance at home. Feels symptomatically he is improving. Continue treatment of pneumonia as above. reports he has been increasingly weak recently. Likely secondary COVID-19. She states cannot handle him currently at home with weakness, ankle fracture, and need for isolation from the rest of the family. At rest he saturating 93-94% on 3 L nasal cannula which is close to what he uses at home. Reports severe exertional intolerance, feeling very fatigued with exertion. Possibly secondary COVID-19, COPD exacerbation. We will additionally monitor on telemetry. Negative orthostatics. TSH normal. D-dimer elevated, but discussed with family, no PE. Lower extremity duplex without DVT. TTE with noted EF 75%, no R WMA. Mild concentric LVH. Type I diastolic function. Trace aortic valve regurgitation related aortic root measuring 4.4 cm, previously 4.2 cm. Small pericardial effusion. Right-sided structures could not be visualized well. No aortic aneurysm or dissection noted on CTA 04/08. Status: Acute (3) COVID-19: Moderate COVID-19, oxygenation so far no worse than baseline, continue to monitor for progression to severe disease. Status post monoclonal antibody infusion. Continue supportive care as above. Status: Acute (4) COPD exacerbation: COPD and bronchiectasis. History of recurrent aspiration. COPD exacerbation Follow-up sputum culture. Prednisone, Levaquin. Given COPD, bronchiectasis, discussed with him referral and follow-up with pulmonology after discharge. He and his son are agreeable. Status: Acute (5) Closed left ankle fracture: Splinted. NWB for now. Fall precautions. PT. Pain control. Status: Acute Additional A&P Information Regurgitation of the contents: Some dark contents regurgitated after dry heaving at home. Possible gastritis. Discussed with him to let us know, we may obtain occult blood test. Avoid NSAIDs. PPI IV twice daily due to possible mild GI bleed. Although seems less likely, so far without recurrence. Hemoglobin stable. Microscopic hematuria, 15-25 RBC, otherwise urinalysis still UTI, will benefit from follow-up/repeat UA on nonurgent basis. History of chronic pressure ulcers History of chronic Lopez due to urinary retention, no longer N.p.o., all feeds and meds by G-tube History of chronic aspiration Attestations Medical Necessity Statement*: Continue admission for assessment management of superimposed bacterial pneumonia with staph aureus on top of moderate COVID-19 infection in a gentleman with history of recurrent aspiration, with bronchiectasis, COPD with exacerbation. 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
--- NOTE | 2021-04-10 21:35 | PC.PHAR ---
Vancomycin is dosed at 1500mg IVPB every 12 hours to produce a predicted trough level of 16.11 (population based pharmacokinetic analysis). A trough level has been ordered from the lab to be obtained before the fourth dose to confirm and adjust if needed.
[2021-04-10] MEDS: vancomycin 1,500 MG/300 ML PIGGYBACK 150 MG IV (22:27)
--- NOTE | 2021-04-10 23:22 | PC.NURSE ---
2030 Patient states the day shift nurse fed him around 1830 so he isn't hungry. He thinks he will probably be good until around midnight.
[2021-04-11] VITALS (13 sets, daily range): BP systolic 101–126; BP diastolic 67–72; PULSE 73–100; RESP 16–18; TEMP 36.7–36.9; O2SAT 90–944
[2021-04-11] MEDS: ipratropium-albuterol 3 mL Neb INHALATION ×4 (00:32→12:21)
[2021-04-11 06:52] LABS: Hematocrit 38.3 % (42.0-52.0); Hemoglobin 12.3 g/dL (11.7-16.6); Lymphocytes # 0.8 10^3/uL (0.8-4.8); Lymphocytes % 15.2 %; Mean Corpuscular HGB Conc 32.1 g/dL (30.0-36.0); Mean Corpuscular Hemoglobin 32.5 pg (28.0-34.0); Mean Corpuscular Volume 101.1 fl (80-94); Mean Platelet Volume 10.6 fL (7.4-10.4); Monocytes # 0.5 10^3/uL (0.2-0.9); Monocytes % 9.3 %; Neutrophils # 4.14 10^3/uL (1.8-7.7); Neutrophils % 75.1 %; Nucleated Red Blood Cells % 0 %; Platelet Count 169 10^3/cmm (130-400); Red Blood Count 3.79 10^6/uL (4.1-5.3); Red Cell Distribution Width 12.1 % (12.1-15.1); White Blood Count 5.5 10^3/uL (4.0-10.0)
[2021-04-11 07:21] LABS: Blood Urea Nitrogen 32 mg/dL (8-23); Calcium 9.3 mg/dL (8.5-10.5); Carbon Dioxide 24 mmol/L (22-29); Chloride 91 mmol/L (98-107); Glucose 103 mg/dL (65-115); Osmolality Calculated 271 mOsm/kg (285-295); Sodium 127 mmol/L (136-145)
[2021-04-11] MEDS: BuSPIRONE 10 mg Tablet J-TUBE (09:32)
[2021-04-11] MEDS: predniSONE 20 mg Tablet 40 MG PO (09:32)
[2021-04-11] MEDS: docusate sodium 10 mg/mL (5ml) Liq 100 MG J-TUBE (09:32)
[2021-04-11] MEDS: levofloxacin-dextrose 5 % 750 MG/150 ML PREMIX 100 MG IV (09:32)
[2021-04-11] MEDS: pantoprazole 40 mg SDV IVP (09:32)
[2021-04-11] MEDS: heparin 5,000 unit/mL INJ 1 mL 5000 UNIT SUBCUT (09:32)
--- NOTE | 2021-04-11 11:10 | PM.DCS ---
Discharge Providers Date of Admission: 04/09/21 11:55 Date of Discharge: April 11, 2021 Attending Provider at Admission: Romero Sahni Attending Provider at Discharge: Romero Sahni Primary Care Provider: Martin Mcfarland DO Diagnoses at Discharge Discharge Diagnosis (1) Pneumonia: Status: Acute (2) Syncope: Status: Acute (3) COVID-19: Status: Acute (4) COPD exacerbation: Status: Acute (5) Closed left ankle fracture: Status: Acute Reason for Visit Reason for Visit: weakness/ fall/ left ankle pain Hospital Course Hospital Course 60-year-old gentleman with history of COPD, chronically on 2.5-3 L of oxygen, with past history of tonsillar carcinoma, status post resection, 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, radiation-induced pharyngeal dysfunction, chronic/recurrent aspiration, n.p.o., status post PEG tube and subsequently J-tube placement, also with history of urinary retention, previously with indwelling Lopez catheter, but had since weaned, history of pressure ulcers, was admitted due to about a days duration of severe weakness, extreme fatigability, nauseated with dry heaving, cough with regurgitation/vomiting of thick green sputum, as well as some dark contents, and noted some dark contents in the J-tube, with a syncopal episode preadmission, with finding of subtle oblique nondisplaced left fibular fracture which was splinted in ER. CT of the head without acute process. Chest x-ray with subtle residual airspace disease right lung base, improved, possible scarring, no focal infiltrate. Febrile on presentation, found positive for COVID-19. Additionally assessed by orthostatics, TSH, TTE, D-dimer for syncopal episode. D-dimer with abnormality, so was subsequently followed up with venous duplex which showed no DVT and CTA which showed no PE, with also finding of atherosclerotic calcifications of coronary arteries, bilateral largely independent airspace infiltrates with some patchy areas of tree-in-bud type reticular nodule densities in largely the right lung suggestive of infectious process. Bilateral right greater than left bronchiectasis. 6 scattered prominent nonspecific mediastinal subcentimeter lymph nodes. Oxygenation remained similar to what he is at home with 3-3.5 L nasal cannula oxygen. Treated with empiric antibiotic therapy in the hospital. TSH was normal. Sputum culture eventually growing Staph aureus, resistant to quinolones, penicillin, ampicillin, so will complete course with linezolid. He also received monoclonal antibody infusion due to risk of severe disease with COVID-19. Oxygenation, however, has remained at baseline, and he is doing well on 2.5 L nasal cannula today. He tolerated heparin prophylaxis for VTE in the hospital. Blood counts remained stable, without suspicion for ongoing GI bleed currently. Due to elevated D-dimer, risk of VTE is given a course of additional 30 days of low-dose Lovenox prophylaxis. Please follow-up for resolution of bacterial pneumonia, COVID-19 pneumonia, follow-up blood counts with linezolid and VT prophylaxis. Follow-up regarding bronchiectasis. He is also referred to pulmonology as per discussion with him and his son for optimization of care for bronchiectasis. He is continued on omeprazole at discharge. In case of recurrent symptoms of dyspepsia or suspicion for persistent slow GI bleed, please refer for additional endoscopic assessment. He is asked to maintain left ankle splint in place, nonweightbearing on the left, walker is ordered for him. He is asked to follow-up with orthopedics in office for the left fibular fracture. Physical Exam Const: COMMON NORMALS: no acute distress, patient oriented x3 and alert GENERAL APPEARANCE: cooperative ORIENTATION/CONSCIOUSNESS: Yes awake HENMT: COMMON NORMALS: oropharynx normal Neck/C-Spine: COMMON NORMALS: no JVD Resp: COMMON NORMALS: normal respiratory effort EFFORT & INSPECTION: Yes able to speak in complete sentences AUSCULTATION: no rhonchi and no wheezes Cardio: COMMON NORMALS: no JVD, regular rhythm, S1 normal heart sound present, S2 normal heart sound present and No murmurs present (Cardio) RHYTHM: regular rhythm HEART SOUNDS: S1 normal heart sound present and S2 normal heart sound present GI: COMMON NORMALS: Normal to inspection, nondistended, normoactive bowel sounds present, Soft to palpation and non-tender PALPATION: Yes Soft to palpation OTHER: J-tube in place Extremity: COMMON NORMALS: no joint enlargement and no pedal edema OTHER: L ankle splinted, no surrounding erythema Neuro: COMMON NORMALS: patient oriented x3 and moves all extremities SENSORIUM/ORIENTATION: Yes alert Skin: COMMON NORMALS: no rashes or lesions noted GENERAL SKIN EXAM: no rashes or lesions noted Discharge Data Data Completed and Pending: Completed Studies During Hospitalization Category Date Time Status CT angio chest PE protcl [id number] Rout ine Cat Scan 04/08/21 18:[address] head wo con* 7 0450 Urgent Cat Scan 04/08/21 07:12 Completed XR ankle LT min 3 V* [id number] Urgent Exams 04/08/21 05:00 Completed XR chest 1V gamal ble [id number] Urgent Exams 04/08/21 05:00 Completed XR foot RT min 3V * [id number] Urgent Exams 04/08/21 05:00 [place] [id number] Routin e Ultrasound 04/09/21 06:00 Completed CV. echo complete * [id number] Routine Ultrasound 04/09/21 19:18 Completed Pending at discharge Category Date Time Status Gastricult Occult BLD Routine Lab 04/08/21 19:18 Ordered Vancomycin Trough Timed Lab 04/12/21 09:00 Ordered Labs from last 24 hours 04/11/21 04/11/21 06:27 06:27 WBC 5.5 RBC 3.79 L Hgb 12.3 Hct 38.3 L MCV 101.1 H MCH 32.5 MCHC 32.1 RDW 12.1 Plt Count 169 MPV 10.6 H Neut % (Auto) 75.1 Lymph % (Auto) 15.2 [place] % (Auto) 9.3 Eos % (Auto) 0.0 Baso % (Auto) 0.0 Neut # (Auto) 4.14 Lymph # (Auto) 0.8 [place] # (Auto) 0.5 Eos # (Auto) 0.0 Baso # (Auto) 0.0 Nucleated RBC % (a uto) 0 Nucleated RBCs # 0.0 Sodium 127 L Potassium 4.0 Chloride 91 L Carbon Dioxide 24 Anion Gap 16.0 BUN 32 H Creatinine 0.6 L GFR Calculation 137.0 H Glucose 103 Calculated Osmolal ity 271 L Calcium 9.3 Vitals: Last Vital Signs Temp 98.4 F 04/11/21 10:58 Pulse 87 04/11/21 10:58 Resp 16 04/11/21 10:58 BP 103/68 04/11/21 10:58 Pulse Ox 92 04/11/21 10:58 Discharge Plan Discharge Patient Disposition: Home Condition: Stable Prescriptions: New linezolid 600 mg tablet 600 mg feeding tube BID 7 Days Qty: 14 RF: 0 omeprazole magnesium 10 mg susp,delayed release for recon 20 mg feeding tube DAILY 42 Days Qty: 84 RF: 0 Robitussin Cough-Chest Gus DM 5-100 mg/5 mL liquid 15 ml feeding tube Q6H PRN (Reason: cough) Qty: 237 RF: 1 Lovenox 30 mg/0.3 mL syringe 30 mg SUBCUT DAILY 30 Days Qty: 9 RF: 0 prednisone 20 mg Tablet 20 mg PO DAILY Qty: 3 RF: 0 Continued acetaminophen 500 mg Tablet 1,000 mg PO Q6H PRN (Reason: Pain) RF: 0 buspirone 10 mg tablet 10 mg PO TID RF: 0 lactose-reduced food with fibr Liquid See Rx Instructions .ROUTE .COMPLEX RF: 0 melatonin 5 mg Tablet 10 mg feeding tube TID@06,17,23 RF: 0 Discharge Orders: Discharge Order (Routine); Ordered 04/11/21 Ordered By: Romero Sahni Other Ambulatory Orders: DME: Walker (Order) Location: None Selected Ordered By: Romero Sahni Referrals: Aime Michaud DO [Physician] - 2 weeks (Please call Tuesday morning to schedule a follow-up appointment. ) Gustabo Nevarez MD [Physician] - 2 weeks (Please call Tuesday morning to schedule an appointment. ) Martin Mcfarland DO [Primary Care Provider] - 1 week (Please call Tuesday morning to schedule a hospital follow-up appointment. ) Discharge Activity: Increase activity as tolerated, As per PT/OT instructions and Oxygen as instructed Patient Instructions: Prednisone (By mouth), Omeprazole (By mouth), Enoxaparin (By injection) (Lovenox), Linezolid (By mouth), Ankle Fracture (GEN), Bronchiectasis (GEN), Bacterial Pneumonia (GEN), Deep Vein Thrombosis Prevention (GEN), COVID-19 (Coronavirus Disease 2019) (GEN), Opioid Safety Activity Restrictions/Additional Instructions: Continue oxygen as usual, 2.5L, maintain saturation 92% or above. Continue antibiotic, complete course. Have your primary doctor follow-up blood counts at the next appointment as discussed. Keep ankle splint on. Stay nonweightbearing on left foot. Follow-up with orthopedic doctor in office in 2 weeks. Follow-up with your primary doctor to reassess for resolution of staphylococcal pneumonia, COVID-19 pneumonia, bronchiectasis. Establish follow-up with lung doctor for bronchiectasis. Continue letrozole. If there is recurrence of indigestion, or regurgitation of any dark contents, discussed with your primary doctor referral for evaluation by upper endoscopy. Due to small amount of red blood cells in urine, 15-25 noted in urinalysis on presentation, please have your primary doctor recheck urinalysis at next office visit. Discharge Attestations Time Spent in Discharge Care*: greater than 30 min Quality Metrics Clinical Quality Measures During this hospital stay, did patient experience: None Coding Level of Care Code Acute [facility] note Diagnoses Pneumonia J18.9 Syncope R55 COVID-19 U07.1 COPD exacerbation J44.1 Closed left ankle fracture S82.898R
--- NOTE | 2021-04-11 13:00 | PC.NURSE ---
Patient's home medications arrived from our pharmacy. Lovenox shots are ordered for patient. Lovenox instructions given to patient who verbalized understanding. Patient gave himself his first Lovenox shot at this time. Patient verbalized that he only takes one shot a day and that he will be able to give them to himself. Patient verbalized understanding to call the [facility] pharmacy on Tuesday to see if the rest of is Lovenox shots have arrived.
--- NOTE | 2021-04-11 13:15 | PC.NURSE ---
IV removed intact. Patient tolerated well. Patient is A&Ox3. Respirations even and non-labored on 2.5 liters NC. Patient denies any pain at this time. Patient states, My can be pushy in a good way. 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 Reviewed discharge instructions with patient at this time. Including a review of the Lovenox shots. Patient verbalized the need to call and make follow up appointments with Bartolo Martinez, Dr. Michaud, and Dr. Nevarez. Reviewed patient's medications provided to him from [facility] and patient verbalized understanding of how and when to take them including the antibiotics. Patient called his son and daughter while this nurse was in the room and asked about them piking him up. Patient's daughter was asked if she brought patient's home oxygen. Daughter states, No and I don't have time to go back and get it. Patient states, It is okay I can make it home without it. I will be fine just come on and get me.
--- NOTE | 2021-04-11 13:30 | PC.NURSE ---
Patient's daughter and son arrived to pick patient up. Tried to update patient's son that patient would need to have the rest of his Lovenox picked up at [facility] later in the week. Patient's daughter immediately yelled at this nurse stating, You said he had all of the medications he needed. How long is he going to have to take shots? Explained that to both daughter and son that patient had enough until Tuesday and then the pharmacy would have the rest and that the patient should only have to take them for 30 days. Assisted patient into his car. Patient's daughter states, I have talked to like 15 different nurses and none of you communicate worth shit and it is fucking frustrating that is all I have to say about it. Patient's son states, The doctor was suppose to call everyday and he did not just like you guys no communication. Stated to patient's son and daughter that I was sorry about that. The patient states, Thank you for all you have done.
== END 2021-04-11 13:30 | disposition home or self-care (01) | DRG 177 ==
LOC: ER 06:35 → MEDSURG 16:52
PROVIDERS: Emergency Medicine; Admitting Provider Internal Medicine; Emergency Provider Emergency Medicine; PCP Internal Medicine; Visit Provider Internal Medicine
DX: U07.1 COVID-19 (principal); J15.20 Pneumonia due to staphylococcus, unspecified; J44.0 Chronic obstructive pulmonary disease with (acute) lower respiratory infection; J44.1 Chronic obstructive pulmonary disease with (acute) exacerbation; Z16.23 Resistance to quinolones and fluoroquinolones; Z16.11 Resistance to penicillins; J96.11 Chronic respiratory failure with hypoxia; K92.2 Gastrointestinal hemorrhage, unspecified; F41.9 Anxiety disorder, unspecified; L89.152 Pressure ulcer of sacral region, stage 2; Z85.818 Personal history of malignant neoplasm of other sites of lip, oral cavity, and pharynx; Z93.1 Gastrostomy status; Z87.891 Personal history of nicotine dependence; S82.432A Displaced oblique fracture of shaft of left fibula, initial encounter for closed fracture; W19.XXXA Unspecified fall, initial encounter; E86.0 Dehydration; R31.29 Other microscopic hematuria; K29.70 Gastritis, unspecified, without bleeding; Z92.3 Personal history of irradiation; Z92.21 Personal history of antineoplastic chemotherapy; Z99.81 Dependence on supplemental oxygen
CPT/HCPCS: 36415; 70450; 71045; 71275; 73610; 73630; 80048; 80053; 81001; 83735; 84145; 84443; 84484; 85025; 85378; 86140; 87070; 87077; 87086; 87186; 87205; 87631; 87635; 93005; 93306; 93970; 94640; 94664; 96365; 96372; 96375; 96376; 97162; 97530; 99285; C9113; G0378; J1644; J1956; J2270; J3370; J7512; Q9967

== ENCOUNTER 2021-07-06 15:43 | Emergency (ER) | payer MEDICAID, SELFPAY ==
[2021-07-06 16:00] VITALS: BP 109/78; PULSE 97; RESP 16; TEMP 36.7; O2SAT 94; BMI 20.5
[2021-07-06 16:43] VITALS: BP 125/94; PULSE 95; RESP 16; O2SAT 97
--- NOTE | 2021-07-06 16:46 | XRR_ITS ---
PROCEDURE INFORMATION: Exam: XR Abdomen Exam date and time: 07/06/2021 5:06 PM Age: 61 years old Clinical indication: Device placement; Gi device; Prior surgery; Surgery date: 6+ months; Surgery type: Peg tube insertion; Additional info: Eval for function of the g tube, please inject fistulagram TECHNIQUE: Imaging protocol: XR of the abdomen. Views: Frontal supine view of the abdomen. 1 View. COMPARISON: CR XR KUB [id number] 07/18/2020 8:58 PM FINDINGS: Tubes, catheters and devices: Contrast was injected through the PEG tube, with tip in the mid stomach. Gastrointestinal tract: There is contrast within the lumen of a decompressed stomach and within the proximal small bowel. No contrast leak. The Bones/joints: Unremarkable. XR/XR KUB portable [id number] IMPRESSION: PEG tube in the mid stomach. No evidence for leak.
--- NOTE | 2021-07-06 17:01 | PC.NURSE ---
Peg tube balloon fluid assessed, could only get 0.5mL out. Peg tube balloon filled back to 10mL. Dr. Harvey notified.
--- NOTE | 2021-07-06 17:19 | W.ED.GENADLT ---
HPI - General Adult General: Chief complaint: Abdominal Pain Stated complaint: Fooding tube may have fell out Time Seen by Provider: 07/06/21 16:16 History of Present Illness: Patient is a 61-year-old male who is chronically G-tube dependent presenting to the emergency room for concerns of G-tube displacement. Patient tells me that he was straining his belly when he noticed that G-tube came out and he was able to reposition it back in place. Patient wanted to get the G-tube checked to ensure that it is properly placed. Patient denies any abdominal pain, nausea/vomiting, fever/chills. Patient report that the G-tube is flushing well. Last time the G-tube was exchanged was 7-month ago. Onset: 1 hr ago Duration:1 hr Location:home Severity:moderate Associated symptoms: Deny chest pain, dyspnea, nausea, rash, palpitations or vomiting Review of Systems Const: Denies: fever(s) or chills Eyes: Denies: change in vision ENMT: Denies: mouth pain Card: Denies: chest pain or palpitations Resp: Denies: dyspnea or non-productive cough GI: Reports: other (+possible G tube displacement); Denies: abdominal pain, nausea, vomiting or diarrhea : Denies: dysuria Musc: Denies: extremity pain Skin/Breast: Denies: rash or new lesions Neuro: Denies: weakness in extremities Psych: Reports: other (Normal mood) [place]/Lymph: Denies: easy bruising PFSH ED PFSH: Medical History Anxiety Aspiration, chronic pulmonary COPD (chronic obstructive pulmonary disease) Decubitus ulcer of coccyx, 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 History of osteomyelitis Osteomyelitis of the mandible, treated in 2017 Urinary retention Lopez catheter placed October 2019 with failed trial of voiding Uses feeding tube Surgical History Encounter for gastrojejunal (GJ) tube placement (10/19/19) History of tonsillectomy Cancer resection with tonsillar cancer Family History Mother Cancer Diabetes Father , 80 Cancer Denies family history of Anesthesia complication Bleeding disorder Social History Smoking and tobacco status: former smoker Quit status (tobacco): has quit using tobacco Year quit tobacco: 2020 - 0.5 PPD x 30 Years Alcohol intake: never Caregiver/support person: Yes Lives independently: No Household members: caregiver Housing: Assisted Marital status: Current occupational status: disabled History of recent travel: No Current gender identity: Male Physical Exam Const: COMMON NORMALS: alert HENMT: COMMON NORMALS: atraumatic HEAD & SCALP: atraumatic MOUTH: moist mucous membranes not abnormal Eye: COMMON NORMALS: EOMs intact bilaterally and conjunctivae normal CONJUNCTIVA: Yes conjunctivae normal Neck/C-Spine: COMMON NORMALS: full ROM and supple Resp: COMMON NORMALS: normal respiratory effort and clear to auscultation bilaterally AUSCULTATION: clear to auscultation bilaterally Cardio: COMMON NORMALS: regular rate RATE: regular rate GI: COMMON NORMALS: Soft to palpation and non-tender PALPATION: Yes Soft to palpation OTHER: G-tube in the left upper quadrant appropriate the position, no insertion site erythema/induration/fluctuance Extremity: COMMON NORMALS: full ROM Neuro: SENSORIUM/ORIENTATION: Yes alert MOTOR EXAM: No Abnormal motor strength present and Other motor observations present (no focal motor deficits) Psych: COMMON NORMALS: speech normal SPEECH: Yes normal speech MOOD & AFFECT: Yes euthymic mood Course Vital Signs: Vital signs: Vital Signs Temperature 98.1 F 07/06/21 16:00 Pulse Rate 90 07/06/21 19:35 Respiratory Rate 16 07/06/21 19:35 Blood Pressure 126/79 07/06/21 19:35 Pulse Oximetry 96 07/06/21 19:35 MDM - General Adult Medical Decision Making 61-year-old male with chronic G-tube dependence presenting to the emergency room for evaluation of G-tube displacement. However, G-tube appears to be well positioned. No signs of insertion site infection or drainage. No focal abdominal tenderness to palpation in all quadrants. Fistulogram confirmed appropriate location of the G-tube. G-tube balloon port is appropriately inflated. Disposition: Discharge. Patient counseled regarding diagnostic impression, treatment plan. Patient given ED strict return precautions to return for continuation, worsening, or development of new symptoms. Instructed to f/u w/ PCP regarding symptoms today. Patient verbalized understanding. Lab Data Radiology Impressions KUB X-Ray 07/06/21 16:46 IMPRESSION: PEG tube in the mid stomach. No evidence for leak. Imaging Data Other Imaging: Radiologist's impression: [facility] [address] [place] [address] XRay Report Signed Patient: Charles Garay Unit #: [id number] : 1960 Age/Sex: 61 / M ADM Date: 07/06/21 Loc: ER Room/Bed: Attending Dr: Ordering Provider/Ordering MD: Ciro Harvey MD Date of Service: 07/06/21 Procedure(s): XR KUB portable [id number] Accession Number(s): [id number] Report Number: [id number] PROCEDURE INFORMATION: Exam: XR Abdomen Exam date and time: 07/06/2021 5:06 PM Age: 61 years old Clinical indication: Device placement; Gi device; Prior surgery; Surgery date: 6+ months; Surgery type: Peg tube insertion; Additional info: Eval for function of the g tube, please inject fistulagram TECHNIQUE: Imaging protocol: XR of the abdomen. Views: Frontal supine view of the abdomen. 1 View. COMPARISON: CR XR KUB [id number] 07/18/2020 8:58 PM FINDINGS: Tubes, catheters and devices: Contrast was injected through the PEG tube, with tip in the mid stomach. Gastrointestinal tract: There is contrast within the lumen of a decompressed stomach and within the proximal small bowel. No contrast leak.? The Bones/joints: Unremarkable. XR/XR KUB portable [id number] IMPRESSION: PEG tube in the mid stomach.? No evidence for leak. ? Dictated By: Lamin Soriano Signed By: Lamin Soriano Signed Date/Time: 07/06/21 1903 DD/ 1706 Discharge Plan Discharge Patient Disposition: Home Clinical Impression: Gastrostomy tube in place Condition: Stable Prescriptions: No Action acetaminophen 500 mg Tablet 1,000 mg PO Q6H PRN (Reason: Pain) 0RF buspirone 10 mg tablet 10 mg PO TID 0RF lactose-reduced food with fibr Liquid See Rx Instructions .ROUTE .COMPLEX 0RF Rx Instructions: 500ml tid@06,17,23 followed by 2 syringes up to 50 cc of water melatonin 5 mg Tablet 10 mg feeding tube TID@06,17,23 0RF Discharge Orders: Discharge ED (Routine); Ordered 07/06/21 Ordered By: Ciro Harvey Referrals: Martin Mcfarland DO [Primary Care Provider] - Discharge Diet: Advance as tolerated Discharge Activity: Increase activity as tolerated Patient Instructions: GI Tube Care Activity Restrictions/Additional Instructions: Our case reviewer will have you follow-up with general surgery in the next few days. You would be expected to have a phone call with our case reviewer who will put you on the schedule. You can expect a call from us in the next 2-3 days. If you don't hear from us, call us back in the emergency room at [phone]. Coding Level of Care Code ED Clay Machine Operator for Steffi Velasco Exam Comprehensive
[2021-07-06] MEDS: diatrizoate meglumine 30 mL Sol PO (17:37)
[2021-07-06 19:35] VITALS: BP 126/79; PULSE 90; RESP 16; O2SAT 96
== END 2021-07-06 19:30 | disposition home or self-care (01) ==
PROVIDERS: Emergency Provider Emergency Medicine; PCP Internal Medicine
DX: Z03.89 Encounter for observation for other suspected diseases and conditions ruled out (principal); Z93.1 Gastrostomy status
CPT/HCPCS: 74018; 99283; Q9963

== ENCOUNTER → 2021-07-14 13:25 | Outpatient (BNVA) | payer MEDICAID, SELFPAY | PROVIDERS: PCP Internal Medicine; Referring Provider Dermatology; Visit Provider Surgery | DX: K94.23 Gastrostomy malfunction (principal); Z93.1 Gastrostomy status | CPT/HCPCS: 99214 ==

== ENCOUNTER 2021-07-28 14:12 | Emergency (ER) | payer MEDICAID, SELFPAY ==
[2021-07-28 14:19] VITALS: BP 125/88; PULSE 101; RESP 18; TEMP 36.4; O2SAT 96; BMI 20.9
--- NOTE | 2021-07-28 14:21 | W.ED.CHESTPA ---
HPI - Chest Pain General: Chief Complaint: Chest Pain Stated Complaint: CHEST PAIN Time Seen by Provider: 07/28/21 14:21 Source: patient Mode of arrival: ambulatory Limitations: no limitations History of Present Illness: 59-year-old male presents emergency room with complaint of chest pain he gets sharp pains that shoot through his chest and into his epigastric may last for a few minutes minutes and then resolve. Is not exacerbated by deep inspiration. He had 1 episode that lasted a little longer and he called EMS EMS to give him nitroglycerin it seemed to improve things. He is not had any further episodes since. 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 He denies any recent fever sweats chills or cough or upper respiratory Kathuria discussed. MD complaint: chest pain Onset (ago): minute(s) Timing of current episode: episodic Prior episodes: No Onset: during rest Pain location: substernal Pain radiation: other (Epigastric) Quality: aching Relieving factors: nitroglycerin Exacerbating factors: nothing Associated symptoms: Deny abdominal pain, diaphoresis, dyspnea, fever(s), leg edema, nausea, palpitations, sense of impending doom, syncope or vomiting Treatment prior to arrival: nitroglycerin Review of Systems Const: Denies: fever(s) or diaphoresis ENMT: Denies: throat pain, ear or mastoid pain, nasal discharge or nasal congestion Card: Reports: chest pain; Denies: palpitations or syncope Resp: Denies: dyspnea GI: Denies: abdominal pain, nausea or vomiting : Denies: flank pain, dysuria, urinary frequency or urinary urgency Skin/Breast: Denies: rash or pruritus [facility] ED PFSH: Medical History Anxiety Aspiration, chronic pulmonary COPD (chronic obstructive pulmonary disease) Decubitus ulcer of coccyx, 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 History of osteomyelitis Osteomyelitis of the mandible, treated in 2016 Urinary retention Lopez catheter placed October 2019 with failed trial of voiding Uses feeding tube Surgical History Gastrostomy present (07/15/21) History of tonsillectomy Cancer resection with tonsillar cancer Family History Mother Cancer Diabetes Father , 80 Cancer Denies family history of Anesthesia complication Bleeding disorder Social History Smoking and tobacco status: former smoker Quit status (tobacco): has quit using tobacco Year quit tobacco: 2020 - 0.5 PPD x 30 Years Alcohol intake: never Caregiver/support person: Yes Lives independently: No Household members: caregiver Housing: Intermediate Marital status: Current occupational status: disabled History of recent travel: No Current gender identity: Male Physical Exam Const: COMMON NORMALS: no acute distress GENERAL APPEARANCE: cooperative and comfortable ORIENTATION/CONSCIOUSNESS: Yes awake, Yes oriented to person, Yes oriented to place and Yes oriented to time HENMT: COMMON NORMALS: normocephalic, atraumatic and hearing grossly normal bilaterally HEAD & SCALP: normocephalic and atraumatic Resp: COMMON NORMALS: normal respiratory effort, No retractions, No use of accessory muscles and clear to auscultation bilaterally AUSCULTATION: clear to auscultation bilaterally Cardio: COMMON NORMALS: regular rate, regular rhythm and No murmurs present (Cardio) RATE: regular rate RHYTHM: regular rhythm GI: COMMON NORMALS: Soft to palpation and No hepatosplenomegaly present AUSCULTATION: Yes normoactive bowel sounds PALPATION: Yes Soft to palpation, No Tenderness to palpation present (GI), No Guarding due to palpation present (GI) and Yes No hepatosplenomegaly present Extremity: COMMON NORMALS: normal to inspection, capillary refill normal, no clubbing, cyanosis or edema, no calf tenderness and no pedal edema Neuro: SENSORIUM/ORIENTATION: Yes oriented to person, Yes oriented to place and Yes oriented to time Skin: COMMON NORMALS: no rashes or lesions noted GENERAL SKIN EXAM: no rashes or lesions noted Course Vital Signs: Vital signs: Vital Signs Temperature 97.6 F 07/28/21 14:19 Pulse Rate 96 07/28/21 18:24 Respiratory Rate 15 07/28/21 18:24 Blood Pressure 137/100 07/28/21 18:24 Pulse Oximetry 97 07/28/21 18:24 MDM - Chest Pain Medical Decision Making EKG is unremarkable heart score is 3 discussed with cardiology on-call. Also reviewed to the patient. Patient would prefer to go home we will start him on aspirin daily and Imdur 30 daily. Advised patient if has any recurrence of symptoms to return. Cardiology agreed this was adequate approach in this particular patient with his heart score at this time. Reiterated strongly to patient has recurrent symptoms to return. Medical Records I reviewed the patient's medical records. Lab Data I reviewed the patient's lab results. : 07/28/21 14:00 07/28/21 14:00 Radiology Impressions Chest X-Ray 07/28/21: IMPRESSION: Stable chest. No acute cardiopulmonary disease. Laboratory Results WBC 9.5 10^3/uL (4.0-10.0) 07/28/21 14:00 RBC 4.32 10^6/uL (4.1-5.3) 07/28/21 14:00 Hgb 13.8 g/dL (11.7-16.6) 07/28/21 14:00 Hct 43.1 % (42.0-52.0) 07/28/21 14:00 MCV 99.8 fl (80-94) H 07/28/21 14:00 MCH 31.9 pg (28.0-34.0) 07/28/21 14:00 MCHC 32.0 g/dL (30.0-36.0) 07/28/21 14:00 RDW 13.1 % (12.1-15.1) 07/28/21 14:00 Plt Count 311 10^3/cmm (130-400) 07/28/21 14:00 MPV 10.3 fL (7.4-10.4) 07/28/21 14:00 Neut % (Auto) 80.9 % 07/28/21 14:00 Lymph % (Auto) 12.7 % 07/28/21 14:00 [place] % (Auto) 5.8 % 07/28/21 14:00 Eos % (Auto) 0.3 % 07/28/21 14:00 Baso % (Auto) 0.1 % 07/28/21 14:00 Neut # (Auto) 7.68 10^3/uL (1.8-7.7) 07/28/21 14:00 Lymph # (Auto) 1.2 10^3/uL (0.8-4.8) 07/28/21 14:00 [place] # (Auto) 0.6 10^3/uL (0.2-0.9) 07/28/21 14:00 Eos # (Auto) 0.0 10^3/uL (0.0-0.8) 07/28/21 14:00 Baso # (Auto) 0.0 10^3/uL (0.0-0.1) 07/28/21 14:00 Nucleated RBC % (auto) 0 % 07/28/21 14:00 Nucleated RBCs # 0.0 /100WBC 07/28/21 14:00 Sodium 135 mmol/L (136-145) L 07/28/21 14:00 Potassium 4.3 mmol/L (3.5-5.1) 07/28/21 14:00 Chloride 96 mmol/L (98-107) L 07/28/21 14:00 Carbon Dioxide 27 mmol/L (22-29) 07/28/21 14:00 Anion Gap 16.3 (5-19) 07/28/21 14:00 BUN 17 mg/dL (8-23) 07/28/21 14:00 Creatinine 0.6 mg/dL (0.7-1.2) L 07/28/21 14:00 GFR Calculation 136.5 mL/min (90-130) H 07/28/21 14:00 Glucose 97 mg/dL (65-115) 07/28/21 14:00 Calculated Osmolality 281 mOsm/kg (285-295) L 07/28/21 14:00 Calcium 8.8 mg/dL (8.5-10.5) 07/28/21 14:00 Total Bilirubin 0.3 mg/dL (0.15-1.2) 07/28/21 14:00 AST 15 U/L (0-40) 07/28/21 14:00 ALT 10 U/L (0-41) 07/28/21 14:00 Alkaline Phosphatase 87 IU/L (40-130) 07/28/21 14:00 Troponin T Baseline 17 ng/L (0-15) H 07/28/21 14:00 Troponin T 120 Minute 15.28 ng/L (0-15) H 07/28/21 16:01 Delta Troponin T -1.72 ABS# (0-10) L 07/28/21 16:01 Total Protein 7.7 g/dL (6.6-8.7) 07/28/21 14:00 Albumin 4.5 g/dL (3.5-5.2) 07/28/21 14:00 Globulin 3.2 g/dL (1.3-4.6) 07/28/21 14:00 Discharge Plan Discharge Patient Disposition: Home Clinical Impression: Atypical chest pain, History of malignant neoplasm of tonsil Condition: Stable Prescriptions: New isosorbide mononitrate 30 mg tablet extended release 24 hr 30 mg PO DAILY Qty: 30 0RF aspirin 81 mg tablet,delayed release (DR/EC) 81 mg PO DAILY Qty: 30 0RF No Action acetaminophen 500 mg Tablet 1,500 mg PO Q8H PRN (Reason: Pain) 0RF buspirone 10 mg tablet 10 mg PO TID 0RF melatonin 5 mg Tablet 10 mg feeding tube TID@06,17,23 0RF lactose-reduced food with fibr 0.06 gram-1.5 kcal/mL Liquid See Rx Instructions .ROUTE .COMPLEX 0RF Rx Instructions: 1 ea via feeding tube per rx directions Discharge Orders: Discharge ED (Routine); Ordered 07/28/21 Ordered By: Madan Chopra Referrals: Martin Mcfarland DO [Primary Care Provider] - Discharge Diet: Cardiac Discharge Activity: Limit activity as instructed Patient Instructions: Opioid Safety Activity Restrictions/Additional Instructions: Return to the emergency room for any further chest pain. They will contact you to make arrangements for an outpatient stress test. We will also contact you to follow-up with cardiology clinic. Coding Level of Care Code ED Physics Technical Officer for Steffi Velasco
--- NOTE | 2021-07-28 14:22 | ECG_ITS ---
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 Measurements Intervals [place] Rate: 100 P: 55 NH: 159 QRS: 82 QRSD: 115 T: 47 QT: 356 QTc: 460 Interpretive Statements SINUS TACHYCARDIA MODERATE INTRAVENTRICULAR CONDUCTION DELAY [110+ ms QRS DURATION] ST DEVIATION AND MODERATE T-WAVE ABNORMALITY, CONSIDER ANTERIOR ISCHEMIA [-0.1+ mV T-WAVE IN V3/V4] Compared to ECG 04/08/2021 12:09:55 Intraventricular conduction delay now present T-wave abnormality now present Possible ischemia now present Sinus rhythm no longer present Right bundle-branch block no longer present Electronically Signed On 07-28-2021 18:10:26 CDT by Nataliya Russell M.D. [email or web address])/[id number]
--- NOTE | 2021-07-28 14:22 | XR_ITS ---
WS: [id number] PORTABLE CHEST HISTORY: chest pain COMPARISON: 04/08/2021 Benign granuloma mid LEFT lung. Minimal atelectasis or scar at the RIGHT lung base. No mass or pneumo nette. No pleural effusion or pneumothorax. Cardiac size: Normal. Mediastinum/Aorta: Normal mediastinum. No osseous abnormality seen. XR/XR chest 1V portable [id number] IMPRESSION: Stable chest. No acute cardiopulmonary disease.
[2021-07-28 14:28] LABS: Basophils % 0.1 %; Eosinophils % 0.3 %; Hematocrit 43.1 % (42.0-52.0); Hemoglobin 13.8 g/dL (11.7-16.6); Lymphocytes # 1.2 10^3/uL (0.8-4.8); Lymphocytes % 12.7 %; Mean Corpuscular Hemoglobin 31.9 pg (28.0-34.0); Mean Corpuscular Volume 99.8 fl (80-94); Mean Platelet Volume 10.3 fL (7.4-10.4); Monocytes # 0.6 10^3/uL (0.2-0.9); Monocytes % 5.8 %; Neutrophils # 7.68 10^3/uL (1.8-7.7); Neutrophils % 80.9 %; Nucleated Red Blood Cells % 0 %; Platelet Count 311 10^3/cmm (130-400); Red Blood Count 4.32 10^6/uL (4.1-5.3); Red Cell Distribution Width 13.1 % (12.1-15.1); White Blood Count 9.5 10^3/uL (4.0-10.0)
[2021-07-28 14:36] VITALS: BP 130/84; PULSE 99; RESP 15; O2SAT 96
[2021-07-28 14:55] LABS: Troponin(5th) Baseline 17 ng/L (0-15)
[2021-07-28 14:56] LABS: Alanine Aminotransferase 10 U/L (0-41); Albumin Level 4.5 g/dL (3.5-5.2); Alkaline Phosphatase 87 IU/L (40-130); Anion Gap 16.3 (5-19); Aspartate Amino Transferase 15 U/L (0-40); Blood Urea Nitrogen 17 mg/dL (8-23); Calcium 8.8 mg/dL (8.5-10.5); Carbon Dioxide 27 mmol/L (22-29); Chloride 96 mmol/L (98-107); Globulin 3.2 g/dL (1.3-4.6); Glomerular Filtration Rate 136.5 mL/min (90-130); Glucose 97 mg/dL (65-115); Osmolality Calculated 281 mOsm/kg (285-295); Potassium 4.3 mmol/L (3.5-5.1); Sodium 135 mmol/L (136-145); Total Bilirubin 0.3 mg/dL (0.15-1.2); Total Protein 7.7 g/dL (6.6-8.7)
[2021-07-28 14:59] VITALS: BP 145/94; PULSE 92; RESP 14; O2SAT 98
[2021-07-28 15:32] VITALS: BP 129/86; PULSE 98; RESP 14; O2SAT 97
--- NOTE | 2021-07-28 16:22 | ECG_ITS ---
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 Measurements Intervals [place] Rate: 94 P: 50 ND: 161 QRS: 79 QRSD: 117 T: 46 QT: 365 QTc: 459 Interpretive Statements SINUS RHYTHM MODERATE INTRAVENTRICULAR CONDUCTION DELAY [110+ ms QRS DURATION] ST DEVIATION AND MODERATE T-WAVE ABNORMALITY, CONSIDER ANTERIOR ISCHEMIA [-0.1+ mV T-WAVE IN V3/V4] Compared to ECG 07/28/2021 14:35:23 Sinus tachycardia no longer present T-wave abnormality still present Possible ischemia still present Electronically Signed On 07-28-2021 23:20:48 CDT by Nataliya Russell M.D. [id number]
[2021-07-28 17:07] LABS: Troponin 5 2HR 15.28 ng/L (0-15); Troponin 5 2HR Delta -1.72 ABS# (0-10)
[2021-07-28 18:24] VITALS: BP 137/100; PULSE 96; RESP 15; O2SAT 97
== END 2021-07-28 18:59 | disposition home or self-care (01) ==
PROVIDERS: Emergency Provider Family Medicine; PCP Internal Medicine
DX: R07.89 Other chest pain (principal); Z87.891 Personal history of nicotine dependence; Z85.89 Personal history of malignant neoplasm of other organs and systems
CPT/HCPCS: 71045; 80053; 84484; 85025; 93005; 99283

== ENCOUNTER 2021-08-18 15:11 | Observation (INO) | payer MEDICAID, SELFPAY ==
[2021-08-18] VITALS (8 sets, daily range): BP systolic 119–169; BP diastolic 81–109; PULSE 87–103; RESP 14–24; TEMP 36.8–36.9; O2SAT 92–98; BMI 21.2; BMI 22.5
--- NOTE | 2021-08-18 15:13 | ECG_ITS ---
[facility] Test Date: 2021-08-18 Pat Name: Charles Garay Department: Room: Gender: Male Systems Coordinator: : 1960 Requested By: Ciro Harvey Order Number: [id number] Melissa MD: Chava Bray M.D. Measurements Intervals [place] Rate: 98 P: 53 GA: 157 QRS: 78 QRSD: 118 T: 50 QT: 376 QTc: 480 Interpretive Statements SINUS RHYTHM WITH OCCASIONAL SUPRAVENTRICULAR PREMATURE COMPLEXES INCOMPLETE RIGHT BUNDLE BRANCH BLOCK [90+ ms QRS DURATION, TERMINAL R IN V1/V2, 40+ ms S IN I/aVL/V4/V5/V6] POSSIBLE LATERAL MYOCARDIAL INFARCTION , OF INDETERMINATE AGE [30 ms Q WAVE IN I/aVL/V5/V6] MODERATE T-WAVE ABNORMALITY, CONSIDER ANTERIOR ISCHEMIA [-0.1+ mV T-WAVE IN V3/V4] Compared to ECG 07/28/2021 16:24:45 Incomplete right bundle-branch block now present Myocardial infarct finding now present Intraventricular conduction delay no longer present T-wave abnormality still present Possible ischemia still present Electronically Signed On 08-18-2021 17:08:51 CDT by Chava Bray M.D. [id number]
--- NOTE | 2021-08-18 15:17 | ED_ITS ---
HPI - General Adult General: Chief complaint: Abdominal Pain Stated complaint: INCREASED NAUSEA/ DEHYDRATION Time Seen by Provider: 08/18/21 15:12 History of Present Illness: Patient a 61-year-old male with a history of jaw cancer s/p radiation therapy/surgical excision, chronically PEG tube dependent who presents to the emergency room for concerns of nausea/vomiting and dry heaving. Patient tells me that since earlier this morning, patient has had significant nausea. Patient says that he has been receiving feeds however he feels significant nauseous and has been having diarrhea and vomiting. Patient has any fever or chills, acute abdominal pain, leakage around the G-tube site, chest pain, shortness breath palpitation or lightheadedness. No urinary complaints. Patient denies any melena/hematochezia. Onset: earlier today Duration: ongoing Location:home Severity:moderate Associated symptoms: Reports nausea and vomiting; Deny chest pain, dyspnea, rash or palpitations Review of Systems 2 Const: Denies: fever(s) or chills Eyes: Denies: change in vision ENMT: Denies: mouth pain Card: Denies: chest pain or palpitations Resp: Denies: dyspnea or non-productive cough GI: Reports: nausea, vomiting and diarrhea; Denies: abdominal pain : Denies: dysuria Musc: Denies: extremity pain Skin/Breast: Denies: rash or new lesions Neuro: Denies: weakness in extremities Psych: Reports: other (Normal mood) [place]/Lymph: Denies: easy bruising PFSH ED PFSH: Medical History Anemia Anxiety Aspiration, chronic pulmonary Closed left ankle fracture COPD (chronic obstructive pulmonary disease) COVID-19 Decreased ability to feed self Decubitus ulcer of coccyx, stage 2 Diarrhea History of malignant neoplasm of tonsil History of osteomyelitis Osteomyelitis of the mandible, treated in 2017 Lung nodule < 6cm on CT Septicemia due to Staphylococcus aureus Severe sepsis Urinary retention Lopez catheter placed October 2019 with failed trial of voiding Uses feeding tube Surgical History Encounter for gastrojejunal (GJ) tube placement (10/19/19) Gastrostomy present (07/15/21) History of tonsillectomy Cancer resection with tonsillar cancer Family History Mother Cancer Diabetes Father , 80 Cancer Denies family history of Anesthesia complication Bleeding disorder Social History Smoking and tobacco status: former smoker (quit 2019) Quit status (tobacco): has quit using tobacco Year quit tobacco: 2019 - 0.5 PPD x 30 Years Alcohol intake: never Caregiver/support person: Yes Lives independently: No Household members: caregiver Housing: Halfway Marital status: Current occupational status: disabled History of recent travel: No Current gender identity: Male Physical Exam Const: COMMON NORMALS: alert HENMT: COMMON NORMALS: atraumatic HEAD & SCALP: atraumatic MOUTH: moist mucous membranes abnormal Eye: COMMON NORMALS: EOMs intact bilaterally and conjunctivae normal CONJUNCTIVA: Yes conjunctivae normal Neck/C-Spine: COMMON NORMALS: full ROM and supple Resp: COMMON NORMALS: normal respiratory effort and clear to auscultation bilaterally AUSCULTATION: clear to auscultation bilaterally Cardio: COMMON NORMALS: regular rate RATE: regular rate and tachycardic GI: COMMON NORMALS: Soft to palpation and non-tender PALPATION: Yes Soft to palpation OTHER: + PEG tube in the RUQ site dry/clean/intact. NO guarding rebound, guarding, rigidity. No CVA tenderness to percussion. Neg Arias/Neg McBurney's point tenderness, no suprabupic tenderness to palpation. Extremity: COMMON NORMALS: full ROM Neuro: SENSORIUM/ORIENTATION: Yes alert MOTOR EXAM: No Abnormal motor strength present and Other motor observations present (no focal motor deficits) Psych: COMMON NORMALS: speech normal SPEECH: Yes normal speech MOOD & AFFECT: Yes euthymic mood Course Vital Signs: Vital signs: Vital Signs Temperature 98.0 F 08/20/21 12:58 Pulse Rate 93 08/20/21 12:58 Respiratory Rate 18 08/20/21 12:58 Blood Pressure 128/88 08/20/21 12:58 Pulse Oximetry 97 08/20/21 12:58 [facility] - General Adult Medical Decision Making 61-year-old male with chronic G-tube dependence, prior jaw cancer presenting to the emergency room for concern of dehydration, nausea vomiting and diarrhea. On physical exam, patient appears to be dry mucous membrane. G-tube appears to be intact. Lab workup largely appeared to be normal. Patient received Zofran x2 for nausea in the emergency room. Patient received 2 L of fluids reports mild symptomatic improvement. Patient would like to stay in the hospital for rehydration. Disposition: admission Lab Data : 08/19/21 04:38 08/19/21 04:38 Radiology Impressions Chest X-Ray 08/18/21 16:52 IMPRESSION: 1. Negative for infiltrate. 2. Left mid lung calcified benign granuloma. 3. Emphysematous changes. KUB X-Ray 08/18/21 17:05 IMPRESSION: Percutaneous gastric tube tip seen over the stomach. Abdomen/Pelvis CT 08/19/21 12:16 IMPRESSION: 1. PEG tube in place. No fluid collection or abscess. No evidence of high-grade obstruction. 2. Tree-in-bud infiltrates in the RIGHT lower lobe similar to 2020. Compressive atelectasis with air bronchograms in the LEFT lower lobe unchanged. 3. Small pericardial effusion. 4. LEFT renal cyst measuring 3.3 CM. 5. Sigmoid diverticulosis. No evidence of acute diverticulitis. 6. Calcified enlarged prostate measuring 4.9 CM. 7. Incidental fat-containing umbilical hernia. 8. Disc space narrowing L4-L5 and L5-S1. Laboratory Results WBC 10.7 10^3/uL (4.0-10.0) H 08/18/21 15:25 RBC 4.19 10^6/uL (4.1-5.3) 08/18/21 15:25 Hgb 13.7 g/dL (11.7-16.6) 08/18/21 15:25 Hct 42.9 % (42.0-52.0) 08/18/21 15:25 MCV 102.4 fl (80-94) H 08/18/21 15:25 MCH 32.7 pg (28.0-34.0) 08/18/21 15:25 MCHC 31.9 g/dL (30.0-36.0) 08/18/21 15:25 RDW 13.0 % (12.1-15.1) 08/18/21 15:25 Plt Count 193 10^3/cmm (130-400) 08/18/21 15:25 MPV 10.9 fL (7.4-10.4) H 08/18/21 15:25 Neut % (Auto) 89.1 % 08/18/21 15:25 Lymph % (Auto) 6.0 % 08/18/21 15:25 [place] % (Auto) 4.5 % 08/18/21 15:25 Eos % (Auto) 0.0 % 08/18/21 15:25 Baso % (Auto) 0.1 % 08/18/21 15:25 Neut # (Auto) 9.56 10^3/uL (1.8-7.7) H 08/18/21 15:25 Lymph # (Auto) 0.6 10^3/uL (0.8-4.8) L 08/18/21 15:25 [place] # (Auto) 0.5 10^3/uL (0.2-0.9) 08/18/21 15:25 Eos # (Auto) 0.0 10^3/uL (0.0-0.8) 08/18/21 15:25 Baso # (Auto) 0.0 10^3/uL (0.0-0.1) 08/18/21 15:25 Nucleated RBC % (auto) 0 % 08/18/21 15:25 Nucleated RBCs # 0.0 /100WBC 08/18/21 15:25 Sodium 137 mmol/L (136-145) 08/18/21 15:25 Potassium 4.1 mmol/L (3.5-5.1) 08/18/21 15:25 Chloride 100 mmol/L (98-107) 08/18/21 15:25 Carbon Dioxide 24 mmol/L (22-29) 08/18/21 15:25 Anion Gap 17.1 (5-19) 08/18/21 15:25 BUN 30 mg/dL (8-23) H 08/18/21 15:25 Creatinine 0.6 mg/dL (0.7-1.2) L 08/18/21 15:25 GFR Calculation 136.5 mL/min (90-130) H 08/18/21 15:25 Glucose 117 mg/dL (65-115) H 08/18/21 15:25 Calculated Osmolality 291 mOsm/kg (285-295) 08/18/21 15:25 Calcium 8.5 mg/dL (8.5-10.5) 08/18/21 15:25 Phosphorus 2.9 mg/dL (2.5-4.5) 08/18/21 15:25 Magnesium 2.4 mg/dL (1.7-2.3) H 08/18/21 15:25 Total Bilirubin 0.4 mg/dL (0.15-1.2) 08/18/21 15:25 AST 13 U/L (0-40) 08/18/21 15:25 ALT 11 U/L (0-41) 08/18/21 15:25 Alkaline Phosphatase 79 IU/L (40-130) 08/18/21 15:25 Troponin T Baseline 15 ng/L (0-15) 08/18/21 15:25 Total Protein 7.1 g/dL (6.6-8.7) 08/18/21 15:25 Albumin 4.3 g/dL (3.5-5.2) 08/18/21 15:25 Globulin 2.8 g/dL (1.3-4.6) 08/18/21 15:25 Lipase 16 U/L (13-60) 08/18/21 15:25 Procalcitonin 0.03 ng/mL (0-0.5) 08/18/21 15:25 Discharge Plan Discharge Patient Disposition: Admitted As Inpatient Admit Provider: Lennie Fuller Clinical Impression: Dehydration, Nausea & vomiting, Diarrhea, Decreased ability to feed self Condition: Stable Discharge Diet: Usual diet and Resume prior tube feeds Discharge Activity: Resume usual activity and Increase activity as tolerated Coding Level of Care Code ED Public Health Informatician for Didierg Fwd Exam Comprehensive
[2021-08-18] MEDS: sodium chloride 0.9% 1,000 ML 999 ML IV (15:30)
[2021-08-18 15:33] LABS: Basophils % 0.1 %; Hematocrit 42.9 % (42.0-52.0); Hemoglobin 13.7 g/dL (11.7-16.6); Lymphocytes # 0.6 10^3/uL (0.8-4.8); Mean Corpuscular HGB Conc 31.9 g/dL (30.0-36.0); Mean Corpuscular Hemoglobin 32.7 pg (28.0-34.0); Mean Corpuscular Volume 102.4 fl (80-94); Mean Platelet Volume 10.9 fL (7.4-10.4); Monocytes # 0.5 10^3/uL (0.2-0.9); Monocytes % 4.5 %; Neutrophils # 9.56 10^3/uL (1.8-7.7); Neutrophils % 89.1 %; Nucleated Red Blood Cells % 0 %; Platelet Count 193 10^3/cmm (130-400); Red Blood Count 4.19 10^6/uL (4.1-5.3); White Blood Count 10.7 10^3/uL (4.0-10.0)
[2021-08-18 16:02] LABS: Troponin(5th) Baseline 15 ng/L (0-15)
[2021-08-18 16:03] LABS: Alanine Aminotransferase 11 U/L (0-41); Albumin Level 4.3 g/dL (3.5-5.2); Alkaline Phosphatase 79 IU/L (40-130); Anion Gap 17.1 (5-19); Aspartate Amino Transferase 13 U/L (0-40); Blood Urea Nitrogen 30 mg/dL (8-23); Calcium 8.5 mg/dL (8.5-10.5); Carbon Dioxide 24 mmol/L (22-29); Chloride 100 mmol/L (98-107); Globulin 2.8 g/dL (1.3-4.6); Glomerular Filtration Rate 136.5 mL/min (90-130); Glucose 117 mg/dL (65-115); Lipase 16 U/L (13-60); Osmolality Calculated 291 mOsm/kg (285-295); Potassium 4.1 mmol/L (3.5-5.1); Sodium 137 mmol/L (136-145); Total Bilirubin 0.4 mg/dL (0.15-1.2); Total Protein 7.1 g/dL (6.6-8.7)
--- NOTE | 2021-08-18 16:52 | XRR_ITS ---
PROCEDURE INFORMATION: Exam: XR Chest Exam date and time: 08/18/2021 5:06 PM Age: 61 years old Clinical indication: Other: Dehydration; Additional info: Baseline TECHNIQUE: Imaging protocol: XR of the chest. Views: 1 view. COMPARISON: CR XR chest 1V portable [id number] 07/28/2021 2:44 PM FINDINGS: Lungs: Left mid lung calcified benign granuloma. Emphysematous changes. Pleural spaces: Unremarkable. No pleural effusion. No pneumothorax. Heart/Mediastinum: Unremarkable. No cardiomegaly. Bones/joints: Unremarkable. XR/XR chest 1V portable [id number] IMPRESSION: 1. Negative for infiltrate. 2. Left mid lung calcified benign granuloma. 3. Emphysematous changes.
--- NOTE | 2021-08-18 16:58 | P.HP_ITS ---
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 Patient states that he has had this numerous times before where he starts having nausea and vomiting and then it goes away on its own. He especially came to the hospital given IV fluids. He denies having any diarrhea, abdominal pain, leakage around his PEG tube site, constipation, shortness of breath, chest pain or any other complaint at this time. He states he is already feeling better after 2 L of IV fluids but would like to get some more as he still feels dehydrated. ED course: On arrival patient was nauseous. He was given 2 L normal saline bolus, started on normal saline. Chest x-ray was ordered, KUB was ordered which were both unremarkable. There were no physical examination findings apart from his baseline status. Hospitalist was asked to admit patient for observation status for IV fluids overnight. Labs also reviewed. MCV 102, white count 10.1, all other labs unremarkable and at patient's baseline. Medications/Allergies Home Medications Medication Instructions Recorded Confirmed Last Taken Type acetaminophen 500 mg tablet 1,500 mg PO Q8H PRN 04/08/21 08/18/21 07/27/21 Histo ry buspirone 10 mg tablet 10 mg PO TID 04/08/21 08/18/21 07/28/21 History melatonin 5 mg tablet 10 mg FEEDING TUBE TID@06,17,23 04/08/21 08/18/21 07/28/21 History aspirin 81 mg tablet,delayed 81 mg PO DAILY #30 tab 07/28/21 08/18/21 Unknown Rx release isosorbide mononitrate 30 mg 30 mg PO DAILY #30 tab 07/28/21 08/18/21 Unknown Rx tablet,extended release 24 hr lactose-reduced food with fiber See Rx Instructions .ROUTE .COMPLEX 07/28/21 08/18/2107/28/22 History 0.06 gram-1.5 kcal/mL oral liquid Allergies Allergy/AdvReac Type Severity Reaction Status Date / Time No Known Allergies Allergy Verified 08/18/21 16:12 PFSH Acute PFSH: Medical History Anxiety Aspiration, chronic pulmonary COPD (chronic obstructive pulmonary disease) Decubitus ulcer of coccyx, 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 History of osteomyelitis Osteomyelitis of the mandible, treated in 2017 Urinary retention Lopez catheter placed October 2019 with failed trial of voiding Uses feeding tube Surgical History Gastrostomy present (07/15/21) History of tonsillectomy Cancer resection with tonsillar cancer Family History Mother Cancer Diabetes Father , 80 Cancer Denies family history of Anesthesia complication Bleeding disorder Social History Smoking and tobacco status: former smoker Quit status (tobacco): has quit using tobacco Year quit tobacco: 2019 - 0.5 PPD x 30 Years Alcohol intake: never Caregiver/support person: Yes Lives independently: No Household members: caregiver Housing: Detention Marital status: Current occupational status: disabled History of recent travel: No Current gender identity: Male Vitals/I&O/Wt Last Vital Signs Temp 98.3 F 08/18/21 15:16 Pulse 92 08/18/21 16:55 Resp 14 08/18/21 16:55 BP 140/106 08/18/21 16:55 Pulse Ox 98 08/18/21 16:55 Weight last 48 hrs Weight 63.503 kg Physical Exam Narrative: General: Alert oriented x3, patient seen laying in bed appearing comfortable on 3 L nasal cannula which is his baseline. Frail-appearing severely cachectic male. HEENT: Normocephalic, atraumatic, EOMI, Cardio: Regular rate rhythm, normal S1-S2, Respiratory: Good bilateral air entry, no wheezes no rhonchi appreciated GI: Abdomen soft, nontender, nondistended, bowel sounds +, no leakage noted around PEG tube site and it appears clean, no erythema. Behavior: Appropriate and cooperative Extremities: no edema, no cyanosis Data : 08/18/21 15:25 08/18/21 15:25 A&P Assessment and plan (1) Dehydration: Status: Acute (2) Nausea & vomiting: Status: Acute (3) Decreased ability to feed self: Status: Acute (4) Gastrostomy present: Status: Acute (5) Anemia: Status: Acute Qualifiers: Anemia type: unspecified type Qualified Code(s): D64.9 - Anemia, unspecified (6) History of malignant neoplasm of tonsil: Status: Chronic (7) Uses feeding tube: Status: Chronic (8) Anxiety: Status: Chronic Plan #Dehydration #Nausea vomiting ? Zofran every 8 hours as needed ? Continue normal saline at 100 cc/h ? Recheck labs in a.m. ? Follow up chronic medical conditions?continue home medications Full code Anticipate discharge in a.m. Attestations Medical Necessity Statement*: Observation. Anticipate discharge in a.m. Coding Level of Care Code Acute Cardiovascular Lab Director for [facility] Fwd Diagnoses Dehydration E86.0 Nausea & vomiting R11.2 Decreased ability to feed self R63.39 Gastrostomy present Z93.1 Anemia D64.9 Anemia type: unspecified type History of malignant neoplasm of tonsil Z85.818 Uses feeding tube Z97.8 Anxiety F41.9
--- NOTE | 2021-08-18 17:05 | XRR_ITS ---
PROCEDURE INFORMATION: Exam: XR Abdomen Exam date and time: 08/18/2021 5:09 PM Age: 61 years old Clinical indication: Other: Dehydration; Prior surgery; Surgery date: 6+ months; Surgery type: Drain TECHNIQUE: Imaging protocol: XR of the abdomen. Views: Frontal supine view of the abdomen. 1 View. COMPARISON: CR XR KUB portable [id number] 07/06/2021 5:06 PM FINDINGS: Tubes, catheters and devices: Percutaneous gastric tube tip seen over the stomach. Gastrointestinal tract: Normal. No bowel dilation. Bones/joints: Unremarkable. XR/XR KUB portable [id number] IMPRESSION: Percutaneous gastric tube tip seen over the stomach.
--- NOTE | 2021-08-18 17:13 | ECG_ITS ---
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 Measurements Intervals [place] Rate: 92 P: 52 AL: 160 QRS: 75 QRSD: 118 T: 47 QT: 378 QTc: 468 Interpretive Statements SINUS RHYTHM INCOMPLETE RIGHT BUNDLE BRANCH BLOCK [90+ ms QRS DURATION, TERMINAL R IN V1/V2, 40+ ms S IN I/aVL/V4/V5/V6] MINIMAL ST DEPRESSION [0.025+ mV ST DEPRESSION] Compared to ECG 08/18/2021 15:54:03 ST (T wave) deviation now present Myocardial infarct finding no longer present T-wave abnormality no longer present Possible ischemia no longer present Electronically Signed On 08-18-2021 22:03:24 CDT by Chava Bray M.D. [id number]
[2021-08-18 17:53] LABS: Urine Appearance Clear (CLEAR); Urine Color Yellow (Yellow)
[2021-08-18 17:54] LABS: Add Urine Microscopic? YES; Bilirubin Urine Neg (Negative); Blood Urine 2+ (Negative); Glucose Urine UA Norm (Normal); Ketones Urine Negative (Negative); Leukocyte Esterase Urine Negative (Negative); Nitrate Urine Negative (Negative); Protein Urine Neg (Negative); Urobilinogen Urine Norm (Negative); pH Urine 7 (5-7)
[2021-08-18 17:55] LABS: WBC Urine 0-4 /hpf (0-5)
[2021-08-18 17:56] LABS: Add Urine Culture? Yes
[2021-08-18 17:56] LABS: Magnesium 2.4 mg/dL (1.7-2.3); Phosphorus 2.9 mg/dL (2.5-4.5)
[2021-08-18 18:04] LABS: Procalcitonin 0.03 ng/mL (0-0.5)
[2021-08-18] MEDS: heparin 5,000 unit/mL INJ 1 mL 5000 UNIT SUBCUT (18:35)
[2021-08-18] MEDS: sodium chloride 0.9% 1,000 ML 100 ML IV (18:35)
[2021-08-18] MEDS: pantoprazole 40 mg SDV IVP (18:35)
--- NOTE | 2021-08-18 18:40 | PC.NURSE ---
I reported the high bp to the nurse 160/102 169/109
[2021-08-18 19:03] LABS: Troponin 5 2HR Delta -1.7 ABS# (0-10)
[2021-08-18] MEDS: BuSPIRONE 10 mg Tablet PO (21:13)
[2021-08-18] MEDS: acetaminophen 500 mg Tablet 1500 MG PO (21:13)
[2021-08-18] MEDS: ondansetron 2 mg/ML SDV 2 mL 4 MG IVP (21:13)
[2021-08-18 21:51] LABS: Lactic Sepsis W/Reflex 1.7 mmol/L (0.5-2.2)
[2021-08-19] VITALS (7 sets, daily range): BP systolic 99–155; BP diastolic 62–102; PULSE 79–98; RESP 15–22; TEMP 36.5–37; O2SAT 94–100
[2021-08-19] MEDS: ondansetron 2 mg/ML SDV 2 mL 4 MG IVP (01:42)
[2021-08-19] MEDS: heparin 5,000 unit/mL INJ 1 mL 5000 UNIT SUBCUT ×2 (04:06→18:35)
[2021-08-19] MEDS: sodium chloride 0.9% 1,000 ML 100 ML IV ×2 (04:06→15:49)
[2021-08-19 06:09] LABS: Basophils % 0.1 %; Eosinophils # 0.1 10^3/uL (0.0-0.8); Eosinophils % 0.8 %; Hematocrit 40.4 % (42.0-52.0); Hemoglobin 12.3 g/dL (11.7-16.6); Lymphocytes # 1.3 10^3/uL (0.8-4.8); Lymphocytes % 15.5 %; Mean Corpuscular HGB Conc 30.4 g/dL (30.0-36.0); Mean Corpuscular Hemoglobin 32.3 pg (28.0-34.0); Mean Platelet Volume 11.5 fL (7.4-10.4); Monocytes # 0.5 10^3/uL (0.2-0.9); Monocytes % 6.1 %; Neutrophils # 6.55 10^3/uL (1.8-7.7); Neutrophils % 77.3 %; Nucleated Red Blood Cells % 0 %; Platelet Count 164 10^3/cmm (130-400); Red Blood Count 3.81 10^6/uL (4.1-5.3); Red Cell Distribution Width 13.1 % (12.1-15.1); White Blood Count 8.5 10^3/uL (4.0-10.0)
[2021-08-19 06:27] LABS: Alanine Aminotransferase 11 U/L (0-41); Albumin Level 3.7 g/dL (3.5-5.2); Alkaline Phosphatase 72 IU/L (40-130); Aspartate Amino Transferase 20 U/L (0-40); Blood Urea Nitrogen 21 mg/dL (8-23); Calcium 8.4 mg/dL (8.5-10.5); Carbon Dioxide 24 mmol/L (22-29); Chloride 103 mmol/L (98-107); Globulin 3.2 g/dL (1.3-4.6); Glomerular Filtration Rate 136.5 mL/min (90-130); Glucose 101 mg/dL (65-115); Magnesium 2.2 mg/dL (1.7-2.3); Osmolality Calculated 289 mOsm/kg (285-295); Sodium 138 mmol/L (136-145); Total Bilirubin 0.3 mg/dL (0.15-1.2); Total Protein 6.9 g/dL (6.6-8.7)
[2021-08-19 06:37] LABS: Anion Gap 15.1 (5-19); Potassium 4.1 mmol/L (3.5-5.1)
--- NOTE | 2021-08-19 07:49 | PC.NURSE ---
I reported the high bp to the nurse 155/102
[2021-08-19] MEDS: BuSPIRONE 10 mg Tablet PO ×3 (09:59→21:21)
[2021-08-19] MEDS: aspirin 81 mg EC Tablet PO (09:59)
[2021-08-19] MEDS: isosorbide mononitrate ER 30 mg Tablet PO (09:59)
--- NOTE | 2021-08-19 10:35 | PC.NUTR ---
PEG TF consult received. Recommend 6 cartons Jevity 1.2 (each carton is 8 ounces or 237 mls) per day to be given breakfast/ lunch/ dinner, 2 cartons (16 ounces or 480 mls) each time with 60 mls flush before and after. In addition recommend 200-300 mls extra to meet Pt's fluid needs - unless Pt is feeling full or receiving extra IV fluids. Since Pt vomitted after breakfast, recommend 1 carton or 8 ounce serving Jevity 1.2 at lunch. If Pt tolerates, try 2 cartons or 8 ounce servings for dinner. Details in RD assessment.
--- NOTE | 2021-08-19 10:55 | PC.CHAP ---
Pastoral Care Encounter/Spiritual Assessment Type of Contact [] Declined placement officer visit [] Patient/Family/Request visit [] Outpatient visit [] Follow-up visit [] Physician referral [] Code/Alert [xx] Routine visit [] Staff referral [] Actively dying [] Patient sleeping [] Family support [] [] Out of room [] Palliative care [] [] Receiving care in room [] Pre-surgical visit [] Trauma [] Long length of stay [] ICU visit [] Other: Relational/Emotional Strength [x] Patient feels connected with others/family/visitors/staff [] Distress [] Loneliness/isolation [] Abandonment Spirituality of Patient [x] Person of Delmis []x Attends Zoroastrianism of their Delmis [x] Believes in Prayer [] Reads Bible or Baptism materials [] There are Spiritual issues to be addressed Unishear Operator Interventions x[] Prayer [x] Active listening [x] Non-anxious presence [x] Spiritual/emotional support [] Crisis/trauma care [] Spiritual counseling [] Bereavement support [] Provided bereavement packet [] Provided Bible/devotional materials [] Provided toy/stuffed animal, coloring book to patient or family member [] Provided Communion [] Anointing/Carmel [] Salvation [x] Completed spiritual assessment [] Other: Impact on Illness or Injury [] Angry [] Fearful [] Anxious [] Often cries [] Exhaustion [] Unable to work [] Unable to attend muslim [] Unable to walk/stand [] Unable to read [] Unable to drive [] Unable to eat/drink [] Unable to sleep [] Unable to be with family [] Patient intubated [] Other: Summary Time spent with patient 1 10 min
--- NOTE | 2021-08-19 12:16 | CT_ITS ---
WS: [id number] CT ABDOMEN PELVIS TECHNIQUE: Noncontrast CT of the abdomen and pelvis with coronal and sagittal reformatted images. CLINICAL INFORMATION: N/V, peg tube in place COMPARISON: CT October 17, 2019 DLP: 904.[address] scans at [facility] use at least one of these dose optimization techniques: automated e xposure control; mA and/or kV adjustment per patient size (includes targeted exams where dose is matc hed to clinical indication); or iterative reconstruction. FINDINGS: PEG tube with tip in the distal stomach. PEG tube is normal in appearance. No surrounding fluid colle ction or abscess. Fluid within the stomach with air-fluid levels in the proximal duodenum. No evidenc e of high-grade obstruction. Mild rectal constipation. Sigmoid diverticulosis. No evidence of acute diverticulitis. Small pericard ial effusion. Interstitial thickening with tree-in-bud opacities RIGHT lower lobe. Compressive atelec tasis with air bronchograms in the LEFT lower lobe. Noncontrast liver is normal. Normal noncontrast pancreas and spleen. Adrenal glands are normal. No hy dronephrosis. LEFT renal cyst measuring 3.3 CM. Normal caliber abdominal aorta. Fat-containing umbili preethi hernia. CT/CT abdomen pelvis wo con [id number] IMPRESSION: 1. PEG tube in place. No fluid collection or abscess. No evidence of high-grad e obstruction. 2. Tree-in-bud infiltrates in the RIGHT lower lobe similar to 2019. Compressiv e atelectasis with air bronchograms in the LEFT lower lobe unchanged. 3. Small pericardial effusion. 4. LEFT renal cyst measuring 3.3 CM. 5. Sigmoid diverticulosis. No evidence of acute diverticulitis. 6. Calcified enlarged prostate measuring 4.9 CM. 7. Incidental fat-containing umbilical hernia. 8. Disc space narrowing L4-L5 and L5-S1.
--- NOTE | 2021-08-19 15:36 | P.PN_ITS ---
Subjective Subjective: Hospital course, labs appreciated. Patient denies any new complaints. Complaining of dry heaving especially post PEG tube feeding. Today morning after getting PEG tube feeds patient felt nauseous and dry heaving but denies any vomiting. States he has bowel movements infrequently. Last known normal today morning. States bowel movements are at baseline. Denies any abdominal pain. Continues marijuana regularly at home. Does agree with using extra marijuana last week. Vitals/I&O/Wt Last Vital Signs Temp 97.7 F 08/19/21 11:29 Pulse 95 08/19/21 11:29 Resp 20 H 08/19/21 11:29 BP 99/62 08/19/21 11:29 Pulse Ox 96 08/19/21 11:29 08/19/21 08/19/21 08/19/21 06:59 14:59 22:59 Intake Total 951.667 / 3141.667 Output Total 400 / 400 Balance 951.667 / 3016.667 -400 / -400 Weight last 48 hrs Weight 67.217 kg Weight 63.503 kg Physical Exam Narrative: General: Alert oriented x3, patient seen laying in bed appearing comfortable on 3 L nasal cannula which is his baseline. Frail-appearing severely cachectic male. Chronically sick appearing HEENT: Normocephalic, atraumatic, EOMI, Cardio: Regular rate rhythm, normal S1-S2, Respiratory: Good bilateral air entry, no wheezes no rhonchi appreciated GI: Abdomen soft, nontender, nondistended, bowel sounds +, no leakage noted around PEG tube site and it appears clean, no erythema. Behavior: Appropriate and cooperative Extremities: no edema, no cyanosis Data : 08/19/21 04:38 08/19/21 04:38 A&P Assessment and plan (1) Dehydration: Status: Acute (2) Nausea & vomiting: Status: Acute (3) Decreased ability to feed self: Status: Acute (4) Gastrostomy present: Status: Acute (5) Anemia: Status: Acute Qualifiers: Anemia type: unspecified type Qualified Code(s): D64.9 - Anemia, unspecified (6) History of malignant neoplasm of tonsil: Status: Chronic (7) Uses feeding tube: Status: Chronic (8) Anxiety: Status: Chronic Plan Dehydration secondary to poor oral intake and multiple episodes of vomiting at home. Continue with normal saline 100 cc/h. Nausea/vomiting: Post PEG tube placement. Recurrent episodes. Most likely secondary to extensive marijuana use. Cannot rule out obstruction or PEG tube malfunction. In place as per KUB done on admission. Check CT abdomen pelvis. Zofran as needed. Restart home PEG feeds. Dietitian consult. Full code. Protonix OPD prophylaxis Heparin for DVT prophylaxis. Discharge planning: Anticipate discharge in next 24 hours after reinitiation of PEG tube feeds while IV fluids are continued. Attestations Medical Necessity Statement*: Requires further hospitalization for management of dehydration, nausea, vomiting in setting of PEG tube placement for patient with tonsillar malignancy Time Spent in Patient Care: Greater than 35 minutes Coding Level of Care Code Acute Hand Binder Stripper for g Fwd Diagnoses Dehydration E86.0 Nausea & vomiting R11.2 Decreased ability to feed self R63.39 Gastrostomy present Z93.1 Anemia D64.9 Anemia type: unspecified type History of malignant neoplasm of tonsil Z85.818 Uses feeding tube Z97.8 Anxiety F41.9
[2021-08-19] MEDS: acetaminophen 500 mg Tablet 1500 MG PO ×2 (15:52→21:21)
[2021-08-19] MEDS: pantoprazole 40 mg SDV IVP (18:34)
[2021-08-19 20:09] LABS: Vitamin B12 732 pg/mL (232-1245)
[2021-08-19 20:45] LABS: Folate Level > 20.0 ng/mL (4.5-32.2)
[2021-08-19] MEDS: trazodone 50 mg Tablet PO (21:21)
[2021-08-20] VITALS: BP 141/86; PULSE 88; RESP 18; TEMP 36.4; O2SAT 97
[2021-08-20] MEDS: sodium chloride 0.9% 1,000 ML 100 ML IV (00:11)
[2021-08-20] MEDS: ondansetron 2 mg/ML SDV 2 mL 4 MG IVP (03:40)
[2021-08-20 03:55] VITALS: BP 153/94; PULSE 109; RESP 18; TEMP 36.9; O2SAT 93
--- NOTE | 2021-08-20 03:55 | PC.NURSE ---
vomiting in bathroom nurse notified.
[2021-08-20] MEDS: heparin 5,000 unit/mL INJ 1 mL 5000 UNIT SUBCUT (05:51)
[2021-08-20 07:30] VITALS: BP 135/89; PULSE 90; RESP 20; TEMP 36.7; O2SAT 98
[2021-08-20 07:40] VITALS: PULSE 80; RESP 16; O2SAT 99
[2021-08-20] MEDS: acetaminophen 500 mg Tablet 1500 MG PO (09:27)
[2021-08-20] MEDS: aspirin 81 mg EC Tablet PO (09:30)
[2021-08-20] MEDS: BuSPIRONE 10 mg Tablet PO (09:30)
--- NOTE | 2021-08-20 10:00 | P.DS_ITS ---
Discharge Providers Date of Admission: 08/18/21 16:49 Date of Discharge: August 20, 2021 Attending Provider at Admission: Lennie Fuller MD Attending Provider at Discharge: Kiet Vasquez MD Primary Care Provider: Martin Mcfarland DO Diagnoses at Discharge Discharge Diagnosis (1) Dehydration: Status: Acute (2) Nausea & vomiting: Status: Acute (3) Decreased ability to feed self: Status: Acute (4) Gastrostomy present: Status: Acute (5) Anemia: Status: Acute Qualifiers: Anemia type: unspecified type Qualified Code(s): D64.9 - Anemia, unspecified (6) History of malignant neoplasm of tonsil: Status: Chronic (7) Uses feeding tube: Status: Chronic (8) Anxiety: Status: Chronic Reason for Visit Reason for Visit: INCREASED NAUSEA/ DEHYDRATION Brief History: History as per HPI: 60-year-old gentleman with history of COPD, chronically on 2.5-3 L of oxygen, with past history of tonsillar carcinoma, status post resection, 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 Patient states that he has had this numerous times before where he starts having nausea and vomiting and then it goes away on its own.? He especially came to the hospital given IV fluids.? He denies having any diarrhea, abdominal pain, leakage around his PEG tube site, constipation, shortness of breath, chest pain or any other complaint at this time.? He states he is already feeling better after 2 L of IV fluids but would like to get some more as he still feels dehydrated. ED course: On arrival patient was nauseous.? He was given 2 L normal saline bolus, started on normal saline.? Chest x-ray was ordered, KUB was ordered which were both unremarkable.? There were no physical examination findings apart from his baseline status.? Hospitalist was asked to admit patient for observation s tatus for IV fluids overnight.? Labs also reviewed.? MCV 102, white count 10.1, all other labs unremarkable and at patient's baseline. Hospital Course Hospital Course Patient will go to the hospital for further evaluation and management. On admission there were concerns for dehydration. Started on IV hydration. At [facility] rt he was kept n.p.o. and then eventually tube feeds were gradually restarted. PEG tube malfunction, GI obstruction or constipation were ruled out by abdominal imaging. Currently patient is able to tolerate 2 cans of Jevity 3 times a day. His symptoms resolved. Is been discharged hemodynamically stable condition with advised to continue his tube feeds but at a slower rate going forward. He is advised to cut down on his marijuana use. It is thought his symptoms are most likely secondary to excessive marijuana use at home. Patient is also advised to follow-up with his ENT physician regarding possible tonsillar subcutaneous fistulization secondary to chronic malignant neoplasm of the tonsils. Physical Exam Narrative: General: Alert oriented x3, patient seen laying in bed appearing comfortable on 3 L nasal cannula which is his baseline. Frail-appearing severely cachectic male. Chronically sick appearing HEENT: Normocephalic, atraumatic, EOMI, Cardio: Regular rate rhythm, normal S1-S2, Respiratory: Good bilateral air entry, no wheezes no rhonchi appreciated GI: Abdomen soft, nontender, nondistended, bowel sounds +, no leakage noted around PEG tube site and it appears clean, no erythema. Behavior: Appropriate and cooperative Extremities: no edema, no cyanosis Discharge Data Studies Completed and Pending Completed Studies During Hospitalization Category Date Time Status CT abdomen pelvis con [id number] Routine Cat Scan 08/19/21 12:16 Completed XR KUB portable [id number] Stat Exams 08/18/21 17:05 Completed XR chest 1V portable [id number] Stat Exams 08/18/21 16:52 Completed Radiology Impressions Chest X-Ray 08/18/21 16:52 IMPRESSION: 1. Negative for infiltrate. 2. Left mid lung calcified benign granuloma. 3. Emphysematous changes. KUB X-Ray 08/18/21 17:05 IMPRESSION: Percutaneous gastric tube tip seen over the stomach. Abdomen/Pelvis CT 08/19/21 12:16 IMPRESSION: 1. PEG tube in place. No fluid collection or abscess. No evidence of high-grade obstruction. 2. Tree-in-bud infiltrates in the RIGHT lower lobe similar to 2020. Compressive atelectasis with air bronchograms in the LEFT lower lobe unchanged. 3. Small pericardial effusion. 4. LEFT renal cyst measuring 3.3 CM. 5. Sigmoid diverticulosis. No evidence of acute diverticulitis. 6. Calcified enlarged prostate measuring 4.9 CM. 7. Incidental fat-containing umbilical hernia. 8. Disc space narrowing L4-L5 and L5-S1. Laboratory Results WBC 8.5 10^3/uL (4.0-10.0) 08/19/21 04:38 RBC 3.81 10^6/uL (4.1-5.3) L 08/19/21 04:38 Hgb 12.3 g/dL (11.7-16.6) 08/19/21 04:38 Hct 40.4 % (42.0-52.0) L 08/19/21 04:38 MCV 106.0 fl (80-94) H 08/19/21 04:38 MCH 32.3 pg (28.0-34.0) 08/19/21 04:38 MCHC 30.4 g/dL (30.0-36.0) 08/19/21 04:38 RDW 13.1 % (12.1-15.1) 08/19/21 04:38 Plt Count 164 10^3/cmm (130-400) 08/19/21 04:38 MPV 11.5 fL (7.4-10.4) H 08/19/21 04:38 Neut % (Auto) 77.3 % 08/19/21 04:38 Lymph % (Auto) 15.5 % 08/19/21 04:38 [place] % (Auto) 6.1 % 08/19/21 04:38 Eos % (Auto) 0.8 % 08/19/21 04:38 Baso % (Auto) 0.1 % 08/19/21 04:38 Neut # (Auto) 6.55 10^3/uL (1.8-7.7) 08/19/21 04:38 Lymph # (Auto) 1.3 10^3/uL (0.8-4.8) 08/19/21 04:38 [place] # (Auto) 0.5 10^3/uL (0.2-0.9) 08/19/21 04:38 Eos # (Auto) 0.1 10^3/uL (0.0-0.8) 08/19/21 04:38 Baso # (Auto) 0.0 10^3/uL (0.0-0.1) 08/19/21 04:38 Nucleated RBC % (auto) 0 % 08/19/21 04:38 Nucleated RBCs # 0.0 /100WBC 08/19/21 04:38 Sodium 138 mmol/L (136-145) 08/19/21 04:38 Potassium 4.1 mmol/L (3.5-5.1) 08/19/21 04:38 Chloride 103 mmol/L (98-107) 08/19/21 04:38 Carbon Dioxide 24 mmol/L (22-29) 08/19/21 04:38 Anion Gap 15.1 (5-19) 08/19/21 04:38 BUN 21 mg/dL (8-23) 08/19/21 04:38 Creatinine 0.6 mg/dL (0.7-1.2) L 08/19/21 04:38 GFR Calculation 136.5 mL/min (90-130) H 08/19/21 04:38 Glucose 101 mg/dL (65-115) 08/19/21 04:38 Calculated Osmolality 289 mOsm/kg (285-295) 08/19/21 04:38 Lactic Acid 1.7 mmol/L (0.5-2.2) 08/18/21 21:23 Calcium 8.4 mg/dL (8.5-10.5) L 08/19/21 04:38 Phosphorus 2.9 mg/dL (2.5-4.5) 08/18/21 15:25 Magnesium 2.2 mg/dL (1.7-2.3) 08/19/21 04:38 Total Bilirubin 0.3 mg/dL (0.15-1.2) 08/19/21 04:38 AST 20 U/L (0-40) 08/19/21 04:38 ALT 11 U/L (0-41) 08/19/21 04:38 Alkaline Phosphatase 72 IU/L (40-130) 08/19/21 04:38 Troponin T Baseline 15 ng/L (0-15) 08/18/21 15:25 Troponin T 120 Minute 13.30 ng/L (0-15) 08/18/21 17:46 Delta Troponin T -1.7 ABS# (0-10) L 08/18/21 17:46 Total Protein 6.9 g/dL (6.6-8.7) 08/19/21 04:38 Albumin 3.7 g/dL (3.5-5.2) 08/19/21 04:38 Globulin 3.2 g/dL (1.3-4.6) 08/19/21 04:38 Lipase 16 U/L (13-60) 08/18/21 15:25 Vitamin B12 732 pg/mL (232-1245) 08/19/21 04:38 Folate > 20.0 ng/mL (4.5-32.2) 08/19/21 19:17 Procalcitonin 0.03 ng/mL (0-0.5) 08/18/21 15:25 Urine Color Yellow (Yellow) 08/18/21 17:00 Urine Appearance Clear (CLEAR) 08/18/21 17:00 Urine pH 7 (5-7) 08/18/21 17:00 Ur Specific [place] 1.010 (1.005-1.030) 08/18/21 17:00 Urine Protein Neg (Negative) 08/18/21 17:00 Urine Glucose (UA) Norm (Normal) 08/18/21 17:00 Urine Ketones Negative (Negative) 08/18/21 17:00 Urine Blood 2+ (Negative) H 08/18/21 17:00 Urine Nitrate Negative (Negative) 08/18/21 17:00 Urine Bilirubin Neg (Negative) 08/18/21 17:00 Urine Urobilinogen Norm mg/dL (Negative) 08/18/21 17:00 Ur Leukocyte Esterase Negative (Negative) 08/18/21 17:00 Urine RBC 10-15 /hpf (0-2) H 08/18/21 17:00 Urine WBC 0-4 /hpf (0-5) H 08/18/21 17:00 Ur Squamous Epith Cells None /hpf (0-5) 08/18/21 17:00 Amorphous Sediment Not Reportable 08/18/21 17:00 Urine Bacteria None /hpf (NONE) 08/18/21 17:00 Vitals Last Vital Signs Temp 98.1 F 08/20/21 07:30 Pulse 80 08/20/21 07:40 Resp 16 08/20/21 07:40 BP 135/89 08/20/21 07:30 Pulse Ox 99 08/20/21 07:40 Discharge Plan Discharge Patient Disposition: Home Condition: Stable Prescriptions: New famotidine [Pepcid] 40 mg tablet 40 mg PO BID Qty: 60 0RF Continued acetaminophen 500 mg Tablet 1,500 mg PO Q8H PRN (Reason: Pain) 0RF buspirone 10 mg tablet 10 mg PO TID 0RF melatonin 5 mg Tablet 10 mg feeding tube TID@06,17,23 0RF lactose-reduced food with fibr 0.06 gram-1.5 kcal/mL Liquid See Rx Instructions .ROUTE .COMPLEX 0RF Rx Instructions: 1 ea via feeding tube per rx directions isosorbide mononitrate 30 mg tablet extended release 24 hr 30 mg PO DAILY Qty: 30 0RF aspirin 81 mg tablet,delayed release (DR/EC) 81 mg PO DAILY Qty: 30 0RF Discharge Orders: Discharge Order (Routine); Ordered 08/20/21 Ordered By: Kiet Vasquez Referrals: Martin Mcfarland DO [Primary Care Provider] - 2 weeks Simón Rea MD [Physician] - 2 weeks Discharge Diet: Usual diet and Resume prior tube feeds Discharge Activity: Resume usual activity and Increase activity as tolerated Patient Instructions: Opioid Safety Activity Restrictions/Additional Instructions: Please continue tube feeds as before. Please try to decrease. Rate/speed off tube feeds going forward. Please try to cut down on marijuana use. Please follow-up with the ENT physician within next 2 weeks. Discharge Attestations Time Spent in Discharge Care*: greater than 30 min Specific Discharge Activities: educating patient, discussing with pcp/other providers, discussing with case resource manager/social workers/dc planners, documenting/other paperwork and evaluating patient/reviewing data Time Spent in Smoking Cessation: more than 10 minutes Status at Discharge: Cognitive status at discharge: cognitively intact , Behavioral status at discharge: cooperative , Functional status at discharge: other assisted ambulation , Overall status at discharge: patient is back to baseline Quality Metrics Clinical Quality Measures [ No reported AMI, CVA or VTE this stay] Coding Level of Care Code Acute Chg FW DC note Diagnoses Dehydration E86.0 Nausea & vomiting R11.2 Decreased ability to feed self R63.39 Gastrostomy present Z93.1 Anemia D64.9 Anemia type: unspecified type History of malignant neoplasm of tonsil Z85.818 Uses feeding tube Z97.8 Anxiety F41.9
[2021-08-20 11:10] VITALS: BP 128/88; PULSE 93; RESP 18; TEMP 36.7; O2SAT 97
--- NOTE | 2021-08-20 12:11 | PC.NURSE ---
DISCHARGE PAPERWORK GONE OVER WITH OT. ALL QUESTIONS ANSWERED. IV REMOVED. PT TOLERATED WELL. CATHETER TIP INTACT. PT WAS ASSISTED IN CHANGING CLOTHES AND IS JUST NEEDING A RIDE. RIDE HAS BEEN CALLED. WE WILL CONTINUE TO MONITOR AND CARE FOR PT UNTIL HE LEAVES.
[2021-08-20 12:58] VITALS: BP 128/88; PULSE 93; RESP 18; TEMP 36.7; O2SAT 97
== END 2021-08-20 12:40 | disposition home or self-care (01) ==
LOC: ER 16:51 → MEDSURG 17:36
PROVIDERS: Admitting Provider Internal Medicine; Emergency Provider Emergency Medicine; PCP Internal Medicine; Visit Provider Student in an Organized Health Care Education/Training Program
DX: E86.0 Dehydration (principal); R11.2 Nausea with vomiting, unspecified; R63.39 Other feeding difficulties; Z93.1 Gastrostomy status; D64.9 Anemia, unspecified; Z85.818 Personal history of malignant neoplasm of other sites of lip, oral cavity, and pharynx; Z97.8 Presence of other specified devices; F41.9 Anxiety disorder, unspecified; Z99.81 Dependence on supplemental oxygen; Z79.82 Long term (current) use of aspirin; Z87.891 Personal history of nicotine dependence
CPT/HCPCS: 36415; 71045; 74018; 74176; 80053; 81001; 82607; 82746; 83605; 83690; 83735; 84100; 84145; 84484; 85025; 87086; 93005; 94664; 96361; 96372; 96374; 96375; 99285; C9113; G0378; J1644; J2405; J7030

== ENCOUNTER → 2021-08-24 13:08 | Outpatient (BNVA) | payer MEDICAID, SELFPAY | PROVIDERS: PCP Internal Medicine; Visit Provider Otolaryngology | DX: Z85.818 Personal history of malignant neoplasm of other sites of lip, oral cavity, and pharynx (principal); Z87.891 Personal history of nicotine dependence | CPT/HCPCS: 99202; 99205 ==

== ENCOUNTER 2021-12-04 08:04 | Emergency (ER) | payer MEDICAID, SELFPAY ==
[2021-12-04 08:05] VITALS: BP 133/66; PULSE 105; RESP 18; TEMP 36.9; O2SAT 97; BMI 23.8
--- NOTE | 2021-12-04 08:09 | ECG_ITS ---
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 Measurements Intervals [place] Rate: 103 P: 62 DE: 150 QRS: 80 QRSD: 111 T: 71 QT: 338 QTc: 444 Interpretive Statements SINUS TACHYCARDIA MODERATE INTRAVENTRICULAR CONDUCTION DELAY [110+ ms QRS DURATION] MODERATE ST DEPRESSION [0.05+ mV ST DEPRESSION] INTERPRETATION BASED ON A DEFAULT AGE OF 40 YEARS Compared to ECG 08/18/2021 17:28:05 Intraventricular conduction delay now present Sinus rhythm no longer present Incomplete right bundle-branch block no longer present ST (T wave) deviation still present Electronically Signed On 12-04-2021 15:39:46 CDT by Troy Gaxiola M.D. [id number]
--- NOTE | 2021-12-04 08:09 | XR_ITS ---
WS: [id number] Exam: XR chest 1V portable [id number] Date/Time of Exam: 12/04/2021 8:11 AM Reason For Exam: Chest pain Comparison 07/28/2021. Right upper lobe infiltrate suspicious for pneumonia. Chronic interstitial changes in the right lower lung zone. The left lung is clear. No pneumothorax or pleural effusion. Cardiomediastinal silhouette is unremarkable. Bony structures are intact. XR/XR chest 1V portable [id number] IMPRESSION: 1. Right upper lobe infiltrate suspicious for pneumonia. Chronic interstitial c hanges in the right lower lung zone.
--- NOTE | 2021-12-04 08:19 | W.ED.CHESTPA ---
HPI - Chest Pain General: Chief Complaint: Chest Pain Stated Complaint: CHEST PAIN Time Seen by Provider: 12/04/21 08:06 Source: patient Mode of arrival: ambulatory History of Present Illness: 61-year-old male with a history of oropharyngeal cancer with resection. He has a PEG tube in place. He normally is on 2 and half to 3 L of oxygen per minute by nasal cannula. This morning he took his oxygen off to apply as PEG tube feeding. When asked why he remove the oxygen to use the PEG tube some lab at explanation basically he just routinely removes it rather than extend the cord or move the equipment. He began having chest discomfort a lot with that resolved when he put the oxygen back on. He states for the time EMS transported him his symptoms were completely resolved. MD complaint: chest pain Onset (ago): minute(s) Timing of current episode: episodic Prior episodes: Yes Onset: during rest Pain location: left chest Pain radiation: none Severity: mild Quality: aching and heaviness Exacerbating factors: nothing Associated symptoms: Reports diaphoresis and dyspnea; Deny abdominal pain, fever(s), leg edema, nausea, palpitations, sense of impending doom, syncope or vomiting Treatment prior to arrival: none Risk Factors: Coronary artery disease risk factors: none Review of Systems Const: Reports: diaphoresis; Denies: fever(s), chills, fatigue or malaise ENMT: Denies: throat pain, ear or mastoid pain, nasal discharge or nasal congestion Card: Denies: palpitations or syncope Resp: Reports: dyspnea GI: Denies: abdominal pain, nausea or vomiting : Denies: flank pain, difficulty urinating, dysuria, urinary frequency or urinary urgency Musc: Denies: neck pain or back pain Skin/Breast: Denies: rash or pruritus PFS ED PFSH: Medical History Anemia Anxiety Aspiration, chronic pulmonary Closed left ankle fracture COPD (chronic obstructive pulmonary disease) COVID-19 Decreased ability to feed self Decubitus ulcer of coccyx, stage 2 Diarrhea History of malignant neoplasm of tonsil History of osteomyelitis Osteomyelitis of the mandible, treated in 2017 Lung nodule < 6cm on CT Septicemia due to Staphylococcus aureus Severe sepsis Urinary retention Lopez catheter placed October 2019 with failed trial of voiding Uses feeding tube Surgical History Encounter for gastrojejunal (GJ) tube placement (10/19/19) Gastrostomy present (07/15/21) History of tonsillectomy Cancer resection with tonsillar cancer Family History Mother Cancer Diabetes Father , 80 Cancer Denies family history of Anesthesia complication Bleeding disorder Social History Smoking and tobacco status: former smoker (quit 2019) Quit status (tobacco): has quit using tobacco Year quit tobacco: 2019 - 0.5 PPD x 30 Years Alcohol intake: never Caregiver/support person: Yes Lives independently: No Household members: caregiver Housing: [facility] Marital status: Current occupational status: disabled History of recent travel: No Current gender identity: Male Physical Exam Const: COMMON NORMALS: no acute distress GENERAL APPEARANCE: cooperative and comfortable ORIENTATION/CONSCIOUSNESS: Yes awake, Yes oriented to person, Yes oriented to place and Yes oriented to time HENMT: COMMON NORMALS: normocephalic and hearing grossly normal bilaterally HEAD & SCALP: normocephalic Resp: COMMON NORMALS: normal respiratory effort, No retractions, No use of accessory muscles and clear to auscultation bilaterally AUSCULTATION: clear to auscultation bilaterally Cardio: COMMON NORMALS: regular rate, regular rhythm and No murmurs present (Cardio) RATE: regular rate RHYTHM: regular rhythm GI: COMMON NORMALS: Soft to palpation and No hepatosplenomegaly present AUSCULTATION: Yes normoactive bowel sounds PALPATION: Yes Soft to palpation, No Tenderness to palpation present (GI), No Guarding due to palpation present (GI) and Yes No hepatosplenomegaly present OTHER: PEG tube in left upper quadrant Extremity: COMMON NORMALS: normal to inspection, capillary refill normal, no clubbing, cyanosis or edema, no calf tenderness and no pedal edema Neuro: SENSORIUM/ORIENTATION: Yes oriented to person, Yes oriented to place and Yes oriented to time Skin: COMMON NORMALS: no rashes or lesions noted GENERAL SKIN EXAM: no rashes or lesions noted Course Vital Signs: Vital signs: Vital Signs Temperature 98.4 F 12/04/21 08:05 Pulse Rate 84 09/02/22 11:41 Respiratory Rate 16 12/04/21 11:41 Blood Pressure 112/77 12/04/21 11:41 Pulse Oximetry 98 12/04/21 11:41 Oxygen Delivery Me thod 12/04/21 11:41 Oxygen Flow Rate 3 12/04/21 08:05 MDM - Chest Pain Medical Decision Making Labs imaging and EKG reviewed. No acute ST changes. Patient's feeling much better. He states he has had no recurrence of symptoms. Will discharge home follow-up with primary care Medical Records I reviewed the patient's medical records. Lab Data I reviewed the patient's lab results. : 12/04/21 08:15 12/04/21 08:15 Radiology Impressions Chest X-Ray 12/04/21 08:09 IMPRESSION: 1. Right upper lobe infiltrate suspicious for pneumonia. Chronic interstitial changes in the right lower lung zone. Laboratory Results WBC 11.8 10^3/uL (4.0-10.0) H 12/04/21 08:15 RBC 3.76 10^6/uL (4.1-5.3) L 12/04/21 08:15 Hgb 12.0 g/dL (11.7-16.6) 12/04/21 08:15 Hct 37.7 % (42.0-52.0) L 12/04/21 08:15 MCV 100.3 fl (80-94) H 12/04/21 08:15 MCH 31.9 pg (28.0-34.0) 12/04/21 08:15 MCHC 31.8 g/dL (30.0-36.0) 12/04/21 08:15 RDW 13.4 % (12.1-15.1) 12/04/21 08:15 Plt Count 278 10^3/cmm (130-400) 12/04/21 08:15 MPV 9.6 fL (7.4-10.4) 12/04/21 08:15 Neut % (Auto) 90.6 % 12/04/21 08:15 Lymph % (Auto) 2.7 % 12/04/21 08:15 [place] % (Auto) 5.5 % 12/04/21 08:15 Eos % (Auto) 0.6 % 12/04/21 08:15 Baso % (Auto) 0.3 % 12/04/21 08:15 Neut # (Auto) 10.66 10^3/uL (1.8-7.7) H 12/04/21 08:15 Lymph # (Auto) 0.3 10^3/uL (0.8-4.8) L 12/04/21 08:15 [place] # (Auto) 0.7 10^3/uL (0.2-0.9) 12/04/21 08:15 Eos # (Auto) 0.1 10^3/uL (0.0-0.8) 12/04/21 08:15 Baso # (Auto) 0.0 10^3/uL (0.0-0.1) 12/04/21 08:15 Nucleated RBC % (auto) 0 % 12/04/21 08:15 Nucleated RBCs # 0.0 /100WBC 12/04/21 08:15 Sodium 135 mmol/L (136-145) L 12/04/21 08:15 Potassium 4.7 mmol/L (3.5-5.1) 12/04/21 08:15 Chloride 95 mmol/L (98-107) L 12/04/21 08:15 Carbon Dioxide 27 mmol/L (22-29) 12/04/21 08:15 Anion Gap 17.7 (5-19) 12/04/21 08:15 BUN 28 mg/dL (8-23) H 12/04/21 08:15 Creatinine 0.9 mg/dL (0.7-1.2) 12/04/21 08:15 GFR Calculation 85.5 mL/min (90-130) L 12/04/21 08:15 Glucose 140 mg/dL (65-115) H 12/04/21 08:15 Calculated Osmolality 288 mOsm/kg (285-295) 12/04/21 08:15 Calcium 9.1 mg/dL (8.5-10.5) 12/04/21 08:15 Total Bilirubin 0.2 mg/dL (0.15-1.2) 12/04/21 08:15 AST 15 U/L (0-40) 12/04/21 08:15 ALT 14 U/L (0-41) 12/04/21 08:15 Alkaline Phosphatase 91 U/L (40-130) 12/04/21 08:15 Troponin T Baseline 22 ng/L (0-15) H 12/04/21 08:15 Troponin T 120 Minute 18.86 ng/L (0-15) H 12/04/21 09:56 Delta Troponin T -3.14 ABS# (0-10) L 12/04/21 09:56 Total Protein 7.4 g/dL (6.6-8.7) 12/04/21 08:15 Albumin 4.0 g/dL (3.5-5.2) 12/04/21 08:15 Globulin 3.4 g/dL (1.3-4.6) 12/04/21 08:15 Discharge Plan Discharge Patient Disposition: Home Clinical Impression: Atypical chest pain, Dyspnea Condition: Stable Prescriptions: No Action acetaminophen 500 mg Tablet 1,500 mg PO Q8H PRN (Reason: Pain) buspirone 10 mg tablet 10 mg PO TID melatonin 5 mg Tablet 10 mg feeding tube TID@06,17,23 lactose-reduced food with fibr 0.06 gram-1.5 kcal/mL Liquid See Rx Instructions .ROUTE .COMPLEX Rx Instructions: 1 ea via feeding tube per rx directions isosorbide mononitrate 30 mg tablet extended release 24 hr 30 mg PO DAILY Qty: 30 0RF aspirin 81 mg tablet,delayed release (DR/EC) 81 mg PO DAILY PRN (Reason: Pain) Discharge Orders: Discharge ED (Routine); Ordered 12/04/21 Ordered By: Madan Chopra Referrals: Martin Mcfarland DO [Primary Care Provider] - Patient Instructions: Opioid Safety Coding Level of Care Code ED Operations Mgr for Chg Fwd Exam Detailed
[2021-12-04 08:23] LABS: Basophils % 0.3 %; Eosinophils # 0.1 10^3/uL (0.0-0.8); Eosinophils % 0.6 %; Hematocrit 37.7 % (42.0-52.0); Lymphocytes # 0.3 10^3/uL (0.8-4.8); Lymphocytes % 2.7 %; Mean Corpuscular HGB Conc 31.8 g/dL (30.0-36.0); Mean Corpuscular Hemoglobin 31.9 pg (28.0-34.0); Mean Corpuscular Volume 100.3 fl (80-94); Mean Platelet Volume 9.6 fL (7.4-10.4); Monocytes # 0.7 10^3/uL (0.2-0.9); Monocytes % 5.5 %; Neutrophils # 10.66 10^3/uL (1.8-7.7); Neutrophils % 90.6 %; Nucleated Red Blood Cells % 0 %; Platelet Count 278 10^3/cmm (130-400); Red Blood Count 3.76 10^6/uL (4.1-5.3); Red Cell Distribution Width 13.4 % (12.1-15.1); White Blood Count 11.8 10^3/uL (4.0-10.0)
[2021-12-04 08:39] VITALS: BP 85/57; RESP 18; O2SAT 95
[2021-12-04 08:44] LABS: Alanine Aminotransferase 14 U/L (0-41); Alkaline Phosphatase 91 U/L (40-130); Anion Gap 17.7 (5-19); Aspartate Amino Transferase 15 U/L (0-40); Blood Urea Nitrogen 28 mg/dL (8-23); Calcium 9.1 mg/dL (8.5-10.5); Carbon Dioxide 27 mmol/L (22-29); Chloride 95 mmol/L (98-107); Globulin 3.4 g/dL (1.3-4.6); Glomerular Filtration Rate 85.5 mL/min (90-130); Glucose 140 mg/dL (65-115); Osmolality Calculated 288 mOsm/kg (285-295); Potassium 4.7 mmol/L (3.5-5.1); Sodium 135 mmol/L (136-145); Total Bilirubin 0.2 mg/dL (0.15-1.2); Total Protein 7.4 g/dL (6.6-8.7)
[2021-12-04] MEDS: aspirin 81 mg Chew Tablet 324 MG PO (08:44)
[2021-12-04 08:47] LABS: Troponin(5th) Baseline 22 ng/L (0-15)
[2021-12-04] MEDS: sodium chloride 0.9% 500 ML 999 ML IV ×2 (08:55→10:39)
[2021-12-04] MEDS: piperacillin-tazobactam 3.375 GM in sodium chloride 0.9% (plus) 50 ML IV (09:12)
[2021-12-04 10:20] LABS: Troponin 5 2HR 18.86 ng/L (0-15)
[2021-12-04 10:26] LABS: Troponin 5 2HR Delta -3.14 ABS# (0-10)
--- NOTE | 2021-12-04 10:29 | ECG_ITS ---
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 Measurements Intervals [place] Rate: 86 P: 58 NV: 158 QRS: 79 QRSD: 114 T: 69 QT: 367 QTc: 440 Interpretive Statements SINUS RHYTHM POSSIBLE LEFT ATRIAL ENLARGEMENT [-0.1mV P-WAVE IN V1/V2] MODERATE INTRAVENTRICULAR CONDUCTION DELAY [110+ ms QRS DURATION] ST ELEVATION, PROBABLY EARLY REPOLARIZATION [ST ELEVATION WITH NORMALLY INFLECTED T-WAVE] MINIMAL ST DEPRESSION [0.025+ mV ST DEPRESSION] Compared to ECG 12/04/2021 08:10:51 Early repolarization now present Sinus tachycardia no longer present ST (T wave) deviation still present Electronically Signed On 12-04-2021 15:55:22 CDT by Troy Gaxiola M.D. [id number]
[2021-12-04 11:00] VITALS: BP 113/76; PULSE 85; RESP 16; O2SAT 99
[2021-12-04 11:41] VITALS: BP 112/77; PULSE 84; RESP 16; O2SAT 98
== END 2021-12-04 12:00 | disposition home or self-care (01) ==
PROVIDERS: Emergency Provider Family Medicine; PCP Internal Medicine
DX: R07.89 Other chest pain (principal); R06.00 Dyspnea, unspecified; Z79.82 Long term (current) use of aspirin; J44.9 Chronic obstructive pulmonary disease, unspecified; Z85.89 Personal history of malignant neoplasm of other organs and systems; Z87.891 Personal history of nicotine dependence
CPT/HCPCS: 36415; 71045; 80053; 84484; 85025; 93005; 96365; 99285; J2543; J7040

== ENCOUNTER 2022-05-11 13:33 | Emergency (ER) | payer MEDICARE, MEDICAID, SELFPAY ==
[2022-05-11 13:40] VITALS: BP 99/67; PULSE 93; RESP 16; TEMP 36.5; O2SAT 90
--- NOTE | 2022-05-11 14:06 | XRR_ITS ---
PROCEDURE INFORMATION: Exam: XR Abdomen Exam date and time: 05/11/2022 2:27 PM Age: 61 years old Clinical indication: Device placement; Gi device; Patient HX: Peg tube placement 30 ml gastograffin used; Additional info: Peg tube placement, inject 30 ml gastrografin TECHNIQUE: Imaging protocol: Radiologic exam of the abdomen. Views: Frontal supine view of the abdomen. 1 View. COMPARISON: CT abdomen pelvis con [id number] 08/19/2021 1:08 PM FINDINGS: Tubes, catheters and devices: There is contrast injection through the percutaneous gastric tube. The tip is intraluminal. The stomach fills with contrast. No contrast extravasation is seen. Gastrointestinal tract: Bowel gas pattern is unremarkable. No sign of obstruction. Intraperitoneal space: There is no intraperitoneal free air. Bones/joints: There is mild degenerative disease in the lumbar spine. XR/XR KUB portable [id number] IMPRESSION: 1. Intraluminal position of percutaneous gastric tube. 2. No visible contrast extravasation.
--- NOTE | 2022-05-11 14:23 | W.ED.GENADLT ---
HPI - General Adult General: Chief complaint: General Medical Stated complaint: GI tube came out Time Seen by Provider: 05/11/22 14:04 Source: patient Mode of arrival: ambulatory History of Present Illness: 59-year-old male presents emergency room with complaints of difficulty with his PEG tube. He did come out he tried to reinsert it but does not feel like he got it in all the way. 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 He still uses his PEG tube for the majority of his nutrition as his mandible has degenerated significantly over the course of time. He has no other recent illness or complaints. Onset (ago): minute(s) Associated symptoms: Reports no associated symptoms; Deny chest pain, dyspnea, malaise, nausea, rash or vomiting Treatments prior to arrival: none Review of Systems Const: Denies: fever(s), chills, body aches, change in appetite, fatigue or malaise ENMT: Denies: throat pain, ear or mastoid pain, nasal discharge or nasal congestion Card: Denies: chest pain, edema, dyspnea on exertion or orthopnea Resp: Denies: dyspnea, productive cough or non-productive cough GI: Denies: abdominal pain, nausea, vomiting, hematemesis, coffee ground emesis, diarrhea, constipation, bloating, hematochezia or melena : Denies: flank pain, dysuria, urinary frequency or urinary urgency Skin/Breast: Denies: rash or pruritus PFSH ED PFSH: Medical History Anemia Anxiety Aspiration, chronic pulmonary Closed left ankle fracture COPD (chronic obstructive pulmonary disease) COVID-19 Decreased ability to feed self Decubitus ulcer of coccyx, stage 2 Diarrhea History of malignant neoplasm of tonsil History of osteomyelitis Osteomyelitis of the mandible, treated in 2017 Lung nodule < 6cm on CT Septicemia due to Staphylococcus aureus Severe sepsis Urinary retention Lopez catheter placed October 2019 with failed trial of voiding Uses feeding tube Surgical History Encounter for gastrojejunal (GJ) tube placement (10/19/19) Gastrostomy present (07/15/21) History of tonsillectomy Cancer resection with tonsillar cancer Family History Mother Cancer Diabetes Father , 80 Cancer Denies family history of Anesthesia complication Bleeding disorder Social History Smoking and tobacco status: former smoker (quit 2019) Quit status (tobacco): has quit using tobacco Year quit tobacco: 2019 - 0.5 PPD x 30 Years Alcohol intake: never Caregiver/support person: Yes Lives independently: No Household members: caregiver Housing: Shelter Marital status: Current occupational status: disabled History of recent travel: No Current gender identity: Male Physical Exam Const: COMMON NORMALS: no acute distress GENERAL APPEARANCE: cooperative and comfortable ORIENTATION/CONSCIOUSNESS: Yes awake, Yes oriented to person, Yes oriented to place and Yes oriented to time HENMT: COMMON NORMALS: atraumatic and hearing grossly normal bilaterally HEAD & SCALP: atraumatic OTHER: Sniffing and surgical ulcerations to the head and neck especially the mandible. Resp: COMMON NORMALS: normal respiratory effort, No retractions, No use of accessory muscles and clear to auscultation bilaterally AUSCULTATION: clear to auscultation bilaterally Cardio: COMMON NORMALS: regular rate, regular rhythm and No murmurs present (Cardio) RATE: regular rate RHYTHM: regular rhythm GI: COMMON NORMALS: Soft to palpation and No hepatosplenomegaly present AUSCULTATION: Yes normoactive bowel sounds PALPATION: Yes Soft to palpation, No Tenderness to palpation present (GI), No Guarding due to palpation present (GI) and Yes No hepatosplenomegaly present OTHER: PEG tube appeared to be in place superficially but with minimal traction comes out completely the balloon is in the sinus tract to the stomach. Extremity: COMMON NORMALS: normal to inspection, capillary refill normal, no clubbing, cyanosis or edema, no calf tenderness and no pedal edema Neuro: SENSORIUM/ORIENTATION: Yes oriented to person, Yes oriented to place and Yes oriented to time Skin: COMMON NORMALS: no rashes or lesions noted GENERAL SKIN EXAM: no rashes or lesions noted Procedures Feeding Tube Replacement Type of Tube: gastrostomy Insertion Site Prior to Procedure: clean Tube Used for Reinsertion: other (Hospital stock) Welsh Tube Size (F): 18 Verification of Placement: gastrografin injection Tube Secured by: attachment device Patient Tolerated Procedure: well Course Vital Signs: Vital signs: Vital Signs Temperature 97.7 F 05/11/22 13:40 Pulse Rate 88 05/11/22 14:48 Respiratory Rate 16 05/11/22 14:48 Blood Pressure 103/74 05/11/22 14:48 Pulse Oximetry 97 05/11/22 14:48 Oxygen Delivery Me thod 05/11/22 14:48 Oxygen Flow Rate 3 05/11/22 14:48 MDM - General Adult Medical Decision Making Replacement of PEG tube at the bedside with no significant difficulty confirmed placement by Gastrografin injection KUB reviewed at the bedside Gastrografin in the stomach no evidence of extravasation. No sign of infection around the tube appears to be functioning well at this point. Patient discharged home follow-up with primary care and oncology and ENT teams as previously scheduled. Medical Records I reviewed the patient's medical records. Lab Data I reviewed the patient's lab results. KUB reviewed at the bedside good placement of PEG tube no extravasation of Gastrografin Radiology Impressions KUB X-Ray 05/11/22 14:06 IMPRESSION: 1. Intraluminal position of percutaneous gastric tube. 2. No visible contrast extravasation. Discharge Plan Discharge Patient Disposition: Home Clinical Impression: Complaint associated with gastric tube Condition: Stable Prescriptions: No Action acetaminophen 500 mg Tablet 1,500 mg PO Q8H PRN (Reason: Pain) buspirone 10 mg tablet 10 mg PO TID melatonin 5 mg Tablet 10 mg feeding tube TID@,, lactose-reduced food with fibr 0.06 gram-1.5 kcal/mL Liquid See Rx Instructions .ROUTE .COMPLEX Rx Instructions: 1 ea via feeding tube per rx directions isosorbide mononitrate 30 mg tablet extended release 24 hr 30 mg PO DAILY Qty: 30 0RF aspirin 81 mg tablet,delayed release (DR/EC) 81 mg PO DAILY PRN (Reason: Pain) Discharge Orders: Discharge ED (Routine); Ordered 05/11/22 Ordered By: Madan Chopra Referrals: Martin Mcfarland DO [Primary Care Provider] - Discharge Diet: Usual diet Discharge Activity: Resume usual activity Patient Instructions: Opioid Safety, Pain Management Activity Restrictions/Additional Instructions: You are seen today after gastric tube had fallen out. It was replaced with a 20 Welsh tube. X-ray confirmed placement. If you have recurrent problems return to the emergency room otherwise follow-up with your regular doctor as scheduled Coding Level of Care Code ED Lean Leader for Steffi Velasco
[2022-05-11 14:48] VITALS: BP 103/74; PULSE 88; RESP 16; O2SAT 97
== END 2022-05-11 14:49 | disposition home or self-care (01) ==
PROVIDERS: Emergency Provider Family Medicine; PCP Internal Medicine
DX: K94.29 Other complications of gastrostomy (principal); Z79.82 Long term (current) use of aspirin; Z87.891 Personal history of nicotine dependence; J44.9 Chronic obstructive pulmonary disease, unspecified; Z85.89 Personal history of malignant neoplasm of other organs and systems
CPT/HCPCS: 49440; 74018; 99283; Q9963

== ENCOUNTER 2022-12-18 13:42 | Inpatient (IN) | payer MEDICARE, MEDICAID, SELFPAY ==
[2022-12-18] VITALS (31 sets, daily range): BP systolic 67–128; BP diastolic 47–91; PULSE 69–109; RESP 14–25; TEMP 36.5–36.6; O2SAT 89–100
--- NOTE | 2022-12-18 13:45 | XRR_ITS ---
PROCEDURE INFORMATION: Exam: XR Chest Exam date and time: 12/18/2022 1:58 PM Age: 62 years old Clinical indication: Shortness of breath; Additional info: SOB TECHNIQUE: Imaging protocol: Radiologic exam of the chest. Views: 1 view. COMPARISON: CR XR chest 1V portable [id number] 12/04/2021 8:16 AM FINDINGS: Lungs: Unremarkable. No consolidation. Pleural spaces: Unremarkable. No pleural effusion. No pneumothorax. Heart/Mediastinum: Unremarkable. No cardiomegaly. Bones/joints: Unremarkable. XR/XR chest 1V portable [id number] IMPRESSION: No acute findings.
--- NOTE | 2022-12-18 13:49 | ECG_ITS ---
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 Measurements Intervals [place] Rate: 106 P: 68 GA: 152 QRS: 83 QRSD: 103 T: 63 QT: 326 QTc: 434 Interpretive Statements SINUS TACHYCARDIA POSSIBLE LEFT ATRIAL ENLARGEMENT [-0.1mV P-WAVE IN V1/V2] INCOMPLETE RIGHT BUNDLE BRANCH BLOCK [90+ ms QRS DURATION, TERMINAL R IN V1/V2, 40+ ms S IN I/aVL/V4/V5/V6] ST DEVIATION AND MODERATE T-WAVE ABNORMALITY, CONSIDER ANTERIOR ISCHEMIA [-0.1+ mV T-WAVE IN V3/V4] Compared to ECG 12/04/2021 10:29:32 Incomplete right bundle-branch block now present T-wave abnormality now present Possible ischemia now present Sinus rhythm no longer present Intraventricular conduction delay no longer present ST (T wave) deviation no longer present Early repolarization no longer present Electronically Signed On 12-18-2022 16:24:13 CDT by Nataliya Russell M.D. [id number]
--- NOTE | 2022-12-18 14:05 | W.ED.SOB ---
HPI - SOB/Dyspnea General: Chief Complaint: Shortness of Breath/Dyspnea Stated Complaint: AMS; RESP DISTRESS Time Seen by Provider: 12/18/22 13:45 Source: patient and EMS Mode of arrival: EMS Limitations: no limitations History of Present Illness: HPI Narrative: 62-year-old male history of COPD states he also had cancer in the past had had chemo states that he is supposed to do only tube feedings states he has been eating some by mouth and is concerned he may have had an aspiration. He states that today has been having some increasing shortness of breath along with dry cough patient wears 4 L at all times EMS states he was not wearing socks late arrived his pulse ox was in the 70s here its 95% on 5 L he denies any chest pain he states he is feeling a little improved here. No fevers. Associated symptoms: Deny abdominal pain, chest pain, fever(s), nausea or vomiting Review of Systems Const: Denies: fever(s), chills or body aches Eyes: Denies: blurry vision or eye discomfort ENMT: Denies: throat pain or dental pain Card: Denies: chest pain Resp: Reports: dyspnea and non-productive cough GI: Denies: abdominal pain, nausea, vomiting or diarrhea : Denies: dysuria Musc: Denies: neck pain or back pain Skin/Breast: Denies: rash Neuro: Denies: headache(s) PFSH ED PFSH: Medical History Anemia Anxiety Aspiration, chronic pulmonary Closed left ankle fracture COPD (chronic obstructive pulmonary disease) COVID-19 Decreased ability to feed self Decubitus ulcer of coccyx, stage 2 Diarrhea History of malignant neoplasm of tonsil History of osteomyelitis Osteomyelitis of the mandible, treated in 2017 Lung nodule < 6cm on CT Septicemia due to Staphylococcus aureus Severe sepsis Urinary retention Lopez catheter placed October 2019 with failed trial of voiding Uses feeding tube Surgical History Encounter for gastrojejunal (GJ) tube placement (10/19/19) Gastrostomy present (07/15/21) History of tonsillectomy Cancer resection with tonsillar cancer Family History Mother Cancer Diabetes Father , 80 Cancer Denies family history of Anesthesia complication Bleeding disorder Social History Smoking and tobacco status: former smoker (quit 2019) Quit status (tobacco): has quit using tobacco Year quit tobacco: 2020 - 0.5 PPD x 30 Years Alcohol intake: never Substance/Drug Use: never Caregiver/support person: Yes Lives independently: No Household members: caregiver Housing: [facility] Marital status: Current occupational status: disabled Do you think of yourself as: Straight/Heterosexual Current gender identity: Male Physical Exam Const: COMMON NORMALS: patient oriented x3 GENERAL APPEARANCE: frail appearing HENMT: COMMON NORMALS: normocephalic and atraumatic HEAD & SCALP: normocephalic and atraumatic Eye: COMMON NORMALS: Equal, round and reactive pupils present and EOMs intact bilaterally PUPIL: Yes Equal, round and reactive pupils present Neck/C-Spine: COMMON NORMALS: full ROM and supple Chest: COMMONS NORMALS: normal inspection of the chest and normal palpation of entire chest wall Resp: COMMON NORMALS: normal respiratory effort, No retractions, No use of accessory muscles and clear to auscultation bilaterally AUSCULTATION: clear to auscultation bilaterally Cardio: COMMON NORMALS: regular rate, regular rhythm and No murmurs present (Cardio) RATE: regular rate RHYTHM: regular rhythm GI: COMMON NORMALS: Normal to inspection, nondistended, normoactive bowel sounds present, Soft to palpation, non-tender and no masses PALPATION: Yes Soft to palpation Extremity: COMMON NORMALS: normal to inspection and full ROM Neuro: COMMON NORMALS: patient oriented x3, moves all extremities and no focal motor deficits Psych: COMMON NORMALS: mental status grossly normal, Normal thought process present and cooperative THOUGHT PROCESS: Normal thought process present Skin: COMMON NORMALS: no rashes or lesions noted and no wounds GENERAL SKIN EXAM: no rashes or lesions noted Course Vital Signs: Vital signs: Vital Signs Temperature 97.7 F 12/18/22 13:53 Pulse Rate 96 12/18/22 16:00 Respiratory Rate 19 H 12/18/22 14:20 Blood Pressure 100/72 12/18/22 16:00 Pulse Oximetry 100 12/18/22 16:00 Oxygen Delivery Me thod Nasal Cannula 12/18/22 16:00 Oxygen Flow Rate 3 12/18/22 16:00 MDM - SOB/Dyspnea Medical Decision Making Patient presents here with dyspnea that is improved he does have a history of COPD x-ray shows no definite pneumonia he states he is worried he did aspirated give IV antibiotics and got blood cultures he was hypotensive likely due to dehydration he has acute kidney injury on his labs his blood pressures improved with IV fluids spoke to hospitalist will admit for observation. Medical Records I reviewed the patient's medical records. Lab Data I reviewed the patient's lab results. 12/18/22 14:17 12/18/22 14:58 Labs/Radiology: Radiology Impressions Chest X-Ray 12/18/22 13:45 IMPRESSION: No acute findings. Laboratory Results WBC 10.69 10^3/uL (3.29-11.43) 12/18/22 14:17 RBC 3.41 10^6/uL (3.85-5.65) L 12/18/22 14:17 Hgb 10.60 g/dL (11.27-16.99) L 12/18/22 14:17 Hct 36.0 % (37-53) L 12/18/22 14:17 MCV 105.6 fl (82-101) H 12/18/22 14:17 MCH 31.1 pg (27-33) 12/18/22 14:17 MCHC 29.4 g/dL (30-55) L 12/18/22 14:17 RDW 13.8 % (12.1-15.1) 12/18/22 14:17 Plt Count 192 10^3/cmm (157-399) 12/18/22 14:17 MPV 10.9 fL (7.4-10.4) H 12/18/22 14:17 Neut % (Auto) 80.0 % 12/18/22 14:17 Lymph % (Auto) 8.4 % 12/18/22 14:17 Merrick % (Auto) 10.9 % 12/18/22 14:17 Eos % (Auto) 0.0 % 12/18/22 14:17 Baso % (Auto) 0.4 % 12/18/22 14:17 Neut # (Auto) 8.56 10^3/uL (1.8-7.7) H 12/18/22 14:17 Lymph # (Auto) 0.9 10^3/uL (0.8-4.8) 12/18/22 14:17 Merrick # (Auto) 1.2 10^3/uL (0.2-0.9) H 12/18/22 14:17 Eos # (Auto) 0.0 10^3/uL (0.0-0.8) 12/18/22 14:17 Baso # (Auto) 0.0 10^3/uL (0.0-0.1) 12/18/22 14:17 Nucleated RBC % (auto) 0 % 12/18/22 14:17 Nucleated RBCs # 0.0 /100WBC 12/18/22 14:17 Specimen Type Arterial 12/18/22 14:05 Sample Site Brachial, right 12/18/22 14:05 ABG pH 7.36 (7.35-7.45) 12/18/22 14:05 ABG pCO2 56.6 mmHg (35-45) H 12/18/22 14:05 ABG pO2 68.1 mmHg (80.0-100.0) L 12/18/22 14:05 ABG HCO3 31.7 mmol/L (22-26) H 12/18/22 14:05 ABG Base Excess 5.0 mmol/L (-2.0-2.0) H 12/18/22 14:05 Prosper Test N/a 12/18/22 14:05 Hematocrit 32.8 % (42-52) L 12/18/22 14:05 Hgb O2 Saturation 92.9 % (95-100) L 12/18/22 14:05 Carboxyhemoglobin 1.9 %THgb (0.4-20.1) 12/18/22 14:05 Methemoglobin 0.2 % (0.4-1.5) L 12/18/22 14:05 Total Hemoglobin 10.7 g/dL (14-18) L 12/18/22 14:05 O2 Delivery Device Nc 12/18/22 14:05 O2 Liters/Min 4.0 % 12/18/22 14:05 FiO2 36.0 % 12/18/22 14:05 Paper Pattern Inspector ID [id number] 12/18/22 14:05 Sodium 137 mmol/L (136-145) 12/18/22 14:58 Potassium 4.6 mmol/L (3.5-5.1) 12/18/22 14:58 Chloride 95 mmol/L (98-107) L 12/18/22 14:58 Carbon Dioxide 31 mmol/L (22-29) H 12/18/22 14:58 Anion Gap 15.6 (5-19) 12/18/22 14:58 BUN 42 mg/dL (8-23) H 12/18/22 14:58 Creatinine 1.5 mg/dL (0.7-1.2) H 12/18/22 14:58 GFR Calculation 47.3 mL/min (90-130) L 12/18/22 14:58 Glucose 131 mg/dL (65-115) H 12/18/22 14:58 Calculated Osmolality 296 mOsm/kg (285-295) H 12/18/22 14:58 Lactic Acid 3.0 mmol/L (0.5-2.2) H 12/18/22 14:58 Calcium 9.6 mg/dL (8.5-10.5) 12/18/22 14:58 Total Bilirubin 0.5 mg/dL (0.15-1.2) 12/18/22 14:58 AST 15 U/L (0-40) 12/18/22 14:58 ALT 12 U/L (0-41) 12/18/22 14:58 Alkaline Phosphatase 89 U/L (40-130) 12/18/22 14:58 NT-Pro-B Natriuret Pep 654 pg/mL (0-125) H 12/18/22 14:58 Total Protein 8.5 g/dL (6.6-8.7) 12/18/22 14:58 Albumin 3.9 g/dL (3.5-5.2) 12/18/22 14:58 Globulin 4.6 g/dL (1.3-4.6) 12/18/22 14:58 SARS-CoV-2 Ag (Rapid) negative (Negative) 12/18/22 13:58 All radiology interpretation(s) finalized by discharge Discharge Plan Discharge Patient Disposition: Placed in Observation Clinical Impression: Acute kidney injury, Acute hypotension, Acute dyspnea, COPD exacerbation Condition: Stable Prescriptions: No Action acetaminophen 500 mg Tablet 500 mg PO TID@,, buspirone 10 mg tablet 10 mg PO TID melatonin 5 mg Tablet 10 mg feeding tube TID@06,17,23 potassium gluconate 595 mg (99 mg) Tablet 595 mg PO DAILY PRN (Reason: unknown) Isosource 1.5 Dre 0.07 gram-1.5 kcal/mL Liquid See Rx Instructions .ROUTE .COMPLEX Rx Instructions: as directed Referrals: Martin Mcfarland DO [Primary Care Provider] - Coding Level of Care Code ED Director Internal Control for g Rod
[2022-12-18] MEDS: ipratropium-albuterol 3 mL Neb INHALATION (14:15)
[2022-12-18 14:25] LABS: ABG PCO2 56.6 mmHg (35-45); ABG PH Result 7.36 (7.35-7.45); Arterial Blood Gas Hematocrit 32.8 % (42-52); Blood Gas Operator Identificat GD; Blood Gas Sample Site Brachial, right; Blood Gas Sample Type Arterial; Carboxyhemoglobin 1.9 %THgb (0.4-20.1); HCO3 ABG 31.7 mmol/L (22-26); HGB O2 Sat 92.9 % (95-100); Methemoglobin 0.2 % (0.4-1.5); Oxygen Device NC; PO2 ABG 68.1 mmHg (80.0-100.0); Total Hemoglobin 10.7 g/dL (14-18)
[2022-12-18] MEDS: sodium chloride 0.9% 1,000 ML 999 ML IV ×4 (14:30→22:42)
[2022-12-18 14:41] LABS: Basophils % 0.4 %; Lymphocytes # 0.9 10^3/uL (0.8-4.8); Lymphocytes % 8.4 %; Mean Corpuscular HGB Conc 29.4 g/dL (30-55); Mean Corpuscular Hemoglobin 31.1 pg (27-33); Mean Corpuscular Volume 105.6 fl (82-101); Mean Platelet Volume 10.9 fL (7.4-10.4); Monocytes # 1.2 10^3/uL (0.2-0.9); Monocytes % 10.9 %; Neutrophils # 8.56 10^3/uL (1.8-7.7); Nucleated Red Blood Cells % 0 %; Platelet Count 192 10^3/cmm (157-399); Red Blood Count 3.41 10^6/uL (3.85-5.65); Red Cell Distribution Width 13.8 % (12.1-15.1); White Blood Count 10.69 10^3/uL (3.29-11.43)
[2022-12-18] MEDS: piperacillin-tazobactam 3.375 GM in sodium chloride 0.9% (plus) 50 ML IV ×2 (15:08→22:24)
--- NOTE | 2022-12-18 15:11 | PC.PHAR ---
pt and pts son verified pts medications-pts son states the pt normally takes care of his own medications-pt had a list of meds brought in with him-list had aspirin but it was actually acetaminophen pt takes with each of his feedings-
[2022-12-18] MEDS: vancomycin 1,000 MG in sodium chloride 0.9% 250 ML 250 MG IV (15:20)
[2022-12-18 15:26] LABS: SARS Covid-2 Antigen negative (Negative)
[2022-12-18 15:33] LABS: Reflex Lactate Order REFLEX LACTIC ORDERD
[2022-12-18 15:40] LABS: Alanine Aminotransferase 12 U/L (0-41); Albumin Level 3.9 g/dL (3.5-5.2); Alkaline Phosphatase 89 U/L (40-130); Anion Gap 15.6 (5-19); Aspartate Amino Transferase 15 U/L (0-40); Blood Urea Nitrogen 42 mg/dL (8-23); Calcium 9.6 mg/dL (8.5-10.5); Carbon Dioxide 31 mmol/L (22-29); Chloride 95 mmol/L (98-107); Globulin 4.6 g/dL (1.3-4.6); Glomerular Filtration Rate 47.3 mL/min (90-130); Glucose 131 mg/dL (65-115); NT Pro B Type Natriuretic Pept 654 pg/mL (0-125); Osmolality Calculated 296 mOsm/kg (285-295); Potassium 4.6 mmol/L (3.5-5.1); Sodium 137 mmol/L (136-145); Total Bilirubin 0.5 mg/dL (0.15-1.2); Total Protein 8.5 g/dL (6.6-8.7)
--- NOTE | 2022-12-18 16:52 | PM.HP ---
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 He normally uses Isosource, Giurgius by syringe 2 cans 3 times a day, additionally gives himself 50 cc of water after hours. In ER found to be dehydrated, hypotensive, initially requiring 6 L nasal cannula oxygen. Review of Systems Const: Denies: fever(s), chills, body aches or malaise ENMT: Denies: throat pain Card: Denies: chest pain, edema, pre-syncope or dyspnea on exertion Resp: Reports: dyspnea, productive cough and change in phlegm color; Denies: hemoptysis GI: Denies: abdominal pain, nausea, vomiting, diarrhea, constipation, hematochezia or melena : Denies: flank pain, difficulty urinating, urinary frequency or hematuria Musc: Denies: back pain, joint swelling or joint redness Skin/Breast: Denies: rash or new lesions Neuro: Denies: headache(s), numbness in extremities, weakness in extremities, dizziness, confusion or seizure-like activity Medications/Allergies Home Medications Medication Instructions Recorded Confirmed Last Taken Type acetaminophen 500 mg tablet 500 mg PO TID@,,04/08/21 12/18/22 07/27/21 History buspirone 10 mg tablet 10 mg PO TID 04/08/21 12/18/22 12/04/21 History melatonin 5 mg tablet 10 mg feeding tube TID@04/08/21 12/18/22 12/04/21 History lactose-reduced food-fiber 0.07 See Rx Instructions .Route .COMPLEX 12/18/22 12/18/22 Unknown History gram-1.5 kcal/mL liquid for tube feed (Isosource 1.5 Dre) potassium gluconate 595 mg (99 mg) 595 mg PO DAILY PRN unknown 12/18/22 12/18/22 Unknown History tablet Allergies Allergy/AdvReac Type Severity Reaction Status Date / Time No Known Allergies Allergy Verified 08/24/21 13:13 PFSH Acute PFSH: Medical History Anemia Anxiety Aspiration, chronic pulmonary Closed left ankle fracture COPD (chronic obstructive pulmonary disease) COVID-19 Decreased ability to feed self Decubitus ulcer of coccyx, stage 2 Diarrhea History of malignant neoplasm of tonsil History of osteomyelitis Osteomyelitis of the mandible, treated in 2017 Lung nodule < 6cm on CT Septicemia due to Staphylococcus aureus Severe sepsis Urinary retention Lopez catheter placed October 2019 with failed trial of voiding Uses feeding tube Surgical History Encounter for gastrojejunal (GJ) tube placement (10/19/19) Gastrostomy present (07/15/21) History of tonsillectomy Cancer resection with tonsillar cancer Family History Mother Cancer Diabetes Father , 80 Cancer Denies family history of Anesthesia complication Bleeding disorder Social History Smoking and tobacco status: former smoker (quit 2019) Quit status (tobacco): has quit using tobacco Year quit tobacco: 2020 - 0.5 PPD x 30 Years Alcohol intake: never Substance/Drug Use: never Caregiver/support person: Yes Lives independently: No Household members: caregiver Housing: Long-Term Marital status: Current occupational status: disabled Do you think of yourself as: Straight/Heterosexual Current gender identity: Male Vitals/I&O/Wt Last Vital Signs Temp 97.7 F 12/18/22 13:53 Pulse 87 12/18/22 16:45 Resp 19 H 12/18/22 14:20 BP 91/64 12/18/22 16:45 Pulse Ox 93 12/18/22 16:45 O2 Del Method Nasal Cannula 12/18/22 16:45 O2 Flow Rate 3 12/18/22 16:45 12/18/22 12/18/22 12/18/22 06:59 14:59 22:59 Intake Total 882.5 / 882.5 Balance 882.5 / 882.5 Weight last 48 hrs Weight 52.163 kg Physical Exam Const: COMMON NORMALS: patient oriented x3 and alert GENERAL APPEARANCE: cooperative ORIENTATION/CONSCIOUSNESS: Yes awake HENMT: COMMON NORMALS: oropharynx normal Neck/C-Spine: COMMON NORMALS: no JVD Resp: OTHER: Few rhonchi Cardio: COMMON NORMALS: no JVD, regular rhythm, S1 normal heart sound present, S2 normal heart sound present and No murmurs present (Cardio) RHYTHM: regular rhythm HEART SOUNDS: S1 normal heart sound present and S2 normal heart sound present GI: COMMON NORMALS: Normal to inspection, nondistended, normoactive bowel sounds present, Soft to palpation and non-tender PALPATION: Yes Soft to palpation OTHER: PEG intact, without any drainage, no surrounding erythema. Extremity: COMMON NORMALS: no joint enlargement and no pedal edema Neuro: COMMON NORMALS: patient oriented x3 and moves all extremities SENSORIUM/ORIENTATION: Yes alert Skin: COMMON NORMALS: no rashes or lesions noted GENERAL SKIN EXAM: no rashes or lesions noted Data 12/18/22 14:17 12/18/22 14:58 Micro: Microbiology 12/18/22 13:57 Blood Culture - Preliminary Blood SPECIMEN COLLECTED 12/18/22 14:09 Blood Culture - Preliminary Blood SPECIMEN COLLECTED A&P Assessment and plan (1) Acute hypotension: Shock, did receive 1 L fluid bolus, but still hypotensive after initial improvement, systolic blood pressure 70, mean arterial pressure 59, additional bolus requested, Levophed requested. Dehydrated on presentation, he gives himself tube feeds but states gives 50 cc water after each feeding 3 times a day, appears likely not enough for him. Definitely hypovolemic shock. However, possible also septic shock with pneumonia, initially respiratory failure requiring 6 L of oxygen, tachypnea, although does not strictly fit sepsis criteria, does have lactic acidosis 3, but no leukocytosis, initially tachycardia >90. Blood cultures collected. Received Zosyn. Continue antibiotic coverage. Maintain MAP over 65 mmHg. Admission to ICU. We will request assessment by [facility]. (2) Acute dyspnea: Aspiration pneumonia, reporting regurgitation of tube feeds. Hold tube feeds for now. May not be able to give bolus feeds. Treat aspiration pneumonia as above. Possible component of COPD exacerbation. (3) Acute kidney injury: Likely prerenal with shock, creatinine 1.5, BUN 42. Received fluid challenge. Reassess renal function. Collect UA. Check kidney ultrasound. (4) Dehydration: Additional fluid bolus. May repeat as needed. We will need to increase water flushes through feeding tube. Plan History of tonsillar cancer, resection, reconstruction and radiation therapy over 2 decades ago, subsequent osteoradionecrosis and fistulization, Chronic dysphagia, PEG tube, COPD, History of aspiration pneumonia, Other medical problems Discussed with ER physician, ER documentation reviewed Attestations Medical Necessity Statement*: Admission of over 2 midnights anticipated for assessment management of shock, aspiration pneumonia, ISAC in a gentleman with, comorbidities as above. Coding Level of Care Code Critical Care >/= 30 minutes Critical care time (in minutes): 40 The high probability of a clinically significant, sudden or life threatening deterioration, as referenced in this documentation, required my full and direct attention, intervention and personal management. The critical care time shown is in addition to time spent performing any reported separately billable procedures and includes the following: [x] Data and vital sign review and interpretation [x] Patient assessment, examination and intervention [x] Medication orders and management [x] Patient/Family updates as able [x] Care Coordination and Documentation. Diagnoses Acute hypotension I95.9 Acute dyspnea R06.00 Acute kidney injury N17.9 Dehydration E86.0
[2022-12-18 17:09] LABS: D Dimer 0.86 ug/mLFEU (0-0.59)
[2022-12-18 17:23] LABS: Cortisol Random 52.43 ug/dL (2.47-19.5)
--- NOTE | 2022-12-18 17:57 | USR_ITS ---
PROCEDURE INFORMATION: Exam: US Retroperitoneal; Complete; Kidneys and Bladder Exam date and time: 12/18/2022 6:36 PM Age: 62 years old Clinical indication: Screening exam; Other: Check for obstruction; Additional info: Assess for obstructive uropathy TECHNIQUE: Imaging protocol: Real-time ultrasound of the retroperitoneum with image documentation. Complete exam focused on the kidneys and bladder. COMPARISON: CT abdomen pelvis wo con [id number] 08/19/2021 1:08 PM FINDINGS: Right kidney: No visible mass. Normal echotexture. No stones. No hydronephrosis. 11.1 cm in length. Left kidney: 2.5 cm simple cyst lower pole. No solid mass. Normal echotexture. No stones. 12.1 cm in length. Urinary bladder: Debris noted in the urinary bladder. Postvoid residual volume in the bladder is 61 cc. Prostate: Prostate measures 3.2 x 2.4 x 3.9 cm. US/US renal BI with PV bladder IMPRESSION: 1. No evidence of renal obstruction on either side. 2. Debris noted in the urinary bladder. Moderate postvoid residual.
[2022-12-18] MEDS: lactated ringers 500 ML 999 ML IV (17:58)
[2022-12-18] MEDS: heparin 5,000 unit/mL INJ 1 mL 5000 UNIT SUBCUT (17:58)
[2022-12-18] MEDS: acetaminophen 500 mg Tablet FEED TUBE ×2 (17:58→22:23)
[2022-12-18] MEDS: pantoprazole 40 mg SDV IVP (17:58)
[2022-12-18 18:32] LABS: Add Urine Microscopic? YES; Bilirubin Urine Neg (Negative); Blood Urine 2+ (Negative); Glucose Urine UA Norm (Normal); Ketones Urine 1+ (Negative); Leukocyte Esterase Urine Trace (Negative); Nitrate Urine Negative (Negative); Protein Urine 1+ (Negative); Urine Appearance Clear (CLEAR); Urine Color Yellow (Yellow); Urobilinogen Urine Norm (Negative); pH Urine 5 (5-7)
[2022-12-18 18:39] LABS: WBC Urine 0-4 /hpf (0-5)
[2022-12-18 18:39] LABS: Lactic Acid level (Lactate) 2.8 mmol/L (0.5-2.2)
[2022-12-18 18:44] LABS: Bacteria Urine 2+ /hpf
[2022-12-18 18:45] LABS: Add Urine Culture? Yes; Hyaline Casts Urine 15-25 /lpf; Mucus Urine 1+ /hpf; Uric Acid Crystals Urine 0-4 /hpf
[2022-12-18] MEDS: BuSPIRONE 10 mg Tablet PEG-TUBE (20:19)
--- NOTE | 2022-12-18 21:35 | PC.NURSE ---
Hypotension Patient's blood pressure remaining decreased with a MAP ranging from 53-63. Cheetah assessment performed with a result of 13.9%, fluid responsive. Dr. Vasquez notified; orders received to place a tilley catheter, administer 2 L NS bolus IV once, then initiate NS maintenance fluid at 100 ml/hr and to obtain a CBC following the NS bolus. See MAR for details.
[2022-12-18] MEDS: sodium chloride 0.9% 1,000 ML 100 ML IV (23:58)
[2022-12-19] VITALS (70 sets, daily range): BP systolic 84–135; BP diastolic 55–99; PULSE 66–89; RESP 13–25; TEMP 36.4–36.8; O2SAT 89–100; BMI 19.3
[2022-12-19 00:34] LABS: Basophils % 0.2 %; Hematocrit 32.7 % (37-53); Lymphocytes # 0.3 10^3/uL (0.8-4.8); Lymphocytes % 4.4 %; Mean Corpuscular HGB Conc 29.7 g/dL (30-55); Mean Corpuscular Hemoglobin 31.2 pg (27-33); Mean Corpuscular Volume 105.1 fl (82-101); Mean Platelet Volume 10.1 fL (7.4-10.4); Monocytes # 0.1 10^3/uL (0.2-0.9); Monocytes % 0.9 %; Neutrophils # 6.05 10^3/uL (1.8-7.7); Neutrophils % 94.2 %; Nucleated Red Blood Cells % 0 %; Platelet Count 250 10^3/cmm (157-399); Red Blood Count 3.11 10^6/uL (3.85-5.65); Red Cell Distribution Width 13.8 % (12.1-15.1); White Blood Count 6.42 10^3/uL (3.29-11.43)
[2022-12-19 03:58] LABS: Hematocrit 27.3 % (37-53); Lymphocytes # 0.3 10^3/uL (0.8-4.8); Lymphocytes % 4.3 %; Mean Corpuscular HGB Conc 29.7 g/dL (30-55); Mean Corpuscular Volume 104.6 fl (82-101); Mean Platelet Volume 10.8 fL (7.4-10.4); Monocytes # 0.2 10^3/uL (0.2-0.9); Monocytes % 2.6 %; Neutrophils % 92.9 %; Nucleated Red Blood Cells % 0 %; Platelet Count 239 10^3/cmm (157-399); Red Blood Count 2.61 10^6/uL (3.85-5.65); Red Cell Distribution Width 13.8 % (12.1-15.1); White Blood Count 6.46 10^3/uL (3.29-11.43)
[2022-12-19 04:30] LABS: Alanine Aminotransferase 10 U/L (0-41); Albumin Level 2.9 g/dL (3.5-5.2); Alkaline Phosphatase 97 U/L (40-130); Anion Gap 10.7 (5-19); Aspartate Amino Transferase 15 U/L (0-40); Blood Urea Nitrogen 30 mg/dL (8-23); Calcium 8.3 mg/dL (8.5-10.5); Carbon Dioxide 28 mmol/L (22-29); Chloride 106 mmol/L (98-107); Globulin 3.7 g/dL (1.3-4.6); Glomerular Filtration Rate 75.5 mL/min (90-130); Glucose 126 mg/dL (65-115); Osmolality Calculated 298 mOsm/kg (285-295); Potassium 4.7 mmol/L (3.5-5.1); Sodium 140 mmol/L (136-145); Total Bilirubin 0.3 mg/dL (0.15-1.2); Total Protein 6.6 g/dL (6.6-8.7)
[2022-12-19] MEDS: acetaminophen 500 mg Tablet FEED TUBE ×3 (05:09→22:23)
[2022-12-19] MEDS: piperacillin-tazobactam 3.375 GM in sodium chloride 0.9% (plus) 50 ML IV ×3 (05:09→22:14)
[2022-12-19] MEDS: heparin 5,000 unit/mL INJ 1 mL 5000 UNIT SUBCUT ×2 (05:09→18:08)
[2022-12-19] MEDS: BuSPIRONE 10 mg Tablet PEG-TUBE ×3 (09:01→22:21)
[2022-12-19] MEDS: sodium chloride 0.9% 1,000 ML 100 ML IV (09:01)
--- NOTE | 2022-12-19 11:56 | PM.PN ---
Subjective Subjective: States he is doing all right. No vomiting. No worsening his breathing. Denies abdominal pain. Vitals/I&O/Wt Last Vital Signs Temp 98.2 F 12/19/22 05:15 Pulse 77 12/19/22 08:50 Resp 16 12/19/22 08:50 BP 102/68 12/19/22 08:45 Pulse Ox 97 12/19/22 08:50 O2 Del Method Nasal Cannula 12/19/22 08:50 O2 Flow Rate 3 12/19/22 08:50 12/18/22 12/19/22 12/19/22 22:59 06:59 14:59 Intake Total 3682.5 / 3682.5 1050 / 4732.5 955 / 955 Output Total 450 / 450 Balance 3682.5 / 3682.5 600 / 4282.5 955 / 955 Weight last 48 hrs Weight 54.431 kg Weight 52.163 kg Physical Exam Const: COMMON NORMALS: patient oriented x3 and alert GENERAL APPEARANCE: cooperative ORIENTATION/CONSCIOUSNESS: Yes awake HENMT: COMMON NORMALS: oropharynx normal Neck/C-Spine: COMMON NORMALS: no JVD Resp: COMMON NORMALS: clear to auscultation bilaterally AUSCULTATION: clear to auscultation bilaterally Cardio: COMMON NORMALS: no JVD, regular rhythm, S1 normal heart sound present, S2 normal heart sound present and No murmurs present (Cardio) RHYTHM: regular rhythm HEART SOUNDS: S1 normal heart sound present and S2 normal heart sound present GI: COMMON NORMALS: Normal to inspection, nondistended, normoactive bowel sounds present, Soft to palpation and non-tender PALPATION: Yes Soft to palpation OTHER: PEG intact, without any drainage, no surrounding erythema. Extremity: COMMON NORMALS: no joint enlargement and no pedal edema Neuro: COMMON NORMALS: patient oriented x3 and moves all extremities SENSORIUM/ORIENTATION: Yes alert Skin: COMMON NORMALS: no rashes or lesions noted GENERAL SKIN EXAM: no rashes or lesions noted Urinary Catheter Management: Lopez: Cath Placed During This Visit: yes Reason for Continuing Indwelling Catheter: Accurate Measurement of Urinary Output in Critically Ill Patients Urinary Catheter Date of Insertion: 12/18/22 Urinary Catheter Time of Insertion: 21:46 Data 12/19/22 03:23 12/19/22 03:23 Micro: Microbiology 12/18/22 13:57 Blood Culture - Preliminary Blood SPECIMEN COLLECTED 12/18/22 14:09 Blood Culture - Preliminary Blood SPECIMEN COLLECTED A&P Assessment and plan (1) Acute hypotension: Overnight additional hypotension, fluid responsive by NICOM, received additional boluses. This morning maintaining blood pressure, not on pressor, 102/68. Subjective Oliver is doing well. Discussed with him transferred to medical surgical floor. Continue to monitor vital signs. With dehydration, hypovolemia, discussed with him resumption of water flushes with tube feeds at lower rate. At risk of ISAC, follow-up chemistry. Decrease IVF to 50ml/h Resolved, lactic acid reviewed. Hypovolemic shock, possible septic shock. (2) Acute dyspnea: Continue Zosyn for aspiration pneumonia. Has been regurgitating tube feeds, discussed with him appears cannot tolerate bolus of 2 cartons at once, for now discussed with him starting lower rate 30 mill per hour infusion with water flushes. If tolerating, since he is still active, would prefer bolus feeds, could trial 1 carton 6 times a day. If not tolerating, may have to switch to continuous infusion. Reviewed RT notes. Aspiration pneumonia, reporting regurgitation of tube feeds. Hold tube feeds for now. May not be able to give bolus feeds. Treat aspiration pneumonia as above. Possible component of COPD exacerbation. CBC reviewed, repeat requested. (3) Acute kidney injury: Resolving. BUN reviewed. Creatinine down to 1, BUN 30. Responded to fluid challenge. Maintain blood pressures. Likely prerenal with shock, creatinine 1.5, BUN 42. Received fluid challenge. Reassess renal function. Collect UA. Check kidney ultrasound. (4) Dehydration: Additional fluid bolus. We will need to increase water flushes through feeding tube. Plan History of tonsillar cancer, resection, reconstruction and radiation therapy over 2 decades ago, subsequent osteoradionecrosis and fistulization, Chronic dysphagia, PEG tube, COPD, History of aspiration pneumonia, Other medical problems Attestations Medical Necessity Statement*: Continue admission for assessment management of aspiration pneumonia after regurgitation of tube feeds, shock. Diagnoses Acute hypotension I95.9 Acute dyspnea R06.00 Acute kidney injury N17.9 Dehydration E86.0
--- NOTE | 2022-12-19 16:06 | PC.NURSE ---
Report called to SANTIAGO Roy on the Medical Surgical floor. Patient transferred to MS room 272 via wheelchair. Belongings placed at bedside, Manuela noted to be at bedside at this time. Patient denies pain at this time.
[2022-12-19] MEDS: pantoprazole 40 mg SDV IVP (18:08)
[2022-12-20] VITALS (7 sets, daily range): BP systolic 102–138; BP diastolic 66–82; PULSE 68–82; RESP 16–18; TEMP 36.4–36.7; O2SAT 94–96
[2022-12-20] MEDS: piperacillin-tazobactam 3.375 GM in sodium chloride 0.9% (plus) 50 ML IV ×3 (05:13→22:45)
[2022-12-20 05:14] LABS: Basophils % 0.3 %; Hematocrit 29.8 % (37-53); Lymphocytes % 14.2 %; Mean Corpuscular HGB Conc 30.5 g/dL (30-55); Mean Corpuscular Hemoglobin 31.5 pg (27-33); Mean Corpuscular Volume 103.1 fl (82-101); Mean Platelet Volume 10.7 fL (7.4-10.4); Monocytes # 0.6 10^3/uL (0.2-0.9); Monocytes % 8.2 %; Neutrophils # 5.43 10^3/uL (1.8-7.7); Nucleated Red Blood Cells % 0 %; Platelet Count 256 10^3/cmm (157-399); Red Blood Count 2.89 10^6/uL (3.85-5.65); Red Cell Distribution Width 13.7 % (12.1-15.1); White Blood Count 7.05 10^3/uL (3.29-11.43)
[2022-12-20] MEDS: acetaminophen 500 mg Tablet FEED TUBE ×3 (05:15→22:45)
[2022-12-20] MEDS: heparin 5,000 unit/mL INJ 1 mL 5000 UNIT SUBCUT ×2 (05:15→16:49)
[2022-12-20 05:36] LABS: Anion Gap 8.2 (5-19); Blood Urea Nitrogen 23 mg/dL (8-23); Calcium 8.3 mg/dL (8.5-10.5); Carbon Dioxide 30 mmol/L (22-29); Chloride 105 mmol/L (98-107); Glomerular Filtration Rate 85.2 mL/min (90-130); Glucose 113 mg/dL (65-115); Osmolality Calculated 292 mOsm/kg (285-295); Potassium 4.2 mmol/L (3.5-5.1); Sodium 139 mmol/L (136-145)
[2022-12-20] MEDS: BuSPIRONE 10 mg Tablet PEG-TUBE ×3 (09:35→22:45)
--- NOTE | 2022-12-20 10:14 | PC.NUTR ---
Consult received for TF recommendations. MD requested switching to bolus feeds. Recommend consideration of Jevity 1.2 with 60 mls flushes before and after bolus feeds per following regimen: 8 am: 240 mls noon: 480 mls 4 pm: 240 mls 8 pm: [address] assessment.
--- NOTE | 2022-12-20 14:34 | P.PN_ITS ---
Subjective Subjective: Hospital course, labs appreciated. Seen today morning. Patient has remained hemodynamically stable and afebrile. Denies any nausea, vomiting, headache. Has been tolerating continuous tube feeds well. No episodes of aspiration. Blood work appreciated for stable CBC, CMP with resolution of ISAC, stable electrolytes. Vitals/I&O/Wt Last Vital Signs Temp 97.6 F 12/20/22 12:00 Pulse 68 12/20/22 12:00 Resp 18 12/20/22 12:00 BP 121/78 12/20/22 12:00 Pulse Ox 96 12/20/22 12:00 O2 Del Method Room Air 12/20/22 12:00 O2 Flow Rate 3 12/20/22 08:00 12/19/22 12/20/22 12/20/22 22:59 06:59 14:59 Intake Total 762 / 2122 50 / 2172 50 / 50 Output Total 1000 / 1000 Balance 762 / 2122 -950 / 1172 50 / 50 Weight last 48 hrs Weight 52.889 kg Weight 54.431 kg Physical Exam Const: COMMON NORMALS: patient oriented x3 and alert GENERAL APPEARANCE: cooperative ORIENTATION/CONSCIOUSNESS: Yes awake HENMT: COMMON NORMALS: oropharynx normal Neck/C-Spine: COMMON NORMALS: no JVD Resp: COMMON NORMALS: clear to auscultation bilaterally AUSCULTATION: clear to auscultation bilaterally OTHER: Few rhonchi Cardio: COMMON NORMALS: no JVD, regular rhythm, S1 normal heart sound present, S2 normal heart sound present and No murmurs present (Cardio) RHYTHM: regular rhythm HEART SOUNDS: S1 normal heart sound present and S2 normal heart sound present GI: COMMON NORMALS: Normal to inspection, nondistended, normoactive bowel sounds present, Soft to palpation and non-tender PALPATION: Yes Soft to palpation OTHER: PEG intact, without any drainage, no surrounding erythema. Extremity: COMMON NORMALS: no joint enlargement and no pedal edema Neuro: COMMON NORMALS: patient oriented x3 and moves all extremities SENSORIUM/ORIENTATION: Yes alert Skin: COMMON NORMALS: no rashes or lesions noted GENERAL SKIN EXAM: no rashes or lesions noted Urinary Catheter Management: Lopez: Cath Placed During This Visit: yes Reason for Continuing Indwelling Catheter: Other Urinary Catheter Date of Insertion: 12/18/22 Urinary Catheter Time of Insertion: 21:46 Data 12/20/22 04:30 12/20/22 04:30 Micro: Microbiology 12/18/22 18:00 Urine Culture - Final Urine,Clean Catch 12/18/22 13:57 Blood Culture - Preliminary Blood NEGATIVE TO DATE 12/18/22 14:09 Blood Culture - Preliminary Blood NEGATIVE TO DATE A&P Assessment and plan (1) Acute hypotension: Resolved. Most likely in setting of sepsis secondary to aspiration pneumonitis. Blood pressures have remained stable. Goal blood pressure less than 140/90 MAG with mean over 65. Continue to monitor. (2) Acute dyspnea: Insetting of aspiration pneumonia. Continue with Zosyn. MRSA pending. Blood cultures so far remain negative. Plan to continue antibiotics for overall 5-day course. Aspiration in setting of tube feeds. Discussed in detail with patient and dietitian. Patient is fairly active and would not do good with continuous feeds. Plan for switch to bolus feeds. Plan for tube feeds 4 times a day, 1 can every morning, 2 cans at noon, 1 time at 4, 2 cans at night along with 60 cc of free water flush prior to and after tube feeds. Patient is agreeable. Plan for switching to bolus feeds today and monitoring. Oxygen supplementation keeping saturation over 90%. (3) Acute kidney injury: Resolved. Most likely in setting of low fluid intake and hypotension on admission. (4) Dehydration: Additional fluid bolus. We will need to increase water flushes through feeding tube. Plan History of tonsillar cancer, resection, reconstruction and radiation therapy over 2 decades ago, subsequent osteoradionecrosis and fistulization, Chronic dysphagia, PEG tube, COPD, History of aspiration pneumonia, Other medical problems Full code Tube feeds, n.p.o. Protonix for PUD prophylaxis Heparin 5000 every 12 hourly for DVT prophylaxis Attestations Medical Necessity Statement*: Requires further hospitalization while tube feeds are adjusted in a patient ad mitted in septic shock, ISAC secondary to aspiration pneumonitis Diagnoses Acute hypotension I95.9 Acute dyspnea R06.00 Acute kidney injury N17.9 Dehydration E86.0
[2022-12-20 16:05] LABS: Methicillin-Resist S.aureu PCR NOT DETECTED (NOT DETECTED)
[2022-12-20] MEDS: pantoprazole 40 mg SDV IVP (16:49)
[2022-12-21] VITALS: BP 128/82; PULSE 81; RESP 18; TEMP 36.4; O2SAT 93
[2022-12-21 03:44] VITALS: BP 116/74; PULSE 76; RESP 14; TEMP 36.6; O2SAT 95
[2022-12-21 05:47] LABS: Basophils % 0.3 %; Eosinophils % 0.6 %; Hematocrit 31.6 % (37-53); Lymphocytes # 1.3 10^3/uL (0.8-4.8); Lymphocytes % 20.7 %; Mean Corpuscular HGB Conc 30.7 g/dL (30-55); Mean Corpuscular Hemoglobin 30.4 pg (27-33); Mean Corpuscular Volume 99.1 fl (82-101); Mean Platelet Volume 10.4 fL (7.4-10.4); Monocytes # 0.4 10^3/uL (0.2-0.9); Neutrophils # 4.39 10^3/uL (1.8-7.7); Neutrophils % 71.1 %; Nucleated Red Blood Cells % 0 %; Platelet Count 301 10^3/cmm (157-399); Red Blood Count 3.19 10^6/uL (3.85-5.65); Red Cell Distribution Width 13.5 % (12.1-15.1); White Blood Count 6.18 10^3/uL (3.29-11.43)
[2022-12-21] MEDS: heparin 5,000 unit/mL INJ 1 mL 5000 UNIT SUBCUT (06:02)
[2022-12-21] MEDS: acetaminophen 500 mg Tablet FEED TUBE (06:02)
[2022-12-21 06:05] LABS: Anion Gap 8.9 (5-19); Blood Urea Nitrogen 16 mg/dL (8-23); Calcium 8.6 mg/dL (8.5-10.5); Carbon Dioxide 34 mmol/L (22-29); Chloride 96 mmol/L (98-107); Glomerular Filtration Rate 97.6 mL/min (90-130); Glucose 113 mg/dL (65-115); Osmolality Calculated 282 mOsm/kg (285-295); Potassium 3.9 mmol/L (3.5-5.1); Sodium 135 mmol/L (136-145)
[2022-12-21] MEDS: piperacillin-tazobactam 3.375 GM in sodium chloride 0.9% (plus) 50 ML IV (06:14)
[2022-12-21 07:43] VITALS: BP 106/71; PULSE 80; RESP 16; TEMP 37.1; O2SAT 95
[2022-12-21 07:50] VITALS: PULSE 81; RESP 18; O2SAT 97
[2022-12-21] MEDS: BuSPIRONE 10 mg Tablet PEG-TUBE (08:29)
--- NOTE | 2022-12-21 10:00 | PC.CHAP ---
Pastoral Care Encounter/Spiritual Assessment Type of Contact [] Declined television announcer visit [] Patient/Family/Request visit [] Outpatient visit [] Follow-up visit [] Physician referral [] Code/Alert [x] Routine visit [] Staff referral [] Actively dying [] Patient sleeping [] Family support [] [] Out of room [] Palliative care [] [] Receiving care in room [] Pre-surgical visit [] Trauma [] Long length of stay [] ICU visit [] Other: Relational/Emotional Strength [x] Patient feels connected with others/family/visitors/staff [] Distress [] Loneliness/isolation [] Abandonment Spirituality of Patient [x] Person of Delmis [] Attends Shinto of their Delmis x[] Believes in Prayer [] Reads Bible or Mu-Ism materials [] There are Spiritual issues to be addressed Operations Research Scientist Interventions [x] Prayer [] Active listening [] Non-anxious presence [] Spiritual/emotional support [] Crisis/trauma care [] Spiritual counseling [] Bereavement support [] Provided bereavement packet [] Provided Bible/devotional materials [] Provided toy/stuffed animal, coloring book to patient or family member [] Provided Communion [] Anointing/Renner [] Salvation [x] Completed spiritual assessment [] Other: Impact on Illness or Injury [] Angry [] Fearful [] Anxious [] Often cries [] Exhaustion [] Unable to work [] Unable to attend roman catholic [] Unable to walk/stand [] Unable to read [] Unable to drive [] Unable to eat/drink [] Unable to sleep [] Unable to be with family [] Patient intubated [] Other: Summary Time spent with patient 5 min
[2022-12-21 11:37] VITALS: BP 126/82; PULSE 83; RESP 16; TEMP 36.9; O2SAT 96
--- NOTE | 2022-12-21 13:07 | P.DS_ITS ---
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 He normally uses Isosource, Giurgius by syringe 2 cans 3 times a day, additionally gives himself 50 cc of water after hours.? In ER found to be dehydrated, hypotensive, initially requiring 6 L nasal cannula oxygen. Hospital Course Hospital Course Patient was initially admitted to the ICU for further evaluation management with concerns for aspiration pneumonitis leading to hypotension requiring aggressive IV hydration and low-dose vasopressors. On admission patient was also in acute dyspnea from aspiration pneumonia and acute kidney injury secondary dehydration. Patient responded well to the treatment and hypotension resolved within 24 hours and patient was back to room air within 24 hours. Given concerns for aspiration pneumonitis patient's home PEG tube feeding regimen of discussed and reviewed in detail. Dietary was consulted. Patient was restarted on continuous feeds and later transitioned to bolus feeds. Going forward patient is still due bolus feeds as below. Jevity 1.2 with 60 cc of free water flush before and after each meal. BELKIS: 240 mils Noon: 480 mL 4 PM: 240 mils 8 PM: 480 mils Physical Exam Const: COMMON NORMALS: patient oriented x3 and alert GENERAL APPEARANCE: cooperative ORIENTATION/CONSCIOUSNESS: Yes awake HENMT: COMMON NORMALS: oropharynx normal Neck/C-Spine: COMMON NORMALS: no JVD Resp: COMMON NORMALS: clear to auscultation bilaterally AUSCULTATION: clear to auscultation bilaterally OTHER: Few rhonchi Cardio: COMMON NORMALS: no JVD, regular rhythm, S1 normal heart sound present, S2 normal heart sound present and No murmurs present (Cardio) RHYTHM: regular rhythm HEART SOUNDS: S1 normal heart sound present and S2 normal heart sound present GI: COMMON NORMALS: Normal to inspection, nondistended, normoactive bowel sounds present, Soft to palpation and non-tender PALPATION: Yes Soft to palpation OTHER: PEG intact, without any drainage, no surrounding erythema. Extremity: COMMON NORMALS: no joint enlargement and no pedal edema Neuro: COMMON NORMALS: patient oriented x3 and moves all extremities SENSORIUM/ORIENTATION: Yes alert Skin: COMMON NORMALS: no rashes or lesions noted GENERAL SKIN EXAM: no rashes or lesions noted Urinary Catheter Management: Lopez: Cath Placed During This Visit: yes, but has since been removed by the nurse Reason for Continuing Indwelling Catheter: Not indwelling catheter Urinary Catheter Date of Insertion: 12/18/22 Urinary Catheter Time of Insertion: 21:46 Date Urinary Catheter Removed: 12/21/22 Time Urinary Catheter Discontinued: 11:45 Discharge Data Studies Completed and Pending Completed Studies During Hospitalization Category Date Time Status XR chest 1V portable [id number] Stat Exams 12/18/22 13:45 Completed US kidney bilateral with bladder [US renal BI with PV Ultrasound 12/18/22 17:57 Completed bladder] Routine Pending at discharge Category Date Time Status Basic Metabolic Panel AM LABS Lab 12/22/22 04:00 Ordered Blood Culture Stat Lab 12/18/22 13:57 Results Complete Blood Count w/Auto AM LABS Lab 12/22/22 04:00 Ordered Radiology Impressions Chest X-Ray 12/18/22 13:45 IMPRESSION: No acute findings. Renal Ultrasound 12/18/22 17:57 IMPRESSION: 1. No evidence of renal obstruction on either side. 2. Debris noted in the urinary bladder. Moderate postvoid residual. Laboratory Results WBC 6.18 10^3/uL (3.29-11.43) 12/21/22 05:04 RBC 3.19 10^6/uL (3.85-5.65) L 12/21/22 05:04 Hgb 9.70 g/dL (11.27-16.99) L 12/21/22 05:04 Hct 31.6 % (37-53) L 12/21/22 05:04 MCV 99.1 fl (82-101) 12/21/22 05:04 MCH 30.4 pg (27-33) 12/21/22 05:04 MCHC 30.7 g/dL (30-55) 12/21/22 05:04 RDW 13.5 % (12.1-15.1) 12/21/22 05:04 Plt Count 301 10^3/cmm (157-399) 12/21/22 05:04 MPV 10.4 fL (7.4-10.4) 12/21/22 05:04 Neut % (Auto) 71.1 % 12/21/22 05:04 Lymph % (Auto) 20.7 % 12/21/22 05:04 [place] % (Auto) 7.0 % 12/21/22 05:04 Eos % (Auto) 0.6 % 12/21/22 05:04 Baso % (Auto) 0.3 % 12/21/22 05:04 Neut # (Auto) 4.39 10^3/uL (1.8-7.7) 12/21/22 05:04 Lymph # (Auto) 1.3 10^3/uL (0.8-4.8) 12/21/22 05:04 [place] # (Auto) 0.4 10^3/uL (0.2-0.9) 12/21/22 05:04 Eos # (Auto) 0.0 10^3/uL (0.0-0.8) 12/21/22 05:04 Baso # (Auto) 0.0 10^3/uL (0.0-0.1) 12/21/22 05:04 Nucleated RBC % (auto) 0 % 12/21/22 05:04 Nucleated RBCs # 0.0 /100WBC 12/21/22 05:04 D-Dimer 0.86 ug/mLFEU (0-0.59) H 12/18/22 14:58 Specimen Type Arterial 12/18/22 14:05 Sample Site Brachial, right 12/18/22 14:05 ABG pH 7.36 (7.35-7.45) 12/18/22 14:05 ABG pCO2 56.6 mmHg (35-45) H 12/18/22 14:05 ABG pO2 68.1 mmHg (80.0-100.0) L 12/18/22 14:05 ABG HCO3 31.7 mmol/L (22-26) H 12/18/22 14:05 ABG Base Excess 5.0 mmol/L (-2.0-2.0) H 12/18/22 14:05 [place] Test N/a 12/18/22 14:05 Hematocrit 32.8 % (42-52) L 12/18/22 14:05 Hgb O2 Saturation 92.9 % (95-100) L 12/18/22 14:05 Carboxyhemoglobin 1.9 %THgb (0.4-20.1) 12/18/22 14:05 Methemoglobin 0.2 % (0.4-1.5) L 12/18/22 14:05 Total Hemoglobin 10.7 g/dL (14-18) L 12/18/22 14:05 O2 Delivery Device Nc 12/18/22 14:05 O2 Liters/Min 4.0 % 12/18/22 14:05 FiO2 36.0 % 12/18/22 14:05 Pcb Design Engineer ID Gd 12/18/22 14:05 Sodium 135 mmol/L (136-145) L 12/21/22 05:04 Potassium 3.9 mmol/L (3.5-5.1) 12/21/22 05:04 Chloride 96 mmol/L (98-107) L 12/21/22 05:04 Carbon Dioxide 34 mmol/L (22-29) H 12/21/22 05:04 Anion Gap 8.9 (5-19) 12/21/22 05:04 BUN 16 mg/dL (8-23) 12/21/22 05:04 Creatinine 0.8 mg/dL (0.7-1.2) 12/21/22 05:04 GFR Calculation 97.6 mL/min (90-130) 12/21/22 05:04 Glucose 113 mg/dL (65-115) 12/21/22 05:04 Calculated Osmolality 282 mOsm/kg (285-295) L 12/21/22 05:04 Lactic Acid 3.0 mmol/L (0.5-2.2) H 12/18/22 14:58 Lactic Acid (Sepsis) 2.8 mmol/L (0.5-2.2) H 12/18/22 18:16 Calcium 8.6 mg/dL (8.5-10.5) 12/21/22 05:04 Total Bilirubin 0.3 mg/dL (0.15-1.2) 12/19/22 03:23 AST 15 U/L (0-40) 12/19/22 03:23 ALT 10 U/L (0-41) 12/19/22 03:23 Alkaline Phosphatase 97 U/L (40-130) 12/19/22 03:23 NT-Pro-B Natriuret Pep 654 pg/mL (0-125) H 12/18/22 14:58 Total Protein 6.6 g/dL (6.6-8.7) D 12/19/22 03:23 Albumin 2.9 g/dL (3.5-5.2) L 12/19/22 03:23 Globulin 3.7 g/dL (1.3-4.6) 12/19/22 03:23 Random Cortisol 52.43 ug/dL (2.47-19.5) H 12/18/22 14:58 Urine Color Yellow (Yellow) 12/18/22 18:00 Urine Appearance Clear (CLEAR) 12/18/22 18:00 Urine pH 5 (5-7) 12/18/22 18:00 Ur Specific [place] 1.020 (1.005-1.030) 12/18/22 18:00 Urine Protein 1+ (Negative) H 12/18/22 18:00 Urine Glucose (UA) Norm (Normal) 12/18/22 18:00 Urine Ketones 1+ (Negative) H 12/18/22 18:00 Urine Blood 2+ (Negative) H 12/18/22 18:00 Urine Nitrate Negative (Negative) 12/18/22 18:00 Urine Bilirubin Neg (Negative) 12/18/22 18:00 Urine Urobilinogen Norm mg/dL (Negative) 12/18/22 18:00 Ur Leukocyte Esterase Trace (Negative) H 12/18/22 18:00 Urine RBC None /hpf (0-2) 12/18/22 18:00 Urine WBC 0-4 /hpf (0-5) H 12/18/22 18:00 Ur Squamous Epith Cells None /hpf (0-5) 12/18/22 18:00 Uric Acid Crystals 0-4 /hpf 12/18/22 18:00 Amorphous Sediment Not Reportable 12/18/22 18:00 Urine Bacteria 2+ /hpf (NONE) H 12/18/22 18:00 Hyaline Casts 15-25 /lpf H 12/18/22 18:00 Urine Mucus 1+ /hpf 12/18/22 18:00 SARS-CoV-2 Ag (Rapid) negative (Negative) 12/18/22 13:58 MRSA (PCR) Not detected (NOT DETECTED) 12/18/22 21:34 Vitals Last Vital Signs Temp 98.5 F 12/21/22 11:37 Pulse 83 12/21/22 11:37 Resp 16 12/21/22 11:37 BP 126/82 12/21/22 11:37 Pulse Ox 96 12/21/22 11:37 O2 Del Method Nasal Cannula 12/21/22 11:37 O2 Flow Rate 3 12/21/22 08:00 Discharge Plan Discharge Patient Disposition: Home Health Service Condition: Stable Prescriptions: New Jevity 1.2 Dre 0.06 gram-1.2 kcal/mL liquid 1 ea feeding tube .4 times a day Qty: 5688 0RF Continued acetaminophen 500 mg Tablet 500 mg PO TID@ buspirone 10 mg tablet 10 mg PO TID melatonin 5 mg Tablet 10 mg feeding tube TID@ potassium gluconate 595 mg (99 mg) Tablet 595 mg PO DAILY PRN (Reason: unknown) Discontinued Isosource 1.5 Dre 0.07 gram-1.5 kcal/mL Liquid See Rx Instructions .ROUTE .COMPLEX Rx Instructions: as directed Discharge Orders: Discharge Order (Routine); Ordered 12/21/22 Ordered By: Kiet Vasquez Referrals: Martin Mcfarland DO [Primary Care Provider] - Discharge Activity: Resume usual activity and Increase activity as tolerated Patient Instructions: Opioid Safety Activity Restrictions/Additional Instructions: Jevity 1.2 with 60 cc of free water flush before and after each meal. 8 AM: 240 mils Noon: 480 mL 4 PM: 240 mils 8 PM: 480 mils Discharge Attestations Time Spent in Discharge Care*: greater than 30 min Specific Discharge Activities: educating patient, discussing with pcp/other providers, discussing with insurance case manager/social workers/dc planners, documenting/other paperwork and evaluating patient/reviewing data Status at Discharge: Cognitive status at discharge: cognitively intact , Behavioral status at discharge: cooperative , Functional status at discharge: other assisted ambulation , Overall status at discharge: patient is back to baseline Quality Metrics Clinical Quality Measures [ No reported AMI, CVA or VTE this stay] Coding Level of Care Code 99404 Total time (in minutes) for Discharge: 50 Diagnoses Acute hypotension I95.9 Acute dyspnea R06.00 Acute kidney injury N17.9 Dehydration E86.0
--- NOTE | 2022-12-21 13:36 | PC.NURSE ---
Dr. Castelan contacted and advised that patient tolerated his tube feeding at noon today of 480 ml very well.
[2022-12-21 14:45] VITALS: BP 126/82; PULSE 83; RESP 16; TEMP 36.9; O2SAT 96
== END 2022-12-21 14:47 | disposition home or self-care (01) | DRG 177 ==
LOC: ER 16:09 → ICU 17:17 → MEDSURG 12-19 16:20
PROVIDERS: Admitting Provider Internal Medicine; Emergency Provider Emergency Medicine; PCP Internal Medicine; Visit Provider Student in an Organized Health Care Education/Training Program
DX: J69.0 Pneumonitis due to inhalation of food and vomit (principal); R57.1 Hypovolemic shock; N17.9 Acute kidney failure, unspecified; Z85.818 Personal history of malignant neoplasm of other sites of lip, oral cavity, and pharynx; Z92.3 Personal history of irradiation; R13.10 Dysphagia, unspecified; Z93.1 Gastrostomy status; J44.9 Chronic obstructive pulmonary disease, unspecified; Z87.01 Personal history of pneumonia (recurrent); E86.0 Dehydration; I95.9 Hypotension, unspecified; F41.9 Anxiety disorder, unspecified; Z86.16 Personal history of COVID-19; Z87.891 Personal history of nicotine dependence
CPT/HCPCS: 36415; 36600; 51702; 71045; 76770; 76857; 80048; 80053; 81001; 82533; 82805; 83605; 83880; 85025; 85378; 87040; 87086; 87426; 87641; 93005; 94640; 94664; 96365; 96367; 96372; 96375; 96376; 99285; C9113; J1644; J2543; J3370; J7030; J7050; J7120

== ENCOUNTER 2023-05-16 20:39 | Emergency (ER) | payer MEDICARE, MEDICAID, SELFPAY ==
[2023-05-16 20:40] VITALS: BP 129/90; PULSE 104; RESP 18; TEMP 36.4; O2SAT 94; BMI 18.8
--- NOTE | 2023-05-16 20:45 | W.ED.GENADLT ---
HPI - General Adult General: Chief complaint: General Medical Stated complaint: FEEDING TUBE ISSUE Time Seen by Provider: 05/16/23 20:40 Source: patient and EMS Mode of arrival: EMS Limitations: no limitations History of Present Illness: 62-year-old male states his feeding tube fell out roughly 30 minutes ago. He states that he has had feeding tube for 3 to 4 years states that he just fell asleep the bone is likely failed. He denies any pain he has no other complaints at this time Associated symptoms: Deny chest pain, dyspnea, nausea or vomiting Review of Systems Const: Denies: fever(s) or chills ENMT: Denies: throat pain Card: Denies: chest pain Resp: Denies: dyspnea GI: Denies: abdominal pain, nausea, vomiting or diarrhea Musc: Denies: neck pain or back pain PFSH ED PFSH: Medical History Decreased ability to feed self Diarrhea Closed left ankle fracture COPD exacerbation COVID-19 Lung nodule < 6cm on CT Septicemia due to Staphylococcus aureus Anemia Severe sepsis Urinary retention Lopez catheter placed October 2019 with failed trial of voiding Decubitus ulcer of coccyx, 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 Anxiety Uses feeding tube COPD (chronic obstructive pulmonary disease) Aspiration, chronic pulmonary History of osteomyelitis Osteomyelitis of the mandible, treated in 2017 Surgical History Gastrostomy present (07/15/21) Encounter for gastrojejunal (GJ) tube placement (10/19/19) History of tonsillectomy Cancer resection with tonsillar cancer Family History Mother Cancer Diabetes Father , 80 Cancer Denies family history of Anesthesia complication Bleeding disorder Social History Smoking and tobacco/nicotine status: former use of tobacco/nicotine (quit 2019) Quit status (tobacco/nicotine): has quit using Year quit tobacco: 2020 - 0.5 PPD x 30 Years Alcohol intake: never Substance/Drug Use: never Caregiver/support person: Yes Lives independently: No Household members: caregiver Housing: [facility] Marital status: Current occupational status: disabled Do you think of yourself as: Straight/Heterosexual Current gender identity: Male Physical Exam Const: COMMON NORMALS: no acute distress, patient oriented x3 and healthy appearing HENMT: COMMON NORMALS: normocephalic and atraumatic HEAD & SCALP: normocephalic and atraumatic Eye: COMMON NORMALS: conjunctivae normal CONJUNCTIVA: Yes conjunctivae normal Neck/C-Spine: COMMON NORMALS: full ROM and supple Chest: COMMONS NORMALS: normal inspection of the chest Resp: COMMON NORMALS: normal respiratory effort GI: COMMON NORMALS: Normal to inspection, nondistended, normoactive bowel sounds present, Soft to palpation, non-tender and no masses PALPATION: Yes Soft to palpation OTHER: Feeding tube is dislodged Extremity: COMMON NORMALS: normal to inspection and full ROM Neuro: COMMON NORMALS: patient oriented x3, moves all extremities and no focal motor deficits Psych: COMMON NORMALS: mental status grossly normal, Normal thought process present and cooperative THOUGHT PROCESS: Normal thought process present Skin: COMMON NORMALS: no rashes or lesions noted and no wounds GENERAL SKIN EXAM: no rashes or lesions noted Procedures Feeding Tube Replacement Type of Tube: gastrostomy Insertion Site Prior to Procedure: clean Tube Used for Reinsertion: other (g tube) Hungarian Tube Size (F): 18 Balloon size (mL): 10 Verification of Placement: KUB and gastrografin injection Tube Secured by: tape/dressing Patient Tolerated Procedure: well Course Vital Signs: Vital signs: Vital Signs Temperature 97.5 F L 05/16/23 20:53 Pulse Rate 104 H 05/16/23 20:40 Respiratory Rate 15 05/16/23 20:53 Blood Pressure 129/90 05/16/23 20:53 Pulse Oximetry 96 05/16/23 20:53 Oxygen Delivery Me thod Room Air 05/16/23 20:53 MDM - General Adult Medical Decision Making Patient presents here with a dislodged G-tube I did replace it with a new 1 x-ray shows it in place he is stable for discharge follow-up with PCP return if worsening. Medical Records I reviewed the patient's medical records. XR interpretation done by ED provider, pending radiology final review ED provider radiology interpretation(s): xr kub: g tube in place Discharge Plan Discharge Patient Disposition: Home Clinical Impression: Gastrojejunostomy tube dislodgement Condition: Stable Prescriptions: No Action acetaminophen 500 mg Tablet 500 mg PO TID@ buspirone 10 mg tablet 10 mg PO TID melatonin 5 mg Tablet 10 mg feeding tube TID@ potassium gluconate 595 mg (99 mg) Tablet 595 mg PO DAILY PRN (Reason: unknown) Jevity 1.2 Rde 0.06 gram-1.2 kcal/mL liquid 1 ea feeding tube .4 times a day Qty: 5688 0RF Discharge Orders: Discharge ED (Routine); Ordered 05/16/23 Ordered By: Brooks Madrigal Referrals: Martin Mcfarland DO [Primary Care Provider] - 4-7 days Discharge Diet: Advance as tolerated Discharge Activity: Resume usual activity Patient Instructions: How to Use and Care for Your PEG Tube (DC) Coding Level of Care Code ED Emergency Department Rn for Steffi Velasco
--- NOTE | 2023-05-16 20:51 | XRR_ITS ---
PROCEDURE INFORMATION: Exam: XR Abdomen Exam date and time: 05/16/2023 9:04 PM Age: 62 years old Clinical indication: Device placement; Gi device; Peg tube; Additional info: G tube placement, gastrogaffin TECHNIQUE: Imaging protocol: Radiologic exam of the abdomen. Views: Frontal supine view of the abdomen. 1 View. COMPARISON: CR XR KUB portable [id number] 05/11/2022 2:27 PM FINDINGS: Gastrointestinal tract: Nonobstructive bowel gas pattern. No evidence of free air or pneumatosis. Gastrostomy tube in place with contrast visualized in the stomach. No evidence of leakage. Bones/joints: No evidence of acute osseous abnormality. XR/XR KUB [id number] IMPRESSION: 1. Gastrostomy tube in place with contrast visualized in the stomach. No evidence of leakage.
[2023-05-16 20:53] VITALS: BP 129/90; RESP 15; TEMP 36.4; O2SAT 96
[2023-05-16 22:25] VITALS: BP 85/68; PULSE 92; O2SAT 92
== END 2023-05-16 22:28 | disposition home or self-care (01) ==
PROVIDERS: Emergency Provider Emergency Medicine; PCP Internal Medicine
DX: K94.29 Other complications of gastrostomy (principal); Z87.891 Personal history of nicotine dependence; J44.9 Chronic obstructive pulmonary disease, unspecified
CPT/HCPCS: 43762; 74018; 99283

== ENCOUNTER 2023-10-13 13:20 | Emergency (ER) | payer MEDICARE, SELFPAY ==
[2023-10-13 13:37] VITALS: BP 95/64; PULSE 92; RESP 18; TEMP 36.7; O2SAT 87; BMI 17.7
--- NOTE | 2023-10-13 13:47 | ED_ITS ---
HPI - General Adult General: Chief complaint: General Medical Stated complaint: bubble in feeding tube, popped in stomach (?) Time Seen by Provider: 10/13/23 13:46 History of Present Illness: 63-year-old male patient comes in today for complaints of loose G-tube. Patient had his G-tube replaced in May in the emergency department after it became displaced. Today patient had taken a shower and noticed that the tube was really loose and he was concerned for the balloon becoming deflated. Review of Systems General: Reports: 10 or more systems reviewed and unremarkable except in HPI and below PFSH ED PFSH: Medical History Decreased ability to feed self Diarrhea Closed left ankle fracture COPD exacerbation COVID-19 Lung nodule < 6cm on CT Septicemia due to Staphylococcus aureus Anemia Severe sepsis Urinary retention Lopez catheter placed October 2019 with failed trial of voiding Decubitus ulcer of coccyx, 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 Anxiety Uses feeding tube COPD (chronic obstructive pulmonary disease) Aspiration, chronic pulmonary History of osteomyelitis Osteomyelitis of the mandible, treated in 2017 Surgical History Gastrostomy present (07/15/21) Encounter for gastrojejunal (GJ) tube placement (10/19/19) History of tonsillectomy Cancer resection with tonsillar cancer Family History Mother Cancer Diabetes Father , 80 Cancer Denies family history of Anesthesia complication Bleeding disorder Social History Smoking and tobacco/nicotine status: former use of tobacco/nicotine (quit 2019) Quit status (tobacco/nicotine): has quit using Year quit tobacco: 2020 - 0.5 P PD x 30 Years Alcohol intake: never Substance/Drug Use: never Caregiver/support person: Yes Lives independently: No Household members: caregiver Housing: [facility] Marital status: Current occupational status: disabled Do you think of yourself as: Straight/Heterosexual Current gender identity: Male Physical Exam Const: COMMON NORMALS: alert HENMT: COMMON NORMALS: normocephalic HEAD & SCALP: normocephalic Neck/C-Spine: COMMON NORMALS: full ROM Resp: COMMON NORMALS: normal respiratory effort Cardio: COMMON NORMALS: regular rate RATE: regular rate GI: COMMON NORMALS: Soft to palpation (G-tube noted in place.) and non-tender PALPATION: Yes Soft to palpation (G-tube noted in place.) Neuro: SENSORIUM/ORIENTATION: Yes alert Skin: COMMON NORMALS: turgor normal GENERAL SKIN EXAM: turgor normal Procedures Feeding Tube Replacement Type of Tube: gastrostomy Insertion Site Prior to Procedure: clean Tube Used for Reinsertion: Bard [place] Tube Size (F): 18 Balloon size (mL): 10 Verification of Placement: KUB and gastrografin injection Tube Secured by: tape/dressing Patient Tolerated Procedure: well Complications: other (none) Course Vital Signs: Vital signs: Vital Signs Temperature 98.1 F 10/13/23 13:37 Pulse Rate 92 10/13/23 13:37 Respiratory Rate 80 H 10/13/23 14:18 Blood Pressure 119/79 10/13/23 14:18 Pulse Oximetry 97 10/13/23 14:18 Oxygen Delivery Me thod Nasal Cannula 10/13/23 14:18 Oxygen Flow Rate 3 10/13/23 13:37 [facility] - General Adult Medical Decision Making 63-year-old male patient comes in today for concerns of displaced G-tube. Patient appears nontoxic. Patient is chronically ill due to prior throat cancer. Patient voices that the G-tube feels more loose than normal and is concerned is becoming displaced. Patient is wanting the G-tube replaced. Patient appears nontoxic. G-tube is loose. Skin is warm and dry. Gastrostomy site is intact and well-healed. Differential diagnosis gastrostomy tube displacement, failure of gastrostomy tube, stricture at the gastrostomy site. Attempted replacement of the tube with a 20 [place] Citizen but the patient used before in the past but was unable to insert, 18 [place] Citizen and then inserted. Verification of insertion was done with KUB with Gastrografin. Patient tolerated well. Patient discharged home with instructions. XR interpretation done by ED provider, pending radiology final review Discharge Plan Discharge Patient Disposition: Home Clinical Impression: Gastrostomy tube dysfunction Condition: Stable Prescriptions: No Action No Known Home Medications Discharge Orders: Discharge ED (Routine); Ordered 10/13/23 Ordered By: Travis Mukherjee Referrals: Martin Mcfarland DO [Primary Care Provider] - Discharge Diet: Usual diet Discharge Activity: Increase activity as tolerated Patient Instructions: GI Tube Care Activity Restrictions/Additional Instructions: Continue routine care. Follow-up with primary care for further instructions. Coding Level of Care Code ED Transition Nurse for Steffi Velasco
--- NOTE | 2023-10-13 14:13 | XRR_ITS ---
PROCEDURE INFORMATION: Exam: XR Abdomen Exam date and time: 10/13/2023 2:14 PM Age: 63 years old Clinical indication: Device placement; Gi device; Other: G tube; Additional info: G-tube placement with gastrografin TECHNIQUE: Imaging protocol: Radiologic exam of the abdomen. Views: Frontal supine view of the abdomen. 1 View. COMPARISON: CR XR KUB [id number] 05/16/2023 9:04 PM FINDINGS: Tubes, catheters and devices: There is a G-tube with its tip in the left upper quadrant, that subsequently injected with enteric contrast with no evidence of extravasation contrast in the 2nd imaging. 2 minute image shows loss of the rugae uncertain if there is delayed extravasation of contrast. Repeat x-ray evaluation is recommended before G-tube use. Gastrointestinal tract: Normal. No bowel dilation. Bones/joints: Unremarkable. XR/XR KUB [id number] IMPRESSION: There is a G-tube with its tip in the left upper quadrant, subsequently injected with enteric contrast, with no evidence of extravasation on the second imaging. 2-minute image shows loss of the rugae and sharp contour borders; uncertain if there is delayed extravasation of contrast. Repeat x-ray evaluation is recommended before G-tube use.
[2023-10-13 14:18] VITALS: BP 119/79; RESP 80; O2SAT 97
--- NOTE | 2023-10-13 14:28 | PC.PHAR ---
PT STATES TAKES NO MEDICATIONS AT THIS TIME.
[2023-10-13] MEDS: diatrizoate meglumine 120 mL Sol 30 ML PO (14:40)
[2023-10-13 14:55] VITALS: BP 119/79; PULSE 92; RESP 80; TEMP 36.7; O2SAT 97
== END 2023-10-13 14:57 | disposition home or self-care (01) ==
PROVIDERS: Emergency Provider Nurse Practitioner Family; PCP Internal Medicine
DX: K94.23 Gastrostomy malfunction (principal); Z87.891 Personal history of nicotine dependence; J44.9 Chronic obstructive pulmonary disease, unspecified; Z85.89 Personal history of malignant neoplasm of other organs and systems
CPT/HCPCS: 43762; 74018; 99283; Q9963

== ENCOUNTER 2023-11-04 16:21 | Emergency (ER) | payer MEDICARE, SELFPAY ==
[2023-11-04 16:28] VITALS: BP 101/59; PULSE 85; RESP 18; TEMP 36.9; O2SAT 98
[2023-11-04] MEDS: sodium chloride 0.9% 1,000 ML 999 ML IV (16:35)
[2023-11-04 17:16] LABS: Alanine Aminotransferase 14 U/L (0-41); Albumin Level 3.7 g/dL (3.5-5.2); Alkaline Phosphatase 86 U/L (40-130); Blood Urea Nitrogen 32 mg/dL (8-23); C Reactive Protein 45.5 mg/L (0.0-4.9); Calcium 8.6 mg/dL (8.5-10.5); Carbon Dioxide 26 mmol/L (22-29); Chloride 98 mmol/L (98-107); Creatinine Clr Calc Pharmacy 57.4551; Globulin 3.5 g/dL (1.3-4.6); Glucose 107 mg/dL (65-115); Lactic Sepsis W/Reflex 0.8 mmol/L (0.5-2.2); Lipase 29 U/L (13-60); Osmolality Calculated 291 mOsm/kg (285-295); Sodium 137 mmol/L (136-145); Total Bilirubin 0.3 mg/dL (0.15-1.2); Total Protein 7.2 g/dL (6.6-8.7)
[2023-11-04 17:24] LABS: Anion Gap 17.6 (5-19); Aspartate Amino Transferase 22 U/L (0-40); Potassium 4.6 mmol/L (3.5-5.1)
[2023-11-04 17:24] LABS: Basophils # 0.1 10^3/uL (0.0-0.1); Basophils % 0.3 %; Eosinophils % 0.1 %; Hematocrit 37.7 % (37-53); Lymphocytes # 0.5 10^3/uL (0.8-4.8); Lymphocytes % 3.1 %; Mean Corpuscular HGB Conc 30.5 g/dL (30-55); Mean Corpuscular Hemoglobin 31.3 pg (27-33); Mean Corpuscular Volume 102.4 fl (82-101); Mean Platelet Volume 10.8 fL (7.4-10.4); Monocytes # 0.9 10^3/uL (0.2-0.9); Monocytes % 5.6 %; Neutrophils # 13.82 10^3/uL (1.8-7.7); Neutrophils % 90.6 %; Nucleated Red Blood Cells % 0 %; Platelet Count 170 10^3/cmm (157-399); Red Blood Count 3.68 10^6/uL (3.85-5.65); Red Cell Distribution Width 14.6 % (12.1-15.1); White Blood Count 15.28 10^3/uL (3.29-11.43)
[2023-11-04 17:30] LABS: Bilirubin Urine Negative (Negative); Blood Urine Negative (Negative); Glucose Urine UA Negative (Normal); Ketones Urine Trace (Negative); Leukocyte Esterase Urine Negative (Negative); Nitrate Urine Negative (Negative); Protein Urine 1+ (Negative); Specific Gravity, Urine 1.013 (1.005-1.030); Urine Appearance Clear (CLEAR); Urine Color Yellow (Yellow); Urobilinogen Urine 0.2 mg/dL (Negative)
[2023-11-04 17:32] LABS: Bacteria Urine None Seen /hpf; Hyaline Casts Urine 1.65 /lpf; Squamous Epithelial Cell Urine 0-5 /hpf (0-5); WBC Urine 0-5 /hpf (0-5)
--- NOTE | 2023-11-04 17:37 | ED_ITS ---
HPI - Nausea/Vomiting/Diarrhea 2 General: Chief complaint: Nausea/Vomiting/Diarrhea Stated complaint: n/v Time Seen by Provider: 11/04/23 16:23 History of Present Illness: 63-year-old man with a history of head n dawn cancer remotely, tobacco dependence in remission, now smoking marijuana daily, COPD and chronic hypoxemic respiratory failure on 2 L nasal cannula at all times who presents to the emergency room with nausea and vomiting for the last 3 to 4 days. No focal abdominal pain. He says his body hurts all over. Muscle and joint aches and backaches. No chest pain. No dysuria. No altered mental status. No focal motor deficits. Review of Systems 2 Narrative: Constitutional symptoms: Negative except as documented in HPI. Skin symptoms: Negative except as documented in HPI. Eye symptoms: Negative except as documented in HPI. ENMT symptoms: Negative except as documented in HPI. Respiratory symptoms: Negative except as documented in HPI. Cardiovascular symptoms: Negative except as documented in HPI. Gastrointestinal symptoms: Negative except as documented in HPI. Genitourinary symptoms: Negative except as documented in HPI. Musculoskeletal symptoms: Negative except as documented in HPI. Neurologic symptoms: Negative except as documented in HPI. Psychiatric symptoms: Negative except as documented in HPI. Endocrine symptoms: Negative except as documented in HPI. 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 Anxiety Uses feeding tube COPD (chronic obstructive pulmonary disease) Aspiration, chronic pulmonary History of osteomyelitis Osteomyelitis of the mandible, treated in 2017 Surgical History Gastrostomy present (07/15/21) Encounter for gastrojejunal (GJ) tube placement (10/19/19) History of tonsillectomy Cancer resection with tonsillar cancer Family History Mother Cancer Diabetes Father , 80 Cancer Denies family history of Anesthesia complication Bleeding disorder Social History Smoking and tobacco/nicotine status: former use of tobacco/nicotine (quit 2019) Quit status (tobacco/nicotine): has quit using Year quit tobacco: 2020 - 0.5 PPD x 30 Years Alcohol intake: never Substance/Drug Use: never Caregiver/support person: Yes Lives independently: No Household members: caregiver Housing: Half-Way Marital status: Current occupational status: disabled Do you think of yourself as: Straight/Heterosexual Current gender identity: Male Physical Exam 2 Narrative: EXAM NARRATIVE: General: Alert, no acute distress. Skin: Warm, dry. Head: Normocephalic, atraumatic. Neck: Supple, trachea midline. Eye: Extraocular movements are intact. Ears, nose, mouth and throat: mucosa moist. Cardiovascular: Regular, Normal peripheral perfusion. Respiratory: Lungs are clear to auscultation, respirations are non-labored, breath sounds are equal, Symmetrical chest wall expansion. Gastrointestinal: Soft, mildly distended,, Non distended Musculoskeletal: Normal ROM, no deformity. Neurological: Alert and oriented, No focal neurological deficit observed. Psychiatric: Cooperative, appropriate mood & affect. Course 2 Vital Signs: Vital signs: Vital Signs Temperature 98.4 F 11/04/23 16:28 Pulse Rate 85 11/04/23 16:28 Respiratory Rate 18 11/04/23 16:28 Blood Pressure 101/59 11/04/23 16:28 Pulse Oximetry 98 11/04/23 16:28 Oxygen Delivery Me thod Nasal Cannula 11/04/23 16:28 Oxygen Flow Rate 4 11/04/23 16:28 MDM - Nausea/Vomiting/Diarrhea Medical Decision Making Medical decision making: Differential diagnosis including but not limited to and based on the above HPI, review of systems and physical exam: Patient says she had a history of hepatitis but she is not sure. My first concern with abdominal distention and nausea would be that she is having hepatitis. Also pancreatitis to be in line differential. UTI etc. Orders placed to evaluate differential diagnosis based on the above differential, HPI and physical exam Lab Review: Laboratory results were reviewed and interpreted by myself the emergency room physician. Lab work is fairly unremarkable. Some mild leukocytosis with a white count of 15.3. Mild anemia with hemoglobin 11.5. BUN is elevated at 32 with a creatinine of 0.9 which would indicate some dehydration. Urinalysis is negative for infection. Drug screen is positive for opiates and marijuana. I reviewed the patient's medical record. Reexamination: Patient says he feels quite a bit better with fluids and nausea medications. Patient remained stable. No increased work of breathing. No altered mental status. No focal motor deficits. Assessment and plan: Gastroenteritis Dehydration ? Normal saline bolus and IV Zofran. Home with some Zofran. ?Patient has a feeding tube so does not take p.o. medications or fluids. - Discharged home - Discussed plan with patient. Answered any questions. - Evaluation and treatment of this problem were appropriate in the emergency setting. Lab Data 11/04/23 17:15 11/04/23 16:49 Laboratory Results WBC 15.28 10^3/uL (3.29-11.43) H 11/04/23 17:15 Corrected WBC Cancelled 11/04/23 16:49 RBC 3.68 10^6/uL (3.85-5.65) L 11/04/23 17:15 Hgb 11.50 g/dL (11.27-16.99) 11/04/23 17:15 Hct 37.7 % (37-53) 11/04/23 17:15 MCV 102.4 fl (82-101) H 11/04/23 17:15 MCH 31.3 pg (27-33) 11/04/23 17:15 MCHC 30.5 g/dL (30-55) 11/04/23 17:15 RDW 14.6 % (12.1-15.1) 11/04/23 17:15 Plt Count 170 10^3/cmm (157-399) 11/04/23 17:15 MPV 10.8 fL (7.4-10.4) H 11/04/23 17:15 Gran % Cancelled 11/04/23 16:49 Neut % (Auto) 90.6 % 11/04/23 17:15 Lymph % (Auto) 3.1 % 11/04/23 17:15 [place] % (Auto) 5.6 % 11/04/23 17:15 Eos % (Auto) 0.1 % 11/04/23 17:15 Baso % (Auto) 0.3 % 11/04/23 17:15 Neut # (Auto) 13.82 10^3/uL (1.8-7.7) H 11/04/23 17:15 Lymph # (Auto) 0.5 10^3/uL (0.8-4.8) L 11/04/23 17:15 [place] # (Auto) 0.9 10^3/uL (0.2-0.9) 11/04/23 17:15 Eos # (Auto) 0.0 10^3/uL (0.0-0.8) 11/04/23 17:15 Baso # (Auto) 0.1 10^3/uL (0.0-0.1) 11/04/23 17:15 Absolute Gran (auto) Cancelled 11/04/23 16:49 Nucleated RBC % (auto) 0 % 11/04/23 17:15 Nucleated RBCs # 0.0 /100WBC 11/04/23 17:15 Sodium 137 mmol/L (136-145) 11/04/23 16:49 Potassium 4.6 mmol/L (3.5-5.1) 11/04/23 16:49 Chloride 98 mmol/L (98-107) 11/04/23 16:49 Carbon Dioxide 26 mmol/L (22-29) 11/04/23 16:49 Anion Gap 17.6 (5-19) 11/04/23 16:49 BUN 32 mg/dL (8-23) H 11/04/23 16:49 Creatinine 0.9 mg/dL (0.7-1.2) 11/04/23 16:49 GFR Calculation 85.0 mL/min (90-130) L 11/04/23 16:49 Glucose 107 mg/dL (65-115) 11/04/23 16:49 Calculated Osmolality 291 mOsm/kg (285-295) 11/04/23 16:49 Lactic Acid 0.8 mmol/L (0.5-2.2) 11/04/23 16:49 Calcium 8.6 mg/dL (8.5-10.5) 11/04/23 16:49 Total Bilirubin 0.3 mg/dL (0.15-1.2) 11/04/23 16:49 AST 22 U/L (0-40) 11/04/23 16:49 ALT 14 U/L (0-41) 11/04/23 16:49 Alkaline Phosphatase 86 U/L (40-130) 11/04/23 16:49 C-Reactive Protein 45.5 mg/L (0.0-4.9) H 11/04/23 16:49 Total Protein 7.2 g/dL (6.6-8.7) 11/04/23 16:49 Albumin 3.7 g/dL (3.5-5.2) 11/04/23 16:49 Globulin 3.5 g/dL (1.3-4.6) 11/04/23 16:49 Lipase 29 U/L (13-60) 11/04/23 16:49 Urine Color Yellow (Yellow) 11/04/23 17:23 Urine Appearance Clear (CLEAR) 11/04/23 17:23 Urine pH 8.0 (5-7) A 11/04/23 17:23 Ur Specific [place] 1.013 (1.005-1.030) 11/04/23 17:23 Urine Protein 1+ (Negative) A 11/04/23 17:23 Urine Glucose (UA) Negative (Normal) 11/04/23 17:23 Urine Ketones Trace (Negative) 11/04/23 17:23 Urine Blood Negative (Negative) 11/04/23 17:23 Urine Nitrate Negative (Negative) 11/04/23 17:23 Urine Bilirubin Negative (Negative) 11/04/23 17:23 Urine Urobilinogen 0.2 mg/dL (Negative) 11/04/23 17:23 Ur Leukocyte Esterase Negative (Negative) 11/04/23 17:23 Urine RBC 3-5 /hpf (0-2) 11/04/23 17:23 Urine WBC 0-5 /hpf (0-5) 11/04/23 17:23 Ur Squamous Epith Cells 0-5 /hpf (0-5) 11/04/23 17:23 Amorphous Sediment Not Reportable 11/04/23 17:23 Urine Bacteria None seen /hpf (NONE) 11/04/23 17:23 Hyaline Casts 1.65 /lpf 11/04/23 17:23 Urine Opiates Screen Positive ng/mL (Negative) H 11/04/23 17:23 Ur Barbiturates Screen Negative ng/mL (Negative) 11/04/23 17:23 Ur Phencyclidine Scrn Negative ng/mL (Negative) 11/04/23 17:23 Ur Amphetamines Screen Negative ng/mL (Negative) 11/04/23 17:23 U Benzodiazepines Scrn Negative ng/mL (Negative) 11/04/23 17:23 Urine Cocaine Screen Negative ng/mL (Negative) 11/04/23 17:23 U Marijuana (THC) Screen Positive ng/mL (Negative) H 11/04/23 17:23 No radiology studies performed this visit Discharge Plan Discharge Patient Disposition: Home Clinical Impression: Gastroenteritis, Dehydration Condition: Stable Prescriptions: New ondansetron 8 mg tablet,disintegrating 8 mg PO .q6 PRN (Reason: nausea and vomiting) Qty: 14 0RF Discharge Orders: Discharge ED (Routine); Ordered 11/04/23 Ordered By: Tiffany Moura Referrals: Martin Mcfarland DO [Primary Care Provider] - Discharge Diet: Usual diet Discharge Activity: Resume usual activity Patient Instructions: Dehydration (ED), Gastroenteritis (ED) Activity Restrictions/Additional Instructions: Thank you for choosing [facility] for your healthcare needs today. Please realize this is an emergency room and that we are providing you with a medical screening exam and this may not be complete and all inclusive of all the testing and or work up that you may need to determine your ailment or severity of your illness. You have been screened and evaluated and felt safe for discharge. Health conditions do change or evolve sometimes and as such it is important that you follow up with your Primary Doctor to be re checked, 3-5 days is a general good time frame for follow up. You are always welcome to return to the ED for re assessment if your symptoms are worsening or you have new concerns Coding Level of Care Code ED Brim Stretcher for Steffi Velasco
[2023-11-04 17:39] LABS: Amphetamines Screen Urine Negative (Negative); Barbiturates Screen Urine Negative (Negative); Benzodiazepines Screen Urine Negative (Negative); Cocaine Screen Urine Negative (Negative); Opiate Screen Urine Positive (Negative); PCP Screen Urine Negative (Negative); THC Screen Urine Positive (Negative)
[2023-11-04 18:00] VITALS: BP 125/81; PULSE 81; RESP 16; O2SAT 97
[2023-11-04] MEDS: ondansetron 2 mg/ML SDV 2 mL 4 MG IVP (18:18)
[2023-11-04 18:48] VITALS: BP 108/71; PULSE 84; RESP 16; TEMP 36.9; O2SAT 97
== END 2023-11-04 18:55 | disposition home or self-care (01) ==
PROVIDERS: Emergency Provider Emergency Medicine; PCP Internal Medicine
DX: K52.9 Noninfective gastroenteritis and colitis, unspecified (principal); E86.0 Dehydration; Z87.891 Personal history of nicotine dependence; J44.9 Chronic obstructive pulmonary disease, unspecified
CPT/HCPCS: 36415; 80053; 80306; 81001; 83605; 83690; 85025; 86140; 87040; 96361; 96374; 99284; J2405; J7030

== ENCOUNTER 2023-11-22 13:50 | Emergency (ER) | payer MEDICARE, SELFPAY ==
--- NOTE | 2023-11-22 13:56 | XRR_ITS ---
PROCEDURE INFORMATION: Exam: XR Chest Exam date and time: 11/22/2023 2:20 PM Age: 63 years old Clinical indication: Injury or trauma; Fall; Blunt trauma (contusions or hematomas); Prior surgery; Surgery date: 6+ months; Surgery type: G tube TECHNIQUE: Imaging protocol: Radiologic exam of the chest. Views: 1 view. Total images: 4 COMPARISON: CR XR chest 1V portable [id number] 12/18/2022 1:58 PM FINDINGS: Lungs: Benign granulomatous disease of the lung is noted. Streaky right basilar opacity favors scarring and atelectasis. An underlying pneumonia cannot be excluded. Pleural spaces: Unremarkable. No pleural effusion. No pneumothorax. Heart/Mediastinum: Unremarkable. No cardiomegaly. Bones/joints: Unremarkable. XR/XR chest 1V portable [id number] IMPRESSION: Streaky right basilar opacity favors scarring and atelectasis. An underlying pneumonia cannot be excluded.
--- NOTE | 2023-11-22 13:56 | XRR_ITS ---
PROCEDURE INFORMATION: Exam: XR Lumbosacral Spine Exam date and time: 11/22/2023 2:22 PM Age: 63 years old Clinical indication: Injury or trauma; Fall; Blunt trauma (contusions or hematomas); Prior surgery; Surgery date: 6+ months; Surgery type: G tube, patient HX: HX of neck cancer TECHNIQUE: Imaging protocol: Radiologic exam of the lumbosacral spine. Views: 2 or 3 views. Total images: 2 COMPARISON: CT abdomen pelvis wo con [id number] 08/19/2021 1:08 PM FINDINGS: Tubes, catheters and devices: A gastric feeding tube projects in satisfactory location. Bones/joints: Multilevel disc space height loss and minimal osteophyte formation. Vertebral body heights are maintained. No evidence of spondylolysis nor spondylolisthesis. Soft tissues: Unremarkable. XR/XR lumbar spine 2-3V* [id number] IMPRESSION: Degenerative changes as described above but no acute pathology detected.
--- NOTE | 2023-11-22 13:57 | W.ED.SYNCOPE ---
HPI - Syncope General: Chief Complaint: Fall Stated Complaint: Fall Time Seen by Provider: 11/22/23 13:53 Source: patient and EMS Mode of arrival: EMS Limitations: no limitations History of Present Illness: 63-year-old male states that he had stood up too quickly got lightheaded and passed out. He had a fall states he had some low back pain and some mild since then denies hitting his head denies headache states he is passed out before when he stood up too fast. He denies any chest pain or shortness of breath denied headache before or after the event Associated symptoms: Deny abdominal pain, chest pain, fever(s), headache(s) or nausea Related Data Previous Rx's Medication Instructions Recorded ondansetron 8 mg disintegrating 8 mg PO .q6 PRN nausea and 11/04/23 tablet vomiting #14 tabs amoxicillin 400 mg-potassium 10 ml PO BID 10 days #200 mL 11/05/23 clavulanate 57 mg/5 mL oral suspension Allergies Allergy/AdvReac Type Severity Reaction Status Date / Time No Known Allergies Allergy Verified 11/05/23 17:55 Review of Systems Const: Denies: fever(s), chills, body aches or change in appetite ENMT: Denies: throat pain or dental pain Card: Reports: syncope; Denies: chest pain Resp: Denies: dyspnea GI: Denies: abdominal pain, nausea, vomiting or diarrhea Musc: Reports: back pain; Denies: neck pain Skin/Breast: Denies: rash Neuro: Denies: headache(s) PFS ED PFSH: Medical History Decreased ability to feed self Diarrhea Closed left ankle fracture COPD exacerbation COVID-19 Lung nodule < 6cm on CT Septicemia due to Staphylococcus aureus Anemia Severe sepsis Urinary retention Lopez catheter placed October 2019 with failed trial of voiding Decubitus ulcer of coccyx, 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 Anxiety Uses feeding tube COPD (chronic obstructive pulmonary disease) Aspiration, chronic pulmonary History of osteomyelitis Osteomyelitis of the mandible, treated in 2017 Surgical History Gastrostomy present (07/15/21) Encounter for gastrojejunal (GJ) tube placement (07/17/20) History of tonsillectomy Cancer resection with tonsillar cancer Family History Mother Cancer Diabetes Father , 80 Cancer Denies family history of Anesthesia complication Bleeding disorder Social History Smoking and tobacco/nicotine status: unknown if used tobacco/nicotine Quit status (tobacco/nicotine): has quit using Year quit tobacco: 2020 - 0.5 PPD x 30 Years Alcohol intake: never Substance/Drug Use: never Caregiver/support person: Yes Lives independently: No Household members: caregiver Housing: [facility] Marital status: Current occupational status: disabled Do you think of yourself as: Straight/Heterosexual Current gender identity: Male Physical Exam Const: COMMON NORMALS: no acute distress, patient oriented x3 and healthy appearing HENMT: COMMON NORMALS: normocephalic and atraumatic HEAD & SCALP: normocephalic and atraumatic Eye: COMMON NORMALS: Equal, round and reactive pupils present and EOMs intact bilaterally PUPIL: Yes Equal, round and reactive pupils present Neck/C-Spine: COMMON NORMALS: full ROM and supple Chest: COMMONS NORMALS: normal inspection of the chest and normal palpation of entire chest wall Resp: COMMON NORMALS: normal respiratory effort, No retractions, No use of accessory muscles and clear to auscultation bilaterally AUSCULTATION: clear to auscultation bilaterally Cardio: COMMON NORMALS: regular rate, regular rhythm and No murmurs present (Cardio) RATE: regular rate RHYTHM: regular rhythm GI: COMMON NORMALS: Normal to inspection, nondistended, normoactive bowel sounds present, Soft to palpation, non-tender and no masses PALPATION: Yes Soft to palpation Extremity: COMMON NORMALS: normal to inspection and full ROM Neuro: COMMON NORMALS: patient oriented x3, moves all extremities and no focal motor deficits Psych: COMMON NORMALS: mental status grossly normal, Normal thought process present and cooperative THOUGHT PROCESS: Normal thought process present Skin: COMMON NORMALS: no rashes or lesions noted and no wounds GENERAL SKIN EXAM: no rashes or lesions noted Course Vital Signs: Vital signs: Vital Signs Temperature 98.4 F 11/22/23 14:01 Pulse Rate 75 11/22/23 16:28 Respiratory Rate 18 11/22/23 14:01 Blood Pressure 120/78 08/20/24 16:28 Pulse Oximetry 96 11/22/23 16:28 Oxygen Delivery Me thod Room Air 11/22/23 15:09 Oxygen Flow Rate 2 11/22/23 14:01 MDM - Syncope Medical Decision Making Patient presents here after syncopal event and a fall his imaging here is normal no signs of fracture she ambulated here without any difficulty likely vasovagal event. No head injury blood work EKG here normal he stable for discharge follow-up with PCP return if worsening. Medical Records I reviewed the patient's medical records. Lab Data I reviewed the patient's lab results. 11/22/23 14:14 11/22/23 14:14 Radiology Impressions Chest X-Ray 11/22/23 13:56 IMPRESSION: Streaky right basilar opacity favors scarring and atelectasis. An underlying pneumonia cannot be excluded. Lumbar Spine X-Ray 11/22/23 13:56 IMPRESSION: Degenerative changes as described above but no acute pathology detected. Pelvis X-Ray 11/22/23 14:39 IMPRESSION: No acute osseous pathology. Laboratory Results WBC 3.89 10^3/uL (3.29-11.43) 11/22/23 14:14 RBC 3.96 10^6/uL (3.85-5.65) 11/22/23 14:14 Hgb 12.20 g/dL (11.27-16.99) 11/22/23 14:14 Hct 39.6 % (37-53) 11/22/23 14:14 MCV 100.0 fl (82-101) 11/22/23 14:14 MCH 30.8 pg (27-33) 11/22/23 14:14 MCHC 30.8 g/dL (30-55) 11/22/23 14:14 RDW 14.6 % (12.1-15.1) 11/22/23 14:14 Plt Count 253 10^3/cmm (157-399) 11/22/23 14:14 MPV 10.3 fL (7.4-10.4) 11/22/23 14:14 Neut % (Auto) 72.0 % 11/22/23 14:14 Lymph % (Auto) 18.5 % 11/22/23 14:14 [place] % (Auto) 5.9 % 11/22/23 14:14 Eos % (Auto) 2.3 % 11/22/23 14:14 Baso % (Auto) 0.8 % 11/22/23 14:14 Neut # (Auto) 2.80 10^3/uL (1.8-7.7) 11/22/23 14:14 Lymph # (Auto) 0.7 10^3/uL (0.8-4.8) L 11/22/23 14:14 [place] # (Auto) 0.2 10^3/uL (0.2-0.9) 11/22/23 14:14 Eos # (Auto) 0.1 10^3/uL (0.0-0.8) 11/22/23 14:14 Baso # (Auto) 0.0 10^3/uL (0.0-0.1) 11/22/23 14:14 Nucleated RBC % (auto) 0 % 11/22/23 14:14 Nucleated RBCs # 0.0 /100WBC 11/22/23 14:14 Sodium 138 mmol/L (136-145) 11/22/23 14:14 Potassium 4.5 mmol/L (3.5-5.1) 11/22/23 14:14 Chloride 96 mmol/L (98-107) L 11/22/23 14:14 Carbon Dioxide 33 mmol/L (22-29) H 11/22/23 14:14 Anion Gap 13.5 (5-19) 11/22/23 14:14 BUN 35 mg/dL (8-23) H 11/22/23 14:14 Creatinine 1.1 mg/dL (0.7-1.2) 11/22/23 14:14 GFR Calculation 67.4 mL/min (90-130) L 11/22/23 14:14 Glucose 125 mg/dL (65-115) H 11/22/23 14:14 Calculated Osmolality 295 mOsm/kg (285-295) 11/22/23 14:14 Calcium 9.2 mg/dL (8.5-10.5) 11/22/23 14:14 Total Bilirubin 0.3 mg/dL (0.15-1.2) 11/22/23 14:14 AST 18 U/L (0-40) 11/22/23 14:14 ALT 13 U/L (0-41) 11/22/23 14:14 Alkaline Phosphatase 86 U/L (40-130) 11/22/23 14:14 Total Protein 7.9 g/dL (6.6-8.7) 11/22/23 14:14 Albumin 4.3 g/dL (3.5-5.2) 11/22/23 14:14 Globulin 3.6 g/dL (1.3-4.6) 11/22/23 14:14 All radiology interpretation(s) finalized by discharge EKG Data EKG 1: I personally reviewed and interpreted this EKG as follows: EKG interpretation date: 11/22/23 EKG interpretation time: 14:17 Interpretation: nsr hr [address] elevation qrs 108 qtc 428 Discharge Plan Discharge Patient Disposition: Home Clinical Impression: Syncope, Lumbar contusion Condition: Stable Prescriptions: No Action amoxicillin-pot clavulanate 400-57 mg/5 mL suspension for reconstitution 10 ml PO BID 10 Days Qty: 200 0RF ondansetron 8 mg tablet,disintegrating 8 mg PO .q6 PRN (Reason: nausea and vomiting) Qty: 14 0RF Discharge Orders: Discharge ED (Routine); Ordered 11/22/23 Ordered By: Brooks Madrigal Referrals: Martin Mcfarland DO [Primary Care Provider] - Discharge Diet: Advance as tolerated Discharge Activity: Resume usual activity Patient Instructions: Syncope (ED) Coding Level of Care Code ED Ad Setter for Steffi Velasco
[2023-11-22 14:01] VITALS: BP 115/70; PULSE 76; RESP 18; TEMP 36.9; O2SAT 98; BMI 17.2
--- NOTE | 2023-11-22 14:17 | ECG_ITS ---
[facility] Test Date: 2023-11-22 Pat Name: Charles Garay Department: Room: Gender: Male [employer] Superintendent: : 1960 Requested By: Brooks Madrigal Order Number: [id number] Melissa MD: Troy Gaxiola M.D. Measurements Intervals [place] Rate: 72 P: 61 [place]: 165 QRS: 85 QRSD: 108 T: 70 QT: 404 QTc: 443 Interpretive Statements SINUS RHYTHM ST ELEVATION, PROBABLY EARLY REPOLARIZATION [ST ELEVATION WITH NORMALLY INFLECTED T-WAVE] MODERATE ST DEPRESSION [0.05+ mV ST DEPRESSION] Compared to ECG 12/18/2022 13:49:16 ST (T wave) deviation now present Early repolarization now present Sinus tachycardia no longer present Incomplete right bundle-branch block no longer present T-wave abnormality no longer present Possible ischemia no longer present Electronically Signed On 11-22-2023 23:31:50 CDT by Troy Gaxiola M.D. [email or web address]
[2023-11-22 14:18] LABS: Basophils % 0.8 %; Eosinophils # 0.1 10^3/uL (0.0-0.8); Eosinophils % 2.3 %; Hematocrit 39.6 % (37-53); Lymphocytes # 0.7 10^3/uL (0.8-4.8); Lymphocytes % 18.5 %; Mean Corpuscular HGB Conc 30.8 g/dL (30-55); Mean Corpuscular Hemoglobin 30.8 pg (27-33); Mean Platelet Volume 10.3 fL (7.4-10.4); Monocytes # 0.2 10^3/uL (0.2-0.9); Monocytes % 5.9 %; Nucleated Red Blood Cells % 0 %; Platelet Count 253 10^3/cmm (157-399); Red Blood Count 3.96 10^6/uL (3.85-5.65); Red Cell Distribution Width 14.6 % (12.1-15.1); White Blood Count 3.89 10^3/uL (3.29-11.43)
--- NOTE | 2023-11-22 14:34 | PC.NURSE ---
PATIENT VERBALLY AGGRESSIVE TO NURSE. PATIENT STATES THAT HE IS IN PAIN AND THAT HE WAS PUT IN THIS FUCKING CLOSET. PATIENT STATES THAT HE IS IN FUCKING PAIN. NURSE EXPLAINED THAT PATIENT IS PLACED IN ARE ONLY AVAILABLE ROOM AT THAT TIME, WHICH ALSO HAPPENED TO BE A PSYCH ROOM. NURSE EXPLAINED THAT THIS ROOM IS INTENTIONALLY LEFT EMPTY OF MOST THINGS BUT PATIENT IS IN A ROOM LIKE ALL OTHER PATIENTS AND RECEIVING CARE. PATIENT CONTINUES TO SHOUT. NURSE PROVIDED PATIENT WITH A CALL LIGHT AND LEFT THE ROOM.
[2023-11-22 14:37] LABS: Alanine Aminotransferase 13 U/L (0-41); Albumin Level 4.3 g/dL (3.5-5.2); Alkaline Phosphatase 86 U/L (40-130); Anion Gap 13.5 (5-19); Aspartate Amino Transferase 18 U/L (0-40); Blood Urea Nitrogen 35 mg/dL (8-23); Calcium 9.2 mg/dL (8.5-10.5); Carbon Dioxide 33 mmol/L (22-29); Chloride 96 mmol/L (98-107); Globulin 3.6 g/dL (1.3-4.6); Glomerular Filtration Rate 67.4 mL/min (90-130); Glucose 125 mg/dL (65-115); Osmolality Calculated 295 mOsm/kg (285-295); Potassium 4.5 mmol/L (3.5-5.1); Sodium 138 mmol/L (136-145); Total Bilirubin 0.3 mg/dL (0.15-1.2); Total Protein 7.9 g/dL (6.6-8.7)
[2023-11-22 14:39] VITALS: BP 115/79; PULSE 75; O2SAT 96
--- NOTE | 2023-11-22 14:39 | XRR_ITS ---
PROCEDURE INFORMATION: Exam: XR Pelvis Exam date and time: 11/22/2023 2:43 PM Age: 63 years old Clinical indication: Injury or trauma; Fall; Blunt trauma (contusions or hematomas); Bilateral; Pelvic region TECHNIQUE: Imaging protocol: Radiologic exam of the pelvis. Views: 1 or 2 view. Total images: 3 COMPARISON: CT abdomen pelvis wo con [id number] 08/19/2021 1:08 PM FINDINGS: Tubes, catheters and devices: Partially visualized G-tube tubing. Bones/joints: Mild scattered degenerative changes of the spine. No acute fracture nor subluxation. No osseous erosion nor periosteal reaction. Soft tissues: Unremarkable. Vasculature: Incidental phleboliths noted. XR/XR pelvis 1-2V* [id number] IMPRESSION: No acute osseous pathology.
[2023-11-22] MEDS: HYDROcodone-acetaminophen 5-325 mg Tablet 1 TAB PO (15:02)
[2023-11-22 15:09] VITALS: BP 105/70; PULSE 78; O2SAT 96
[2023-11-22 16:28] VITALS: BP 120/78; PULSE 75; O2SAT 96
== END 2023-11-22 16:15 | disposition home or self-care (01) ==
PROVIDERS: Emergency Provider Emergency Medicine; PCP Internal Medicine
DX: R55 Syncope and collapse (principal); S30.0XXA Contusion of lower back and pelvis, initial encounter; Z87.891 Personal history of nicotine dependence; J44.9 Chronic obstructive pulmonary disease, unspecified; Z85.89 Personal history of malignant neoplasm of other organs and systems; W18.39XA Other fall on same level, initial encounter
CPT/HCPCS: 36415; 71045; 72100; 72170; 80053; 85025; 93005; 99285

== ENCOUNTER 2024-04-05 13:51 | Emergency (ER) | payer MEDICARE, SELFPAY ==
[2024-04-05] VITALS (7 sets, daily range): BP systolic 102–120; BP diastolic 65–79; PULSE 88–107; RESP 19–23; TEMP 37.1; O2SAT 92–97; BMI 16.4
--- NOTE | 2024-04-05 14:03 | XRR_ITS ---
PROCEDURE INFORMATION: Exam: XR Chest Exam date and time: 04/05/2024 2:11 PM Age: 63 years old Clinical indication: Cough and dyspnea; Prior surgery; Surgery date: 6+ months; Surgery type: G tube; Patient HX: HX of neck cancer, flu like symptoms; Additional info: Dyspnea/cough TECHNIQUE: Imaging protocol: Radiologic exam of the chest. Views: 1 view. COMPARISON: CR XR chest 1V portable [id number] 11/22/2023 2:20 PM FINDINGS: Tubes, catheters and devices: Overlying monitor leads. Lungs: Suggestion of hyperinflation or COPD/emphysematous change with component of scarring with prior exam, particularly right lung base. No interval new infiltrate or consolidation otherwise. Calcified granuloma on the left indicates mild benign healed granulomatous disease. Pleural spaces: No significant pleural effusion. No pneumothorax. Heart/Mediastinum: Unremarkable. No cardiomegaly. Bones/joints: Mild thoracic dextroscoliosis. Visualized osseous structures show no acute abnormality. XR/XR chest 1V portable [id number] IMPRESSION: Chronic changes with prior exam suggestive of underlying COPD/emphysematous change with scarring and particularly right lung base. No acute findings in relation to prior exam.
--- NOTE | 2024-04-05 14:19 | ECG_ITS ---
[facility] Date: 2024-[facility]05 Pat Name: Charles Garay Department: Room: Gender: Male Psychiatric Assistant: : 1960 Requested By: Madan Manuel Order Number: [id number] Melissa MD: Chava Bray M.D. Measurements Intervals [place] Rate: 105 P: 69 ND: 149 QRS: 87 QRSD: 116 T: 60 QT: 331 QTc: 439 Interpretive Statements SINUS TACHYCARDIA MODERATE INTRAVENTRICULAR CONDUCTION DELAY [110+ ms QRS DURATION] ST DEVIATION AND MODERATE T-WAVE ABNORMALITY, CONSIDER ANTERIOR ISCHEMIA [-0.1+ mV T-WAVE IN V3/V4] Compared to ECG 11/22/2023 14:17:42 Intraventricular conduction delay now present T-wave abnormality now present Possible ischemia now present Sinus rhythm no longer present ST (T wave) deviation no longer present Early repolarization no longer present Electronically Signed On 04-05-2024 16:08:00 NUDE MODEL by Chava Bray M.D. [email or web address]
--- NOTE | 2024-04-05 14:24 | ED_ITS ---
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 He is not on any anticoagulation. He has had issues with aspiration pneumonia in the past. No history of PE or DVT. He is tachycardic and tachypneic on arrival requiring 4 L he usually is on 3 to 4 L at home. Patient has PEG tube use for nutrition and fluid supplementation he has been having significant and dry heaving. Associated symptoms: Deny abdominal pain, chills, chest pain or fever(s) Related Data Previous Rx's Medication Instructions Recorded azithromycin 250 mg tablet See Rx Instructions PO .COMPLEX #6 04/05/24 (Zithromax Z-Ry) tabs Allergies Allergy/AdvReac Type Severity Reaction Status Date / Time No Known Allergies Allergy Verified 11/05/23 17:55 Review of Systems 2 Const: Denies: fever(s) or chills Card: Denies: chest pain Resp: Denies: dyspnea GI: Denies: abdominal pain : Denies: dysuria, urinary frequency or urinary urgency Musc: Denies: neck pain or back pain Skin/Breast: Denies: rash 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 Anxiety Uses feeding tube COPD (chronic obstructive pulmonary disease) Aspiration, chronic pulmonary History of osteomyelitis Osteomyelitis of the mandible, treated in 2017 Surgical History Gastrostomy present (07/15/21) Encounter for gastrojejunal (GJ) tube placement (10/19/19) History of tonsillectomy Cancer resection with tonsillar cancer Family History Mother Cancer Diabetes Father , 80 Cancer Denies family history of Anesthesia complication Bleeding disorder Social History Smoking and tobacco/nicotine status: unknown if used tobacco/nicotine Quit status (tobacco/nicotine): has quit using Year quit tobacco: 2020 - 0.5 PPD x 30 Years Alcohol intake: never Substance/Drug Use: never Caregiver/support person: Yes Lives independently: No Household members: caregiver Housing: Correction Marital status: Current occupational status: disabled Do you think of yourself as: Straight/Heterosexual Current gender identity: Male Physical Exam 2 Const: COMMON NORMALS: no acute distress GENERAL APPEARANCE: cooperative and comfortable ORIENTATION/CONSCIOUSNESS: Yes awake, Yes oriented to person, Yes oriented to place and Yes oriented to time HENMT: COMMON NORMALS: normocephalic, atraumatic and hearing grossly normal bilaterally HEAD & SCALP: normocephalic and atraumatic Resp: COMMON NORMALS: normal respiratory effort, No retractions, No use of accessory muscles and clear to auscultation bilaterally AUSCULTATION: clear to auscultation bilaterally Cardio: COMMON NORMALS: regular rate, regular rhythm and No murmurs present (Cardio) RATE: regular rate RHYTHM: regular rhythm GI: COMMON NORMALS: Soft to palpation and No hepatosplenomegaly present A USCULTATION: Yes normoactive bowel sounds PALPATION: Yes Soft to palpation, No Tenderness to palpation present (GI), No Guarding due to palpation present (GI) and Yes No hepatosplenomegaly present Extremity: COMMON NORMALS: normal to inspection, capillary refill normal, no clubbing, cyanosis or edema, no calf tenderness and no pedal edema Neuro: SENSORIUM/ORIENTATION: Yes oriented to person, Yes oriented to place and Yes oriented to time Skin: COMMON NORMALS: no rashes or lesions noted GENERAL SKIN EXAM: no rashes or lesions noted Course 2 Vital Signs: Vital signs: Vital Signs Temperature 98.7 F 04/05/24 20:50 Pulse Rate 101 H 04/05/24 20:22 Respiratory Rate 20 H 04/05/24 20:22 Blood Pressure 115/77 04/05/24 20:22 Pulse Oximetry 95 04/05/24 20:22 Oxygen Delivery Me thod Room Air 04/05/24 19:30 Oxygen Flow Rate 4 04/05/24 13:53 MDM - URI/Sore Throat Medical Decision Making Care signed out to Dr. henriquez at change of shift. See final notes for diagnosis and disposition. Lab Data 04/05/24 14:21 04/05/24 14:21 Radiology Impressions Chest X-Ray 04/05/24 14:03 IMPRESSION: Chronic changes with prior exam suggestive of underlying COPD/emphysematous change with scarring and particularly right lung base. No acute findings in relation to prior exam. Chest CTA 04/05/24 16:07 IMPRESSION: 1. No CT findings of pulmonary embolus. 2. Emphysematous change with component of chronic interstitial change or fibrosis and right basilar chronic bronchiectasis. 3. Pulmonary parenchymal opacity or consolidation with air bronchograms in a draping appearance is seen along the medial and posterior pleural margins below the hilar regions in the lower chest bilaterally. Some chronic component, particularly on the left, with 2021 exam, though appearing increased on the left and predominantly new on the right. Likely some component of pleural thickening, as well as chronic apical pleural thickening. Associated increased soft tissue density mid to posterior mediastinum inferior hilar region likely reflects component of adenopathy. The more medial and posterior dependent location does not reflect typical appearance of pneumonia, though pneumonia possible. Large areas of collapsed lung with pleural scarring not excluded. PET-CT could be performed to exclude malignancy with a history of neck cancer otherwise. COMMENTS: The presence of pulmonary emphysema on CT is an independent risk factor for lung cancer. In the absence of a history or active diagnosis of lung cancer, it is recommended that this patient with emphysema be evaluated for enrollment in a low dose CT lung cancer screening program. Laboratory Results WBC 5.63 10^3/uL (3.29-11.43) 04/05/24 14:21 RBC 3.32 10^6/uL (3.85-5.65) L 04/05/24 14:21 Hgb 10.20 g/dL (11.27-16.99) L 04/05/24 14:21 Hct 32.9 % (37-53) L 04/05/24 14:21 MCV 99.1 fl (82-101) 04/05/24 14:21 MCH 30.7 pg (27-33) 04/05/24 14:21 MCHC 31.0 g/dL (30-55) 04/05/24 14:21 RDW 14.5 % (12.1-15.1) 04/05/24 14:21 Plt Count 151 10^3/cmm (157-399) L 04/05/24 14:21 MPV 10.6 fL (7.4-10.4) H 04/05/24 14:21 Neut % (Auto) 93.2 % 04/05/24 14:21 Lymph % (Auto) 1.4 % 04/05/24 14:21 [place] % (Auto) 5.0 % 04/05/24 14:21 Eos % (Auto) 0.0 % 04/05/24 14:21 Baso % (Auto) 0.2 % 04/05/24 14: Neut # (Auto) 5.25 10^3/uL (1.8-7.7) 04/05/24 14:21 Lymph # (Auto) 0.1 10^3/uL (0.8-4.8) L 04/05/24 14:21 [place] # (Auto) 0.3 10^3/uL (0.2-0.9) 04/05/24 14:21 Eos # (Auto) 0.0 10^3/uL (0.0-0.8) 04/05/24 14:21 Baso # (Auto) 0.0 10^3/uL (0.0-0.1) 04/05/24 14:21 Nucleated RBC % (auto) 0 % 04/05/24 14: Nucleated RBCs # 0.0 /100WBC 04/05/24 14:21 D-Dimer 0.71 ug/mLFEU (0-0.59) H 04/05/24 14:30 Specimen Type Arterial 04/05/24 14:15 Sample Site Radial, left 04/05/24 14:15 ABG pH 7.46 (7.35-7.45) H 04/05/24 14:15 ABG pCO2 45.2 mmHg (35-45) H 04/05/24 14:15 ABG pO2 68.8 mmHg (80.0-100.0) L 04/05/24 14:15 ABG PO2/FiO2 Ratio 191 04/05/24 14:15 ABG HCO3 32.3 mmol/L (22-26) H 04/05/24 14:15 ABG O2 Saturation 95.9 04/05/24 14:15 ABG Base Excess 7.6 mmol/L (-2.0-2.0) H 04/05/24 14:15 Prosper Test Pos 04/05/24 14:15 A-a O2 Gradient 17.4 mmHg (5-10) H 04/05/24 14:15 Hematocrit 31.8 % (42-52) L 04/05/24 14:15 Hgb O2 Saturation 94.2 % (95-100) L 04/05/24 14:15 Carboxyhemoglobin 1.4 %THgb (0.4-20.1) 04/05/24 14:15 Methemoglobin 0.3 % (0.4-1.5) L 04/05/24 14:15 Total Hemoglobin 10.4 g/dL (14-18) L 04/05/24 14:15 Sodium 135.0 mmol/L (131-143) 04/05/24 14:15 Potassium 4.2 mmol/L (3.5-5.0) 04/05/24 14:15 Glucose 99.0 mg/dL (70-115) 04/05/24 14:15 Ionized Calcium 1.2 mmol/L (1.1-1.4) 04/05/24 14:15 O2 Delivery Device Nc 04/05/24 14:15 O2 Liters/Min 4.0 % 04/05/24 14:15 FiO2 36.0 % 04/05/24 14:15 Rail Assembler ID [place] 04/05/24 14:15 Sodium 134 mmol/L (136-145) L 04/05/24 14:21 Potassium 4.5 mmol/L (3.5-5.1) 04/05/24 14:21 Chloride 94 mmol/L (98-107) L 04/05/24 14:21 Carbon Dioxide 28 mmol/L (22-29) 04/05/24 14:21 Anion Gap 16.5 (5-19) 04/05/24 14:21 BUN 25 mg/dL (8-23) H 04/05/24 14:21 Creatinine 0.8 mg/dL (0.7-1.2) 04/05/24 14:21 GFR Calculation 97.3 mL/min (90-130) 04/05/24 14:21 Glucose 101 mg/dL (65-115) 04/05/24 14:21 Calculated Osmolality 283 mOsm/kg (285-295) L 04/05/24 14:21 Lactic Acid 1.7 mmol/L (0.5-2.2) 04/05/24 14:21 Calcium 8.7 mg/dL (8.5-10.5) 04/05/24 14:21 Total Bilirubin 0.2 mg/dL (0.15-1.2) 04/05/24 14:21 AST 20 U/L (0-40) 04/05/24 14:21 ALT 15 U/L (0-41) 04/05/24 14:21 Alkaline Phosphatase 93 U/L (40-130) 04/05/24 14:21 Total Protein 6.8 g/dL (6.6-8.7) 04/05/24 14:21 Albumin 3.5 g/dL (3.5-5.2) 04/05/24 14:21 Globulin 3.3 g/dL (1.3-4.6) 04/05/24 14:21 Coronavirus (PCR) Negative (Negative) 04/05/24 14:28 Influenza A (PCR) Negative (Negative) 04/05/24 14:28 Influenza Type B (PCR) Negative (Negative) 04/05/24 14:28 RSV (PCR) Negative (Negative) 04/05/24 14:28 Discharge Plan Discharge Patient Disposition: Home Clinical Impression: Bronchitis Upper respiratory infection Qualifiers: URI type: unspecified viral URI Qualified Code(s): J06.9 - Acute upper respiratory infection, unspecified Condition: Stable Prescriptions: New azithromycin [Zithromax Z-Ry] 250 mg tablet See Rx Instructions .ROUTE .COMPLEX Qty: 6 0RF Rx Instructions: For 250 mg dose pack: take 500 mg today (day 1), then 250 mg for 4 days (days 2-5) Discharge Orders: Discharge ED (Routine); Ordered 04/05/24 Ordered By: Adarsh Law Referrals: Martin Mcfarland DO [Primary Care Provider] - Discharge Diet: Resume prior tube feeds Discharge Activity: Resume usual activity Patient Instructions: Opioid Safety, Pain Management Activity Restrictions/Additional Instructions: Please return to the emergency department with any new or worsening symptoms. Please follow-up with his oncologist as scheduled on 11 April for follow-up on abnormal findings in his CT angiogram. Take all antibiotics until gone. 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 [employer] Documented by User: Adarsh Henriquez DO 04/05/24 20:17 HPI - URI/Sore Throat 2 General: Chief Complaint: Upper Respiratory Infection Stated Complaint: flu like symptoms Time Seen by Provider: 04/05/24 14:02 Related Data Previous Rx's Medication Instructions Recorded azithromycin 250 mg tablet See Rx Instructions PO .COMPLEX #6 04/05/24 (Zithromax Z-Ry) tabs Allergies Allergy/AdvReac Type Severity Reaction Status Date / Time No Known Allergies Allergy Verified 11/05/23 17:55 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 Anxiety Uses feeding tube COPD (chronic obstructive pulmonary disease) Aspiration, chronic pulmonary History of osteomyelitis Osteomyelitis of the mandible, treated in 2017 Surgical History Gastrostomy present (07/15/21) Encounter for gastrojejunal (GJ) tube placement (10/19/19) History of tonsillectomy Cancer resection with tonsillar cancer Family History Mother Cancer Diabetes Father , 80 Cancer Denies family history of Anesthesia complication Bleeding disorder Social History Smoking and tobacco/nicotine status: unknown if used tobacco/nicotine Quit status (tobacco/nicotine): has quit using Year quit tobacco: 2020 - 0.5 PPD x 30 Years Alcohol intake: never Substance/Drug Use: never Caregiver/support person: Yes Lives independently: No Household members: caregiver Housing: Correction Marital status: Current occupational status: disabled Do you think of yourself as: Straight/Heterosexual Current gender identity: Male Course 2 Vital Signs: Vital signs: Vital Signs Temperature 98.7 F 04/05/24 20:50 Pulse Rate 101 H 04/05/24 20:22 Respiratory Rate 20 H 04/05/24 20:22 Blood Pressure 115/77 04/05/24 20:22 Pulse Oximetry 95 04/05/24 20:22 Oxygen Delivery Me thod Room Air 04/05/24 19:30 Oxygen Flow Rate 4 04/05/24 13:53 MDM - URI/Sore Throat Medical Decision Making Care signed out to Dr. henriquez at change of shift. See final notes for diagnosis and disposition. Assumed care from Dr. Mclaughlin patient was just awaiting results of a CTA. On review of the chart the patient does have chronic anemia, low platelet count, slight metabolic alkalosis, minimal hyponatremia. Patient symptoms are likely secondary to a viral upper respiratory infection. However, cannot rule out exacerbation of chronic bronchitis. Discussed supportive care with the patient as well as treatment with azithromycin with chronic bronchitis history. Encouraged the patient to keep his oncology follow-up on 11 April. Patient will likely need a PET scan for further evaluation of abnormal findings found on the CTA chest. Discussed return precautions and the patient was discharged home in stable condition. Lab Data 04/05/24 14:21 04/05/24 14:21 Radiology Impressions Chest X-Ray 04/05/24 14:03 IMPRESSION: Chronic changes with prior exam suggestive of underlying COPD/emphysematous change with scarring and particularly right lung base. No acute findings in relation to prior exam. Chest CTA 04/05/24 16:07 IMPRESSION: 1. No CT findings of pulmonary embolus. 2. Emphysematous change with component of chronic interstitial change or fibrosis and right basilar chronic bronchiectasis. 3. Pulmonary parenchymal opacity or consolidation with air bronchograms in a draping appearance is seen along the medial and posterior pleural margins below the hilar regions in the lower chest bilaterally. Some chronic component, particularly on the left, with 2021 exam, though appearing increased on the left and predominantly new on the right. Likely some component of pleural thickening, as well as chronic apical pleural thickening. Associated increased soft tissue density mid to posterior mediastinum inferior hilar region likely reflects component of adenopathy. The more medial and posterior dependent location does not reflect typical appearance of pneumonia, though pneumonia possible. Large areas of collapsed lung with pleural scarring not excluded. PET-CT could be performed to exclude malignancy with a history of neck cancer otherwise. COMMENTS: The presence of pulmonary emphysema on CT is an independent risk factor for lung cancer. In the absence of a history or active diagnosis of lung cancer, it is recommended that this patient with emphysema be evaluated for enrollment in a low dose CT lung cancer screening program. Laboratory Results WBC 5.63 10^3/uL (3.29-11.43) 04/05/24 14:21 RBC 3.32 10^6/uL (3.85-5.65) L 04/05/24 14:21 Hgb 10.20 g/dL (11.27-16.99) L 04/05/24 14:21 Hct 32.9 % (37-53) L 04/05/24 14:21 MCV 99.1 fl (82-101) 04/05/24 14:21 MCH 30.7 pg (27-33) 04/05/24 14:21 MCHC 31.0 g/dL (30-55) 04/05/24 14:21 RDW 14.5 % (12.1-15.1) 04/05/24 14:21 Plt Count 151 10^3/cmm (157-399) L 04/05/24 14:21 MPV 10.6 fL (7.4-10.4) H 04/05/24 14:21 Neut % (Auto) 93.2 % 04/05/24 14:21 Lymph % (Auto) 1.4 % 04/05/24 14:21 [place] % (Auto) 5.0 % 04/05/24 14:21 Eos % (Auto) 0.0 % 04/05/24 14:21 Baso % (Auto) 0.2 % 04/05/24 14:21 Neut # (Auto) 5.25 10^3/uL (1.8-7.7) 04/05/24 14:21 Lymph # (Auto) 0.1 10^3/uL (0.8-4.8) L 04/05/24 14:21 [place] # (Auto) 0.3 10^3/uL (0.2-0.9) 04/05/24 14:21 Eos # (Auto) 0.0 10^3/uL (0.0-0.8) 04/05/24 14:21 Baso # (Auto) 0.0 10^3/uL (0.0-0.1) 04/05/24 14:21 Nucleated RBC % (auto) 0 % 04/05/24 14:21 Nucleated RBCs # 0.0 /100WBC 04/05/24 14:21 D-Dimer 0.71 ug/mLFEU (0-0.59) H 04/05/24 14:30 Specimen Type Arterial 04/05/24 14:15 Sample Site Radial, left 04/05/24 14:15 ABG pH 7.46 (7.35-7.45) H 04/05/24 14:15 ABG pCO2 45.2 mmHg (35-45) H 04/05/24 14:15 ABG pO2 68.8 mmHg (80.0-100.0) L 04/05/24 14:15 ABG PO2/FiO2 Ratio 191 04/05/24 14:15 ABG HCO3 32.3 mmol/L (22-26) H 04/05/24 14:15 ABG O2 Saturation 95.9 04/05/24 14:15 ABG Base Excess 7.6 mmol/L (-2.0-2.0) H 04/05/24 14:15 Prosper Test Pos 04/05/24 14:15 A-a O2 Gradient 17.4 mmHg (5-10) H 04/05/24 14:15 Hematocrit 31.8 % (42-52) L 04/05/24 14:15 Hgb O2 Saturation 94.2 % (95-100) L 04/05/24 14:15 Carboxyhemoglobin 1.4 %THgb (0.4-20.1) 04/05/24 14:15 Methemoglobin 0.3 % (0.4-1.5) L 04/05/24 14:15 Total Hemoglobin 10.4 g/dL (14-18) L 04/05/24 14:15 Sodium 135.0 mmol/L (131-143) 04/05/24 14:15 Potassium 4.2 mmol/L (3.5-5.0) 04/05/24 14:15 Glucose 99.0 mg/dL (70-115) 04/05/24 14:15 Ionized Calcium 1.2 mmol/L (1.1-1.4) 04/05/24 14:15 O2 Delivery Device Nc 04/05/24 14:15 O2 Liters/Min 4.0 % 04/05/24 14:15 FiO2 36.0 % 04/05/24 14:15 Rail Assembler ID [place] 04/05/24 14:15 Sodium 134 mmol/L (136-145) L 04/05/24 14:21 Potassium 4.5 mmol/L (3.5-5.1) 04/05/24 14:21 Chloride 94 mmol/L (98-107) L 04/05/24 14:21 Carbon Dioxide 28 mmol/L (22-29) 04/05/24 14:21 Anion Gap 16.5 (5-19) 04/05/24 14:21 BUN 25 mg/dL (8-23) H 04/05/24 14:21 Creatinine 0.8 mg/dL (0.7-1.2) 04/05/24 14:21 GFR Calculation 97.3 mL/min (90-130) 04/05/24 14:21 Glucose 101 mg/dL (65-115) 04/05/24 14:21 Calculated Osmolality 283 mOsm/kg (285-295) L 04/05/24 14:21 Lactic Acid 1.7 mmol/L (0.5-2.2) 04/05/24 14:21 Calcium 8.7 mg/dL (8.5-10.5) 04/05/24 14:21 Total Bilirubin 0.2 mg/dL (0.15-1.2) 04/05/24 14:21 AST 20 U/L (0-40) 04/05/24 14:21 ALT 15 U/L (0-41) 04/05/24 14:21 Alkaline Phosphatase 93 U/L (40-130) 04/05/24 14:21 Total Protein 6.8 g/dL (6.6-8.7) 04/05/24 14:21 Albumin 3.5 g/dL (3.5-5.2) 04/05/24 14:21 Globulin 3.3 g/dL (1.3-4.6) 04/05/24 14:21 Coronavirus (PCR) Negative (Negative) 04/05/24 14:28 Influenza A (PCR) Negative (Negative) 04/05/24 14:28 Influenza Type B (PCR) Negative (Negative) 04/05/24 14:28 RSV (PCR) Negative (Negative) 04/05/24 14:28 All radiology interpretation(s) finalized by discharge Discharge Plan Discharge Patient Disposition: Home Clinical Impression: Bronchitis Upper respiratory infection Qualifiers: URI type: unspecified viral URI Qualified Code(s): J06.9 - Acute upper respiratory infection, unspecified Condition: Stable Prescriptions: New azithromycin [Zithromax Z-Ry] 250 mg tablet See Rx Instructions .ROUTE .COMPLEX Qty: 6 0RF Rx Instructions: For 250 mg dose pack: take 500 mg today (day 1), then 250 mg for 4 days (days 2-5) Discharge Orders: Discharge ED (Routine); Ordered 04/05/24 Ordered By: Adarsh [employer] Referrals: Martin Mcfarland DO [Primary Care Provider] - Discharge Diet: Resume prior tube feeds Discharge Activity: Resume usual activity Patient Instructions: Opioid Safety, Pain Management Activity Restrictions/Additional Instructions: Please return to the emergency department with any new or worsening symptoms. Please follow-up with his oncologist as scheduled on 11 April for follow-up on abnormal findings in his CT angiogram. Take all antibiotics until gone. 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
[2024-04-05 14:27] LABS: ABG PCO2 45.2 mmHg (35-45); ABG PH Result 7.46 (7.35-7.45); Alveolar-Arterial Oxygen Gradi 17.4 mmHg (5-10); Arterial Blood Gas Hematocrit 31.8 % (42-52); Base Excess ABG 7.6 mmol/L (-2.0-2.0); Blood Gas Allen Test Pos; Blood Gas Operator Identificat MONRO; Blood Gas Sample Site Radial, left; Blood Gas Sample Type Arterial; Carboxyhemoglobin 1.4 %THgb (0.4-20.1); HCO3 ABG 32.3 mmol/L (22-26); HGB O2 Sat 94.2 % (95-100); Ionized Calcium Level - ABG 1.2 mmol/L (1.1-1.4); Methemoglobin 0.3 % (0.4-1.5); Oxygen Device NC; Oxygen Saturation ABG 95.9; PO2 ABG 68.8 mmHg (80.0-100.0); PO2 FiO2 Ratio Arterial Blood 191; Potassium Level - ABG 4.2 mmol/L (3.5-5.0); Total Hemoglobin 10.4 g/dL (14-18)
[2024-04-05 14:44] LABS: Basophils % 0.2 %; Hematocrit 32.9 % (37-53); Lymphocytes # 0.1 10^3/uL (0.8-4.8); Lymphocytes % 1.4 %; Mean Corpuscular Hemoglobin 30.7 pg (27-33); Mean Corpuscular Volume 99.1 fl (82-101); Mean Platelet Volume 10.6 fL (7.4-10.4); Monocytes # 0.3 10^3/uL (0.2-0.9); Neutrophils # 5.25 10^3/uL (1.8-7.7); Neutrophils % 93.2 %; Nucleated Red Blood Cells % 0 %; Platelet Count 151 10^3/cmm (157-399); Red Blood Count 3.32 10^6/uL (3.85-5.65); Red Cell Distribution Width 14.5 % (12.1-15.1); White Blood Count 5.63 10^3/uL (3.29-11.43)
[2024-04-05 15:00] LABS: Alanine Aminotransferase 15 U/L (0-41); Albumin Level 3.5 g/dL (3.5-5.2); Alkaline Phosphatase 93 U/L (40-130); Anion Gap 16.5 (5-19); Aspartate Amino Transferase 20 U/L (0-40); Blood Urea Nitrogen 25 mg/dL (8-23); Calcium 8.7 mg/dL (8.5-10.5); Carbon Dioxide 28 mmol/L (22-29); Chloride 94 mmol/L (98-107); Creatinine Clr Calc Pharmacy 62.8412; Globulin 3.3 g/dL (1.3-4.6); Glomerular Filtration Rate 97.3 mL/min (90-130); Glucose 101 mg/dL (65-115); Osmolality Calculated 283 mOsm/kg (285-295); Potassium 4.5 mmol/L (3.5-5.1); Sodium 134 mmol/L (136-145); Total Bilirubin 0.2 mg/dL (0.15-1.2); Total Protein 6.8 g/dL (6.6-8.7)
[2024-04-05 15:01] LABS: Lactic Sepsis W/Reflex 1.7 mmol/L (0.5-2.2)
[2024-04-05 15:20] LABS: Covid PCR NEGATIVE (Negative); Influenza A NEGATIVE (Negative); Influenza B NEGATIVE (Negative); Respiratory Syncytial Virus Ce NEGATIVE (Negative)
[2024-04-05 15:43] LABS: D Dimer 0.71 ug/mLFEU (0-0.59)
--- NOTE | 2024-04-05 16:07 | CTR_ITS ---
PROCEDURE INFORMATION: Exam: CTA Chest With Contrast Exam date and time: 04/05/2024 5:27 PM Age: 63 years old Clinical indication: Cough and dyspnea TECHNIQUE: Imaging protocol: Computed tomographic angiography of the chest with contrast. Exam focused on the arteries. 3D rendering (Not supervised by radiologist): MIP and/or 3D reconstructed images were created by the technologist. Radiation optimization: All CT scans at this facility use at least one of these dose optimization techniques: automated exposure control; mA and/or kV adjustment per patient size (includes targeted exams where dose is matched to clinical indication); or iterative reconstruction. Contrast material: OMNI 350; Contrast volume: 100 ml; Contrast route: INTRAVENOUS (IV); COMPARISON: CT angio chest PE protcl [id number] 04/08/2021 6:46 PM RADIATION DOSE METRICS: Total DLP (mGy-cm): 197.04 FINDINGS: Pulmonary arteries: No hypodense filling defect is seen within the pulmonary arteries or their branches to indicate pulmonary embolus. Aorta: Mild arteriosclerosis of the thoracic aorta. No dissection or aneurysm. Lungs: Pulmonary parenchymal opacity or consolidation with air bronchograms is seen along the medial and posterior pleural margins below the hilar regions in the lower chest bilaterally; this demonstrates some chronic component in relation to prior CTA chest of 2021, particularly on the left, though appearing more prominent on the left and predominantly new or with marked increase on the right. There could be some associated component of underlying pleural thickening, as there is suggestion of component of pleural thickening in the lung apices that appears chronic with prior exam. In addition, emphysematous change with component of chronic interstitial change or fibrosis suggested. Chronic bronchiectasis in the right lung base noted. No pneumothorax. No pleural effusion. Benign calcified granuloma mid to lower left lung. Pleural spaces: See Lungs finding. Heart: No significant cardiomegaly. Mild coronary artery calcification. No pericardial effusion. Lymph nodes: Increased soft tissue density appearance mid to posterior mediastinum and inferior hilar region likely reflects component of adenopathy. This is increased from prior exam. Bones/joints: Bone windows show no acute osseous abnormality. Soft tissues: Unremarkable. CT/CT angio chest PE protcl [id number] IMPRESSION: 1. No CT findings of pulmonary embolus. 2. Emphysematous change with component of chronic interstitial change or fibrosis and right basilar chronic bronchiectasis. 3. Pulmonary parenchymal opacity or consolidation with air bronchograms in a draping appearance is seen along the medial and posterior pleural margins below the hilar regions in the lower chest bilaterally. Some chronic component, particularly on the left, with 2 exam, though appearing increased on the left and predominantly new on the right. Likely some component of pleural thickening, as well as chronic apical pleural thickening. Associated increased soft tissue density mid to posterior mediastinum inferior hilar region likely reflects component of adenopathy. The more medial and posterior dependent location does not reflect typical appearance of pneumonia, though pneumonia possible. Large areas of collapsed lung with pleural scarring not excluded. PET-CT could be performed to exclude malignancy with a history of neck cancer otherwise. COMMENTS: The presence of pulmonary emphysema on CT is an independent risk factor for lung cancer. In the absence of a history or active diagnosis of lung cancer, it is recommended that this patient with emphysema be evaluated for enrollment in a low dose CT lung cancer screening program.
[2024-04-05] MEDS: iohexol 350 mg/mL 500 mL Btl (per mL) IV (17:44)
[2024-04-05] MEDS: ipratropium-albuterol 3 mL Neb INHALATION (17:55)
[2024-04-05] MEDS: dexamethasone 10 mg/mL INJ IM (18:20)
[2024-04-05] MEDS: ondansetron 4 MG Tablet PEG-TUBE (20:48)
== END 2024-04-05 21:00 | disposition home or self-care (01) ==
PROVIDERS: Family Medicine; Emergency Provider General Practice; PCP Internal Medicine
DX: J20.5 Acute bronchitis due to respiratory syncytial virus (principal); J06.9 Acute upper respiratory infection, unspecified; Z87.891 Personal history of nicotine dependence; J44.9 Chronic obstructive pulmonary disease, unspecified; Z85.819 Personal history of malignant neoplasm of unspecified site of lip, oral cavity, and pharynx
CPT/HCPCS: 36415; 36600; 71045; 71275; 80051; 80053; 82330; 82805; 83605; 85025; 85378; 87040; 87637; 93005; 93010; 96372; 99285; J1100; Q0162

== ENCOUNTER 2024-05-11 09:49 | Outpatient (CLI) | payer MEDICARE, SELFPAY ==
--- NOTE | 2024-05-11 10:00 | PETR_ITS ---
PROCEDURE INFORMATION: Exam: PET/CT Whole Body Exam date and time: 05/11/2024 10:54 AM Age: 63 years old Clinical indication: Condition or disease; Primary cancer: Tonsil cancer; Initial oncological staging assessment; Prior surgery; Surgery date: 1-6 months; Surgery type: G tube LABS AND CLINICAL REPORTS: Glucose: 129 mg/dl Treatment strategy for malignancy (PET staging): Initial Staging (PI) TECHNIQUE: Imaging protocol: Following at least four-hour fasting and following the injection of radiopharmaceutical, low dose CT images were obtained. Then, PET images were obtained. Attenuation corrected images were constructed using the CT scan. Fused images of PET and CT were reviewed. The standardized uptake values (SUV) reported below are maximum values within a region of interest, expressed in gm/ml. Exam includes the whole body. SUV normalization method: BodyWeight Radiopharmaceutical: 10.3 mCi F-18 FDG (Fluorodeoxyglucose), IV. Time of imaging post radiopharmaceutical administration: 51 minutes Injection site: right ac COMPARISON: 1. CT angio chest PE protcl [id number] 04/05/2024 5:[address] neck w con* [id number] 10/17/2019 10:10 AM FINDINGS: Tubes, catheters and devices: Percutaneous gastrostomy tube is in place. Brain: Visualized brain has normal physiologic uptake. Oral cavity: Some mild FDG uptake along the floor of the mouth and base of the tongue is seen with SUV max 7.3. Teeth: Increased FDG uptake is seen associated with a periapical lucency in the right verna mandible, likely reflecting odontogenic disease (SUV max 5.6). Pharynx: No abnormal uptake. Larynx: No abnormal uptake. Lungs, pleura and trachea: Low level FDG uptake is seen corresponding to areas of atelectasis in the bilateral lower lobes. Emphysematous changes in the lungs. Atelectasis is seen involving both lower lobes. There are some similar areas of nodularity in the bilateral upper lobes and right middle lobe with areas of bronchiectasis, which may reflect sequela of prior infection or aspiration. Calcified granuloma in the left lung. Heart: Normal physiologic uptake. Mediastinal space: No abnormal uptake. Liver: No abnormal uptake. Gallbladder and biliary ducts: No abnormal uptake. Pancreas: No abnormal uptake. Spleen: No abnormal uptake. Adrenal glands: No abnormal uptake. Kidneys and ureters: Normal physiologic uptake. Stomach and bowel: Colonic diverticulosis. No bowel obstruction. Reproductive: Prostatomegaly. Vasculature: No abnormal uptake. Lymph nodes: No abnormal uptake. No lymphadenopathy in the head, neck, chest, abdomen, pelvis, and extremities. Skeleton: Tiny focus of FDG uptake adjacent to a spinous process in the lower cervical spine with SUV max 6.4. Deformity of the mandible appears similar to 10/17/2019. Soft tissues: Some mild muscular FDG uptake within the upper left chest wall is likely physiologic. Some mild FDG uptake within right gluteus musculature is likely physiologic. METRICS: Mediastinal blood pool: SUV max is 1.9 Liver uptake: SUV max is 2.1 PET/PET WB melanoma INITIAL [id number] IMPRESSION: 1. No definite FDG disease is identified. 2. Increased FDG uptake associated with a periapical lucency in the right verna mandible likely reflects odontogenic disease. 3. Some mild FDG uptake along the floor of the mouth and tongue may be physiologic, though this could be correlated with direct inspection in this patient with history of head and neck cancer. 4. Tiny focus of FDG uptake adjacent to a spinous process in the lower cervical spine may be degenerative or inflammatory. 5. Atelectasis involving both lower lobes.
== END 2024-05-11 09:50 | disposition home or self-care (01) ==
PROVIDERS: PCP Internal Medicine; Visit Provider Internal Medicine
DX: C02.4 Malignant neoplasm of lingual tonsil (principal); Z98.890 Other specified postprocedural states; R93.89 Abnormal findings on diagnostic imaging of other specified body structures; J98.11 Atelectasis; J43.9 Emphysema, unspecified; R91.8 Other nonspecific abnormal finding of lung field; J47.9 Bronchiectasis, uncomplicated; J84.10 Pulmonary fibrosis, unspecified; K57.30 Diverticulosis of large intestine without perforation or abscess without bleeding; N40.0 Benign prostatic hyperplasia without lower urinary tract symptoms
CPT/HCPCS: 78816; A9552

== ENCOUNTER 2024-09-06 12:14 | Inpatient (IN) | payer MEDICARE, SELFPAY ==
[2024-09-06] VITALS (76 sets, daily range): BP systolic 55–166; BP diastolic 37–109; PULSE 12–155; RESP 10–40; TEMP 36.6–37.1; O2SAT 91–100
--- NOTE | 2024-09-06 12:25 | XR_ITS ---
WS: [id number] XR chest 1V portable [id number] REASON FOR EXAM: dyspnea/cough FINDINGS: Endotracheal tube with the tip just above the level of the aortic arch. Nasogastric tube with the tip in a position consistent with the fundus of the stomach. Moderate tortuosity of the thoracic aorta with normal heart size. Compared to the previous examination of 04/05/2024 the coarse linear interstitial lung opacities in the apex of the right lung appear more prominent however this is felt to be due to overlying artifact. Similar changes are seen in the left lung apex unchanged compared to the previous study. Extensive bullous changes in both lower lungs. Right pleural effusion which appears increased compared to 04/05/2024. Blunting of the left costophrenic angles suggesting left pleural effusion. Chronic atelectasis of a portion of the right lower lobe unchanged compared to the previous study. XR/XR chest 1V portable [id number] IMPRESSION: Abnormal chest with chronic abnormalities as above. Probable increase in right pleural effusion and interval development of left pleural effusion compared to 04/05/2024.
--- NOTE | 2024-09-06 12:26 | ECG_ITS ---
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1960 Requested By: Madan Manuel Order Number: [id number] Reading MD: DONI LEACH Measurements Intervals [place] Rate: 107 P: 75 [place]: 137 QRS: 93 QRSD: 106 T: 77 QT: 338 QTc: 451 Interpretive Statements SINUS TACHYCARDIA BORDERLINE RIGHT AXIS DEVIATION [QRS AXIS > 90] LOW QRS VOLTAGE IN PRECORDIAL LEADS [QRS DEFLECTION < 1.0 mV IN CHEST LEADS] INCOMPLETE RIGHT BUNDLE BRANCH BLOCK [90+ ms QRS DURATION, TERMINAL R IN V1/V2, 40+ ms S IN I/aVL/V4/V5/V6] ABNORMAL RHYTHM ECG Compared to ECG 04/05/2024 14:19:55 Low QRS voltage now present Incomplete right bundle-branch block now present Intraventricular conduction delay no longer present T-wave abnormality no longer present Possible ischemia no longer present Electronically Signed On 09-08-2024 23:49:33 CDT by DONI LEACH [email or web address]
[2024-09-06 12:29] LABS: ABG PH Result 7.24 (7.35-7.45); Arterial Blood Gas Hematocrit 32.7 % (42-52); Base Excess ABG 10.8 mmol/L (-2.0-2.0); Blood Gas Operator Identificat GD; Blood Gas Sample Site Brachial, left; Blood Gas Sample Type Arterial; Carboxyhemoglobin 1.6 %THgb (0.4-20.1); HCO3 ABG 41.3 mmol/L (22-26); HGB O2 Sat 96.7 % (95-100); Ionized Calcium Level - ABG 1.2 mmol/L (1.1-1.4); Methemoglobin 0.9 % (0.4-1.5); Oxygen Device OXY MASK; Oxygen Saturation ABG 99.2; Potassium Level - ABG 4.7 mmol/L (3.5-5.0); Total Hemoglobin 10.7 g/dL (14-18)
[2024-09-06 12:30] LABS: ABG PCO2 97.4 mmHg (35-45)
[2024-09-06] MEDS: etomidate 2 mg/mL INJ SDV 10 mL 15 MG IVP (12:35)
[2024-09-06] MEDS: succinylcholine 20 mg/mL SDV 10mL 80 MG IVP (12:36)
[2024-09-06] MEDS: sodium chloride 0.9% 1,000 ML 999 ML IV ×2 (12:40→13:00)
[2024-09-06] MEDS: midazolam hcl 100 MG/100 ML BAG IV (12:40)
[2024-09-06] MEDS: fentaNYL 1,000 MCG/100 ML BAG 2.5 MCG IV (12:40)
[2024-09-06 12:59] LABS: Hematocrit 34.7 % (37-53); Mean Corpuscular HGB Conc 29.7 g/dL (30-55); Mean Corpuscular Volume 101.2 fl (82-101); Mean Platelet Volume 10.7 fL (7.4-10.4); Platelet Count 204 10^3/cmm (157-399); Red Blood Count 3.43 10^6/uL (3.85-5.65); Red Cell Distribution Width 14.7 % (12.1-15.1); White Blood Count 10.32 10^3/uL (3.29-11.43)
--- NOTE | 2024-09-06 13:01 | ED_ITS ---
HPI - SOB/Dyspnea 2 General: Chief Complaint: Shortness of Breath/Dyspnea Stated Complaint: SOB Time Seen by Provider: 09/06/24 12:25 History of Present Illness: HPI Narrative: 64-year-old male presents emergency room complaining of shortness of breath. He is in severe respiratory distress on arrival arrives via ambulance he is on 15 L by nonrebreather. Patient is struggling to breathe his appears to have impending respiratory failure when he queried the patient whether or not he wished to be intubated. He indicated to myself in the presence of the nursing staff that he did want to be intubated. Reviewing his chart briefly noted he has a personal history of malignant neoplasm of the pharynx. Related Data Home Medications ?Medication ?Instructions ?Recorded ?Confirmed ondansetron 4 mg disintegrating 4 mg PO QID PRN Nausea And Vomiting 09/06/24 09/06/24 tablet Allergies Allergy/AdvReac Type Severity Reaction Status Date / Time No Known Allergies Allergy Verified 11/05/23 17:55 Review of Systems 2 General: Reports: ROS unobtainable due to medical condition (Patient into significant respiratory distress to complete review of systems) [facility] ED 2 PFSH: Medical History (Updated 09/11/24 @ 06:19 by Madan Chopra DO) Pneumonia Decreased ability to feed self Diarrhea Closed left ankle fracture COPD exacerbation COVID-19 Lung nodule < 6cm on CT Septicemia due to Staphylococcus aureus Anemia Severe sepsis Urinary retention Lopez catheter placed October 2019 with failed trial of voiding Decubitus ulcer of coccyx, 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 Anxiety Uses feeding tube COPD (chronic obstructive pulmonary disease) Aspiration, chronic pulmonary History of osteomyelitis Osteomyelitis of the mandible, treated in 2017 Surgical History Gastrostomy present (07/15/21) Encounter for gastrojejunal (GJ) tube placement (10/19/19) History of tonsillectomy Cancer resection with tonsillar cancer Family History Mother Cancer Diabetes Father , 80 Cancer Denies family history of Anesthesia complication Bleeding disorder Social History Smoking and tobacco/nicotine status: unknown if used tobacco/nicotine Quit status (tobacco/nicotine): has quit using Year quit tobacco: 2020 - 0.5 PPD x 30 Years Alcohol intake: never Substance/Drug Use: never Caregiver/support person: Yes Lives independently: No Household members: caregiver Housing: [place] Marital status: Current occupational status: disabled Do you think of yourself as: Straight/Heterosexual Current gender identity: Male Physical Exam 2 Const: GENERAL APPEARANCE: lethargic ORIENTATION/CONSCIOUSNESS: Yes lethargic HENMT: COMMON NORMALS: normocephalic, atraumatic and hearing grossly normal bilaterally HEAD & SCALP: normocephalic and atraumatic Resp: EFFORT & INSPECTION: Yes abnormal respiratory pattern, Yes tachypneic, Yes respiratory distress, Yes labored, Yes grunting, Yes uses accessory muscles and Yes audible wheezes AUSCULTATION: rhonchi Cardio: COMMON NORMALS: regular rate, regular rhythm and No murmurs present (Cardio) RATE: regular rate RHYTHM: regular rhythm GI: COMMON NORMALS: Soft to palpation and No hepatosplenomegaly present A USCULTATION: Yes normoactive bowel sounds PALPATION: Yes Soft to palpation, No Tenderness to palpation present (GI), No Guarding due to palpation present (GI) and Yes No hepatosplenomegaly present Extremity: COMMON NORMALS: normal to inspection, capillary refill normal, no clubbing, cyanosis or edema, no calf tenderness and no pedal edema Neuro: SENSORIUM/ORIENTATION: Yes lethargic Skin: COMMON NORMALS: no rashes or lesions noted GENERAL SKIN EXAM: no rashes or lesions noted Procedures Central Line Placement Right SC: Time Out Performed: Yes Patient Placed on Monitor/Pulse Ox: Yes MD Prep: mask, gown and gloves Central Line Prep: Chlorhexidine scrub Local Anesthetic: lidocaine 1% Amount of anesthesia used (mL): 5 Ultrasound Used for Placement: Yes Central Line Lumen Inserted: triple Post Procedure: sutured in place, good blood return, all ports aspirated, flushed, capped and sterile dressing applied Post Procedure X-Ray: tip of catheter in good position Patient Tolerated Procedure: well Complications: none Intubation sedative: Etomidate paralytic: Succinylcholine Laryngoscope: fiber optic video scope ET Tube Size: 8 ET Tube Uncuffed: No Tube Secured Depth (cm): 22 Tube Secured Location: teeth Tube Placement Confirmation: visualized tube passing through cords, equal breath sounds bilaterally, no breath sounds over epigastrium and confirmation by capnometry Patient Tolerated Procedure: well Intubation Complications: difficult intubation (Due to altered anatomy from his previous surgery) Course 2 Vital Signs: Vital signs: Vital Signs Temperature 97.4 F L 09/07/24 20:10 Pulse Rate 90 09/07/24 20:10 Respiratory Rate 14 09/07/24 20:10 Blood Pressure 97/65 09/07/24 20:10 Pulse Oximetry 100 09/07/24 20:10 Oxygen Delivery Me thod Mechanical Ventil ation 09/07/24 20:00 Oxygen Flow Rate 45 09/07/24 02:15 Fraction of Inspir ed Oxygen 40 09/07/24 20:00 MDM - SOB/Dyspnea Medical Decision Making Patient arrives in acute respiratory distress he indicated he wished to be intubated. Patient was intubated by RSI. Chest x-ray shows what appears to be pneumonia. He has acute hypercapnic respiratory failure in addition to his chronic respiratory failure issues. First troponin is 33 his delta troponin was +6.9. His BNP is 2353. Chest x-ray shows bilateral groundglass infiltrates suspect possible aspiration. Patient was started on IV antibiotics. Patient received sepsis bolus cultures antibiotics initiated to cover for aspiration pneumonia. Discussed with hospitalist orders written central line has been placed. Levophed started for pressure support discussed with hospitalist orders written Medical Records I reviewed the patient's medical records. Lab Data I reviewed the patient's lab results. 09/07/24 10:00 09/07/24 03:40 Labs/Radiology: Radiology Impressions Chest CTA 09/06/24 17:00 IMPRESSION: 1. Widespread irregular ground-glass nodular airspace opacities in both lungs most likely representing nonspecific infectious changes. 2. Chronic collapse in the lower lobes. 3. Advanced centrilobular emphysema. 4. Negative for pulmonary embolism. 5. Chronic thoracic aorta aneurysm at the level of the coronary cusps is unchanged. COMMENTS: The presence of pulmonary emphysema on CT is an independent risk factor for lung cancer. In the absence of a history or active diagnosis of lung cancer, it is recommended that this patient with emphysema be evaluated for enrollment in a low dose CT lung cancer screening program. Chest X-Ray 09/07/24 10:06 IMPRESSION: No significant pneumothorax. Inadvertent overlook of previous recent CT scan. Bullous disease demonstrated on that examination explains the abnormalities on the chest x-ray involving the left chest. Head CT 09/07/24 15:41 IMPRESSION: 1. No acute intracranial head CT findings identified. 2. No significant interval changes in comparison with the prior study from 2021. 3. Atrophy/involutional changes of aging and mild components of chronic small-vessel disease. 4. Chronic bilateral exophthalmos question history of thyroid ophthalmopathy. Laboratory Results WBC 10.32 10^3/uL (3.29-11.43) 09/06/24 12:42 RBC 3.43 10^6/uL (3.85-5.65) L 09/06/24 12:42 Hgb 10.30 g/dL (11.27-16.99) L 09/06/24 12:42 Hct 34.7 % (37-53) L 09/06/24 12:42 MCV 101.2 fl (82-101) H 09/06/24 12:42 MCH 30.0 pg (27-33) 09/06/24 12:42 MCHC 29.7 g/dL (30-55) L 09/06/24 12:42 RDW 14.7 % (12.1-15.1) 09/06/24 12:42 Plt Count 204 10^3/cmm (157-399) 09/06/24 12:42 MPV 10.7 fL (7.4-10.4) H 09/06/24 12:42 Lymph % (Auto) Not Reportable 09/06/24 12:42 Mccracken % (Auto) Not Reportable 09/06/24 12:42 Lymph # (Auto) Not Reportable 09/06/24 12:42 M[place]racken # (Auto) Not Reportable 09/06/24 12:42 Total Counted 100 (0-100) 09/06/24 12:42 Atypical Lymphs % 2.0 % (0-5) 09/06/24 12:42 Absolute Neutrophils 7.9 10^3/cmm (1.4-6.5) H 09/06/24 12:42 Segmented Neutrophils 18 % 09/06/24 12:42 Band Neutrophils 59.0 % 09/06/24 12:42 Absolute Lymphocytes 1.1 10^3/cmm (1.2-3.4) L 09/06/24 12:42 Lymphocytes (Manual) 9 % 09/06/24 12:42 Monocytes (Manual) 5.0 % 09/06/24 12:42 Absolute Monocytes 0.5 10^3/cmm (0.1-0.6) 09/06/24 12:42 Eosinophils (Manual) 0 % 09/06/24 12:42 Absolute Eosinophils 0.0 10^3/cmm (0.0-0.7) 09/06/24 12:42 Basophils (Manual) 0.0 % 09/06/24 12:42 Absolute Basophils 0.0 10^3/cmm (0.0-0.2) 09/06/24 12:42 Metamyelocytes 7.0 % 09/06/24 12:42 Platelet Estimate Normal (Normal) 09/06/24 12:42 Macrocytosis 1+ H 09/06/24 12:42 Specimen Type Arterial 09/06/24 13:35 Sample Site Brachial, left 09/06/24 13:35 ABG pH 7.28 (7.35-7.45) L 09/06/24 13:35 ABG pCO2 75.3 mmHg (35-45) H* 09/06/24 13:35 ABG pO2 105.0 mmHg (80.0-100.0) H 09/06/24 13:35 ABG PO2/FiO2 Ratio 175 09/06/24 13:35 ABG HCO3 35.4 mmol/L (22-26) H 09/06/24 13:35 ABG O2 Saturation 98.2 09/06/24 13:35 ABG Base Excess 7.3 mmol/L (-2.0-2.0) H 09/06/24 13:35 Prosper Test Pos 09/06/24 13:35 A-a O2 Gradient 30.3 mmHg (5-10) H 09/06/24 13:35 Hematocrit 24.6 % (42-52) L 09/06/24 13:35 Hgb O2 Saturation 95.7 % (95-100) 09/06/24 13:35 Carboxyhemoglobin 1.6 %THgb (0.4-20.1) 09/06/24 13:35 Methemoglobin 0.9 % (0.4-1.5) 09/06/24 13:35 Total Hemoglobin 8.0 g/dL (14-18) L 09/06/24 13:35 Sodium 139.0 mmol/L (131-143) 09/06/24 13:35 Potassium 4.1 mmol/L (3.5-5.0) 09/06/24 13:35 Glucose 131.0 mg/dL (70-115) H 09/06/24 13:35 Ionized Calcium 1.2 mmol/L (1.1-1.4) 09/06/24 13:35 O2 Delivery Device Vent 09/06/24 13:35 O2 Liters/Min 15.0 % 09/06/24 12:12 FiO2 60.0 % 09/06/24 13:35 Tidal Volume 0.50 09/06/24 13:35 PEEP 5.0 cmH20 09/06/24 13:35 Truck Technician ID [place] 09/06/24 13:35 Sodium 140 mmol/L (136-145) 09/06/24 12:42 Potassium 5.0 mmol/L (3.5-5.1) 09/06/24 12:42 Chloride 94 mmol/L (98-107) L 09/06/24 12:42 Carbon Dioxide 36 mmol/L (22-29) H 09/06/24 12:42 Anion Gap 15.0 (5-19) 09/06/24 12:42 BUN 29 mg/dL (8-23) H 09/06/24 12:42 Creatinine 0.7 mg/dL (0.7-1.2) 09/06/24 12:42 GFR Calculation 113.2 mL/min (90-130) 09/06/24 12:42 Glucose 139 mg/dL (65-115) H 09/06/24 12:42 Calculated Osmolality 298 mOsm/kg (285-295) H 09/06/24 12:42 Lactic Acid 1.6 mmol/L (0.5-2.2) 09/06/24 12:42 Calcium 9.0 mg/dL (8.5-10.5) 09/06/24 12:42 Total Bilirubin 0.2 mg/dL (0.15-1.2) 09/06/24 12:42 AST 32 U/L (0-40) 09/06/24 12:42 ALT 24 U/L (0-41) 09/06/24 12:42 Alkaline Phosphatase 89 U/L (40-130) 09/06/24 12:42 Troponin T Baseline 33 ng/L (0-15) H 09/06/24 12:42 Troponin T 120 Minute 39.95 ng/L (0-15) H 09/06/24 14:40 Delta Troponin T 6.95 ABS# (0-10) 09/06/24 14:40 NT-Pro-B Natriuret Pep 2352 pg/mL (0-125) H 09/06/24 14:40 Total Protein 7.3 g/dL (6.6-8.7) 09/06/24 12:42 Albumin 3.6 g/dL (3.5-5.2) 09/06/24 12:42 Globulin 3.7 g/dL (1.3-4.6) 09/06/24 12:42 Urine Color Yellow (Yellow) 09/06/24 13:04 Urine Appearance Cloudy (CLEAR) A 09/06/24 13:04 Urine pH 6.0 (5-7) 09/06/24 13:04 Ur Specific [place] 1.022 (1.005-1.030) 09/06/24 13:04 Urine Protein 3+ (Negative) A 09/06/24 13:04 Urine Glucose (UA) Negative (Normal) 09/06/24 13:04 Urine Ketones Negative (Negative) 09/06/24 13:04 Urine Blood 2+ (Negative) A 09/06/24 13:04 Urine Nitrate Negative (Negative) 09/06/24 13:04 Urine Bilirubin Negative (Negative) 09/06/24 13:04 Urine Urobilinogen 1.0 mg/dL (Negative) 09/06/24 13:04 Ur Leukocyte Esterase Negative (Negative) 09/06/24 13:04 Urine RBC 21-50 /hpf (0-2) H 09/06/24 13:04 Urine WBC 0-5 /hpf (0-5) 09/06/24 13:04 Ur Squamous Epith Cells 0-5 /hpf (0-5) 09/06/24 13:04 Amorphous Sediment Not Reportable 09/06/24 13:04 Urine Bacteria None seen /hpf (NONE) 09/06/24 13:04 Hyaline Casts 59.16 /lpf 09/06/24 13:04 Fine Granular Casts 5-10 /lpf H 09/06/24 13:04 All radiology interpretation(s) finalized by discharge Critical Care Time 2 Critical Care Time: Critical Care Time: Yes Total Critical Care Time: 45 Attestation: The high probability of a clinically significant, sudden or life threatening deterioration of the patient's cardiovascular respiratory system(s) required my full and direct attention, intervention and personal management. The critical care time is as shown. This time is in addition to time spent performing any reported procedures but includes the following: [x] Data and vital sign review and interpretation [x] Patient assessment, examination and intervention [x] Documentation [x] Medication orders and management Discharge Plan Discharge Patient Disposition: Admitted As Inpatient Admit Provider: Melva Correa Clinical Impression: Pneumonia, Personal history of malignant neoplasm of other sites of lip, oral cavity, and pharynx, Acute kidney injury, Aspiration, chronic pulmonary, Acute and chronic respiratory failure with hypercapnia, Grand mal seizure COPD (chronic obstructive pulmonary disease) Qualifiers: COPD type: unspecified COPD Qualified Code(s): J44.9 - Chronic obstructive pulmonary disease, unspecified Condition: Stable Coding Level of Care Code ED Cloud Infrastructure Architect for Steffi Velasco
[2024-09-06] MEDS: ketamine 100 mg/mL Inj 5 mL 200 MG IVP (13:20)
[2024-09-06 13:24] LABS: Troponin(5th) Baseline 33 ng/L (0-15)
[2024-09-06 13:24] LABS: Bilirubin Urine Negative (Negative); Blood Urine 2+ (Negative); Glucose Urine UA Negative (Normal); Ketones Urine Negative (Negative); Leukocyte Esterase Urine Negative (Negative); Nitrate Urine Negative (Negative); Protein Urine 3+ (Negative); Specific Gravity, Urine 1.022 (1.005-1.030); Urine Appearance Cloudy (CLEAR); Urine Color Yellow (Yellow)
[2024-09-06 13:27] LABS: Add Urine Microscopic? YES; Bacteria Urine None Seen /hpf; Hyaline Casts Urine 59.16 /lpf; RBC Urine 21-50 /hpf (0-2); Squamous Epithelial Cell Urine 0-5 /hpf (0-5); WBC Urine 0-5 /hpf (0-5)
[2024-09-06 13:30] LABS: Slide Review Slide Review Perform
[2024-09-06 13:31] LABS: Absolute Neutrophil 7.9 10^3/cmm (1.4-6.5); Absolute Segmented Neutrophil 1.9 10/cmm (1.6-7.1); Band Neutrophils Absolute 6.1 10^3/cmm (0.0-1.2); Eosinophils 0 %; Lymphocytes 9 %; Lymphocytes Absolute 1.1 10^3/cmm (1.2-3.4); Macrocytosis 1+; Monocytes Absolute 0.5 10^3/cmm (0.1-0.6); Platelet Estimate Normal (Normal); Segmented Neutrophils 18 %; Total Cells Counted 100 (0-100)
[2024-09-06] MEDS: norepinephrine 4 MG/250 ML BAG 30 MG IV (13:36)
[2024-09-06 13:46] LABS: ABG PH Result 7.28 (7.35-7.45); Alveolar-Arterial Oxygen Gradi 30.3 mmHg (5-10); Arterial Blood Gas Hematocrit 24.6 % (42-52); Base Excess ABG 7.3 mmol/L (-2.0-2.0); Blood Gas Allen Test Pos; Blood Gas Operator Identificat WALCI; Blood Gas Sample Site Brachial, left; Blood Gas Sample Type Arterial; Carboxyhemoglobin 1.6 %THgb (0.4-20.1); HCO3 ABG 35.4 mmol/L (22-26); HGB O2 Sat 95.7 % (95-100); Ionized Calcium Level - ABG 1.2 mmol/L (1.1-1.4); Methemoglobin 0.9 % (0.4-1.5); Oxygen Device VENT; Oxygen Saturation ABG 98.2; PO2 FiO2 Ratio Arterial Blood 175; Potassium Level - ABG 4.1 mmol/L (3.5-5.0)
[2024-09-06 13:47] LABS: ABG PCO2 75.3 mmHg (35-45)
[2024-09-06] MEDS: ipratropium-albuterol 3 mL Neb INHALATION ×3 (13:56→20:39)
[2024-09-06 13:57] LABS: Alanine Aminotransferase 24 U/L (0-41); Albumin Level 3.6 g/dL (3.5-5.2); Alkaline Phosphatase 89 U/L (40-130); Aspartate Amino Transferase 32 U/L (0-40); Blood Urea Nitrogen 29 mg/dL (8-23); Carbon Dioxide 36 mmol/L (22-29); Chloride 94 mmol/L (98-107); Creatinine Clr Calc Pharmacy 59.0612; Globulin 3.7 g/dL (1.3-4.6); Glomerular Filtration Rate 113.2 mL/min (90-130); Glucose 139 mg/dL (65-115); Osmolality Calculated 298 mOsm/kg (285-295); Sodium 140 mmol/L (136-145); Total Bilirubin 0.2 mg/dL (0.15-1.2); Total Protein 7.3 g/dL (6.6-8.7)
[2024-09-06 14:00] LABS: UA Slide Review UA Slide Review Perf
[2024-09-06 14:05] LABS: Add Urine Culture? Yes
--- NOTE | 2024-09-06 14:05 | PC.NURSE ---
LAB CALLED TO OBTAIN BLOOD CULTURES. ADMINISTRATION OF ANTIBIOTICS DELAYED UNTIL BLOOD CULTURES DRAWN.
[2024-09-06] MEDS: metoclopramide 5 mg/mL SDV 2 mL 10 MG IVP (14:08)
[2024-09-06] MEDS: dexamethasone 10 mg/mL INJ IVP (14:08)
--- NOTE | 2024-09-06 14:18 | PC.PHAR ---
Phoned 3 listed Pharmacies on Patient's profile and last filled was a Zofran from 05/09/24 .Patient Did have a Buspirone HCL 10mg filled in April 11, 2024 for 90 days.
--- NOTE | 2024-09-06 14:21 | PC.NURSE ---
SEPSIS BOLUS ORDERED. 2,000ML OF FLUID ALREADY GIVEN TO PT. VERBAL ORDERS FROM DR. EWING TO ONLY GIVE THE 2000ML AND NOT THE NEW ORDER OF THE SEPSIS BOLUS.
[2024-09-06 14:38] LABS: Lactic Sepsis W/Reflex 1.6 mmol/L (0.5-2.2)
[2024-09-06 15:14] LABS: Troponin 5 2HR 39.95 ng/L (0-15); Troponin 5 2HR Delta 6.95 ABS# (0-10)
[2024-09-06] MEDS: piperacillin-tazobactam 3.375 GM in sodium chloride 0.9% (plus) 50 ML IV (15:42)
--- NOTE | 2024-09-06 15:46 | ECG_ITS ---
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1960 Requested By: Madan Manuel Order Number: [id number] Reading MD: DONI LEACH Measurements Intervals [place] Rate: 135 P: 77 [place]: 132 QRS: 93 QRSD: 90 T: 73 QT: 279 QTc: 418 Interpretive Statements SINUS TACHYCARDIA BORDERLINE RIGHT AXIS DEVIATION [QRS AXIS > 90] LOW QRS VOLTAGE IN PRECORDIAL LEADS [QRS DEFLECTION < 1.0 mV IN CHEST LEADS] POSSIBLE RIGHT VENTRICULAR CONDUCTION DELAY [RSR (QR) IN V1/V2] MODERATE ST DEPRESSION [0.05+ mV ST DEPRESSION] Compared to ECG 09/06/2024 13:22:13 ST (T wave) deviation now present Incomplete right bundle-branch block no longer present Electronically Signed On 09-08-2024 23:55:28 CDT by DONI LEACH [email or web address] [id number]
--- NOTE | 2024-09-06 15:53 | XR_ITS ---
WS: [id number] XR chest 1V portable [id number] REASON FOR EXAM: CENTRAL LINE FINDINGS: Compared to the examination of earlier today there is been insertion of a right subclavian central venous catheter with its tip properly positioned in the distal SVC. There is no right pneumothorax. Previously described pulmonary parenchymal abnormalities and right lower lung atelectasis and bilateral pleural effusions are unchanged. XR/XR chest 1V portable [id number] IMPRESSION: Placement of right subclavian vein central venous catheter as above.
--- NOTE | 2024-09-06 16:54 | PC.NURSE ---
Arrived from ED, intubated
--- NOTE | 2024-09-06 16:58 | P.HP_ITS ---
Providers/Chief Complaint 2 Admitting Physician: Melva Correa MD Primary Care Provider: Martin Mcfarland DO Chief Complaint: SOB History of Present Illness Charles Garay is a 64 year old male with past medical history of laryngeal cancer status post radiation, PEG tube in place who presented to the ER for further evaluation of worsening shortness of breath. Per ER report, he was in severe respiratory distress on arrival, on 15 L via nonrebreather, patient was subsequently intubated due to severe respiratory failure. Per his family members, patient has had worsening shortness of breath in the past few days with cough, sputum production. There were no reports of fever, chills, chest pain, abdominal pain, nausea, vomiting. Imaging in the ER showed respiratory acidosis with hypercarbia, with some improvement after intubation. Patient also requiring Levophed for shock. Chest x-ray showed , left pleural effusion and opacities in the apex of the right lung, right greater than left pleural effusions. Review of Systems 2 General: Reports: Other (Review of systems limited, patient currently intubated, mechanically ventil) Medications/Allergies Home Medications ?Medication ?Instructions ?Recorded ?Confirmed ?Last Taken ?Type ondansetron 4 mg disintegrating 4 mg PO QID PRN Nausea And Vomiting 09/06/24 09/06/24 Unknown History tablet Allergies Allergy/AdvReac Type Severity Reaction Status Date / Time No Known Allergies Allergy Verified 11/05/23 17:55 PFSH Acute 2 PFSH: Medical History (Updated 09/06/24 @ 17:37 by Melva Correa MD) Pneumonia Decreased ability to feed self Diarrhea Closed left ankle fracture COPD exacerbation COVID-19 Lung nodule < 6cm on CT Septicemia due to Staphylococcus aureus Anemia Severe sepsis Urinary retention Lopez catheter placed October 2019 with failed trial of voiding Decubitus ulcer of coccyx, 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 Anxiety Uses feeding tube COPD (chronic obstructive pulmonary disease) Aspiration, chronic pulmonary History of osteomyelitis Osteomyelitis of the mandible, treated in 2017 Surgical History Gastrostomy present (07/15/21) Encounter for gastrojejunal (GJ) tube placement (10/19/19) History of tonsillectomy Cancer resection with tonsillar cancer Family History Mother Cancer Diabetes Father , 80 Cancer Denies family history of Anesthesia complication Bleeding disorder Social History Smoking and tobacco/nicotine status: unknown if used tobacco/nicotine Quit status (tobacco/nicotine): has quit using Year quit tobacco: 2020 - 0.5 PPD x 30 Years Alcohol intake: never Substance/Drug Use: never Caregiver/support person: Yes Lives independently: No Household members: caregiver Housing: Jail Marital status: Current occupational status: disabled Do you think of yourself as: Straight/Heterosexual Current gender identity: Male Vitals/I&O/Wt Last Vital Signs Temp 98.7 F 09/06/24 13:53 Pulse 131 H 09/06/24 16:32 Resp 18 09/06/24 16:08 BP 87/53 09/06/24 16:32 Pulse Ox 93 09/06/24 16:32 O2 Del Method Mechanical Ventilation 09/06/24 16:11 O2 Flow Rate 8 09/06/24 12:47 FiO2 50 09/06/24 16:11 09/06/24 09/06/24 09/06/24 06:59 14:59 22:59 Intake Total 2039.683 / 2039.683 75.933 / 2115.616 Balance 9.683 / 2039.683 75.933 / 2115.616 Weight last 48 hrs Weight 45.359 kg Physical Exam 2 Narrative: General -sedated, intubated, mechanically ventilated, acutely ill-appearing, frail appearing HEENT-normocephalic, atraumatic, neck is supple Lungs-diminished breath sounds bilaterally, no wheezes or crackles CVS -S1-S2, regular rate and rhythm Abdomen -soft, nontender, PEG tube in place normal bowel sounds Extremities-+ bilateral ankle edema Neurology -sedated, no gross focal deficits Urinary Catheter Management: Lopez: Cath Placed During This Visit: yes Urinary Catheter Date of Insertion: 09/06/24 Data 09/06/24 12:42 09/06/24 12:42 Micro: Microbiology 09/06/24 14:40 Blood Culture - Preliminary Blood SPECIMEN COLLECTED 09/06/24 14:43 Blood Culture - Preliminary Blood SPECIMEN COLLECTED A&P Assessment and plan (1) Acute hypotension: # Acute hypoxic hypercarbic respiratory failure - Required intubation and mechanical ventilation-date of intubation - 09/06 - Patient presented with worsening shortness of breath and was subsequently intubated in the ER due to respiratory failure - ABG showed respiratory acidosis - Check serial ABGs and adjust ventilation settings as appropriate - Daily ABG, chest x-ray - Will get CT of the chest to rule out PE and further evaluate lung parenchyma # Pneumonia with risk factors for MDRO - Continue Zosyn, add vancomycin - Check COVID-19 screen, MRSA screen - Continue to monitor # Shock, likely septic shock - In setting of pneumonia - Check blood cultures continue IV fluids -continue Levophed to maintain maps greater than 65 - Continue other supportive care - Check echo, patient has mild lower extremity edema, check BNP # Acute COPD exacerbation - Solu-Medrol, DuoNebs, budesonide # Sinus tachycardia - Likely due to sepsis - Patient receiving IV fluids - Monitor Sedation - midazolam Analgesia- Fentanyl DVT ppx - enoxaparin GI ppx - Protonix (2) Septic shock: (3) Respiratory failure requiring intubation: (4) Pneumonia: PDMP PDMP Reviewed: Not Reviewed Attestations 2 Medical Necessity Statement*: Patient requires inpatient care , his care requires greater than 2 midnights. He is critically ill, admitted to the ICU. Coding Level of Care Code Critical Care >/= 30 minutes Diagnoses Acute hypotension I95.9 Septic shock A41.9; R65.21 Respiratory failure requiring intubation J96.90 Pneumonia J18.9
--- NOTE | 2024-09-06 17:00 | CTR_ITS ---
PROCEDURE INFORMATION: Exam: CTA Chest Without And With Contrast Exam date and time: 09/07/2024 2:13 AM Age: 64 years old Clinical indication: Respiratory failure. TECHNIQUE: Imaging protocol: Computed tomographic angiography of the chest without and with contrast. Exam focused on the arteries. 3D rendering (Not supervised by radiologist): MIP and/or 3D reconstructed images were created by the technologist. Radiation optimization: All CT scans at this facility use at least one of these dose optimization techniques: automated exposure control; mA and/or kV adjustment per patient size (includes targeted exams where dose is matched to clinical indication); or iterative reconstruction. Contrast material: OMNI 350; Contrast volume: 80 ml; Contrast route: INTRAVENOUS (IV); COMPARISON: 1. CT angio chest PE protcl [id number] 04/05/2024 5:27 PM 2. PT PET WB melanoma INITIAL [id number] 05/11/2024 10:[address] angio chest PE protcl [id number] 04/08/2021 6:46 PM RADIATION DOSE METRICS: Total DLP (mGy-cm): 283.9 FINDINGS: Tubes, catheters and devices: Unremarkable endotracheal tube position. Enteric catheter terminates in the proximal stomach. Percutaneous gastrostomy catheter is present within the gastric body. Central venous catheter terminates in the distal superior vena cava. Pulmonary arteries: Normal. No pulmonary emboli. Aorta: Chronic aneurysmal dilation of proximal ascending thoracic aorta at the level of the coronary cusps measures 4.9 cm identical to the 04/08/2021 exam. No acute dissection. Negative for rupture. Lungs: Emphysematous lung disease. Widespread ground-glass nodules. There is chronic collapse in the bilateral lower lobes with endobronchial secretions. Pleural spaces: Unremarkable. No pneumothorax. No pleural effusion. Heart: Unremarkable. No cardiomegaly. No pericardial effusion. Esophagus: Unremarkable thoracic esophagus. Lymph nodes: Unremarkable. No enlarged lymph nodes. Stomach: The stomach is decompressed. Bones/joints: Unremarkable. No acute fracture. Soft tissues: Unremarkable. CT/CT angio chest PE protcl [id number] IMPRESSION: 1. Widespread irregular ground-glass nodular airspace opacities in both lungs most likely representing nonspecific infectious changes. 2. Chronic collapse in the lower lobes. 3. Advanced centrilobular emphysema. 4. Negative for pulmonary embolism. 5. Chronic thoracic aorta aneurysm at the level of the coronary cusps is unchanged. COMMENTS: The presence of pulmonary emphysema on CT is an independent risk factor for lung cancer. In the absence of a history or active diagnosis of lung cancer, it is recommended that this patient with emphysema be evaluated for enrollment in a low dose CT lung cancer screening program.
--- NOTE | 2024-09-06 17:08 | PHA.VACGOAL ---
Vancomycin Goal - Goal Vancomycin Goal:: 15-20 mg/L Vancomycin Indication:: Other - Therapy Current therapy:: Pip/Tazo Day of therpy:: Day []of [] . Actual body weight (kg): 114 lb - Data Labs: WBC 10.32 10^3/uL (3.29-11.43) 09/06/24 12:42 RBC 3.43 10^6/uL (3.85-5.65) L 09/06/24 12:42 Hgb 10.30 g/dL (11.27-16.99) L 09/06/24 12:42 Hct 34.7 % (37-53) L 09/06/24 12:42 MCV 101.2 fl (82-101) H 09/06/24 12:42 MCH 30.0 pg (27-33) 09/06/24 12:42 MCHC 29.7 g/dL (30-55) L 09/06/24 12:42 RDW 14.7 % (12.1-15.1) 09/06/24 12:42 Sodium 140 mmol/L (136-145) 09/06/24 12:42 Potassium 5.0 mmol/L (3.5-5.1) 09/06/24 12:42 Chloride 94 mmol/L (98-107) L 09/06/24 12:42 Carbon Dioxide 36 mmol/L (22-29) H 09/06/24 12:42 Anion Gap 15.0 (5-19) 09/06/24 12:42 BUN 29 mg/dL (8-23) H 09/06/24 12:42 Creatinine 0.7 mg/dL (0.7-1.2) 09/06/24 12:42 GFR Calculation 113.2 mL/min (90-130) 09/06/24 12:42 Last dialysis session:: N/A Treatment plan:: new consult Regimen:: LOADING DOSE OF 1500 MG X1 MAINTENANCE DOSE OF 500 MG Q12H PER DOSING PROTOCOL. Follow up:: WILL CONTINUE TO MONITOR AND FOLLOW UP DAILY
[2024-09-06 17:59] LABS: ABG PCO2 59.1 mmHg (35-45); ABG PH Result 7.41 (7.35-7.45); Alveolar-Arterial Oxygen Gradi 18.8 mmHg (5-10); Arterial Blood Gas Hematocrit 28.5 % (42-52); Base Excess ABG 10.8 mmol/L (-2.0-2.0); Blood Gas Operator Identificat GD; Blood Gas Sample Site Brachial, left; Blood Gas Sample Type Arterial; Blood Gas Tidal Volume 0.55; Carboxyhemoglobin 1.7 %THgb (0.4-20.1); HCO3 ABG 37.1 mmol/L (22-26); HGB O2 Sat 87.9 % (95-100); Ionized Calcium Level - ABG 1.1 mmol/L (1.1-1.4); Methemoglobin 1.2 % (0.4-1.5); Oxygen Device VENT; Oxygen Saturation ABG 90.5; PO2 ABG 54.4 mmHg (80.0-100.0); PO2 FiO2 Ratio Arterial Blood 143; Potassium Level - ABG 4.8 mmol/L (3.5-5.0); Total Hemoglobin 9.3 g/dL (14-18)
[2024-09-06 17:59] LABS: NT Pro B Type Natriuretic Pept 2352 pg/mL (0-125)
[2024-09-06] MEDS: enoxaparin 40 mg/0.4 mL Syringe SUBCUT (18:15)
[2024-09-06] MEDS: vancomycin 1,500 MG/300 ML PIGGYBACK 200 MG IV ×2 (18:15→18:22)
[2024-09-06] MEDS: methylPREDNISolone sod succ 40 mg/mL INJ IVP (18:15)
[2024-09-06] MEDS: sodium chloride 0.9% 1,000 ML 75 ML IV (18:15)
--- NOTE | 2024-09-06 18:26 | ECG_ITS ---
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: : 1960 Requested By: Madan Manuel Order Number: [id number] Reading MD: DONI LEACH Measurements Intervals Hyrum Rate: 132 P: 72 NH: 108 QRS: 93 QRSD: 94 T: 77 QT: 283 QTc: 420 Interpretive Statements SINUS TACHYCARDIA WITH SHORT NH INTERVAL BORDERLINE RIGHT AXIS DEVIATION [QRS AXIS > 90] LOW QRS VOLTAGE IN PRECORDIAL LEADS [QRS DEFLECTION < 1.0 mV IN CHEST LEADS] INCOMPLETE RIGHT BUNDLE BRANCH BLOCK [90+ ms QRS DURATION, TERMINAL R IN V1/V2, 40+ ms S IN I/aVL/V4/V5/V6] ST DEVIATION AND MODERATE T-WAVE ABNORMALITY, CONSIDER ANTERIOR ISCHEMIA [-0.1+ mV T-WAVE IN V3/V4] Compared to ECG 09/06/2024 15:46:54 Short NH interval now present Incomplete right bundle-branch block now present Electronically Signed On 09-08-2024 23:55:37 CDT by DONI LEACH [email or web address]
[2024-09-06] MEDS: albumin 25 G/100 ML BAG 60 G IV (18:42)
[2024-09-06] MEDS: norepinephrine 4 MG/250 ML BAG 60 MG IV (18:44)
[2024-09-06] MEDS: fentaNYL 1,000 MCG/100 ML BAG 12.5 MCG IV (18:52)
[2024-09-06 19:22] LABS: Troponin 5 6HR 51.37 ng/L (0-15)
[2024-09-06 19:35] LABS: Troponin 5 6HR Delta 18.37 ng/L (0-12)
[2024-09-06] MEDS: sodium chloride 0.9% 1,000 ML 100 ML IV (19:56)
[2024-09-06 20:23] LABS: Influenza A NEGATIVE (Negative); Influenza B NEGATIVE (Negative); Respiratory Syncytial Virus Ce NEGATIVE (Negative); SARS-CoV-2 PCR NEGATIVE (Negative)
[2024-09-06] MEDS: budesonide 0.5 mg/2 mL Neb INHALATION (20:39)
[2024-09-06 20:59] LABS: MRSA PCR OZH (swab) NOT DETECTED (Negative)
[2024-09-07] VITALS (95 sets, daily range): BP systolic 89–129; BP diastolic 52–86; PULSE 90–123; RESP 10–14; TEMP 36.3–37.1; O2SAT 86–100
[2024-09-07] MEDS: norepinephrine 4 MG/250 ML BAG 22.5 MG IV (00:19)
[2024-09-07] MEDS: piperacillin-tazobactam 3.375 GM in sodium chloride 0.9% (plus) 50 ML IV ×3 (00:19→16:12)
[2024-09-07] MEDS: methylPREDNISolone sod succ 40 mg/mL INJ IVP ×3 (00:21→16:26)
[2024-09-07] MEDS: ipratropium-albuterol 3 mL Neb INHALATION ×6 (00:30→20:24)
--- NOTE | 2024-09-07 01:17 | PC.NURSE ---
3rd elevated troponin -previously reviewed with md on day shift.
[2024-09-07 01:45] LABS: ABG PH Result 7.32 (7.35-7.45); Arterial Blood Gas Hematocrit 28.5 % (42-52); Base Excess ABG 6.2 mmol/L (-2.0-2.0); Blood Gas Allen Test Pos; Blood Gas Operator Identificat SAM; Blood Gas Sample Site Radial, right; Blood Gas Sample Type Arterial; Blood Gas Tidal Volume 0.55; HCO3 ABG 33.6 mmol/L (22-26); Oxygen Device VENT; PO2 ABG 71.4 mmHg (80.0-100.0); PO2 FiO2 Ratio Arterial Blood 178
[2024-09-07] MEDS: iohexol 350 mg/mL 500 mL Btl (per mL) IV (01:45)
[2024-09-07 01:47] LABS: ABG PCO2 64.9 mmHg (35-45)
[2024-09-07] MEDS: albuterol 2.5 mg/3 mL Neb INHALATION (02:29)
[2024-09-07] MEDS: fentaNYL 1,000 MCG/100 ML BAG 10 MCG IV ×2 (03:00→13:38)
[2024-09-07] MEDS: sodium chloride 0.9% 1,000 ML 100 ML IV (04:23)
[2024-09-07] MEDS: vancomycin 500 MG in sodium chloride 0.9% (plus) 100 ML 200 MG IV ×2 (04:32→17:22)
[2024-09-07 04:36] LABS: Anion Gap 14.1 (5-19); Blood Urea Nitrogen 25 mg/dL (8-23); Calcium 8.5 mg/dL (8.5-10.5); Carbon Dioxide 31 mmol/L (22-29); Chloride 99 mmol/L (98-107); Creatinine Clr Calc Pharmacy 67.3307; Glucose 165 mg/dL (65-115); Osmolality Calculated 298 mOsm/kg (285-295); Potassium 4.1 mmol/L (3.5-5.1); Sodium 140 mmol/L (136-145)
[2024-09-07 07:40] LABS: Glucose Point of Care 163 mg/dL (70-110)
[2024-09-07] MEDS: budesonide 0.5 mg/2 mL Neb INHALATION ×2 (08:17→20:24)
--- NOTE | 2024-09-07 09:02 | XR_ITS ---
WS: [id number] XR chest 1V portable [id number] REASON FOR EXAM: intubation FINDINGS: Endotracheal tube and right subclavian central venous line in proper position. Nasogastric tube beyond the gastroesophageal junction. Lung markings are not identified in the apex and there are areas of lucency along the aorta and cardiac border and around the left lung base. XR/XR chest 1V portable [id number] IMPRESSION: There is an has been a great deal of artifact overlying the left chest likely a nd the patient has extensive post disease, however likely there is a left pneum othorax which in retrospect was present on 09/06/2024. Difficult to determine the degree of abnormality. If the patient can tolerate, a right lateral decubitus image of the chest focus ed on the up left side. Patient should lie in the right lateral decubitus posit ion for a short length of time before the image is obtained.
--- NOTE | 2024-09-07 10:06 | XR_ITS ---
WS: [id number] XR chest 1V portable [id number] REASON FOR EXAM: Pneumothoax rule out FINDINGS: No significant pneumothorax is identified. There was a CT chest earlier this AM which was overlooked during the previous chest x-ray interpretation. There was no pneumothorax. There is a large apical bullae which explains the lack of lung markings in the apex. There are large subpleural blebs along the medial pleura which explain the lucencies on the chest x-ray. There is also extensive bullous disease in the left lower lung which explains the findings in the left lung base and diaphragmatic region. XR/XR chest 1V portable [id number] IMPRESSION: No significant pneumothorax. Inadvertent overlook of previous recent CT scan. Bullous disease demonstrated o n that examination explains the abnormalities on the chest x-ray involving the left chest.
[2024-09-07] MEDS: albumin 25 G/100 ML BAG 60 G IV (10:26)
[2024-09-07 10:31] LABS: Basophils % 0.3 %; Lymphocytes # 0.2 10^3/uL (0.8-4.8); Lymphocytes % 1.5 %; Mean Platelet Volume 10.9 fL (7.4-10.4); Monocytes # 0.6 10^3/uL (0.2-0.9); Monocytes % 5.2 %; Neutrophils # 10.78 10^3/uL (1.8-7.7); Neutrophils % 92.1 %; Nucleated Red Blood Cells % 0 %; Platelet Count 154 10^3/cmm (157-399); White Blood Count 11.71 10^3/uL (3.29-11.43)
[2024-09-07 10:51] LABS: ABG PH Result 7.34 (7.35-7.45); Alveolar-Arterial Oxygen Gradi 18.2 mmHg (5-10); Arterial Blood Gas Hematocrit 24.6 % (42-52); Base Excess ABG 7.9 mmol/L (-2.0-2.0); Blood Gas Operator Identificat GD; Blood Gas Sample Site Brachial, left; Blood Gas Sample Type Arterial; Blood Gas Tidal Volume 0.53; Carboxyhemoglobin 1.4 %THgb (0.4-20.1); HGB O2 Sat 91.7 % (95-100); Ionized Calcium Level - ABG 1.2 mmol/L (1.1-1.4); Methemoglobin 0.5 % (0.4-1.5); Oxygen Device VENT; Oxygen Saturation ABG 93.5; PO2 ABG 65.2 mmHg (80.0-100.0); PO2 FiO2 Ratio Arterial Blood 163; Potassium Level - ABG 4.3 mmol/L (3.5-5.0)
[2024-09-07 10:53] LABS: ABG PCO2 65.5 mmHg (35-45)
[2024-09-07 11:06] LABS: Staphylococcus species Detected (NOT DETECT)
[2024-09-07 11:06] LABS: Slide Review Slide Review Perform
--- NOTE | 2024-09-07 11:20 | P.PN_ITS ---
Subjective 2 Subjective: No acute events overnight. Patient seen at his bedside. He remains intubated and mechanically ventilated. He also remains on Levophed. Review of systems limited. Vitals/I&O/Wt Last Vital Signs Temp 98.4 F 09/07/24 04:00 Pulse 114 H 09/07/24 08:38 Resp 14 09/07/24 09:09 BP 100/68 09/07/24 06:00 Pulse Ox 99 09/07/24 09:09 O2 Del Method Mechanical Ventilation 09/07/24 08:15 O2 Flow Rate 45 09/07/24 02:15 FiO2 40 09/07/24 09:09 09/06/24 09/07/24 09/07/24 22:59 06:59 14:59 Intake Total 1102.600 / 3142.283 1306.525 / 4448.808 62.458 / 62.458 Output Total 1050 / 1050 Balance 1102.600 / 3142.283 256.525 / 3398.808 62.458 / 62.458 Weight last 48 hrs Weight 51.301 kg Weight 51.71 kg Weight 45.359 kg Physical Exam 2 Narrative: General -sedated, intubated, mechanically ventilated, acutely ill-appearing, frail appearing HEENT-normocephalic, atraumatic, neck is supple Lungs-diminished coarse breath sounds bilaterally, no wheezes or crackles CVS -S1-S2, regular rate and rhythm Abdomen -soft, nontender, PEG tube in place, normal bowel sounds Extremities-mild ankle edema Neurology -sedated, no gross focal deficits Urinary Catheter Management: Lopez: Cath Placed During This Visit: yes Reason for Continuing Indwelling Catheter: Accurate Measurement of Urinary Output in Critically Ill Patients Urinary Catheter Date of Insertion: 09/06/24 Data 09/07/24 10:00 09/07/24 03:40 Micro: Microbiology 09/06/24 12:52 Gram Stain - Final Sputum - Endotracheal Tube Aspirate Sputum Culture - Preliminary 09/06/24 14:40 Blood Culture - Preliminary Blood Staphylococcus species 09/06/24 13:04 Urine Culture - Preliminary Urine,Clean Catch 09/06/24 14:43 Blood Culture - Preliminary Blood SPECIMEN COLLECTED A&P Assessment and plan (1) Acute hypotension: # Acute hypoxic hypercarbic respiratory failure - Requiring intubation and mechanical ventilation-date of intubation - 6/5 - Patient presented with worsening shortness of breath and was subsequently intubated in the ER due to respiratory failure - ABG showed respiratory acidosis- improved , patient with hypercapnia, some respiratory acidosis this am - Check serial ABGs and adjust ventilation settings as appropriate - Daily ABG, chest x-ray - CT chest negative for PE # Pneumonia with risk factors for MDRO - Continue Zosyn, add vancomycin - Check COVID-19 screen, MRSA screen - Continue to monitor -Dc vanc if mrsa is negative # Shock, likely septic shock - In setting of pneumonia - Continue Levophed to maintain maps greater than 65 - Continue other supportive care - Check echo, patient has mild lower extremity edema, check BNP -Blood cultures - pending # Acute COPD exacerbation - Continue solu-Medrol, DuoNebs, budesonide # Sinus tachycardia - Likely due to sepsis. CT chest negative for PE - Patient receiving IV fluids - Monitor Sedation - midazolam Analgesia- Fentanyl DVT ppx - enoxaparin GI ppx - Protonix Diet- Start tube feeds (2) Septic shock: (3) Respiratory failure requiring intubation: (4) Pneumonia: PDMP PDMP Reviewed: Not Reviewed Attestations 2 Medical Necessity Statement*: Patient requires inpatient care . He is critically ill, admitted to the ICU. Critical care time - Greater than 30 mins Coding Level of Care Code Acute Code for g Fwd Diagnoses Acute hypotension I95.9 Septic shock A41.9; R65.21 Respiratory failure requiring intubation J96.90 Pneumonia J18.9
[2024-09-07] MEDS: midazolam hcl 100 MG/100 ML BAG IV (11:56)
[2024-09-07 13:16] LABS: Glucose Point of Care 160 mg/dL (70-110)
--- NOTE | 2024-09-07 14:25 | PC.SOCIAL ---
IMM Updated Pt is intubated & not expected to be discharged within the next 24-48hrs. Provided pt a copy at bedside. Initialed, dated, & timed a copy & placed in chart.
--- NOTE | 2024-09-07 15:04 | PC.NURSE ---
At approximately 1455, patient became agitated. Initially it appeared as though patient was agitated with the vent as he had a large amount of secretions develop in the tubing, nurse suctioned the secretions, but agitation continued. Patient then exhibited seizure like activity. Rythmic blinking of eyes, rhythmic clasping hands, and full body tremors. Airway is currently secured as he is on a vent. Receiving a versed drip for sedation. Seizure like activity ceased after approximately [address] Correa, she advised she will order keppra and consult neurology.
[2024-09-07 15:23] LABS: ABG PCO2 57.6 mmHg (35-45); ABG PH Result 7.39 (7.35-7.45); Base Excess ABG 8.2 mmol/L (-2.0-2.0); Blood Gas Allen Test Pos; Blood Gas Operator Identificat GD; Blood Gas Sample Site Radial, left; Blood Gas Sample Type Arterial; Blood Gas Tidal Volume 0.53; Carboxyhemoglobin 1.3 %THgb (0.4-20.1); HCO3 ABG 34.5 mmol/L (22-26); HGB O2 Sat 95.7 % (95-100); Ionized Calcium Level - ABG 1.2 mmol/L (1.1-1.4); Methemoglobin 1.1 % (0.4-1.5); Oxygen Device VENT; Oxygen Saturation ABG 98.1; PO2 FiO2 Ratio Arterial Blood 225; Potassium Level - ABG 3.9 mmol/L (3.5-5.0); Total Hemoglobin 8.8 g/dL (14-18)
--- NOTE | 2024-09-07 15:41 | CTR_ITS ---
PROCEDURE INFORMATION: Exam: CT Head Without Contrast Exam date and time: 09/07/2024 4:37 PM Age: 64 years old Clinical indication: Other: ? Seizures TECHNIQUE: Imaging protocol: Computed tomography of the head without contrast. Radiation optimization: All CT scans at this facility use at least one of these dose optimization techniques: automated exposure control; mA and/or kV adjustment per patient size (includes targeted exams where dose is matched to clinical indication); or iterative reconstruction. COMPARISON: PT PET WB melanoma INITIAL [id number] 10/03/2024 10:54 RADIATION DOSE METRICS: Total DLP (mGy-cm): 1031.78 FINDINGS: Limitations: A metallic artifact and lead overlie the left frontal scalp region with resultant beam hardening obscuring resolution here. Brain: Mild prominence of the extra-axial spaces about the bifrontal lobes is seen and appears most similar to an earlier study from 04/08/2021. Mild decreased density seen in the periventricular and deep white matter regions of the cerebral hemispheres. The midline is intact. Beam hardening artifact obscures resolution through the posterior fossa structures. No hemorrhage. No mass effect. Cerebral ventricles: Ventricles demonstrate normal size shape and configuration and are felt to be in proportion to the degree of widening of the sulci, sylvian fissures and basilar cisterns. Paranasal sinuses: Visualized sinuses are unremarkable. No fluid levels. Mastoid air cells: Visualized mastoid air cells are well aerated. Orbital cavities: Bilateral chronic exophthalmos appears to be present. Bones: Unremarkable. No acute fracture. Soft tissues: Unremarkable. CT/CT head wo con* [id number] IMPRESSION: 1. No acute intracranial head CT findings identified. 2. No significant interval changes in comparison with the prior study from 2021. 3. Atrophy/involutional changes of aging and mild components of chronic small-vessel disease. 4. Chronic bilateral exophthalmos question history of thyroid ophthalmopathy.
--- NOTE | 2024-09-07 15:51 | PM.CONSULT ---
Providers/Reason For Consult Consulting Physician/Specialty*: Hao Chambers MD neurology and epilepsy Reason for Consult*: Decreased level consciousness and seizure episode assess for subclinical status epilepticus Attending Physician: Melva Correa MD Primary Care Provider: Martin Mcfarland DO History of Present Illness History of Present Illness Charles Garay is a 64 year old male admitted on 09/06/2024 secondary to aspiration pneumonia and sepsis. Patient was witnessed to have agitation earlier today when Versed was being tapered and then was witnessed to have a grand mal seizure. Patient currently on Versed. Neurology consult obtained to assess for any subclinical seizure activity since the patient was reported to display some intermittent muscle twitches. Currently the patient is sedated on Versed and on the ventilator. His his systolic blood pressure is currently in the low 90s with sinus tachycardia. There is no obvious clinical signs of any obvious seizures at this time. Recommended starting thiamine 100 mg IV daily and agree with Versed drip and starting Keppra 1 g IV load x 1 dose followed by 500 mg IV every 12 hours. I spoke with the admitting physician and informed them that [facility] does not have the capacity to perform inpatient continuous video surface EEG monitoring. Therefore if there is concerns for subclinical status epilepticus, the patient should be transferred to a facility with this EEG capability. Agree with obtaining noncontrast head CT. Drug allergies: None Current medications: IV Versed IV Keppra load 1 g followed by 500 mg IV every 12 hours (starting 09/07/2024) Zofran 4 mg 4 times daily as needed nausea vomiting Past medical history: Acute hypotension Acute dyspnea Personal history of malignant neoplasm of other sites of lip, oral cavity and pharynx Dehydration Anemia Pneumonia aspiration Cellulitis and abscess of the buttocks Decubitus ulcers of coccyx stage II Chronic obstructive pulmonary disease Chronic pulmonary aspiration Family history: Unable to obtain Habits: Unknown Review of Systems General: Reports: ROS unobtainable due to endotracheal tube and ROS unobtainable due to medical condition Medications/Allergies Home Medications ?Medication ?Instructions ?Recorded ?Confirmed ?Last Taken ?Type ondansetron 4 mg disintegrating 4 mg PO QID PRN Nausea And Vomiting 09/06/24 09/06/24 Unknown History tablet Allergies Allergy/AdvReac Type Severity Reaction Status Date / Time No Known Allergies Allergy Verified 11/05/23 17:55 Current Medications Generic Name Dose Route Start Last Admin Trade Name Freq PRN Reason Stop Dose Admin Albuterol Sulfate 2.5 mg 09/07/24 01:55 09/07/24 02:29 Albuterol 2.5 Mg/3 Ml Neb INHALATION 2.5 mg Q4H.RESPIRATORY PRN Administration SHORTNESS OF BREATH Albuterol/Ipratropium 3 ml 09/06/24 17:05 09/07/24 00:30 Ipratropium-Albuterol 3 Ml Neb INHALATION 3 ml Q6H PRN Administration SHORTNESS OF BREATH Albuterol/Ipratropium 3 ml 09/07/24 04:00 09/07/24 15:28 Ipratropium-Albuterol 3 Ml Neb INHALATION 3 ml Q4H.RESPIRATORY CHRISTIANO Administration Budesonide 0.5 mg 09/06/24 20:00 09/07/24 08:17 Budesonide 0.5 Mg/2 Ml Neb INHALATION 0.5 mg BID.RESPIRATORY CHRISTIANO Administration Enoxaparin Sodium 40 mg 09/06/24 17:00 09/06/24 18:15 Enoxaparin 40 Mg/0.4 Ml Syringe SUBCUT 40 mg Q24H CHRISTIANO Administration Fentanyl 1,000 mcg in 100 mls @ 0 mls/hr 09/06/24 12:45 09/07/24 13:38 Sublimaze IV 100 mcg/hr .Q0M CHRISTIANO 10 mls/hr Protocol Administration Per Protocol Midazolam HCl 100 mg in 100 mls @ 0 mls/hr 09/06/24 12:45 09/07/24 11:56 Versed IV 3 mg/hr .Q0M CHRISTIANO 3 mls/hr Protocol Administration Per Protocol Norepinephrine Bitartrate 4 mg in 250 mls @ 0 mls/hr 09/06/24 13:30 09/07/24 07:19 Levophed IV 3 mcg/min .Q0M CHRISTIANO 11.25 mls/hr Protocol Titration Per Protocol Vancomycin HCl 500 mg/ Sodium 100 mls @ 200 mls/hr 09/07/24 05:30 09/07/24 05:34 Chloride IV Infused Q12H CHRISTIANO Infusion Piperacillin Sod/Tazobactam 50 mls @ 12.5 mls/hr 09/07/24 00:30 09/07/24 07:30 Sod 3.375 gm/ Sodium Chloride IV 12.5 mls/hr Q8H CHRISTIANO Administration Sodium Chloride 1,000 mls @ 100 mls/hr 09/06/24 19:49 09/07/24 04:23 Sodium Chloride 0.9% IV 100 mls/hr .Q10H CHRISTIANO Administration Methylprednisolone Sodium Succinate 40 mg 09/06/24 17:15 09/07/24 10:26 Methylprednisolone Sod Succ 40 Mg/Ml Inj IVP 40 mg Q8H CHRISTIANO Administration PFSH Acute PFSH: Medical History (Updated 09/07/24 @ 16:04 by Hao Chambers MD) Pneumonia Decreased ability to feed self Diarrhea Closed left ankle fracture COPD exacerbation COVID-19 Lung nodule < 6cm on CT Septicemia due to Staphylococcus aureus Anemia Severe sepsis Urinary retention Lopez catheter placed October 2019 with failed trial of voiding Decubitus ulcer of coccyx, 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 Anxiety Uses feeding tube COPD (chronic obstructive pulmonary disease) Aspiration, chronic pulmonary History of osteomyelitis Osteomyelitis of the mandible, treated in 2016 Surgical History Gastrostomy present (07/15/21) Encounter for gastrojejunal (GJ) tube placement (10/19/19) History of tonsillectomy Cancer resection with tonsillar cancer Family History Mother Cancer Diabetes Father , 80 Cancer Denies family history of Anesthesia complication Bleeding disorder Social History Smoking and tobacco/nicotine status: unknown if used tobacco/nicotine Quit status (tobacco/nicotine): has quit using Year quit tobacco: 2020 - 0.5 PPD x 30 Years Alcohol intake: never Substance/Drug Use: never Caregiver/support person: Yes Lives independently: No Household members: caregiver Housing: Assisted Marital status: Current occupational status: disabled Do you think of yourself as: Straight/Heterosexual Current gender identity: Male Vitals/I&O/Wt Last Vital Signs Temp 98.7 F 09/07/24 13:00 Pulse 95 09/07/24 15:37 Resp 14 09/07/24 15:32 BP 113/68 09/07/24 14:00 Pulse Ox 99 09/07/24 15:32 O2 Del Method Mechanical Ventilation 09/07/24 15:29 O2 Flow Rate 45 09/07/24 02:15 FiO2 40 09/07/24 15:32 09/07/24 09/07/24 09/07/24 06:59 14:59 22:59 Intake Total 1306.525 / 4448.808 118.083 / 118.083 Output Total 1050 / 1050 750 / 750 Balance 256.525 / 3398.808 -631.917 / -631.917 Weight last 48 hrs Weight 113 lb 1.6 oz Weight 114 lb Weight 100 lb Physical Exam Narrative: The patient is currently intubated and sedated on the ventilator with Versed. Patient is in supine position. Patient is not breathing over the ventilator. Respiration rate 14 on the ventilator and patient breathing 14 breaths/min. Pupils 3 to 4 mm and appeared to be reactive to light. I did not observe any obvious involuntary nystagmus. Patient does not resist eye opening. There is no obvious facial weakness. Corneal reflexes appear to be intact. Motor testing difficult to assess secondary to sedation. Plantar responses flexor bilaterally. There is no clonus. Extremities revealed no obvious signs of spasticity or tremors or seizure movements. Throat clear. Lungs reveal decreased breath sounds there is no obvious wheezing. Heart sinus tachycardia. Extremities were negative for cyanosis Urinary Catheter Management: Lopez: Cath Placed During This Visit: yes Reason for Continuing Indwelling Catheter: Accurate Measurement of Urinary Output in Critically Ill Patients Urinary Catheter Date of Insertion: 09/06/24 Data 09/07/24 10:00 09/07/24 03:40 Micro: Microbiology 09/06/24 14:43 Blood Culture - Preliminary Blood NEGATIVE TO DATE 09/06/24 12:52 Gram Stain - Final Sputum - Endotracheal Tube Aspirate Sputum Culture - Preliminary 09/06/24 14:40 Blood Culture - Preliminary Blood Staphylococcus species 09/06/24 13:04 Urine Culture - Preliminary Urine,Clean Catch A&P Assessment and plan (1) Grand mal seizure: Impression: 1. Grand mal seizure 09/07/2024 2. Reported recurrent episodes of intermittent twitches, assess for subclinical seizure activity, currently patient clinically display no obvious body twitching and there is no obvious involuntary eye movements or nystagmus to suggest current subclinical seizure activity 3. Aspiration pneumonia/sepsis 4. Anemia with decreased hemoglobin, hematocrit and platelet count Plan: 1. Agree with obtaining noncontrast head CT to assess for stroke and or hemorrhage 2. Agree with IV Versed drip 3. Agree with starting Keppra 1000 mg IV load x 1 dose followed by 500 mg IV every 12 hours starting 09/07/2024 4. Thiamine 100 mg IV daily first dose now 5. Monitor for any recurrent seizures 6. I will attempt to contact the fire sprinkler service technician who works part-time at [facility] neurology clinic to determine if she is available to perform a portable bedside EEG. If not and the patient does not display improvement in his mental status, will recommend patient be transferred to a facility with long-term continuous video surface EEG monitoring to observe and treat patient for subclinical status epilepticus as indicated 7. Seizure precautions per state law and hospital protocol PDMP PDMP Reviewed: Not Reviewed Consult Attestations Medical Necessity Statement: The patient was evaluated by neurology to assess for subclinical status epilepticus and patient with new onset seizures 09/07/2024 Coding Level of Care Code 20928 Diagnoses Grand mal seizure G40.409
[2024-09-07] MEDS: sodium chloride 0.9% 1,000 ML 75 ML IV (16:04)
[2024-09-07] MEDS: levETIRAcetam 1,000 MG/100 ML PREMIX 400 MG IV (16:09)
[2024-09-07] MEDS: lanolin oint 7 gm 1 APPLIC TOPICAL (16:26)
[2024-09-07] MEDS: enoxaparin 40 mg/0.4 mL Syringe SUBCUT (17:20)
[2024-09-07 17:57] LABS: Glucose Point of Care 161 mg/dL (70-110)
--- NOTE | 2024-09-07 18:38 | PC.NURSE ---
Transfer orders for [facility]y. 4E room 4319. Report#: [phone]. Accepted by Dr Linton plastic shaper. Nurse called [facility] for transport. Spoke to Derek in dispatch. [phone]. [facility] has no transport available at this time, but likely will within the hour. Derek will call us back at 1930 with an update.
--- NOTE | 2024-09-07 18:40 | USCV_ITS ---
Charles Garay Age: 64 Gender: M : 1960 Exam Date: 09/07/2024 13:01 Ordering Phys: Melva Correa MD Technologist: Hayes Diallo Exam Location: [facility] [place] Indication: respiratory failure BP: 99 / 70 HR: 103 Rhythm: Sinus Technical Quality: Adequate MEASUREMENTS (Male / Female) Normal Values 2D ECHO LV Diastolic Diameter PLAX 4.3 cm 4.2 - 5.9 / 3.9 - 5.3 cm IVS Diastolic Thickness 1.2 cm 0.6 - 1.0 / 0.6 - 0.9 cm IVS Systolic Thickness 1.1 cm LVPW Diastolic Thickness 1.5 cm 0.6 - 1.0 / 0.6 - 0.9 cm LVPW Systolic Thickness 1.8 cm LVOT Diameter 2.0 cm LV Ejection Fraction 2D Teich 69.1 % LV Ejection Fraction MOD 4C 86.0 % Aorta at Sinotubular Diameter 3.1 cm IVC Diameter 1.6 cm M-MODE LA Ao Ratio MM 1.4 AV Cusp Separation MM 1.5 cm DOPPLER AV Peak Velocity 142.0 cm/s LVOT Peak Velocity 109.0 cm/s AV Area Cont Eq vti 2.5 cm squared AV Area Cont Eq pk 2.5 cm squared MV Peak Velocity 124.0 cm/s MV Area PHT 11.1 cm squared Mitral E to A Ratio 0.8 TV Peak Velocity 322.0 cm/s TR Peak Velocity 329.0 cm/s TR Peak Gradient 43.3 mmHg TR Mean Velocity 263.0 cm/s TR Mean Gradient 29.5 mmHg TR Velocity Time Integral 73.5 cm PV Peak Velocity 110.3 cm/s RV Ejection Time 0.3 s FINDINGS Left Ventricle Normal left ventricular size, systolic function and wall thickness, with no regional wall motion abnormalities. Left ventricular ejection fraction is estimated at 55 %. Grade I/IV diastolic dysfunction (abnormal relaxation filling pattern), normal to mildly elevated filling pressures. Right Ventricle The right ventricle is normal in size and function. Right Atrium Normal right atrial size. Left Atrium The left atrium is normal in size. Mitral Valve Mildly thickened mitral valve. No mitral valve stenosis. Mild mitral valve regurgitation. Aortic Valve Structurally normal aortic valve without significant sclerosis or stenosis. There is no aortic regurgitation. Tricuspid Valve Structurally normal tricuspid valve without significant stenosis or regurgitation. Pulmonary artery systolic pressure is normal. Pulmonic Valve Structurally normal pulmonic valve without significant stenosis. There is no pulmonic regurgitation. Pericardium Posterior loculized pericardial effusion noted in front of RCA right ventricle and dilated Aorta Normal ascending aorta dimension. IVC The inferior vena cava appears normal. CONCLUSIONS Normal left ventricular size, systolic function and wall thickness, with no regional wall motion abnormalities. Left ventricular ejection fraction is estimated at 55 %. Grade I/IV diastolic dysfunction (abnormal relaxation filling pattern), normal to mildly elevated filling pressures. There is no pericardial effusion. No significant valve abnormalities. Right atrial pressure is around 5 mm of mercury. Sabino Martines MD (Electronically Signed) Final Date: 07 September 2024 18:52 S
--- NOTE | 2024-09-07 18:41 | PC.NURSE ---
Report called to nilda fry RN at [facility]. [phone]
--- NOTE | 2024-09-07 18:55 | P.DS_ITS ---
Discharge Providers Date of Admission: 09/06/24 16:11 Date of Discharge: September 07, 2024 Attending Provider at Admission: Melva Correa MD Attending Provider at Discharge: Melva Correa MD Primary Care Provider: Martin Mcfarland DO Diagnoses at Discharge Discharge Diagnosis (1) Grand mal seizure: Status: Acute (2) Respiratory failure requiring intubation: Status: Acute (3) Pneumonia: Status: Acute (4) Aspiration pneumonia: Status: Acute Qualifiers: Aspiration pneumonia type: unspecified Laterality: bilateral Lung location: unspecified part of lung Qualified Code(s): J69.0 - Pneumonitis due to inhalation of food and vomit (5) Septic shock: Status: Acute (6) COPD (chronic obstructive pulmonary disease): Status: Chronic Qualifiers: COPD type: unspecified COPD Qualified Code(s): J44.9 - Chronic obstructive pulmonary disease, unspecified Reason for Visit Reason for Visit: SOB Hospital Course Hospital Course In the [facility], Mr Charles Garay is a 64 year old male with past medical history of laryngeal cancer status post radiation, PEG tube in place who presented for further evaluation of worsening shortness of breath. Per ER report, he was in severe respiratory distress on arrival, on 15 L via nonrebreather, patient was subsequently intubated due to severe respiratory failure. Per his family members, patient has had worsening shortness of breath in the past few days with cough, sputum production. There were no reports of fever, chills, chest pain, abdominal pain, nausea, vomiting. ABG in the ER showed respiratory acidosis with hypercarbia, with some improvement after intubation. Patient also requiring Levophed for shock. Chest x-ray showed , left pleural effusion and opacities in the apex of the right lung, right greater than left pleural effusions. He was admitted for further evaluation and management. Acute hypoxic hypercarbic respiratory failure requiring intubation and mechanical ventilation was in the setting of pneumonia, COPD exacerbation. Patient received IV antibiotics, steroids and was stable on the ventilator. Chest CT was negative for pulmonary embolism. He required Levophed for shock which was weaned off prior to transfer. Hospital course was complicated by seizure episodes. CT head did not reveal any acute process. He was evaluated by neurology and started on Keppra. The decision was however made to transfer him to tertiary hospital for continuous EEG monitoring to evaluate for subclinical status. He was accepted at [facility]. Physical Exam Narrative: General -Sedated, intubated, mechanically ventilated, acutely ill-appearing, frail appearing HEENT-normocephalic, atraumatic, neck is supple, ETT in place Lungs-Diminished coarse breath sounds bilaterally, no wheezes or crackles CVS -Tachycardia, S1-S2, regular rate and rhythm Abdomen -soft, nontender, PEG tube in place, normal bowel sounds Extremities-mild ankle edema Neurology -sedated, no obvious gross focal deficits Urinary Catheter Management: Lopez: Cath Placed During This Visit: yes Reason for Continuing Indwelling Catheter: Accurate Measurement of Urinary Output in Critically Ill Patients Urinary Catheter Date of Insertion: 09/06/24 Discharge Data Studies Completed and Pending Completed Studies During Hospitalization Category Date Time Status CT angio chest PE protcl 90940 Routine Cat Scan 09/06/24 17:[address] head wo con* [id number] Stat Cat Scan 09/07/24 15:41 Completed XR chest 1V portable [id number] Routine Exams 09/07/24 09:02 Completed XR chest 1V portable [id number] Stat Exams 09/06/24 12:25 Completed XR chest 1V portable [id number] Stat Exams 09/06/24 15:53 Completed XR chest 1V portable [id number] Urgent Exams 09/07/24 10:06 Completed CV. echo complete* [id number] Routine Ultrasound 09/07/24 18:40 Completed Pending at discharge Category Date Time Status Arterial Blood Gas W/O Coox AM LABS Lab 09/08/24 04:00 Ordered Arterial Blood Gas W/O Coox AM LABS Lab 09/09/24 04:00 Ordered Basic Metabolic Panel AM LABS Lab 09/08/24 04:00 Ordered Basic Metabolic Panel AM LABS Lab 09/09/24 04:00 Ordered Blood Culture Stat Lab 09/06/24 14:40 Results Complete Blood Count w/Auto DAILY Lab 09/08/24 10:00 Ordered Complete Blood Count w/Auto DAILY Lab 09/09/24 10:00 Ordered MRSA PCR OZH (swab) Routine Lab 09/07/24 17:30 Received Sputum Culture Routine Lab 09/06/24 17:05 Ordered Sputum Culture and Gram Stain Routine Lab 09/06/24 12:52 Results Urine Culture Stat Lab 09/06/24 13:04 Results Radiology Impressions Chest CTA 09/06/24 17:00 IMPRESSION: 1. Widespread irregular ground-glass nodular airspace opacities in both lungs most likely representing nonspecific infectious changes. 2. Chronic collapse in the lower lobes. 3. Advanced centrilobular emphysema. 4. Negative for pulmonary embolism. 5. Chronic thoracic aorta aneurysm at the level of the coronary cusps is unchanged. COMMENTS: The presence of pulmonary emphysema on CT is an independent risk factor for lung cancer. In the absence of a history or active diagnosis of lung cancer, it is recommended that this patient with emphysema be evaluated for enrollment in a low dose CT lung cancer screening program. Chest X-Ray 09/07/24 10:06 IMPRESSION: No significant pneumothorax. Inadvertent overlook of previous recent CT scan. Bullous disease demonstrated on that examination explains the abnormalities on the chest x-ray involving the left chest. Head CT 09/07/24 15:41 IMPRESSION: 1. No acute intracranial head CT findings identified. 2. No significant interval changes in comparison with the prior study from 2021. 3. Atrophy/involutional changes of aging and mild components of chronic small-vessel disease. 4. Chronic bilateral exophthalmos question history of thyroid ophthalmopathy. Laboratory Results WBC 11.71 10^3/uL (3.29-11.43) H 09/07/24 10:00 RBC 2.50 10^6/uL (3.85-5.65) L 09/07/24 10:00 Hgb 7.50 g/dL (11.27-16.99) L 09/07/24 10:00 Hct 25.0 % (37-53) L 09/07/24 10:00 MCV 100.0 fl (82-101) 09/07/24 10:00 MCH 30.0 pg (27-33) 09/07/24 10:00 MCHC 30.0 g/dL (30-55) 09/07/24 10:00 RDW 15.0 % (12.1-15.1) 09/07/24 10:00 Plt Count 154 10^3/cmm (157-399) L 09/07/24 10:00 MPV 10.9 fL (7.4-10.4) H 09/07/24 10:00 Neut % (Auto) 92.1 % 09/07/24 10:00 Lymph % (Auto) 1.5 % 09/07/24 10:00 [place] % (Auto) 5.2 % 09/07/24 10:00 Eos % (Auto) 0.0 % 09/07/24 10:00 Baso % (Auto) 0.3 % 09/07/24 10:00 Neut # (Auto) 10.78 10^3/uL (1.8-7.7) H 09/07/24 10:00 Lymph # (Auto) 0.2 10^3/uL (0.8-4.8) L 09/07/24 10:00 [place] # (Auto) 0.6 10^3/uL (0.2-0.9) 09/07/24 10:00 Eos # (Auto) 0.0 10^3/uL (0.0-0.8) 09/07/24 10:00 Baso # (Auto) 0.0 10^3/uL (0.0-0.1) 09/07/24 10:00 Nucleated RBC % (auto) 0 % 09/07/24 10:00 Total Counted 100 (0-100) 09/06/24 12:42 Atypical Lymphs % 2.0 % (0-5) 09/06/24 12:42 Absolute Neutrophils 7.9 10^3/cmm (1.4-6.5) H 09/06/24 12:42 Segmented Neutrophils 18 % 09/06/24 12:42 Band Neutrophils 59.0 % 09/06/24 12:42 Absolute Lymphocytes 1.1 10^3/cmm (1.2-3.4) L 09/06/24 12:42 Lymphocytes (Manual) 9 % 09/06/24 12:42 Monocytes (Manual) 5.0 % 09/06/24 12:42 Absolute Monocytes 0.5 10^3/cmm (0.1-0.6) 09/06/24 12:42 Eosinophils (Manual) 0 % 09/06/24 12:42 Absolute Eosinophils 0.0 10^3/cmm (0.0-0.7) 09/06/24 12:42 Basophils (Manual) 0.0 % 09/06/24 12:42 Absolute Basophils 0.0 10^3/cmm (0.0-0.2) 09/06/24 12:42 Metamyelocytes 7.0 % 09/06/24 12:42 Nucleated RBCs # 0.0 /100WBC 09/07/24 10:00 Platelet Estimate Normal (Normal) 09/06/24 12:42 Macrocytosis 1+ H 09/06/24 12:42 Specimen Type Arterial 09/07/24 15:05 Sample Site Radial, left 09/07/24 15:05 ABG pH 7.39 (7.35-7.45) 09/07/24 15:05 ABG pCO2 57.6 mmHg (35-45) H 09/07/24 15:05 ABG pO2 90.0 mmHg (80.0-100.0) 09/07/24 15:05 ABG PO2/FiO2 Ratio 225 09/07/24 15:05 ABG HCO3 34.5 mmol/L (22-26) H 09/07/24 15:05 ABG O2 Saturation 98.1 09/07/24 15:05 ABG Base Excess 8.2 mmol/L (-2.0-2.0) H 09/07/24 15:05 [place] Test Pos 09/07/24 15:05 A-a O2 Gradient 16.0 mmHg (5-10) H 09/07/24 15:05 Hematocrit 27.0 % (42-52) L 09/07/24 15:05 Hgb O2 Saturation 95.7 % (95-100) 09/07/24 15:05 Carboxyhemoglobin 1.3 %THgb (0.4-20.1) 09/07/24 15:05 Methemoglobin 1.1 % (0.4-1.5) 09/07/24 15:05 Total Hemoglobin 8.8 g/dL (14-18) L 09/07/24 15:05 Sodium 145.0 mmol/L (131-143) H 09/07/24 15:05 Potassium 3.9 mmol/L (3.5-5.0) 09/07/24 15:05 Glucose 135.0 mg/dL (70-115) H 09/07/24 15:05 Ionized Calcium 1.2 mmol/L (1.1-1.4) 09/07/24 15:05 O2 Delivery Device Vent 09/07/24 15:05 O2 Liters/Min 15.0 % 09/06/24 12:12 FiO2 40.0 % 09/07/24 15:05 Tidal Volume 0.53 09/07/24 15:05 PEEP 8.0 cmH20 09/07/24 15:05 Nail Machine Operator ID Gd 09/07/24 15:05 Sodium 140 mmol/L (136-145) 09/07/24 03:40 Potassium 4.1 mmol/L (3.5-5.1) 09/07/24 03:40 Chloride 99 mmol/L (98-107) 09/07/24 03:40 Carbon Dioxide 31 mmol/L (22-29) H 09/07/24 03:40 Anion Gap 14.1 (5-19) 09/07/24 03:40 BUN 25 mg/dL (8-23) H 09/07/24 03:40 Creatinine 0.8 mg/dL (0.7-1.2) 09/07/24 03:40 GFR Calculation 97.0 mL/min (90-130) 09/07/24 03:40 Glucose 165 mg/dL (65-115) H 09/07/24 03:40 POC Glucose 161 mg/dL (70-110) H 09/07/24 17:27 Calculated Osmolality 298 mOsm/kg (285-295) H 09/07/24 03:40 Lactic Acid 1.6 mmol/L (0.5-2.2) 09/06/24 12:42 Calcium 8.5 mg/dL (8.5-10.5) 09/07/24 03:40 Total Bilirubin 0.2 mg/dL (0.15-1.2) 09/06/24 12:42 AST 32 U/L (0-40) 09/06/24 12:42 ALT 24 U/L (0-41) 09/06/24 12:42 Alkaline Phosphatase 89 U/L (40-130) 09/06/24 12:42 Troponin T Baseline 33 ng/L (0-15) H 09/06/24 12:42 Troponin T 120 Minute 39.95 ng/L (0-15) H 09/06/24 14:40 Delta Troponin T 6.95 ABS# (0-10) 09/06/24 14:40 Troponin T Hi Sens 6Hr 51.37 ng/L (0-15) H 09/06/24 18:40 Troponin T Hi Sens 6Hr Delta 18.37 ng/L (0-12) H* 09/06/24 18:40 NT-Pro-B Natriuret Pep 2352 pg/mL (0-125) H 09/06/24 14:40 Total Protein 7.3 g/dL (6.6-8.7) 09/06/24 12:42 Albumin 3.6 g/dL (3.5-5.2) 09/06/24 12:42 Globulin 3.7 g/dL (1.3-4.6) 09/06/24 12:42 Urine Color Yellow (Yellow) 09/06/24 13:04 Urine Appearance Cloudy (CLEAR) A 09/06/24 13:04 Urine pH 6.0 (5-7) 09/06/24 13:04 Ur Specific [place] 1.022 (1.005-1.030) 09/06/24 13:04 Urine Protein 3+ (Negative) A 09/06/24 13:04 Urine Glucose (UA) Negative (Normal) 09/06/24 13:04 Urine Ketones Negative (Negative) 09/06/24 13:04 Urine Blood 2+ (Negative) A 09/06/24 13:04 Urine Nitrate Negative (Negative) 09/06/24 13:04 Urine Bilirubin Negative (Negative) 09/06/24 13:04 Urine Urobilinogen 1.0 mg/dL (Negative) 09/06/24 13:04 Ur Leukocyte Esterase Negative (Negative) 09/06/24 13:04 Urine RBC 21-50 /hpf (0-2) H 09/06/24 13:04 Urine WBC 0-5 /hpf (0-5) 09/06/24 13:04 Ur Squamous Epith Cells 0-5 /hpf (0-5) 09/06/24 13:04 Amorphous Sediment Not Reportable 09/06/24 13:04 Urine Bacteria None seen /hpf (NONE) 09/06/24 13:04 Hyaline Casts 59.16 /lpf 09/06/24 13:04 Fine Granular Casts 5-10 /lpf H 09/06/24 13:04 Nasal MRSA (PCR) Not detected (Negative) 09/06/24 18:50 Influenza A (PCR) Negative (Negative) 09/06/24 18:50 Influenza Type B (PCR) Negative (Negative) 09/06/24 18:50 RSV (PCR) Negative (Negative) 09/06/24 18:50 SARS-CoV-2 (PCR) Negative (Negative) 09/06/24 18:50 Vitals Last Vital Signs Temp 98.7 F 09/07/24 13:00 Pulse 104 H 09/07/24 16:15 Resp 14 09/07/24 17:44 BP 102/66 09/07/24 16:15 Pulse Ox 93 09/07/24 17:44 O2 Del Method Mechanical Ventilation 09/07/24 15:29 O2 Flow Rate 45 09/07/24 02:15 FiO2 40 09/07/24 17:44 Discharge Plan Discharge Patient Disposition: Home Condition: Stable Prescriptions: Continued ondansetron 4 mg tablet,disintegrating 4 mg PO QID PRN (Reason: Nausea And Vomiting) Discharge Orders: Transfer Out of Facility (Order); Ordered 09/07/24 Ordered By: Melva Correa Referrals: Martin Mcfarland DO [Primary Care Provider, Internal Medicine] Patient Instructions: Opioid Safety Discharge Attestations Time Spent in Discharge Care*: greater than 30 min Status at Discharge: Cognitive status at discharge: cognitively intact , Behavioral status at discharge: cooperative , Quality Metrics Clinical Quality Measures [ No reported AMI, CVA or VTE this stay] Coding Level of Care Code Acute Code for Chg Fwd Diagnoses Grand mal seizure G40.409 Respiratory failure requiring intubation J96.90 Pneumonia J18.9 Aspiration pneumonia of both lungs, unspecified aspiration pneumonia type, unspecified part of lung J69.0 Aspiration pneumonia type: unspecified Laterality: bilateral Lung location: unspecified part of lung Septic shock A41.9; R65.21 Chronic obstructive pulmonary disease, unspecified COPD type J44.9 COPD type: unspecified COPD
[2024-09-07 18:57] LABS: MRSA PCR OZH (swab) NOT DETECTED (Negative)
--- NOTE | 2024-09-07 18:57 | PC.NURSE ---
Derek from [facility] ambulance called back. No ambulances are available at this and will likely me multiple hours before they are available. Dr Correa to send this patient by air ambulance. Nurse called [facility] at [phone] and spoke to yaima. [facility] is doing a weather check. 10 minute ete if accepts
[2024-09-07] MEDS: thiamine 100 mg/mL 2mL SDV IVP (19:08)
== END 2024-09-07 20:55 | disposition other institution (70) | DRG 871 ==
LOC: ER 15:04 → ICU 16:11
PROVIDERS: Admitting Provider Student in an Organized Health Care Education/Training Program; Emergency Provider Family Medicine; PCP Internal Medicine; Visit Provider Student in an Organized Health Care Education/Training Program
DX: A41.9 Sepsis, unspecified organism (principal); J18.9 Pneumonia, unspecified organism; J69.0 Pneumonitis due to inhalation of food and vomit; R65.21 Severe sepsis with septic shock; J96.02 Acute respiratory failure with hypercapnia; J96.01 Acute respiratory failure with hypoxia; J44.1 Chronic obstructive pulmonary disease with (acute) exacerbation; E87.29 Other acidosis; G40.409 Other generalized epilepsy and epileptic syndromes, not intractable, without status epilepticus; Z93.1 Gastrostomy status; Z85.21 Personal history of malignant neoplasm of larynx; Z87.891 Personal history of nicotine dependence; Z11.52 Encounter for screening for COVID-19
CPT/HCPCS: 36415; 36416; 36592; 36600; 51702; 70450; 71045; 71275; 80048; 80051; 80053; 81001; 82330; 82803; 82805; 82962; 83605; 83880; 84484; 85007; 85025; 87040; 87070; 87077; 87086; 87150; 87186; 87205; 87637; 93005; 93306; 94002; 94003; 94640; 94799; 96365; 96366; 96367; 96372; 96375; 96376; 99291; 99292; J0330; J1100; J1650; J1953; J2250; J2543; J2765; J2919; J3010; J3370; J3411; J3490; J7030; J7613; J7626; J9999; P9046

== ENCOUNTER 2025-01-24 13:36 | Outpatient (CLI) | payer MEDICARE, SELFPAY ==
[2025-01-24 14:16] VITALS: PULSE 94; RESP 20; O2SAT 92
== END 2025-01-24 13:37 | disposition home or self-care (01) ==
LOC: RT 13:46
PROVIDERS: PCP Electrodiagnostic Medicine; Visit Provider Electrodiagnostic Medicine
DX: J44.9 Chronic obstructive pulmonary disease, unspecified (principal); J98.8 Other specified respiratory disorders
CPT/HCPCS: 94060; 94726; 94729; J7613